=== PATIENT | female | born 1940 | race Caucasian/White ===

== ENCOUNTER → 2018-06-02 14:12 | Outpatient (CLI) | payer MEDICARE, BC, SELFPAY | PROVIDERS: PCP Nurse Practitioner Family; Visit Provider Nurse Practitioner Family | DX: M81.0 Age-related osteoporosis without current pathological fracture (principal); Z78.0 Asymptomatic menopausal state; Z85.3 Personal history of malignant neoplasm of breast; E07.9 Disorder of thyroid, unspecified | CPT/HCPCS: 77080 ==

== ENCOUNTER 2018-10-05 11:45 | Outpatient (RCR) | payer MEDICARE, BC, SELFPAY ==
--- NOTE | 2018-07-08 15:42 | PT.OIE ---
Current Diagnoses Pain in right knee (07/08/18) Pain in left knee (07/08/18) Difficulty in walking, not elsewhere classified (07/08/18) Weakness (07/08/18) Past Medical History (Last Updated 07/08/18 @ 15:42 by Dianelys Walter, PT) Breast cancer (Acute) Hypothyroidism (Acute) Left knee pain (Acute) Osteoarthritis (Acute) Osteopenia (Acute) Right knee pain (Acute) Provider Visit Care Team Role Provider Type DILEEP [place] Attending Provider Non-Staff Primary Care Provider Specialty: Medical Address: [address] [place] [address], [id number] Email: Physical Therapy Initial Evaluation PT-OP-A Visit Information Start: 07/07/18 17:02 Freq: Status: Active Protocol: Document 07/08/18 13:43 [facility] (Rec: 07/08/18 15:37 [facility] [id number]) Out-Patient Physical Therapy Visit Information Visit Information Visit Type Initial Evaluation Visit Start Time 13:50 Visit Stop Time 14:45 Total Visit Minutes 55 Visit Number 1 Number of INSTRUCTION DEAN Visits 0 PT-OP-B Current Condition Start: 07/07/18 17:02 Freq: Status: Active Protocol: Document 07/08/18 13:43 [facility] (Rec: 07/08/18 15:37 [facility] [id number]) Current Condition History of Current Condition Onset Date 09/30/15 Current Complaints B knee pain with R knee buckling d/t sharp pain History of Current Condition Pt started having R knee pain in 09/30/15 with buckling happening about 1-2x/month for the past 2.5 years most months. Pt reports it is a sharp pain causing her LLE to give out. Reports she tried PT 2x with little help. Reports L knee pain started in Nov and she has noticed recently her walking is impaired. Reports she has felt like she is weaker recently & is unable to do as much as she used to. It is the first year I have felt my age. Reports hx of 2 wishlash injuries in 70s nerve pain down RUE that improved with chiro and appy & tonsilectomy. Pt has breast CA that was caught at an early stage and has been cancer free since radiation in 2005. Prior Treatments and Tests 2 bouts of PT with no major change; recent L knee cortizone injection with some help; Xray L: severe OA jake medially; R xray & MRI; Moderate degeneration, mostly medially with bakers cyst & medial meniscus tearing Treatment Goals Patient/Caregiver Goals To know daily exercises to strength knees. PT-OP-C Subjective Start: 07/07/18 17:02 Freq: Status: Active Protocol: Document 07/08/18 13:43 [facility] (Rec: 07/08/18 15:37 [facility] [id number]) Patient Questionnaires Lower Extremity Functional Scale LEFS Score 45 LEFS Impairment 40 to 59% Impaired (Score 32- 47) OP-PT Pain Assessment Location Right Knee Pain Location Details all over & lat for sharp pains Intensity 1 Scale Used Numeric (1 - 10) Description- Other Sharp pains up to 10/10 causing knee to give out occasionally Frequency Intermittent Pain Duration most of the time the shooting pains only last about 30 secs Pain Aggravating Factors Changing Position Walking Stair Climbing Other Pain Aggravating Factors twisting (possibly) Other Pain Alleviating Factors arnica & ibu Left Knee Pain Location Details all over Intensity 3 Scale Used Numeric (1 - 10) Frequency Frequent Pain Aggravating Factors Changing Position Walking Stair Climbing Other Pain Aggravating Factors kneeling Other Pain Alleviating Factors arnica, ibuprofin PT-OP-F Manual Assessment Start: 07/07/18 17:02 Freq: Status: Active Protocol: Document 07/08/18 13:43 [facility] (Rec: 07/08/18 14:59 [facility] [id number]) Manual Assessments Soft Tissue Assessment Soft Tissue Mobility Assessment L:med joint line, tibial tub R: ant tib & inc fascial tension Joint Mobility Assessment Joint Mobility Assessment B ER of tibia & femur PT-OP-G Mobility & Gait Start: 07/07/18 17:02 Freq: Status: Active Protocol: Document 07/08/18 13:43 [facility] (Rec: 07/08/18 14:59 [facility] [id number]) OP Gait Assessment Comments Gait Comments Dec post depression & ant elevation B; L lat lean & dec LLE stance time, PT-OP-J Posture/Palpation/Skin Start: 07/07/18 17:02 Freq: Status: Active Protocol: Document 07/08/18 13:43 [facility] (Rec: 07/08/18 14:59 [facility] [id number]) Posture Evaluation Comments Posture Comments Significant Genu varum: in c wearing of heel on R shoe & forefoot/midfoot L shoe PT-OP-K Range of Motion Start: 07/07/18 17:02 Freq: Status: Active Protocol: Document 07/08/18 13:43 [facility] (Rec: 07/08/18 14:59 [facility] [id number]) Knee Goniometric Range of Motion Knee Measured in Degrees Right Patient Position Supine Flexion Active (degrees) 134 Extension Active (degrees) 8 Left Patient Position Supine Flexion Active (degrees) 112 Extension Active (degrees) 12 PT-OP-L Special Tests Start: 07/07/18 17:02 Freq: Status: Active Protocol: Document 07/08/18 13:43 [facility] (Rec: 07/08/18 14:59 [facility] [id number]) Special Tests Lumbar Spine Special Tests Slump Test Results neg Knee Special Tests Posterior Draw Test Results neg B Varus- 25 Degrees Test Results neg B Valgus- 25 Degrees Test Results neg Thessaly Test 5 Degrees Test Results neg B Norman's Test Results L postive Apley's Compression Test Results neg B Bazan Chondromalacia Test Results neg PT-OP-M Strength Start: 07/07/18 17:02 Freq: Status: Active Protocol: Document 07/08/18 13:43 [facility] (Rec: 07/08/18 14:59 [facility] [id number]) Hip Strength Hip Manual Muscle Testing Right Flexion (L2) 4 Good Extension (S1) 4- Good- Abduction 4 Good External Rotation 4- Good- Internal Rotation 5 Normal Left Flexion (L2) 4 Good Extension (S1) 4- Good- Abduction 4 Good Adduction 4- Good- External Rotation 4- Good- Internal Rotation 3+ Fair+ Comments pain w/rotations Knee Strength Knee Manual Muscle Testing Right Flexion (S2) 4+ Good+ Extension (L3) 4 Good Left Flexion (S2) 4+ Good+ Extension (L3) 4- Good- Ankle/Foot Strength Ankle and Foot Manual Muscle Testing Right Dorsiflexion (L4) 5 Normal Plantarflexion (S1) 5 Normal Left Dorsiflexion (L4) 5 Normal Plantarflexion (S1) 5 Normal Comments seated B PT-OP-Q Treatments Start: 07/07/18 17:02 Freq: Status: Active Protocol: Document 07/08/18 13:43 [facility] (Rec: 07/08/18 14:59 [facility] [id number]) Therapeutic Exercises Supine Exercises 1 Supine Exercise Name bridge with march Side bilateral Reps/Minutes 10 Sidelying Exercises 1 Sidelying Exercise Name abd Side bilateral PT-OP-T Assessment and Plan Start: 07/07/18 17:02 Freq: Status: Active Protocol: Document 07/08/18 13:43 [facility] (Rec: 07/08/18 15:37 [facility] [id number]) Physical Therapy Assessment Rehab Potential Rehabilitation Potential Good Evaluation Complexity Number of Personal Factors/Comorbidities 1-2 Number of Body Systems Impaired 4 or More Clinical Presentation at Evaluation Evolving Impairments Impairments Activity Tolerance Balance Gait Pain Posture ROM Soft Tissue Mobility Strength Goals Three Impairment LEFS Skilled Nursing Goal (LTG) 60/80 to show improvement in functional ability LTG Duration 09/07/18 Two Impairment strength Short Term Goal (STG) Pt will be indep with HEP & gym program. STG Duration 08/07/18 Insole Tape Stitcher Uco Goal (LTG) Pt will have 5/5 LE strength allowing greater ease with daily tasks. LTG Duration 09/07/18 One Impairment pain Skilled Nursing Goal (LTG) Pt will report no giving out of her knee for 6 weeks and report overall no greater than 2/10 pain. LTG Duration 09/07/18 Assessment Summary Assessment Pt presents with B OA, R med meniscus tear per MRI & possible L ACL laxity per examination. Findings are consistent with the medial degneration found in imaging. Physical Therapy Plan Frequency and Duration Frequency of Treatment 2x/Week Duration of Treatment 2 months Plan of Care Start Date 07/08/18 Plan of Care End Date 09/07/18 Therapeutic Interventions Therapeutic Interventions Aquatic Therapy Balance Training Gait Training Home Exercise Program Joint Mobilizations Manual Therapy Neuromuscular Re-education Soft Tissue Mobilization Taping Therapeutic Activities Therapeutic Exercises Modalities Cold Pack/Ice Massage Electric Stimulation Hot Packs Infrared Therapy Iontophoresis Ultrasound Next Visit Focus/Plan Next Note Type Treatment Note Next Visit Plan scissor exercise, Nustep, leg press, hip abd, squats, patellar mobs, taping?
--- NOTE | 2018-07-08 15:42 | PT.OPPOC ---
Current Diagnoses Pain in right knee (07/08/18) Pain in left knee (07/08/18) Difficulty in walking, not elsewhere classified (07/08/18) Weakness (07/08/18) Provider Visit Care Team Role Provider Type DILEEP [place] Attending Provider Non-Staff Primary Care Provider Specialty: Medical Address: [address] [place] [address], [id number] Email: Plan Of Care PT-OP-T Assessment and Plan Start: 07/07/18 17:02 Freq: Status: Active Protocol: Document 07/08/18 13:43 [facility] (Rec: 07/08/18 15:37 [facility] [id number]) Physical Therapy Assessment Rehab Potential Rehabilitation Potential Good Evaluation Complexity Number of Personal Factors/Comorbidities 1-2 Number of Body Systems Impaired 4 or More Clinical Presentation at Evaluation Evolving Impairments Impairments Activity Tolerance Balance Gait Pain Posture ROM Soft Tissue Mobility Strength Goals Three Impairment LEFS Alf Goal (LTG) 60/80 to show improvement in functional ability LTG Duration 09/07/18 Two Impairment strength Short Term Goal (STG) Pt will be indep with HEP & gym program. STG Duration 08/07/18 Alf Goal (LTG) Pt will have 5/5 LE strength allowing greater ease with daily tasks. LTG Duration 09/07/18 One Impairment pain Receivable Manager Goal (LTG) Pt will report no giving out of her knee for 6 weeks and report overall no greater than 2/10 pain. LTG Duration 09/07/18 Assessment Summary Assessment Pt presents with B OA, R med meniscus tear per MRI & possible L ACL laxity per examination. Findings are consistent with the medial degneration found in imaging. Physical Therapy Plan Frequency and Duration Frequency of Treatment 2x/Week Duration of Treatment 2 months Plan of Care Start Date 07/08/18 Plan of Care End Date 09/07/18 Therapeutic Interventions Therapeutic Interventions Aquatic Therapy Balance Training Gait Training Home Exercise Program Joint Mobilizations Manual Therapy Neuromuscular Re-education Soft Tissue Mobilization Taping Therapeutic Activities Therapeutic Exercises Modalities Cold Pack/Ice Massage Electric Stimulation Hot Packs Infrared Therapy Iontophoresis Ultrasound Next Visit Focus/Plan Next Note Type Treatment Note Next Visit Plan scissor exercise, Nustep, leg press, hip abd, squats, patellar mobs, taping? Plan of Care Dates Plan of Care Start Date 07/08/18 Plan of Care End Date 09/07/18 Please Sign and Return: I have reviewed this Plan of Care and certify that the skilled therapy services above are required to meet the patient?s needs. Physician Signature Date Printed Name and Credentials Clinical Instructor Signature Printed Name and Credentials
--- NOTE | 2018-07-11 15:09 | PT.OTN ---
Current Diagnoses Pain in left knee (07/11/18) Physical Therapy Treatment Note PT-OP-A Visit Information Start: 07/07/18 17:02 Freq: Status: Active Protocol: Document 07/11/18 13:46 [facility] (Rec: 07/11/18 15:09 [facility] [id number]) Out-Patient Physical Therapy Visit Information Visit Information Visit Type Treatment Note Visit Note 2 total Visit Start Time 13:45 Visit Stop Time 14:35 Total Visit Minutes 50 Visit Number 2/10 Number of BOARD OF DIRECTORS Visits 0 PT-OP-B Current Condition Start: 07/07/18 17:02 Freq: Status: Active Protocol: Document 07/08/18 13:43 [facility] (Rec: 07/08/18 15:37 [facility] [id number]) Current Condition History of Current Condition Onset Date 09/30/15 Current Complaints B knee pain with R knee buckling d/t sharp pain History of Current Condition Pt started having R knee pain in 09/30/15 with buckling happening about 1-2x/month for the past 2.5 years most months. Pt reports it is a sharp pain causing her LLE to give out. Reports she tried PT 2x with little help. Reports L knee pain started in Nov and she has noticed recently her walking is impaired. Reports she has felt like she is weaker recently & is unable to do as much as she used to. It is the first year I have felt my age. Reports hx of 2 wishlash injuries in 70s nerve pain down RUE that improved with chiro and appy & tonsilectomy. Pt has breast CA that was caught at an early stage and has been cancer free since radiation in 2005. Prior Treatments and Tests 2 bouts of PT with no major change; recent L knee cortizone injection with some help; Xray L: severe OA jake medially; R xray & MRI; Moderate degeneration, mostly medially with bakers cyst & medial meniscus tearing Treatment Goals Patient/Caregiver Goals To know daily exercises to strength knees. PT-OP-C Subjective Start: 07/07/18 17:02 Freq: Status: Active Protocol: Document 07/11/18 13:46 [facility] (Rec: 07/11/18 15:09 [facility] [id number]) OP-PT Subjective Patient Comments Patient Comments Reports she has been very tired for the past couple days . PT-OP-F Manual Assessment Start: 07/07/18 17:02 Freq: Status: Active Protocol: Document 07/08/18 13:43 [facility] (Rec: 07/08/18 14:59 [facility] [id number]) Manual Assessments Soft Tissue Assessment Soft Tissue Mobility Assessment L:med joint line, tibial tub R: ant tib & inc fascial tension Joint Mobility Assessment Joint Mobility Assessment B ER of tibia & femur PT-OP-G Mobility & Gait Start: 07/07/18 17:02 Freq: Status: Active Protocol: Document 07/08/18 13:43 [facility] (Rec: 07/08/18 14:59 [facility] [id number]) OP Gait Assessment Comments Gait Comments Dec post depression & ant elevation B; L lat lean & dec LLE stance time, PT-OP-J Posture/Palpation/Skin Start: 07/07/18 17:02 Freq: Status: Active Protocol: Document 07/08/18 13:43 [facility] (Rec: 07/08/18 14:59 [facility] [id number]) Posture Evaluation Comments Posture Comments Significant Genu varum: in c wearing of heel on R shoe & forefoot/midfoot L shoe PT-OP-K Range of Motion Start: 07/07/18 17:02 Freq: Status: Active Protocol: Document 07/08/18 13:43 [facility] (Rec: 07/08/18 14:59 [facility] [id number]) Knee Goniometric Range of Motion Knee Measured in Degrees Right Patient Position Supine Flexion Active (degrees) 134 Extension Active (degrees) 8 Left Patient Position Supine Flexion Active (degrees) 112 Extension Active (degrees) 12 PT-OP-L Special Tests Start: 07/07/18 17:02 Freq: Status: Active Protocol: Document 07/08/18 13:43 [facility] (Rec: 07/08/18 14:59 [facility] [id number]) Special Tests Lumbar Spine Special Tests Slump Test Results neg Knee Special Tests Posterior Draw Test Results neg B Varus- 25 Degrees Test Results neg B Valgus- 25 Degrees Test Results neg Thessaly Test 5 Degrees Test Results neg B Norman's Test Results L postive Apley's Compression Test Results neg B Bazan Chondromalacia Test Results neg PT-OP-M Strength Start: 07/07/18 17:02 Freq: Status: Active Protocol: Document 07/08/18 13:43 [facility] (Rec: 07/08/18 14:59 [facility] [id number]) Hip Strength Hip Manual Muscle Testing Right Flexion (L2) 4 Good Extension (S1) 4- Good- Abduction 4 Good External Rotation 4- Good- Internal Rotation 5 Normal Left Flexion (L2) 4 Good Extension (S1) 4- Good- Abduction 4 Good Adduction 4- Good- External Rotation 4- Good- Internal Rotation 3+ Fair+ Comments pain w/rotations Knee Strength Knee Manual Muscle Testing Right Flexion (S2) 4+ Good+ Extension (L3) 4 Good Left Flexion (S2) 4+ Good+ Extension (L3) 4- Good- Ankle/Foot Strength Ankle and Foot Manual Muscle Testing Right Dorsiflexion (L4) 5 Normal Plantarflexion (S1) 5 Normal Left Dorsiflexion (L4) 5 Normal Plantarflexion (S1) 5 Normal Comments seated B PT-OP-Q Treatments Start: 07/07/18 17:02 Freq: Status: Active Protocol: Document 07/11/18 13:46 [facility] (Rec: 07/11/18 15:09 [facility] [id number]) Cardio Equipment Recumbent Stepper (Sci-Fit) Duration (Minutes) 6 Resistance 1-3 Seat Position 10 Gym Equipment Cable Column (Body Solid) Hip Adduction Resistance 3 Reps/Time 30 Hip Abduction Resistance 3 Reps/Time 30 Shuttle Recovery Bilateral Squats Resistance 100 Shuttle Recovery Platform Stable Reps/Time 30 Therapeutic Exercises Supine Exercises 1 Supine Exercise Name bridge with march Side bilateral Reps/Minutes 5 Sidelying Exercises 1 Sidelying Exercise Name abd Side bilateral Reps/Minutes 10 Manual Therapy Treatment Soft Tissue Mobilization 1 Body Location HS L Mobilization Type Rolling Intensity/Depth Moderate Joint Mobilizations 1 Joint patellar Direction sup, inf, med Taping 1 Body Location quad Y and Y for med glide Type of Tape KT PT-OP-R Modalities Start: 07/07/18 17:02 Freq: Status: Active Protocol: Document 07/11/18 13:46 [facility] (Rec: 07/11/18 15:09 [facility] [id number]) Hot Pack/Cold Pack Treatment Cold Pack Location B knees Patient Position Hooklying Treatment Duration (minutes) 10 PT-OP-T Assessment and Plan Start: 07/07/18 17:02 Freq: Status: Active Protocol: Document 07/11/18 13:46 [facility] (Rec: 07/11/18 15:09 [facility] [id number]) Physical Therapy Assessment Goals Three Impairment LEFS Senior Care Goal (LTG) 60/80 to show improvement in functional ability LTG Duration 09/07/18 Two Impairment strength Short Term Goal (STG) Pt will be indep with HEP & gym program. STG Duration 08/07/18 Senior Care Goal (LTG) Pt will have 5/5 LE strength allowing greater ease with daily tasks. LTG Duration 09/07/18 One Impairment pain Senior Care Goal (LTG) Pt will report no giving out of her knee for 6 weeks and report overall no greater than 2/10 pain. LTG Duration 09/07/18 Assessment Summary Assessment Pt required cueing for neutral pelvis with exercises. Able to tolerate icing today. Pt able to do all machines without knee pain and given exercise log for gym. Physical Therapy Plan Frequency and Duration Frequency of Treatment 2x/Week Duration of Treatment 2 months Plan of Care Start Date 07/08/18 Plan of Care End Date 09/07/18 Next Visit Focus/Plan Next Note Type Treatment Note Next Visit Plan cont to progress LE & core ( squats, scissors, cont to work on joint mobs).
--- NOTE | 2018-07-14 15:19 | PT.OTN ---
Current Diagnoses Pain in left knee (07/14/18) Physical Therapy Treatment Note PT-OP-A Visit Information Start: 07/07/18 17:02 Freq: Status: Active Protocol: Document 07/14/18 13:49 [facility] (Rec: 07/14/18 15:19 [facility] [id number]) Out-Patient Physical Therapy Visit Information Visit Information Visit Type Treatment Note Visit Note 3 total Visit Start Time 13:45 Visit Stop Time 14:35 Total Visit Minutes 50 Visit Number 3/10 Number of FINANCIAL COUNSELOR Visits 0 PT-OP-B Current Condition Start: 07/07/18 17:02 Freq: Status: Active Protocol: Document 07/08/18 13:43 [facility] (Rec: 07/08/18 15:37 [facility] [id number]) Current Condition History of Current Condition Onset Date 09/30/15 Current Complaints B knee pain with R knee buckling d/t sharp pain History of Current Condition Pt started having R knee pain in 09/30/15 with buckling happening about 1-2x/month for the past 2.5 years most months. Pt reports it is a sharp pain causing her LLE to give out. Reports she tried PT 2x with little help. Reports L knee pain started in Nov and she has noticed recently her walking is impaired. Reports she has felt like she is weaker recently & is unable to do as much as she used to. It is the first year I have felt my age. Reports hx of 2 wishlash injuries in 70s nerve pain down RUE that improved with chiro and appy & tonsilectomy. Pt has breast CA that was caught at an early stage and has been cancer free since radiation in 2005. Prior Treatments and Tests 2 bouts of PT with no major change; recent L knee cortizone injection with some help; Xray L: severe OA jake medially; R xray & MRI; Moderate degeneration, mostly medially with bakers cyst & medial meniscus tearing Treatment Goals Patient/Caregiver Goals To know daily exercises to strength knees. PT-OP-C Subjective Start: 07/07/18 17:02 Freq: Status: Active Protocol: Document 07/14/18 13:49 [facility] (Rec: 07/14/18 15:19 [facility] [id number]) OP-PT Subjective Patient Comments Patient Comments Reports she hiked [place] and has been wiped out since. Reports tape helped a lot. PT-OP-F Manual Assessment Start: 07/07/18 17:02 Freq: Status: Active Protocol: Document 07/08/18 13:43 [facility] (Rec: 07/08/18 14:59 [facility] [id number]) Manual Assessments Soft Tissue Assessment Soft Tissue Mobility Assessment L:med joint line, tibial tub R: ant tib & inc fascial tension Joint Mobility Assessment Joint Mobility Assessment B ER of tibia & femur PT-OP-G Mobility & Gait Start: 07/07/18 17:02 Freq: Status: Active Protocol: Document 07/08/18 13:43 [facility] (Rec: 07/08/18 14:59 [facility] [id number]) OP Gait Assessment Comments Gait Comments Dec post depression & ant elevation B; L lat lean & dec LLE stance time, PT-OP-J Posture/Palpation/Skin Start: 07/07/18 17:02 Freq: Status: Active Protocol: Document 07/08/18 13:43 [facility] (Rec: 07/08/18 14:59 [facility] [id number]) Posture Evaluation Comments Posture Comments Significant Genu varum: in c wearing of heel on R shoe & forefoot/midfoot L shoe PT-OP-K Range of Motion Start: 07/07/18 17:02 Freq: Status: Active Protocol: Document 07/08/18 13:43 [facility] (Rec: 07/08/18 14:59 [facility] [id number]) Knee Goniometric Range of Motion Knee Measured in Degrees Right Patient Position Supine Flexion Active (degrees) 134 Extension Active (degrees) 8 Left Patient Position Supine Flexion Active (degrees) 112 Extension Active (degrees) 12 PT-OP-L Special Tests Start: 07/07/18 17:02 Freq: Status: Active Protocol: Document 07/08/18 13:43 [facility] (Rec: 07/08/18 14:59 [facility] [id number]) Special Tests Lumbar Spine Special Tests Slump Test Results neg Knee Special Tests Posterior Draw Test Results neg B Varus- 25 Degrees Test Results neg B Valgus- 25 Degrees Test Results neg Thessaly Test 5 Degrees Test Results neg B Norman's Test Results L postive Apley's Compression Test Results neg B Bazan Chondromalacia Test Results neg PT-OP-M Strength Start: 07/07/18 17:02 Freq: Status: Active Protocol: Document 07/08/18 13:43 [facility] (Rec: 07/08/18 14:59 [facility] [id number]) Hip Strength Hip Manual Muscle Testing Right Flexion (L2) 4 Good Extension (S1) 4- Good- Abduction 4 Good External Rotation 4- Good- Internal Rotation 5 Normal Left Flexion (L2) 4 Good Extension (S1) 4- Good- Abduction 4 Good Adduction 4- Good- External Rotation 4- Good- Internal Rotation 3+ Fair+ Comments pain w/rotations Knee Strength Knee Manual Muscle Testing Right Flexion (S2) 4+ Good+ Extension (L3) 4 Good Left Flexion (S2) 4+ Good+ Extension (L3) 4- Good- Ankle/Foot Strength Ankle and Foot Manual Muscle Testing Right Dorsiflexion (L4) 5 Normal Plantarflexion (S1) 5 Normal Left Dorsiflexion (L4) 5 Normal Plantarflexion (S1) 5 Normal Comments seated B PT-OP-Q Treatments Start: 07/07/18 17:02 Freq: Status: Active Protocol: Document 07/14/18 13:49 [facility] (Rec: 07/14/18 15:19 [facility] [id number]) Cardio Equipment Bicycle (Upright) Duration (Minutes) 6 Resistance 6 Seat Position 5 Gym Equipment Cable Column (Body Solid) Hip Adduction Resistance 3 Reps/Time 30 Hip Abduction Resistance 3 Reps/Time 30 Shuttle Recovery Bilateral Squats Resistance 100 Shuttle Recovery Platform Stable Reps/Time 30 Therapeutic Exercises Supine Exercises 2 Supine Exercise Name scissors Comments focus on neutral core Manual Therapy Treatment Soft Tissue Mobilization 1 Body Location HS L Mobilization Type Rolling Intensity/Depth Moderate Joint Mobilizations 2 Joint tibfib Direction ap fm 1 Joint patellar Direction sup, inf, med Taping 1 Body Location quad Y and Y for med glide Type of Tape KT PT-OP-R Modalities Start: 07/07/18 17:02 Freq: Status: Active Protocol: Document 07/14/18 13:49 [facility] (Rec: 07/14/18 15:19 [facility] [id number]) Hot Pack/Cold Pack Treatment Cold Pack Location B knees Patient Position Hooklying Treatment Duration (minutes) 10 PT-OP-T Assessment and Plan Start: 07/07/18 17:02 Freq: Status: Active Protocol: Document 07/14/18 13:49 [facility] (Rec: 07/14/18 15:19 [facility] [id number]) Physical Therapy Assessment Goals Three Impairment LEFS [employer] Goal (LTG) 60/80 to show improvement in functional ability LTG Duration 09/07/18 Two Impairment strength Short Term Goal (STG) Pt will be indep with HEP & gym program. STG Duration 08/07/18 [employer] Goal (LTG) Pt will have 5/5 LE strength allowing greater ease with daily tasks. LTG Duration 09/07/18 One Impairment pain [employer] Goal (LTG) Pt will report no giving out of her knee for 6 weeks and report overall no greater than 2/10 pain. LTG Duration 09/07/18 Assessment Summary Assessment Pt required cueing for set up with weight exercises. Able to do bike without pain. Physical Therapy Plan Frequency and Duration Frequency of Treatment 2x/Week Duration of Treatment 2 months Plan of Care Start Date 07/08/18 Plan of Care End Date 09/07/18 Next Visit Focus/Plan Next Note Type Treatment Note Next Visit Plan cont to progress LE & core ( squats, cont to work on joint mobs).
--- NOTE | 2018-07-18 14:35 | PT.OTN ---
Current Diagnoses Pain in left knee (07/18/18) Physical Therapy Treatment Note PT-OP-A Visit Information Start: 07/07/18 17:02 Freq: Status: Active Protocol: Document 07/18/18 13:51 [facility] (Rec: 07/18/18 14:35 [facility] [id number]) Out-Patient Physical Therapy Visit Information Visit Information Visit Type Treatment Note Visit Note 4 total Visit Start Time 13:45 Visit Stop Time 14:35 Total Visit Minutes 50 Visit Number 4/10 Number of SMOCKER Visits 0 PT-OP-B Current Condition Start: 07/07/18 17:02 Freq: Status: Active Protocol: Document 07/08/18 13:43 [facility] (Rec: 07/08/18 15:37 [facility] [id number]) Current Condition History of Current Condition Onset Date 09/30/15 Current Complaints B knee pain with R knee buckling d/t sharp pain History of Current Condition Pt started having R knee pain in 09/30/15 with buckling happening about 1-2x/month for the past 2.5 years most months. Pt reports it is a sharp pain causing her LLE to give out. Reports she tried PT 2x with little help. Reports L knee pain started in Nov and she has noticed recently her walking is impaired. Reports she has felt like she is weaker recently & is unable to do as much as she used to. It is the first year I have felt my age. Reports hx of 2 wishlash injuries in 70s nerve pain down RUE that improved with chiro and appy & tonsilectomy. Pt has breast CA that was caught at an early stage and has been cancer free since radiation in 2005. Prior Treatments and Tests 2 bouts of PT with no major change; recent L knee cortizone injection with some help; Xray L: severe OA jake medially; R xray & MRI; Moderate degeneration, mostly medially with bakers cyst & medial meniscus tearing Treatment Goals Patient/Caregiver Goals To know daily exercises to strength knees. PT-OP-C Subjective Start: 07/07/18 17:02 Freq: Status: Active Protocol: Document 07/18/18 13:51 [facility] (Rec: 07/18/18 14:35 [facility] [id number]) OP-PT Subjective Patient Comments Patient Comments Reports she has recovered from her hike. She has not done exercises. PT-OP-F Manual Assessment Start: 07/07/18 17:02 Freq: Status: Active Protocol: Document 07/08/18 13:43 [facility] (Rec: 07/08/18 14:59 [facility] [id number]) Manual Assessments Soft Tissue Assessment Soft Tissue Mobility Assessment L:med joint line, tibial tub R: ant tib & inc fascial tension Joint Mobility Assessment Joint Mobility Assessment B ER of tibia & femur PT-OP-G Mobility & Gait Start: 07/07/18 17:02 Freq: Status: Active Protocol: Document 07/08/18 13:43 [facility] (Rec: 07/08/18 14:59 [facility] [id number]) OP Gait Assessment Comments Gait Comments Dec post depression & ant elevation B; L lat lean & dec LLE stance time, PT-OP-J Posture/Palpation/Skin Start: 07/07/18 17:02 Freq: Status: Active Protocol: Document 07/08/18 13:43 [facility] (Rec: 07/08/18 14:59 [facility] [id number]) Posture Evaluation Comments Posture Comments Significant Genu varum: in c wearing of heel on R shoe & forefoot/midfoot L shoe PT-OP-K Range of Motion Start: 07/07/18 17:02 Freq: Status: Active Protocol: Document 07/08/18 13:43 [facility] (Rec: 07/08/18 14:59 [facility] [id number]) Knee Goniometric Range of Motion Knee Measured in Degrees Right Patient Position Supine Flexion Active (degrees) 134 Extension Active (degrees) 8 Left Patient Position Supine Flexion Active (degrees) 112 Extension Active (degrees) 12 PT-OP-L Special Tests Start: 07/07/18 17:02 Freq: Status: Active Protocol: Document 07/08/18 13:43 [facility] (Rec: 07/08/18 14:59 [facility] [id number]) Special Tests Lumbar Spine Special Tests Slump Test Results neg Knee Special Tests Posterior Draw Test Results neg B Varus- 25 Degrees Test Results neg B Valgus- 25 Degrees Test Results neg Thessaly Test 5 Degrees Test Results neg B Norman's Test Results L postive Apley's Compression Test Results neg B Bazan Chondromalacia Test Results neg PT-OP-M Strength Start: 09/13/18 17:02 Freq: Status: Active Protocol: Document 07/08/18 13:43 [facility] (Rec: 07/08/18 14:59 [facility] [id number]) Hip Strength Hip Manual Muscle Testing Right Flexion (L2) 4 Good Extension (S1) 4- Good- Abduction 4 Good External Rotation 4- Good- Internal Rotation 5 Normal Left Flexion (L2) 4 Good Extension (S1) 4- Good- Abduction 4 Good Adduction 4- Good- External Rotation 4- Good- Internal Rotation 3+ Fair+ Comments pain w/rotations Knee Strength Knee Manual Muscle Testing Right Flexion (S2) 4+ Good+ Extension (L3) 4 Good Left Flexion (S2) 4+ Good+ Extension (L3) 4- Good- Ankle/Foot Strength Ankle and Foot Manual Muscle Testing Right Dorsiflexion (L4) 5 Normal Plantarflexion (S1) 5 Normal Left Dorsiflexion (L4) 5 Normal Plantarflexion (S1) 5 Normal Comments seated B PT-OP-Q Treatments Start: 07/07/18 17:02 Freq: Status: Active Protocol: Document 07/18/18 13:51 [facility] (Rec: 07/18/18 14:35 [facility] [id number]) Cardio Equipment Recumbent Stepper (Sci-Fit) Duration (Minutes) 6 Resistance 3 Seat Position 10 Gym Equipment Cable Column (Body Solid) Hip Adduction Resistance 3 Reps/Time 30 Hip Abduction Resistance 3 Reps/Time 30 Shuttle Recovery Bilateral Squats Resistance 100 Shuttle Recovery Platform Stable Reps/Time 30 Manual Therapy Treatment Soft Tissue Mobilization 2 Body Location L VMO FM 1 Body Location HS L Mobilization Type Rolling Intensity/Depth Moderate Joint Mobilizations 1 Joint patellar B Direction sup, inf, med Taping 1 Body Location quad Y and Y for med glide Type of Tape KT PT-OP-R Modalities Start: 07/07/18 17:02 Freq: Status: Active Protocol: Document 07/14/18 13:49 [facility] (Rec: 07/14/18 15:19 [facility] [id number]) Hot Pack/Cold Pack Treatment Cold Pack Location B knees Patient Position Hooklying Treatment Duration (minutes) 10 PT-OP-T Assessment and Plan Start: 07/07/18 17:02 Freq: Status: Active Protocol: Document 07/18/18 13:51 [facility] (Rec: 07/18/18 14:35 [facility] [id number]) Physical Therapy Assessment Goals Three Impairment LEFS Long-Term Goal (LTG) 60/80 to show improvement in functional ability LTG Duration 09/07/18 Two Impairment strength Short Term Goal (STG) Pt will be indep with HEP & gym program. STG Duration 08/07/18 Long-Term Goal (LTG) Pt will have 5/5 LE strength allowing greater ease with daily tasks. LTG Duration 09/07/18 One Impairment pain Clinic Physician Goal (LTG) Pt will report no giving out of her knee for 6 weeks and report overall no greater than 2/10 pain. LTG Duration 09/07/18 Assessment Summary Assessment Pt able to do wall squats without inc pain. Pt is gradually progressing to further independence with weight machines. Physical Therapy Plan Frequency and Duration Frequency of Treatment 2x/Week Duration of Treatment 2 months Plan of Care Start Date 07/08/18 Plan of Care End Date 09/07/18 Next Visit Focus/Plan Next Note Type Treatment Note Next Visit Plan Cont to work work on quad and glute strength
--- NOTE | 2018-07-29 15:12 | PT.OTN ---
Current Diagnoses Pain in left knee (07/29/18) Physical Therapy Treatment Note PT-OP-A Visit Information Start: 07/07/18 17:02 Freq: Status: Active Protocol: Document 07/29/18 13:42 [facility] (Rec: 07/29/18 15:12 [facility] [id number]) Out-Patient Physical Therapy Visit Information Visit Information Visit Type Treatment Note Visit Note 5 total Visit Start Time 13:45 Visit Stop Time 14:35 Total Visit Minutes 50 Visit Number 5/10 Number of CRITICAL CARE NURSE SPECIALIST Visits 0 PT-OP-B Current Condition Start: 07/07/18 17:02 Freq: Status: Active Protocol: Document 07/08/18 13:43 [facility] (Rec: 07/08/18 15:37 [facility] [id number]) Current Condition History of Current Condition Onset Date 09/30/15 Current Complaints B knee pain with R knee buckling d/t sharp pain History of Current Condition Pt started having R knee pain in 09/30/15 with buckling happening about 1-2x/month for the past 2.5 years most months. Pt reports it is a sharp pain causing her LLE to give out. Reports she tried PT 2x with little help. Reports L knee pain started in Nov and she has noticed recently her walking is impaired. Reports she has felt like she is weaker recently & is unable to do as much as she used to. It is the first year I have felt my age. Reports hx of 2 wishlash injuries in 70s nerve pain down RUE that improved with chiro and appy & tonsilectomy. Pt has breast CA that was caught at an early stage and has been cancer free since radiation in 2005. Prior Treatments and Tests 2 bouts of PT with no major change; recent L knee cortizone injection with some help; Xray L: severe OA jake medially; R xray & MRI; Moderate degeneration, mostly medially with bakers cyst & medial meniscus tearing Treatment Goals Patient/Caregiver Goals To know daily exercises to strength knees. PT-OP-C Subjective Start: 07/07/18 17:02 Freq: Status: Active Protocol: Document 07/29/18 13:42 [facility] (Rec: 07/29/18 15:12 [facility] [id number]) OP-PT Subjective Patient Comments Patient Comments Pt reports she signed up at the gym and went yesterday. She did the Nustep, leg press, hip abd & hip add. PT-OP-F Manual Assessment Start: 07/07/18 17:02 Freq: Status: Active Protocol: Document 07/08/18 13:43 [facility] (Rec: 07/08/18 14:59 [facility] [id number]) Manual Assessments Soft Tissue Assessment Soft Tissue Mobility Assessment L:med joint line, tibial tub R: ant tib & inc fascial tension Joint Mobility Assessment Joint Mobility Assessment B ER of tibia & femur PT-OP-G Mobility & Gait Start: 07/07/18 17:02 Freq: Status: Active Protocol: Document 07/08/18 13:43 [facility] (Rec: 07/08/18 14:59 [facility] [id number]) OP Gait Assessment Comments Gait Comments Dec post depression & ant elevation B; L lat lean & dec LLE stance time, PT-OP-J Posture/Palpation/Skin Start: 07/07/18 17:02 Freq: Status: Active Protocol: Document 07/08/18 13:43 [facility] (Rec: 07/08/18 14:59 [facility] [id number]) Posture Evaluation Comments Posture Comments Significant Genu varum: in c wearing of heel on R shoe & forefoot/midfoot L shoe PT-OP-K Range of Motion Start: 07/07/18 17:02 Freq: Status: Active Protocol: Document 07/08/18 13:43 [facility] (Rec: 07/08/18 14:59 [facility] [id number]) Knee Goniometric Range of Motion Knee Measured in Degrees Right Patient Position Supine Flexion Active (degrees) 134 Extension Active (degrees) 8 Left Patient Position Supine Flexion Active (degrees) 112 Extension Active (degrees) 12 PT-OP-L Special Tests Start: 07/07/18 17:02 Freq: Status: Active Protocol: Document 07/08/18 13:43 [facility] (Rec: 07/08/18 14:59 [facility] [id number]) Special Tests Lumbar Spine Special Tests Slump Test Results neg Knee Special Tests Posterior Draw Test Results neg B Varus- 25 Degrees Test Results neg B Valgus- 25 Degrees Test Results neg Thessaly Test 5 Degrees Test Results neg B Norman's Test Results L postive Apley's Compression Test Results neg B Bazan Chondromalacia Test Results neg PT-OP-M Strength Start: 07/07/18 17:02 Freq: Status: Active Protocol: Document 07/08/18 13:43 [facility] (Rec: 07/08/18 14:59 [facility] [id number]) Hip Strength Hip Manual Muscle Testing Right Flexion (L2) 4 Good Extension (S1) 4- Good- Abduction 4 Good External Rotation 4- Good- Internal Rotation 5 Normal Left Flexion (L2) 4 Good Extension (S1) 4- Good- Abduction 4 Good Adduction 4- Good- External Rotation 4- Good- Internal Rotation 3+ Fair+ Comments pain w/rotations Knee Strength Knee Manual Muscle Testing Right Flexion (S2) 4+ Good+ Extension (L3) 4 Good Left Flexion (S2) 4+ Good+ Extension (L3) 4- Good- Ankle/Foot Strength Ankle and Foot Manual Muscle Testing Right Dorsiflexion (L4) 5 Normal Plantarflexion (S1) 5 Normal Left Dorsiflexion (L4) 5 Normal Plantarflexion (S1) 5 Normal Comments seated B PT-OP-Q Treatments Start: 07/07/18 17:02 Freq: Status: Active Protocol: Document 07/29/18 13:42 [facility] (Rec: 07/29/18 15:12 [facility] [id number]) Cardio Equipment Recumbent Stepper (Sci-Fit) Duration (Minutes) 6 Resistance 5 Seat Position 10 Therapeutic Exercises Supine Exercises 2 Supine Exercise Name scissors Comments focus on neutral core 1 Supine Exercise Name bridge with march Side bilateral Reps/Minutes 8 Sidelying Exercises 1 Sidelying Exercise Name abd Side bilateral Reps/Minutes 6 Standing Exercises 2 Standing Exercise Name hip ext Resistance L1 Reps/Minutes 15 B 1 Standing Exercise Name sidestep Equipment Used L1 Reps/Minutes 20ft B Manual Therapy Treatment Soft Tissue Mobilization 2 Body Location L VMO FM 1 Body Location HS R Mobilization Type Rolling Intensity/Depth Moderate PT-OP-R Modalities Start: 07/07/18 17:02 Freq: Status: Active Protocol: Document 07/29/18 13:42 [facility] (Rec: 07/29/18 15:12 [facility] [id number]) Hot Pack/Cold Pack Treatment Cold Pack Location B knees Patient Position Hooklying Treatment Duration (minutes) 10 PT-OP-T Assessment and Plan Start: 07/07/18 17:02 Freq: Status: Active Protocol: Document 07/29/18 13:42 [facility] (Rec: 07/29/18 15:12 [facility] [id number]) Physical Therapy Assessment Goals Three Impairment LEFS Nursing Home Goal (LTG) 60/80 to show improvement in functional ability LTG Duration 09/07/18 Two Impairment strength Short Term Goal (STG) Pt will be indep with HEP & gym program. STG Duration 08/07/18 Nursing Home Goal (LTG) Pt will have 5/5 LE strength allowing greater ease with daily tasks. LTG Duration 09/07/18 One Impairment pain Nursing Home Goal (LTG) Pt will report no giving out of her knee for 6 weeks and report overall no greater than 2/10 pain. LTG Duration 09/07/18 Assessment Summary Assessment Pt reports pain after exercises so plan is to hold exercsies to add to HEP until next session. Pt had significant tightness along med knee of LLE that improved slowly with manual. Physical Therapy Plan Frequency and Duration Frequency of Treatment 2x/Week Duration of Treatment 2 months Plan of Care Start Date 07/08/18 Plan of Care End Date 09/07/18 Next Visit Focus/Plan Next Note Type Treatment Note Next Visit Plan Cont to work work on quad and glute strength
--- NOTE | 2018-08-02 15:03 | PT.OTN ---
Current Diagnoses Pain in left knee (08/02/18) Physical Therapy Treatment Note PT-OP-A Visit Information Start: 07/07/18 17:02 Freq: Status: Active Protocol: Document 08/02/18 13:24 [facility] (Rec: 08/02/18 15:03 [facility] [id number]) Out-Patient Physical Therapy Visit Information Visit Information Visit Type Treatment Note Visit Note 6 total Visit Start Time 13:45 Visit Stop Time 14:40 Total Visit Minutes 55 Visit Number 6/10 Number of FABRIC AND ACCESSORIES ESTIMATOR Visits 0 PT-OP-B Current Condition Start: 07/07/18 17:02 Freq: Status: Active Protocol: Document 07/08/18 13:43 [facility] (Rec: 07/08/18 15:37 [facility] [id number]) Current Condition History of Current Condition Onset Date 09/30/15 Current Complaints B knee pain with R knee buckling d/t sharp pain History of Current Condition Pt started having R knee pain in 09/30/15 with buckling happening about 1-2x/month for the past 2.5 years most months. Pt reports it is a sharp pain causing her LLE to give out. Reports she tried PT 2x with little help. Reports L knee pain started in Nov and she has noticed recently her walking is impaired. Reports she has felt like she is weaker recently & is unable to do as much as she used to. It is the first year I have felt my age. Reports hx of 2 wishlash injuries in 70s nerve pain down RUE that improved with chiro and appy & tonsilectomy. Pt has breast CA that was caught at an early stage and has been cancer free since radiation in 2005. Prior Treatments and Tests 2 bouts of PT with no major change; recent L knee cortizone injection with some help; Xray L: severe OA jake medially; R xray & MRI; Moderate degeneration, mostly medially with bakers cyst & medial meniscus tearing Treatment Goals Patient/Caregiver Goals To know daily exercises to strength knees. PT-OP-C Subjective Start: 07/07/18 17:02 Freq: Status: Active Protocol: Document 08/02/18 13:24 [facility] (Rec: 08/02/18 15:03 [facility] [id number]) OP-PT Subjective Patient Comments Patient Comments Reports soreness where manual therapy was done the next day but felt good the day after. She walked here today so is sore there again today. Only L knee was sore. Next 2 days after last session was better than had been in a while. PT-OP-F Manual Assessment Start: 07/07/18 17:02 Freq: Status: Active Protocol: Document 07/08/18 13:43 [facility] (Rec: 07/08/18 14:59 [facility] [id number]) Manual Assessments Soft Tissue Assessment Soft Tissue Mobility Assessment L:med joint line, tibial tub R: ant tib & inc fascial tension Joint Mobility Assessment Joint Mobility Assessment B ER of tibia & femur PT-OP-G Mobility & Gait Start: 07/07/18 17:02 Freq: Status: Active Protocol: Document 07/08/18 13:43 [facility] (Rec: 07/08/18 14:59 [facility] [id number]) OP Gait Assessment Comments Gait Comments Dec post depression & ant elevation B; L lat lean & dec LLE stance time, PT-OP-J Posture/Palpation/Skin Start: 07/07/18 17:02 Freq: Status: Active Protocol: Document 07/08/18 13:43 [facility] (Rec: 07/08/18 14:59 [facility] [id number]) Posture Evaluation Comments Posture Comments Significant Genu varum: in c wearing of heel on R shoe & forefoot/midfoot L shoe PT-OP-K Range of Motion Start: 07/07/18 17:02 Freq: Status: Active Protocol: Document 07/08/18 13:43 [facility] (Rec: 07/08/18 14:59 [facility] [id number]) Knee Goniometric Range of Motion Knee Measured in Degrees Right Patient Position Supine Flexion Active (degrees) 134 Extension Active (degrees) 8 Left Patient Position Supine Flexion Active (degrees) 112 Extension Active (degrees) 12 PT-OP-L Special Tests Start: 07/07/18 17:02 Freq: Status: Active Protocol: Document 07/08/18 13:43 [facility] (Rec: 07/08/18 14:59 [facility] [id number]) Special Tests Lumbar Spine Special Tests Slump Test Results neg Knee Special Tests Posterior Draw Test Results neg B Varus- 25 Degrees Test Results neg B Valgus- 25 Degrees Test Results neg Thessaly Test 5 Degrees Test Results neg B Norman's Test Results L postive Apley's Compression Test Results neg B Bazan Chondromalacia Test Results neg PT-OP-M Strength Start: 07/07/18 17:02 Freq: Status: Active Protocol: Document 07/08/18 13:43 [facility] (Rec: 07/08/18 14:59 [facility] [id number]) Hip Strength Hip Manual Muscle Testing Right Flexion (L2) 4 Good Extension (S1) 4- Good- Abduction 4 Good External Rotation 4- Good- Internal Rotation 5 Normal Left Flexion (L2) 4 Good Extension (S1) 4- Good- Abduction 4 Good Adduction 4- Good- External Rotation 4- Good- Internal Rotation 3+ Fair+ Comments pain w/rotations Knee Strength Knee Manual Muscle Testing Right Flexion (S2) 4+ Good+ Extension (L3) 4 Good Left Flexion (S2) 4+ Good+ Extension (L3) 4- Good- Ankle/Foot Strength Ankle and Foot Manual Muscle Testing Right Dorsiflexion (L4) 5 Normal Plantarflexion (S1) 5 Normal Left Dorsiflexion (L4) 5 Normal Plantarflexion (S1) 5 Normal Comments seated B PT-OP-Q Treatments Start: 07/07/18 17:02 Freq: Status: Active Protocol: Document 08/02/18 13:24 [facility] (Rec: 08/02/18 15:03 [facility] [id number]) Therapeutic Exercises Supine Exercises 3 Supine Exercise Name quad set Reps/Minutes 5 sec hold Standing Exercises 3 Standing Exercise Name wall squat Equipment Used tball Reps/Minutes 20 2 Standing Exercise Name hip ext Resistance L1 Reps/Minutes 30 B 1 Standing Exercise Name sidestep Equipment Used L1 Reps/Minutes 20ft B x2 Manual Therapy Treatment Soft Tissue Mobilization 3 Body Location ITB R Mobilization Type Rolling 2 Body Location L VMO FM 1 Body Location HS B Mobilization Type Rolling Intensity/Depth Moderate Joint Mobilizations 1 Joint patellar B Direction sup, inf, med PT-OP-R Modalities Start: 07/07/18 17:02 Freq: Status: Active Protocol: Document 08/02/18 13:24 [facility] (Rec: 08/02/18 15:03 [facility] [id number]) Hot Pack/Cold Pack Treatment Cold Pack Location B knees Patient Position Hooklying Treatment Duration (minutes) 10 PT-OP-T Assessment and Plan Start: 07/07/18 17:02 Freq: Status: Active Protocol: Document 08/02/18 13:24 [facility] (Rec: 08/02/18 15:03 [facility] [id number]) Physical Therapy Assessment Goals Three Impairment LEFS Customer Service Supervisor Goal (LTG) 60/80 to show improvement in functional ability LTG Duration 09/07/18 Two Impairment strength Short Term Goal (STG) Pt will be indep with HEP & gym program. STG Duration 08/07/18 Customer Service Supervisor Goal (LTG) Pt will have 5/5 LE strength allowing greater ease with daily tasks. LTG Duration 09/07/18 One Impairment pain Customer Service Supervisor Goal (LTG) Pt will report no giving out of her knee for 6 weeks and report overall no greater than 2/10 pain. LTG Duration 09/07/18 Assessment Summary Assessment Pt was able to do exercises today without pain and was able to progress to addition of WB exercises to HEP. Cont to be tight in B HS and may require stretching Physical Therapy Plan Next Visit Focus/Plan Next Note Type Treatment Note Next Visit Plan Cont to work work on quad and glute strength;
--- NOTE | 2018-08-05 17:08 | PT.OTN ---
Current Diagnoses Pain in left knee (08/02/18) Physical Therapy Treatment Note PT-OP-A Visit Information Start: 07/07/18 17:02 Freq: Status: Active Protocol: Document 08/05/18 11:45 [facility] (Rec: 08/05/18 17:08 [facility] [id number]) Out-Patient Physical Therapy Visit Information Visit Information Visit Type Treatment Note Visit Note 7 total Visit Start Time 11:45 Visit Stop Time 12:15 Total Visit Minutes 45 Visit Number 7/10 Number of CLINICAL IMPLEMENTATION SPECIALIST Visits 0 PT-OP-B Current Condition Start: 07/07/18 17:02 Freq: Status: Active Protocol: Document 07/08/18 13:43 [facility] (Rec: 07/08/18 15:37 [facility] [id number]) Current Condition History of Current Condition Onset Date 09/30/15 Current Complaints B knee pain with R knee buckling d/t sharp pain History of Current Condition Pt started having R knee pain in 09/30/15 with buckling happening about 1-2x/month for the past 2.5 years most months. Pt reports it is a sharp pain causing her LLE to give out. Reports she tried PT 2x with little help. Reports L knee pain started in Nov and she has noticed recently her walking is impaired. Reports she has felt like she is weaker recently & is unable to do as much as she used to. It is the first year I have felt my age. Reports hx of 2 wishlash injuries in 70s nerve pain down RUE that improved with chiro and appy & tonsilectomy. Pt has breast CA that was caught at an early stage and has been cancer free since radiation in 2005. Prior Treatments and Tests 2 bouts of PT with no major change; recent L knee cortizone injection with some help; Xray L: severe OA jake medially; R xray & MRI; Moderate degeneration, mostly medially with bakers cyst & medial meniscus tearing Treatment Goals Patient/Caregiver Goals To know daily exercises to strength knees. PT-OP-C Subjective Start: 07/07/18 17:02 Freq: Status: Active Protocol: Document 08/05/18 11:45 [facility] (Rec: 08/05/18 17:08 [facility] [id number]) OP-PT Subjective Patient Comments Patient Comments Sore today, reports she has been sitting at her computer for quite awhile this am, feels stiff. Went to gym yesterday. PT-OP-F Manual Assessment Start: 07/07/18 17:02 Freq: Status: Active Protocol: Document 07/08/18 13:43 [facility] (Rec: 07/08/18 14:59 [facility] [id number]) Manual Assessments Soft Tissue Assessment Soft Tissue Mobility Assessment L:med joint line, tibial tub R: ant tib & inc fascial tension Joint Mobility Assessment Joint Mobility Assessment B ER of tibia & femur PT-OP-G Mobility & Gait Start: 07/07/18 17:02 Freq: Status: Active Protocol: Document 07/08/18 13:43 [facility] (Rec: 07/08/18 14:59 [facility] [id number]) OP Gait Assessment Comments Gait Comments Dec post depression & ant elevation B; L lat lean & dec LLE stance time, PT-OP-J Posture/Palpation/Skin Start: 07/07/18 17:02 Freq: Status: Active Protocol: Document 07/08/18 13:43 [facility] (Rec: 07/08/18 14:59 [facility] [id number]) Posture Evaluation Comments Posture Comments Significant Genu varum: in c wearing of heel on R shoe & forefoot/midfoot L shoe PT-OP-K Range of Motion Start: 07/07/18 17:02 Freq: Status: Active Protocol: Document 07/08/18 13:43 [facility] (Rec: 07/08/18 14:59 [facility] [id number]) Knee Goniometric Range of Motion Knee Measured in Degrees Right Patient Position Supine Flexion Active (degrees) 134 Extension Active (degrees) 8 Left Patient Position Supine Flexion Active (degrees) 112 Extension Active (degrees) 12 PT-OP-L Special Tests Start: 07/07/18 17:02 Freq: Status: Active Protocol: Document 07/08/18 13:43 [facility] (Rec: 07/08/18 14:59 [facility] [id number]) Special Tests Lumbar Spine Special Tests Slump Test Results neg Knee Special Tests Posterior Draw Test Results neg B Varus- 25 Degrees Test Results neg B Valgus- 25 Degrees Test Results neg Thessaly Test 5 Degrees Test Results neg B Norman's Test Results L postive Apley's Compression Test Results neg B Bazan Chondromalacia Test Results neg PT-OP-M Strength Start: 07/07/18 17:02 Freq: Status: Active Protocol: Document 07/08/18 13:43 [facility] (Rec: 07/08/18 14:59 [facility] [id number]) Hip Strength Hip Manual Muscle Testing Right Flexion (L2) 4 Good Extension (S1) 4- Good- Abduction 4 Good External Rotation 4- Good- Internal Rotation 5 Normal Left Flexion (L2) 4 Good Extension (S1) 4- Good- Abduction 4 Good Adduction 4- Good- External Rotation 4- Good- Internal Rotation 3+ Fair+ Comments pain w/rotations Knee Strength Knee Manual Muscle Testing Right Flexion (S2) 4+ Good+ Extension (L3) 4 Good Left Flexion (S2) 4+ Good+ Extension (L3) 4- Good- Ankle/Foot Strength Ankle and Foot Manual Muscle Testing Right Dorsiflexion (L4) 5 Normal Plantarflexion (S1) 5 Normal Left Dorsiflexion (L4) 5 Normal Plantarflexion (S1) 5 Normal Comments seated B PT-OP-Q Treatments Start: 07/07/18 17:02 Freq: Status: Active Protocol: Document 08/02/18 13:24 [facility] (Rec: 08/02/18 15:03 [facility] [id number]) Therapeutic Exercises Supine Exercises 3 Supine Exercise Name quad set Reps/Minutes 5 sec hold Standing Exercises 3 Standing Exercise Name wall squat Equipment Used tball Reps/Minutes 20 2 Standing Exercise Name hip ext Resistance L1 Reps/Minutes 30 B 1 Standing Exercise Name sidestep Equipment Used L1 Reps/Minutes 20ft B x2 Manual Therapy Treatment Soft Tissue Mobilization 3 Body Location ITB R Mobilization Type Rolling 2 Body Location L VMO FM 1 Body Location HS B Mobilization Type Rolling Intensity/Depth Moderate Joint Mobilizations 1 Joint patellar B Direction sup, inf, med PT-OP-R Modalities Start: 07/07/18 17:02 Freq: Status: Active Protocol: Document 08/02/18 13:24 [facility] (Rec: 08/02/18 15:03 [facility] [id number]) Hot Pack/Cold Pack Treatment Cold Pack Location B knees Patient Position Hooklying Treatment Duration (minutes) 10 PT-OP-S Aquatic Treatment Start: 08/05/18 16:57 Freq: Status: Active Protocol: Document 08/05/18 11:45 [facility] (Rec: 08/05/18 17:08 [facility] [id number]) Aquatics Treatment Pool Entry/Exit Pool Entry/Exit Method Stairs Assistance Independent Water Walking fwd, bck, december, kick Water Level Chest Level Level of Assistance Standby Assistance Verbal Cues Comments mode verbal and manual cues Lower Extremity Exercises step-ups Water Level Chest Level Reps/Duration 10x Comments UE support hip flex/ext Water Level Chest Level Reps/Duration 10x Comments UE support hip ab/ad Water Level Chest Level Reps/Duration 10x Comments UE support heel raises Water Level Chest Level Reps/Duration 10x Comments UE support Lower Extremity Stretches hamstring, quad, ITB, hip add Equipment small ankle floats Reps/Duration 2x ea [place] [employer] [place] [employer] Bicycle [place] Running Equipment large noodle Duration 15 min PT-OP-T Assessment and Plan Start: 07/07/18 17:02 Freq: Status: Active Protocol: Document 08/05/18 11:45 [facility] (Rec: 08/05/18 17:08 [facility] [id number]) Physical Therapy Assessment Goals Three Impairment LEFS Painter And Grader Cork Goal (LTG) 60/80 to show improvement in functional ability LTG Duration 09/07/18 Two Impairment strength Short Term Goal (STG) Pt will be indep with HEP & gym program. STG Duration 08/07/18 Painter And Grader Cork Goal (LTG) Pt will have 5/5 LE strength allowing greater ease with daily tasks. LTG Duration 09/07/18 One Impairment pain Painter And Grader Cork Goal (LTG) Pt will report no giving out of her knee for 6 weeks and report overall no greater than 2/10 pain. LTG Duration 09/07/18 Assessment Summary Assessment Patient demonstrated good tolerance for aquatic exercise , able to do step-ups in chest level water without pain. Required frequent cues for postural alignment with all activities, and for gluteal activation especially with step-ups. Kinesiotape still in place so not redone. Physical Therapy Plan Frequency and Duration Frequency of Treatment 2x/Week Duration of Treatment 2 months Plan of Care Start Date 07/08/18 Plan of Care End Date 09/07/18 Next Visit Focus/Plan Next Note Type Treatment Note Next Visit Plan Continue PT to address glut and quad weakness, pain, gait dysfunction.
--- NOTE | 2018-08-11 11:36 | PT.OTN ---
Current Diagnoses Pain in left knee (08/11/18) Physical Therapy Treatment Note PT-OP-A Visit Information Start: 07/07/18 17:02 Freq: Status: Active Protocol: Document 08/11/18 10:35 [facility] (Rec: 08/11/18 11:36 [facility] [id number]) Out-Patient Physical Therapy Visit Information Visit Information Visit Type Treatment Note Visit Note 8 total Visit Start Time 10:30 Visit Stop Time 11:15 Total Visit Minutes 45 Visit Number 8/10 Number of UMBRELLA REPAIRER Visits 0 PT-OP-B Current Condition Start: 07/07/18 17:02 Freq: Status: Active Protocol: Document 07/08/18 13:43 [facility] (Rec: 07/08/18 15:37 [facility] [id number]) Current Condition History of Current Condition Onset Date 09/30/15 Current Complaints B knee pain with R knee buckling d/t sharp pain History of Current Condition Pt started having R knee pain in 09/30/15 with buckling happening about 1-2x/month for the past 2.5 years most months. Pt reports it is a sharp pain causing her LLE to give out. Reports she tried PT 2x with little help. Reports L knee pain started in Nov and she has noticed recently her walking is impaired. Reports she has felt like she is weaker recently & is unable to do as much as she used to. It is the first year I have felt my age. Reports hx of 2 wishlash injuries in 70s nerve pain down RUE that improved with chiro and appy & tonsilectomy. Pt has breast CA that was caught at an early stage and has been cancer free since radiation in 2005. Prior Treatments and Tests 2 bouts of PT with no major change; recent L knee cortizone injection with some help; Xray L: severe OA jake medially; R xray & MRI; Moderate degeneration, mostly medially with bakers cyst & medial meniscus tearing Treatment Goals Patient/Caregiver Goals To know daily exercises to strength knees. PT-OP-C Subjective Start: 07/07/18 17:02 Freq: Status: Active Protocol: Document 08/11/18 10:35 [facility] (Rec: 08/11/18 11:36 [facility] [id number]) OP-PT Subjective Patient Comments Patient Comments Pt reports wednesday she was sore after having to carry a lot of brush when cleaning up the yard. Reports the past 2 days have been good and pain has been going away. PT-OP-F Manual Assessment Start: 07/07/18 17:02 Freq: Status: Active Protocol: Document 07/08/18 13:43 [facility] (Rec: 07/08/18 14:59 [facility] [id number]) Manual Assessments Soft Tissue Assessment Soft Tissue Mobility Assessment L:med joint line, tibial tub R: ant tib & inc fascial tension Joint Mobility Assessment Joint Mobility Assessment B ER of tibia & femur PT-OP-G Mobility & Gait Start: 07/07/18 17:02 Freq: Status: Active Protocol: Document 07/08/18 13:43 [facility] (Rec: 07/08/18 14:59 [facility] [id number]) OP Gait Assessment Comments Gait Comments Dec post depression & ant elevation B; L lat lean & dec LLE stance time, PT-OP-J Posture/Palpation/Skin Start: 07/07/18 17:02 Freq: Status: Active Protocol: Document 07/08/18 13:43 [facility] (Rec: 07/08/18 14:59 [facility] [id number]) Posture Evaluation Comments Posture Comments Significant Genu varum: in c wearing of heel on R shoe & forefoot/midfoot L shoe PT-OP-K Range of Motion Start: 07/07/18 17:02 Freq: Status: Active Protocol: Document 07/08/18 13:43 [facility] (Rec: 07/08/18 14:59 [facility] [id number]) Knee Goniometric Range of Motion Knee Measured in Degrees Right Patient Position Supine Flexion Active (degrees) 134 Extension Active (degrees) 8 Left Patient Position Supine Flexion Active (degrees) 112 Extension Active (degrees) 12 PT-OP-L Special Tests Start: 07/07/18 17:02 Freq: Status: Active Protocol: Document 07/08/18 13:43 [facility] (Rec: 07/08/18 14:59 [facility] [id number]) Special Tests Lumbar Spine Special Tests Slump Test Results neg Knee Special Tests Posterior Draw Test Results neg B Varus- 25 Degrees Test Results neg B Valgus- 25 Degrees Test Results neg Thessaly Test 5 Degrees Test Results neg B Norman's Test Results L postive Apley's Compression Test Results neg B Bazan Chondromalacia Test Results neg PT-OP-M Strength Start: 07/07/18 17:02 Freq: Status: Active Protocol: Document 07/08/18 13:43 [facility] (Rec: 07/08/18 14:59 [facility] [id number]) Hip Strength Hip Manual Muscle Testing Right Flexion (L2) 4 Good Extension (S1) 4- Good- Abduction 4 Good External Rotation 4- Good- Internal Rotation 5 Normal Left Flexion (L2) 4 Good Extension (S1) 4- Good- Abduction 4 Good Adduction 4- Good- External Rotation 4- Good- Internal Rotation 3+ Fair+ Comments pain w/rotations Knee Strength Knee Manual Muscle Testing Right Flexion (S2) 4+ Good+ Extension (L3) 4 Good Left Flexion (S2) 4+ Good+ Extension (L3) 4- Good- Ankle/Foot Strength Ankle and Foot Manual Muscle Testing Right Dorsiflexion (L4) 5 Normal Plantarflexion (S1) 5 Normal Left Dorsiflexion (L4) 5 Normal Plantarflexion (S1) 5 Normal Comments seated B PT-OP-Q Treatments Start: 07/07/18 17:02 Freq: Status: Active Protocol: Document 08/11/18 10:35 [facility] (Rec: 08/11/18 11:36 [facility] [id number]) Cardio Equipment Recumbent Stepper (Sci-Fit) Duration (Minutes) 5 Resistance 5 Seat Position 10 Gym Equipment Cable Column (Body Solid) Hip Adduction Details edu on set up on machine Resistance 4 Reps/Time 30 Hip Abduction Details edu on set up on machine Resistance 4 Reps/Time 30 Therapeutic Exercises Standing Exercises gait press Standing Exercise Name gait press at wall for L post dep Comments stopped focusing on knee ext d /t crepitus and stopped PF d/t discomfort Neuro Re-Education Treatment Other Activities neutral Details reset of posture in mirror to avoid L SB ant elevation/post dep Details Rhythmic initiation progressed to COI both directions Comments post depression progressed through LLE PT-OP-R Modalities Start: 07/07/18 17:02 Freq: Status: Active Protocol: Document 08/02/18 13:24 [facility] (Rec: 08/02/18 15:03 [facility] [id number]) Hot Pack/Cold Pack Treatment Cold Pack Location B knees Patient Position Hooklying Treatment Duration (minutes) 10 PT-OP-S Aquatic Treatment Start: 08/05/18 16:57 Freq: Status: Active Protocol: Document 08/05/18 11:45 [facility] (Rec: 08/05/18 17:08 [facility] [id number]) Aquatics Treatment Pool Entry/Exit Pool Entry/Exit Method Stairs Assistance Independent Water Walking fwd, bck, side, december, kick Water Level Chest Level Level of Assistance Standby Assistance Verbal Cues Comments mode verbal and manual cues Lower Extremity Exercises step-ups Water Level Chest Level Reps/Duration 10x Comments UE support hip flex/ext Water Level Chest Level Reps/Duration 10x Comments UE support hip ab/ad Water Level Chest Level Reps/Duration 10x Comments UE support heel raises Water Level Chest Level Reps/Duration 10x Comments UE support Lower Extremity Stretches hamstring, quad, ITB, hip add Equipment small ankle floats Reps/Duration 2x ea [facility] Bicycle Cross [place] Running Equipment large noodle Duration 15 min PT-OP-T Assessment and Plan Start: 07/07/18 17:02 Freq: Status: Active Protocol: Document 08/11/18 10:35 [facility] (Rec: 08/11/18 11:36 [facility] [id number]) Physical Therapy Assessment Goals Three Impairment LEFS Fish Roe Processor Goal (LTG) 60/80 to show improvement in functional ability LTG Duration 09/07/18 Two Impairment strength Short Term Goal (STG) Pt will be indep with HEP & gym program. STG Duration 08/07/18 [facility] Goal (LTG) Pt will have 5/5 LE strength allowing greater ease with daily tasks. LTG Duration 09/07/18 One Impairment pain [facility] Goal (LTG) Pt will report no giving out of her knee for 6 weeks and report overall no greater than 2/10 pain. LTG Duration 09/07/18 Assessment Summary Assessment Pt has inc SB to L in standing which may have been to dec weight to RLE when it was giving out on her. Pt encouraged to work on posture. Improved ability to set up hip abd/add machine after edu and review of use of machines. dec overall post depression for pt Physical Therapy Plan Frequency and Duration Frequency of Treatment 2x/Week Duration of Treatment 2 months Plan of Care Start Date 07/08/18 Plan of Care End Date 09/07/18 Next Visit Focus/Plan Next Note Type Treatment Note Next Visit Plan Cont to work on glute control & strength
--- NOTE | 2018-08-12 15:18 | PT.OTN ---
Current Diagnoses Pain in left knee (08/12/18) Physical Therapy Treatment Note PT-OP-A Visit Information Start: 07/07/18 17:02 Freq: Status: Active Protocol: Document 08/12/18 15:12 [facility] (Rec: 08/12/18 15:18 [facility] [id number]) Out-Patient Physical Therapy Visit Information Visit Information Visit Type Treatment Note Visit Note 8 total Visit Start Time 11:00 Visit Stop Time 11:50 Total Visit Minutes 45 Visit Number 9/10 Number of RETINA SUBSPECIALIST Visits 0 PT-OP-B Current Condition Start: 07/07/18 17:02 Freq: Status: Active Protocol: Document 07/08/18 13:43 [facility] (Rec: 07/08/18 15:37 [facility] [id number]) Current Condition History of Current Condition Onset Date 09/30/15 Current Complaints B knee pain with R knee buckling d/t sharp pain History of Current Condition Pt started having R knee pain in 09/30/15 with buckling happening about 1-2x/month for the past 2.5 years most months. Pt reports it is a sharp pain causing her LLE to give out. Reports she tried PT 2x with little help. Reports L knee pain started in Nov and she has noticed recently her walking is impaired. Reports she has felt like she is weaker recently & is unable to do as much as she used to. It is the first year I have felt my age. Reports hx of 2 wishlash injuries in 70s nerve pain down RUE that improved with chiro and appy & tonsilectomy. Pt has breast CA that was caught at an early stage and has been cancer free since radiation in 2005. Prior Treatments and Tests 2 bouts of PT with no major change; recent L knee cortizone injection with some help; Xray L: severe OA jake medially; R xray & MRI; Moderate degeneration, mostly medially with bakers cyst & medial meniscus tearing Treatment Goals Patient/Caregiver Goals To know daily exercises to strength knees. PT-OP-C Subjective Start: 07/07/18 17:02 Freq: Status: Active Protocol: Document 08/12/18 15:12 [facility] (Rec: 08/12/18 15:18 [facility] [id number]) OP-PT Subjective Patient Comments Patient Comments Having a good day, minimal pain. Feels therapy helping. [place] good after first aquatic therapy session; agrees she was previously doing exercises in pool that were probably too agressive for her at this time. PT-OP-F Manual Assessment Start: 07/07/18 17:02 Freq: Status: Active Protocol: Document 07/08/18 13:43 [facility] (Rec: 07/08/18 14:59 [facility] [id number]) Manual Assessments Soft Tissue Assessment Soft Tissue Mobility Assessment L:med joint line, tibial tub R: ant tib & inc fascial tension Joint Mobility Assessment Joint Mobility Assessment B ER of tibia & femur PT-OP-G Mobility & Gait Start: 07/07/18 17:02 Freq: Status: Active Protocol: Document 07/08/18 13:43 [facility] (Rec: 07/08/18 14:59 [facility] [id number]) OP Gait Assessment Comments Gait Comments Dec post depression & ant elevation B; L lat lean & dec LLE stance time, PT-OP-J Posture/Palpation/Skin Start: 07/07/18 17:02 Freq: Status: Active Protocol: Document 07/08/18 13:43 [facility] (Rec: 07/08/18 14:59 [facility] [id number]) Posture Evaluation Comments Posture Comments Significant Genu varum: in c wearing of heel on R shoe & forefoot/midfoot L shoe PT-OP-K Range of Motion Start: 07/07/18 17:02 Freq: Status: Active Protocol: Document 07/08/18 13:43 [facility] (Rec: 07/08/18 14:59 [facility] [id number]) Knee Goniometric Range of Motion Knee Measured in Degrees Right Patient Position Supine Flexion Active (degrees) 134 Extension Active (degrees) 8 Left Patient Position Supine Flexion Active (degrees) 112 Extension Active (degrees) 12 PT-OP-L Special Tests Start: 07/07/18 17:02 Freq: Status: Active Protocol: Document 07/08/18 13:43 [facility] (Rec: 07/08/18 14:59 [facility] [id number]) Special Tests Lumbar Spine Special Tests Slump Test Results neg Knee Special Tests Posterior Draw Test Results neg B Varus- 25 Degrees Test Results neg B Valgus- 25 Degrees Test Results neg Thessaly Test 5 Degrees Test Results neg B Norman's Test Results L postive Apley's Compression Test Results neg B Bazan Chondromalacia Test Results neg PT-OP-M Strength Start: 07/07/18 17:02 Freq: Status: Active Protocol: Document 07/08/18 13:43 [facility] (Rec: 07/08/18 14:59 [facility] [id number]) Hip Strength Hip Manual Muscle Testing Right Flexion (L2) 4 Good Extension (S1) 4- Good- Abduction 4 Good External Rotation 4- Good- Internal Rotation 5 Normal Left Flexion (L2) 4 Good Extension (S1) 4- Good- Abduction 4 Good Adduction 4- Good- External Rotation 4- Good- Internal Rotation 3+ Fair+ Comments pain w/rotations Knee Strength Knee Manual Muscle Testing Right Flexion (S2) 4+ Good+ Extension (L3) 4 Good Left Flexion (S2) 4+ Good+ Extension (L3) 4- Good- Ankle/Foot Strength Ankle and Foot Manual Muscle Testing Right Dorsiflexion (L4) 5 Normal Plantarflexion (S1) 5 Normal Left Dorsiflexion (L4) 5 Normal Plantarflexion (S1) 5 Normal Comments seated B PT-OP-Q Treatments Start: 07/07/18 17:02 Freq: Status: Active Protocol: Document 08/11/18 10:35 [facility] (Rec: 08/11/18 11:36 [facility] [id number]) Cardio Equipment Recumbent Stepper (Sci-Fit) Duration (Minutes) 5 Resistance 5 Seat Position 10 Gym Equipment Cable Column (Body Solid) Hip Adduction Details edu on set up on machine Resistance 4 Reps/Time 30 Hip Abduction Details edu on set up on machine Resistance 4 Reps/Time 30 Therapeutic Exercises Standing Exercises gait press Standing Exercise Name gait press at wall for L post dep Comments stopped focusing on knee ext d /t crepitus and stopped PF d/t discomfort Neuro Re-Education Treatment Other Activities neutral Details reset of posture in mirror to avoid L SB ant elevation/post dep Details Rhythmic initiation progressed to COI both directions Comments post depression progressed through LLE PT-OP-R Modalities Start: 07/07/18 17:02 Freq: Status: Active Protocol: Document 08/02/18 13:24 [facility] (Rec: 08/02/18 15:03 [facility] [id number]) Hot Pack/Cold Pack Treatment Cold Pack Location B knees Patient Position Hooklying Treatment Duration (minutes) 10 PT-OP-S Aquatic Treatment Start: 08/05/18 16:57 Freq: Status: Active Protocol: Document 08/12/18 15:12 [facility] (Rec: 08/12/18 15:18 [facility] [id number]) Aquatics Treatment Pool Entry/Exit Pool Entry/Exit Method Stairs Assistance Independent Water Walking Lunge Walk Water Level Chest Level Level of Assistance Contact Guard Assistance Verbal Cues fwd, bck, side, december, december kick Water Level Chest Level Level of Assistance Standby Assistance Verbal Cues Comments mode verbal and manual cues Lower Extremity Exercises step-ups Water Level Chest Level Reps/Duration 10x Comments no UE support hip flex/ext Water Level Chest Level Reps/Duration 10x Comments UE support hip ab/ad Water Level Chest Level Reps/Duration 10x Comments UE support heel raises Details double and single Water Level Chest Level Reps/Duration 10x Comments UE support Lower Extremity Stretches hamstring, quad, ITB, hip add Equipment small ankle floats Reps/Duration 2x ea [place] Activities [place] Activities Bicycle Bicycle Backwards [place] Running Hip Abduction/Adduction Equipment large noodle Duration 15 min Comments also bicycle with no UE's Other kinesiotape left knee Comments for patellar tracking; 3 Y strips PT-OP-T Assessment and Plan Start: 07/07/18 17:02 Freq: Status: Active Protocol: Document 08/12/18 15:12 [facility] (Rec: 08/12/18 15:18 [facility] [id number]) Physical Therapy Assessment Goals Three Impairment LEFS Sas Clinical Programmer Goal (LTG) 60/80 to show improvement in functional ability LTG Duration 09/07/18 Two Impairment strength Short Term Goal (STG) Pt will be indep with HEP & gym program. STG Duration 08/07/18 Fdc Goal (LTG) Pt will have 5/5 LE strength allowing greater ease with daily tasks. LTG Duration 09/07/18 One Impairment pain Fdc Goal (LTG) Pt will report no giving out of her knee for 6 weeks and report overall no greater than 2/10 pain. LTG Duration 09/07/18 Assessment Summary Assessment Improved exercise tolerance for aquatic ex today; frequent cues for technique and core stabilization with all. Pain less today. Physical Therapy Plan Frequency and Duration Frequency of Treatment 2x/Week Duration of Treatment 2 months Plan of Care Start Date 07/08/18 Plan of Care End Date 09/07/18 Therapeutic Interventions Therapeutic Interventions Aquatic Therapy Balance Training Gait Training Home Exercise Program Joint Mobilizations Manual Therapy Neuromuscular Re-education Soft Tissue Mobilization Taping Therapeutic Activities Therapeutic Exercises Modalities Cold Pack/Ice Massage Electric Stimulation Hot Packs Infrared Therapy Iontophoresis Ultrasound Next Visit Focus/Plan Next Note Type Treatment Note Next Visit Plan Continue progression of therapeutic exercises, manual therapy as indicated.
--- NOTE | 2018-08-17 14:06 | PT.OPPN ---
Current Diagnoses Pain in left knee (08/19/18) Physical Therapy Progress Note PT-OP-A Visit Information Start: 07/07/18 17:02 Freq: Status: Active Protocol: Document 08/19/18 13:07 [facility] (Rec: 08/19/18 14:05 [facility] [id number]) Out-Patient Physical Therapy Visit Information Visit Information Visit Type Treatment Note Visit Note 11 total Visit Start Time 13:00 Visit Stop Time 13:55 Total Visit Minutes 55 Visit Number 2/10 Number of SOLO MUSICIAN Visits 0 PT-OP-B Current Condition Start: 07/07/18 17:02 Freq: Status: Active Protocol: Document 07/08/18 13:43 [facility] (Rec: 07/08/18 15:37 [facility] [id number]) Current Condition History of Current Condition Onset Date 09/30/15 Current Complaints B knee pain with R knee buckling d/t sharp pain History of Current Condition Pt started having R knee pain in 09/30/15 with buckling happening about 1-2x/month for the past 2.5 years most months. Pt reports it is a sharp pain causing her LLE to give out. Reports she tried PT 2x with little help. Reports L knee pain started in Nov and she has noticed recently her walking is impaired. Reports she has felt like she is weaker recently & is unable to do as much as she used to. It is the first year I have felt my age. Reports hx of 2 wishlash injuries in 70s nerve pain down RUE that improved with chiro and appy & tonsilectomy. Pt has breast CA that was caught at an early stage and has been cancer free since radiation in 2005. Prior Treatments and Tests 2 bouts of PT with no major change; recent L knee cortizone injection with some help; Xray L: severe OA jake medially; R xray & MRI; Moderate degeneration, mostly medially with bakers cyst & medial meniscus tearing Treatment Goals Patient/Caregiver Goals To know daily exercises to strength knees. PT-OP-C Subjective Start: 07/07/18 17:02 Freq: Status: Active Protocol: Document 08/19/18 13:07 [facility] (Rec: 08/19/18 14:05 [facility] [id number]) OP-PT Subjective Patient Comments Patient Comments Reports neither knee is bothering her but her shoulder is bothering her. She has a TENs unit a friend gave her she would like to know how to use. PT-OP-F Manual Assessment Start: 07/07/18 17:02 Freq: Status: Active Protocol: Document 07/08/18 13:43 [facility] (Rec: 07/08/18 14:59 [facility] [id number]) Manual Assessments Soft Tissue Assessment Soft Tissue Mobility Assessment L:med joint line, tibial tub R: ant tib & inc fascial tension Joint Mobility Assessment Joint Mobility Assessment B ER of tibia & femur PT-OP-G Mobility & Gait Start: 07/07/18 17:02 Freq: Status: Active Protocol: Document 07/08/18 13:43 [facility] (Rec: 07/08/18 14:59 [facility] [id number]) OP Gait Assessment Comments Gait Comments Dec post depression & ant elevation B; L lat lean & dec LLE stance time, PT-OP-J Posture/Palpation/Skin Start: 07/07/18 17:02 Freq: Status: Active Protocol: Document 07/08/18 13:43 [facility] (Rec: 07/08/18 14:59 [facility] [id number]) Posture Evaluation Comments Posture Comments Significant Genu varum: in c wearing of heel on R shoe & forefoot/midfoot L shoe PT-OP-K Range of Motion Start: 07/07/18 17:02 Freq: Status: Active Protocol: Document 07/08/18 13:43 [facility] (Rec: 07/08/18 14:59 [facility] [id number]) Knee Goniometric Range of Motion Knee Measured in Degrees Right Patient Position Supine Flexion Active (degrees) 134 Extension Active (degrees) 8 Left Patient Position Supine Flexion Active (degrees) 112 Extension Active (degrees) 12 PT-OP-L Special Tests Start: 07/07/18 17:02 Freq: Status: Active Protocol: Document 07/08/18 13:43 [facility] (Rec: 07/08/18 14:59 [facility] [id number]) Special Tests Lumbar Spine Special Tests Slump Test Results neg Knee Special Tests Posterior Draw Test Results neg B Varus- 25 Degrees Test Results neg B Valgus- 25 Degrees Test Results neg Thessaly Test 5 Degrees Test Results neg B Norman's Test Results L postive Apley's Compression Test Results neg B Bazan Chondromalacia Test Results neg PT-OP-M Strength Start: 07/07/18 17:02 Freq: Status: Active Protocol: Document 08/19/18 13:07 [facility] (Rec: 08/19/18 14:05 [facility] [id number]) Hip Strength Hip Manual Muscle Testing Right Flexion (L2) 5 Normal Extension (S1) 4 Good Abduction 4+ Good+ External Rotation 4 Good Internal Rotation 4 Good Left Flexion (L2) 5 Normal Extension (S1) 4- Good- Abduction 4 Good External Rotation 4 Good Internal Rotation 5 Normal Knee Strength Knee Manual Muscle Testing Right Flexion (S2) 5 Normal Extension (L3) 4 Good Left Flexion (S2) 5 Normal Extension (L3) 4+ Good+ Ankle/Foot Strength Ankle and Foot Manual Muscle Testing Right Dorsiflexion (L4) 5 Normal Plantarflexion (S1) 5 Normal Left Dorsiflexion (L4) 5 Normal Plantarflexion (S1) 5 Normal Comments pain in knee at about 15 heel raises PT-OP-T Assessment and Plan Start: 07/07/18 17:02 Freq: Status: Active Protocol: Document 08/19/18 13:07 [facility] (Rec: 08/19/18 14:05 [facility] [id number]) Physical Therapy Assessment Impairments Impairments Activity Tolerance Balance Gait Pain Posture ROM Soft Tissue Mobility Strength Goals Three Impairment LEFS Lockstitch Coat Joiner Goal (LTG) 60/80 to show improvement in functional ability LTG Duration 09/07/18 Two Impairment strength Short Term Goal (STG) Pt will be indep with HEP & gym program. STG Duration 08/07/18-achieved progressing Mcfp Goal (LTG) Pt will have 5/5 LE strength allowing greater ease with daily tasks. LTG Duration 09/07/18-improving One Impairment pain Lockstitch Coat Joiner Goal (LTG) Pt will report no giving out of her knee for 6 weeks and report overall no greater than 2/10 pain. LTG Duration 09/07/18-achieved Assessment Summary Assessment Pt required cueing and significant direction w/hip abd/add machine and was able to do it at the end after all teaching. Pt cont to improve with strength and is progressing with exercises. Mod cueing required for gait at wall exercise. Physical Therapy Plan Frequency and Duration Frequency of Treatment 2x/Week Duration of Treatment 2 months Plan of Care Start Date 07/08/18 Plan of Care End Date 09/07/18 Therapeutic Interventions Therapeutic Interventions Aquatic Therapy Balance Training Gait Training Home Exercise Program Joint Mobilizations Manual Therapy Neuromuscular Re-education Soft Tissue Mobilization Taping Therapeutic Activities Therapeutic Exercises Modalities Cold Pack/Ice Massage Electric Stimulation Hot Packs Infrared Therapy Iontophoresis Ultrasound Next Visit Focus/Plan Next Note Type Treatment Note Next Visit Plan Progress hip ext & hip ER strength
--- NOTE | 2018-08-17 15:00 | PT.OTN ---
Current Diagnoses Pain in left knee (08/17/18) Physical Therapy Treatment Note PT-OP-A Visit Information Start: 07/07/18 17:02 Freq: Status: Active Protocol: Document 08/17/18 11:45 LJ (Rec: 08/17/18 15:00 LJ [email or web address]) Out-Patient Physical Therapy Visit Information Visit Information Visit Start Time 11:45 Visit Stop Time 12:30 Total Visit Minutes 45 Visit Number 10/10 Number of NREMT Visits 1 PT-OP-B Current Condition Start: 07/07/18 17:02 Freq: Status: Active Protocol: Document 07/08/18 13:43 LR (Rec: 07/08/18 15:37 [facility] [id number]) Current Condition History of Current Condition Onset Date 09/30/15 Current Complaints B knee pain with R knee buckling d/t sharp pain History of Current Condition Pt started having R knee pain in 09/30/15 with buckling happening about 1-2x/month for the past 2.5 years most months. Pt reports it is a sharp pain causing her LLE to give out. Reports she tried PT 2x with little help. Reports L knee pain started in Nov and she has noticed recently her walking is impaired. Reports she has felt like she is weaker recently & is unable to do as much as she used to. It is the first year I have felt my age. Reports hx of 2 wishlash injuries in 70s nerve pain down RUE that improved with chiro and appy & tonsilectomy. Pt has breast CA that was caught at an early stage and has been cancer free since radiation in 2005. Prior Treatments and Tests 2 bouts of PT with no major change; recent L knee cortizone injection with some help; Xray L: severe OA jake medially; R xray & MRI; Moderate degeneration, mostly medially with bakers cyst & medial meniscus tearing Treatment Goals Patient/Caregiver Goals To know daily exercises to strength knees. PT-OP-C Subjective Start: 07/07/18 17:02 Freq: Status: Active Protocol: Document 08/17/18 11:45 LENY (Rec: 08/17/18 15:00 LJ [email or web address]) OP-PT Subjective Patient Comments Patient Comments Went rowing with her club earlier today. Reports feeling nearly pain free after aquatic therapy. PT-OP-F Manual Assessment Start: 07/07/18 17:02 Freq: Status: Active Protocol: Document 07/08/18 13:43 [facility] (Rec: 07/08/18 14:59 [facility] [id number]) Manual Assessments Soft Tissue Assessment Soft Tissue Mobility Assessment L:med joint line, tibial tub R: ant tib & inc fascial tension Joint Mobility Assessment Joint Mobility Assessment B ER of tibia & femur PT-OP-G Mobility & Gait Start: 07/07/18 17:02 Freq: Status: Active Protocol: Document 07/08/18 13:43 [facility] (Rec: 07/08/18 14:59 [facility] [id number]) OP Gait Assessment Comments Gait Comments Dec post depression & ant elevation B; L lat lean & dec LLE stance time, PT-OP-J Posture/Palpation/Skin Start: 07/07/18 17:02 Freq: Status: Active Protocol: Document 07/08/18 13:43 [facility] (Rec: 07/08/18 14:59 [facility] [id number]) Posture Evaluation Comments Posture Comments Significant Genu varum: in c wearing of heel on R shoe & forefoot/midfoot L shoe PT-OP-K Range of Motion Start: 07/07/18 17:02 Freq: Status: Active Protocol: Document 07/08/18 13:43 [facility] (Rec: 07/08/18 14:59 [facility] [id number]) Knee Goniometric Range of Motion Knee Measured in Degrees Right Patient Position Supine Flexion Active (degrees) 134 Extension Active (degrees) 8 Left Patient Position Supine Flexion Active (degrees) 112 Extension Active (degrees) 12 PT-OP-L Special Tests Start: 07/07/18 17:02 Freq: Status: Active Protocol: Document 07/08/18 13:43 [facility] (Rec: 07/08/18 14:59 [facility] [id number]) Special Tests Lumbar Spine Special Tests Slump Test Results neg Knee Special Tests Posterior Draw Test Results neg B Varus- 25 Degrees Test Results neg B Valgus- 25 Degrees Test Results neg Thessaly Test 5 Degrees Test Results neg B Norman's Test Results L postive Apley's Compression Test Results neg B Bazan Chondromalacia Test Results neg PT-OP-M Strength Start: 07/07/18 17:02 Freq: Status: Active Protocol: Document 07/08/18 13:43 [facility] (Rec: 07/08/18 14:59 [facility] [id number]) Hip Strength Hip Manual Muscle Testing Right Flexion (L2) 4 Good Extension (S1) 4- Good- Abduction 4 Good External Rotation 4- Good- Internal Rotation 5 Normal Left Flexion (L2) 4 Good Extension (S1) 4- Good- Abduction 4 Good Adduction 4- Good- External Rotation 4- Good- Internal Rotation 3+ Fair+ Comments pain w/rotations Knee Strength Knee Manual Muscle Testing Right Flexion (S2) 4+ Good+ Extension (L3) 4 Good Left Flexion (S2) 4+ Good+ Extension (L3) 4- Good- Ankle/Foot Strength Ankle and Foot Manual Muscle Testing Right Dorsiflexion (L4) 5 Normal Plantarflexion (S1) 5 Normal Left Dorsiflexion (L4) 5 Normal Plantarflexion (S1) 5 Normal Comments seated B PT-OP-Q Treatments Start: 07/07/18 17:02 Freq: Status: Active Protocol: Document 08/11/18 10:35 [facility] (Rec: 08/11/18 11:36 [facility] [id number]) Cardio Equipment Recumbent Stepper (Sci-Fit) Duration (Minutes) 5 Resistance 5 Seat Position 10 Gym Equipment Cable Column (Body Solid) Hip Adduction Details edu on set up on machine Resistance 4 Reps/Time 30 Hip Abduction Details edu on set up on machine Resistance 4 Reps/Time 30 Therapeutic Exercises Standing Exercises gait press Standing Exercise Name gait press at wall for L post dep Comments stopped focusing on knee ext d /t crepitus and stopped PF d/t discomfort Neuro Re-Education Treatment Other Activities neutral Details reset of posture in mirror to avoid L SB ant elevation/post dep Details Rhythmic initiation progressed to COI both directions Comments post depression progressed through LLE PT-OP-R Modalities Start: 07/07/18 17:02 Freq: Status: Active Protocol: Document 08/02/18 13:24 [facility] (Rec: 08/02/18 15:03 [facility] [id number]) Hot Pack/Cold Pack Treatment Cold Pack Location B knees Patient Position Hooklying Treatment Duration (minutes) 10 PT-OP-S Aquatic Treatment Start: 08/05/18 16:57 Freq: Status: Active Protocol: Document 08/17/18 11:45 LJ (Rec: 08/17/18 15:00 LJ [id number]) Aquatics Treatment Pool Entry/Exit Pool Entry/Exit Method Stairs Assistance Independent Water Walking Lunge Walk Water Level Chest Level Level of Assistance Contact Guard Assistance Verbal Cues fwd, bck, , december, kick Water Level Chest Level Level of Assistance Standby Assistance Verbal Cues Comments mode verbal and manual cues Lower Extremity Exercises 1 Details squats Body Position Sitting Water Level Chest Level Reps/Duration 15 Comments seated on table; cues for core stabilization and sequencing step-ups Water Level Chest Level Reps/Duration 10x Comments no UE support; cueing for core activation hip flex/ext Water Level Chest Level Reps/Duration 10x Comments UE support hip ab/ad Water Level Chest Level Reps/Duration 10x Comments UE support Upper Extremity Stretches 1 Details pectoralis stretch Body Position Standing Water Level Chest Level Equipment UE paddles Reps/Duration 4 min Comments walking forward holding smiley faces; arms trailing Spinal Exercises 2 Details posture Body Position Standing Water Level Chest Level Reps/Duration 5 min Comments slow forward walking w/tactile cues for improved posture. 1 Details purterbations Body Position Standing Water Level Chest Level Reps/Duration 10 min Comments static and dymanic PT-OP-T Assessment and Plan Start: 07/07/18 17:02 Freq: Status: Active Protocol: Document 08/17/18 11:45 (Rec: 08/17/18 15:00 [id number]) Physical Therapy Assessment Goals Three Impairment LEFS Work Force Advisor Goal (LTG) 60/80 to show improvement in functional ability LTG Duration 09/07/18 Two Impairment strength Short Term Goal (STG) Pt will be indep with HEP & gym program. STG Duration 08/07/18 Jail Goal (LTG) Pt will have 5/5 LE strength allowing greater ease with daily tasks. LTG Duration 09/07/18 One Impairment pain Jail Goal (LTG) Pt will report no giving out of her knee for 6 weeks and report overall no greater than 2/10 pain. LTG Duration 09/07/18 Assessment Summary Assessment Pt req'd mod cues for core activation in static and dynamic exercises. Demonstrated improved control with SLS and step up/down Physical Therapy Plan Frequency and Duration Frequency of Treatment 2x/Week Duration of Treatment 2 months Plan of Care Start Date 07/08/18 Plan of Care End Date 09/07/18 Therapeutic Interventions Therapeutic Interventions Aquatic Therapy Balance Training Gait Training Home Exercise Program Joint Mobilizations Manual Therapy Neuromuscular Re-education Soft Tissue Mobilization Taping Therapeutic Activities Therapeutic Exercises Modalities Cold Pack/Ice Massage Electric Stimulation Hot Packs Infrared Therapy Iontophoresis Ultrasound Next Visit Focus/Plan Next Note Type Treatment Note Next Visit Plan Continue to work on core activation exercises for stability and strength
--- NOTE | 2018-08-19 14:05 | PT.OTN ---
Current Diagnoses Pain in left knee (08/19/18) Physical Therapy Treatment Note PT-OP-A Visit Information Start: 07/07/18 17:02 Freq: Status: Active Protocol: Document 08/19/18 13:07 [facility] (Rec: 08/19/18 14:05 [facility] [id number]) Out-Patient Physical Therapy Visit Information Visit Information Visit Type Treatment Note Visit Note 11 total Visit Start Time 13:00 Visit Stop Time 13:55 Total Visit Minutes 55 Visit Number 2/10 Number of DRUG ABUSE TECHNICIAN Visits 0 PT-OP-B Current Condition Start: 07/07/18 17:02 Freq: Status: Active Protocol: Document 07/08/18 13:43 [facility] (Rec: 07/08/18 15:37 [facility] [id number]) Current Condition History of Current Condition Onset Date 09/30/15 Current Complaints B knee pain with R knee buckling d/t sharp pain History of Current Condition Pt started having R knee pain in 09/30/15 with buckling happening about 1-2x/month for the past 2.5 years most months. Pt reports it is a sharp pain causing her LLE to give out. Reports she tried PT 2x with little help. Reports L knee pain started in Nov and she has noticed recently her walking is impaired. Reports she has felt like she is weaker recently & is unable to do as much as she used to. It is the first year I have felt my age. Reports hx of 2 wishlash injuries in 70s nerve pain down RUE that improved with chiro and appy & tonsilectomy. Pt has breast CA that was caught at an early stage and has been cancer free since radiation in 2005. Prior Treatments and Tests 2 bouts of PT with no major change; recent L knee cortizone injection with some help; Xray L: severe OA jake medially; R xray & MRI; Moderate degeneration, mostly medially with bakers cyst & medial meniscus tearing Treatment Goals Patient/Caregiver Goals To know daily exercises to strength knees. PT-OP-C Subjective Start: 07/07/18 17:02 Freq: Status: Active Protocol: Document 08/19/18 13:07 [facility] (Rec: 08/19/18 14:05 [facility] [id number]) OP-PT Subjective Patient Comments Patient Comments Reports neither knee is bothering her but her shoulder is bothering her. She has a TENs unit a friend gave her she would like to know how to use. PT-OP-F Manual Assessment Start: 07/07/18 17:02 Freq: Status: Active Protocol: Document 07/08/18 13:43 [facility] (Rec: 07/08/18 14:59 [facility] [id number]) Manual Assessments Soft Tissue Assessment Soft Tissue Mobility Assessment L:med joint line, tibial tub R: ant tib & inc fascial tension Joint Mobility Assessment Joint Mobility Assessment B ER of tibia & femur PT-OP-G Mobility & Gait Start: 07/07/18 17:02 Freq: Status: Active Protocol: Document 07/08/18 13:43 [facility] (Rec: 07/08/18 14:59 [facility] [id number]) OP Gait Assessment Comments Gait Comments Dec post depression & ant elevation B; L lat lean & dec LLE stance time, PT-OP-J Posture/Palpation/Skin Start: 07/07/18 17:02 Freq: Status: Active Protocol: Document 07/08/18 13:43 [facility] (Rec: 07/08/18 14:59 [facility] [id number]) Posture Evaluation Comments Posture Comments Significant Genu varum: in c wearing of heel on R shoe & forefoot/midfoot L shoe PT-OP-K Range of Motion Start: 07/07/18 17:02 Freq: Status: Active Protocol: Document 07/08/18 13:43 [facility] (Rec: 07/08/18 14:59 [facility] [id number]) Knee Goniometric Range of Motion Knee Measured in Degrees Right Patient Position Supine Flexion Active (degrees) 134 Extension Active (degrees) 8 Left Patient Position Supine Flexion Active (degrees) 112 Extension Active (degrees) 12 PT-OP-L Special Tests Start: 07/07/18 17:02 Freq: Status: Active Protocol: Document 07/08/18 13:43 [facility] (Rec: 07/08/18 14:59 [facility] [id number]) Special Tests Lumbar Spine Special Tests Slump Test Results neg Knee Special Tests Posterior Draw Test Results neg B Varus- 25 Degrees Test Results neg B Valgus- 25 Degrees Test Results neg Thessaly Test 5 Degrees Test Results neg B Norman's Test Results L postive Apley's Compression Test Results neg B Bazan Chondromalacia Test Results neg PT-OP-M Strength Start: 07/07/18 17:02 Freq: Status: Active Protocol: Document 08/19/18 13:07 [facility] (Rec: 08/19/18 14:05 [facility] [id number]) Hip Strength Hip Manual Muscle Testing Right Flexion (L2) 5 Normal Extension (S1) 4 Good Abduction 4+ Good+ External Rotation 4 Good Internal Rotation 4 Good Left Flexion (L2) 5 Normal Extension (S1) 4- Good- Abduction 4 Good External Rotation 4 Good Internal Rotation 5 Normal Knee Strength Knee Manual Muscle Testing Right Flexion (S2) 5 Normal Extension (L3) 4 Good Left Flexion (S2) 5 Normal Extension (L3) 4+ Good+ Ankle/Foot Strength Ankle and Foot Manual Muscle Testing Right Dorsiflexion (L4) 5 Normal Plantarflexion (S1) 5 Normal Left Dorsiflexion (L4) 5 Normal Plantarflexion (S1) 5 Normal Comments pain in knee at about 15 heel raises PT-OP-Q Treatments Start: 07/07/18 17:02 Freq: Status: Active Protocol: Document 08/19/18 13:07 [facility] (Rec: 08/19/18 14:05 [facility] [id number]) Cardio Equipment Recumbent Stepper (Sci-Fit) Duration (Minutes) 6 Resistance 5 Seat Position 10 Gym Equipment Cable Column (Body Solid) Hip Adduction Details edu on set up on machine Resistance 4 Reps/Time 30 Hip Abduction Details edu on set up on machine Resistance 4 Reps/Time 30 Therapeutic Exercises Standing Exercises gait press Standing Exercise Name gait press at wall for L post dep Comments stopped focusing on knee ext d /t crepitus and stopped PF d/t discomfort 3 Standing Exercise Name sidestepping Resistance L3 Reps/Minutes 2x20ft PT-OP-R Modalities Start: 07/07/18 17:02 Freq: Status: Active Protocol: Document 08/02/18 13:24 [facility] (Rec: 08/02/18 15:03 [facility] [id number]) Hot Pack/Cold Pack Treatment Cold Pack Location B knees Patient Position Hooklying Treatment Duration (minutes) 10 PT-OP-S Aquatic Treatment Start: 08/05/18 16:57 Freq: Status: Active Protocol: Document 08/17/18 11:45 LJ (Rec: 08/17/18 15:00 LJ [email or web address]) Aquatics Treatment Pool Entry/Exit Pool Entry/Exit Method Stairs Assistance Independent Water Walking Lunge Walk Water Level Chest Level Level of Assistance Contact Guard Assistance Verbal Cues fwd, bck, , december, kick Water Level Chest Level Level of Assistance Standby Assistance Verbal Cues Comments mode verbal and manual cues Lower Extremity Exercises 1 Details squats Body Position Sitting Water Level Chest Level Reps/Duration 15 Comments seated on table; cues for core stabilization and sequencing step-ups Water Level Chest Level Reps/Duration 10x Comments no UE support; cueing for core activation hip flex/ext Water Level Chest Level Reps/Duration 10x Comments UE support hip ab/ad Water Level Chest Level Reps/Duration 10x Comments UE support Upper Extremity Stretches 1 Details pectoralis stretch Body Position Standing Water Level Chest Level Equipment UE paddles Reps/Duration 4 min Comments walking forward holding smiley faces; arms trailing Spinal Exercises 2 Details posture Body Position Standing Water Level Chest Level Reps/Duration 5 min Comments slow forward walking w/tactile cues for improved posture. 1 Details purterbations Body Position Standing Water Level Chest Level Reps/Duration 10 min Comments static and dymanic PT-OP-T Assessment and Plan Start: 07/07/18 17:02 Freq: Status: Active Protocol: Document 08/19/18 13:07 [facility] (Rec: 08/19/18 14:05 [facility] [id number]) Physical Therapy Assessment Impairments Impairments Activity Tolerance Balance Gait Pain Posture ROM Soft Tissue Mobility Strength Goals Three Impairment LEFS Long-Term Goal (LTG) 60/80 to show improvement in functional ability LTG Duration 09/07/18 Two Impairment strength Short Term Goal (STG) Pt will be indep with HEP & gym program. STG Duration 08/07/18-achieved progressing Packaging Specialist Goal (LTG) Pt will have 5/5 LE strength allowing greater ease with daily tasks. LTG Duration 09/07/18-improving One Impairment pain Packaging Specialist Goal (LTG) Pt will report no giving out of her knee for 6 weeks and report overall no greater than 2/10 pain. LTG Duration 09/07/18-achieved Assessment Summary Assessment Pt required cueing and significant direction w/hip abd/add machine and was able to do it at the end after all teaching. Pt cont to improve with strength and is progressing with exercises. Mod cueing required for gait at wall exercise. Physical Therapy Plan Frequency and Duration Frequency of Treatment 2x/Week Duration of Treatment 2 months Plan of Care Start Date 07/08/18 Plan of Care End Date 09/07/18 Therapeutic Interventions Therapeutic Interventions Aquatic Therapy Balance Training Gait Training Home Exercise Program Joint Mobilizations Manual Therapy Neuromuscular Re-education Soft Tissue Mobilization Taping Therapeutic Activities Therapeutic Exercises Modalities Cold Pack/Ice Massage Electric Stimulation Hot Packs Infrared Therapy Iontophoresis Ultrasound Next Visit Focus/Plan Next Note Type Treatment Note Next Visit Plan Progress hip ext & hip ER strength
--- NOTE | 2018-08-24 13:50 | PT.OTN ---
Current Diagnoses Pain in left knee (08/24/18) Physical Therapy Treatment Note PT-OP-A Visit Information Start: 07/07/18 17:02 Freq: Status: Active Protocol: Document 08/24/18 13:06 [facility] (Rec: 08/24/18 13:50 [facility] [id number]) Out-Patient Physical Therapy Visit Information Visit Information Visit Type Treatment Note Visit Note 12 total Visit Start Time 13:00 Visit Stop Time 13:55 Total Visit Minutes 55 Visit Number 3/10 Number of PHARMACY LABORATORY TECHNICIAN Visits 0 PT-OP-B Current Condition Start: 07/07/18 17:02 Freq: Status: Active Protocol: Document 07/08/18 13:43 [facility] (Rec: 07/08/18 15:37 [facility] [id number]) Current Condition History of Current Condition Onset Date 09/30/15 Current Complaints B knee pain with R knee buckling d/t sharp pain History of Current Condition Pt started having R knee pain in 09/30/15 with buckling happening about 1-2x/month for the past 2.5 years most months. Pt reports it is a sharp pain causing her LLE to give out. Reports she tried PT 2x with little help. Reports L knee pain started in Nov and she has noticed recently her walking is impaired. Reports she has felt like she is weaker recently & is unable to do as much as she used to. It is the first year I have felt my age. Reports hx of 2 wishlash injuries in 70s nerve pain down RUE that improved with chiro and appy & tonsilectomy. Pt has breast CA that was caught at an early stage and has been cancer free since radiation in 2005. Prior Treatments and Tests 2 bouts of PT with no major change; recent L knee cortizone injection with some help; Xray L: severe OA jake medially; R xray & MRI; Moderate degeneration, mostly medially with bakers cyst & medial meniscus tearing Treatment Goals Patient/Caregiver Goals To know daily exercises to strength knees. PT-OP-C Subjective Start: 07/07/18 17:02 Freq: Status: Active Protocol: Document 08/24/18 13:06 [facility] (Rec: 08/24/18 13:50 [facility] [id number]) OP-PT Subjective Patient Comments Patient Comments Reports she has noticed her walking being better and didn' t have trouble kneeling when getting up from the ground PT-OP-F Manual Assessment Start: 07/07/18 17:02 Freq: Status: Active Protocol: Document 07/08/18 13:43 [facility] (Rec: 07/08/18 14:59 [facility] [id number]) Manual Assessments Soft Tissue Assessment Soft Tissue Mobility Assessment L:med joint line, tibial tub R: ant tib & inc fascial tension Joint Mobility Assessment Joint Mobility Assessment B ER of tibia & femur PT-OP-G Mobility & Gait Start: 07/07/18 17:02 Freq: Status: Active Protocol: Document 07/08/18 13:43 [facility] (Rec: 07/08/18 14:59 [facility] [id number]) OP Gait Assessment Comments Gait Comments Dec post depression & ant elevation B; L lat lean & dec LLE stance time, PT-OP-J Posture/Palpation/Skin Start: 07/07/18 17:02 Freq: Status: Active Protocol: Document 07/08/18 13:43 [facility] (Rec: 07/08/18 14:59 [facility] [id number]) Posture Evaluation Comments Posture Comments Significant Genu varum: in c wearing of heel on R shoe & forefoot/midfoot L shoe PT-OP-K Range of Motion Start: 07/07/18 17:02 Freq: Status: Active Protocol: Document 07/08/18 13:43 [facility] (Rec: 07/08/18 14:59 [facility] [id number]) Knee Goniometric Range of Motion Knee Measured in Degrees Right Patient Position Supine Flexion Active (degrees) 134 Extension Active (degrees) 8 Left Patient Position Supine Flexion Active (degrees) 112 Extension Active (degrees) 12 PT-OP-L Special Tests Start: 07/07/18 17:02 Freq: Status: Active Protocol: Document 07/08/18 13:43 [facility] (Rec: 07/08/18 14:59 [facility] [id number]) Special Tests Lumbar Spine Special Tests Slump Test Results neg Knee Special Tests Posterior Draw Test Results neg B Varus- 25 Degrees Test Results neg B Valgus- 25 Degrees Test Results neg Thessaly Test 5 Degrees Test Results neg B Norman's Test Results L postive Apley's Compression Test Results neg B Bazan Chondromalacia Test Results neg PT-OP-M Strength Start: 07/07/18 17:02 Freq: Status: Active Protocol: Document 08/19/18 13:07 [facility] (Rec: 08/19/18 14:05 [facility] [id number]) Hip Strength Hip Manual Muscle Testing Right Flexion (L2) 5 Normal Extension (S1) 4 Good Abduction 4+ Good+ External Rotation 4 Good Internal Rotation 4 Good Left Flexion (L2) 5 Normal Extension (S1) 4- Good- Abduction 4 Good External Rotation 4 Good Internal Rotation 5 Normal Knee Strength Knee Manual Muscle Testing Right Flexion (S2) 5 Normal Extension (L3) 4 Good Left Flexion (S2) 5 Normal Extension (L3) 4+ Good+ Ankle/Foot Strength Ankle and Foot Manual Muscle Testing Right Dorsiflexion (L4) 5 Normal Plantarflexion (S1) 5 Normal Left Dorsiflexion (L4) 5 Normal Plantarflexion (S1) 5 Normal Comments pain in knee at about 15 heel raises PT-OP-Q Treatments Start: 07/07/18 17:02 Freq: Status: Active Protocol: Document 08/24/18 13:06 [facility] (Rec: 08/24/18 13:50 [facility] [id number]) Cardio Equipment Recumbent Stepper (Sci-Fit) Duration (Minutes) 6 Resistance 5 Seat Position 9 Therapeutic Exercises Sidelying Exercises clamshell Resistance just below knees Equipment Used L3 Reps/Minutes 2x10 Standing Exercises gait press Standing Exercise Name gait press at wall for L post dep Comments stopped focusing on knee ext d /t crepitus and stopped PF d/t discomfort 2 Standing Exercise Name hip ext Resistance around thight & Lower leg attempted Equipment Used L1 Reps/Minutes stopped d/t pain when standing on LLE Comments 10 Manual Therapy Treatment Soft Tissue Mobilization 3 Body Location Distal VMO Mobilization Type Sustained Pressure Joint Mobilizations 2 Joint tibfib Direction AP Comments FM w/ APs Taping 1 Body Location 3 Y at knee for med patellar glide PT-OP-R Modalities Start: 07/07/18 17:02 Freq: Status: Active Protocol: Document 08/24/18 13:06 [facility] (Rec: 08/24/18 13:50 [facility] [id number]) Hot Pack/Cold Pack Treatment Cold Pack Location B knees Patient Position Hooklying Treatment Duration (minutes) 10 PT-OP-S Aquatic Treatment Start: 08/05/18 16:57 Freq: Status: Active Protocol: Document 08/17/18 11:45 [facility] (Rec: 08/17/18 15:00 [facility] [id number]) Aquatics Treatment Pool Entry/Exit Pool Entry/Exit Method Stairs Assistance Independent Water Walking Lunge Walk Water Level Chest Level Level of Assistance Contact Guard Assistance Verbal Cues fwd, bck, , december, kick Water Level Chest Level Level of Assistance Standby Assistance Verbal Cues Comments mode verbal and manual cues Lower Extremity Exercises 1 Details squats Body Position Sitting Water Level Chest Level Reps/Duration 15 Comments seated on table; cues for core stabilization and sequencing step-ups Water Level Chest Level Reps/Duration 10x Comments no UE support; cueing for core activation hip flex/ext Water Level Chest Level Reps/Duration 10x Comments UE support hip ab/ad Water Level Chest Level Reps/Duration 10x Comments UE support Upper Extremity Stretches 1 Details pectoralis stretch Body Position Standing Water Level Chest Level Equipment UE paddles Reps/Duration 4 min Comments walking forward holding smiley faces; arms trailing Spinal Exercises 2 Details posture Body Position Standing Water Level Chest Level Reps/Duration 5 min Comments slow forward walking w/tactile cues for improved posture. 1 Details purterbations Body Position Standing Water Level Chest Level Reps/Duration 10 min Comments static and dymanic PT-OP-T Assessment and Plan Start: 07/07/18 17:02 Freq: Status: Active Protocol: Document 08/24/18 13:06 [facility] (Rec: 08/24/18 13:50 [facility] [id number]) Physical Therapy Assessment Goals Three Impairment LEFS Chair Inspector Goal (LTG) 60/80 to show improvement in functional ability LTG Duration 09/07/18 Two Impairment strength Short Term Goal (STG) Pt will be indep with HEP & gym program. STG Duration 08/07/18-achieved progressing Chair Inspector Goal (LTG) Pt will have 5/5 LE strength allowing greater ease with daily tasks. LTG Duration 09/07/18-improving One Impairment pain Fci Goal (LTG) Pt will report no giving out of her knee for 6 weeks and report overall no greater than 2/10 pain. LTG Duration 09/07/18-achieved Assessment Summary Assessment Pt required cueing for gait at wall exercise and was able to do clamshell without pain. She did have difficulty with R hip ext d/t pain in LLE with R hip ext. She had poor quad activation on LLE. 122/90 BP after pt c/o lightheadedness Physical Therapy Plan Frequency and Duration Frequency of Treatment 2x/Week Duration of Treatment 2 months Plan of Care Start Date 07/08/18 Plan of Care End Date 09/07/18 Next Visit Focus/Plan Next Note Type Treatment Note Next Visit Plan Cont to work glute strength & terminal knee ext strength & standing stability on LLE; review hip abd & find hip ext exercise for pt to be able to do at home.
--- NOTE | 2018-09-02 16:01 | PT.OTN ---
Current Diagnoses Pain in left knee (09/02/18) Physical Therapy Treatment Note PT-OP-A Visit Information Start: 07/07/18 17:02 Freq: Status: Active Protocol: Document 09/02/18 13:50 [facility] (Rec: 09/02/18 14:32 ML [id number]) Out-Patient Physical Therapy Visit Information Visit Information Visit Type Treatment Note Visit Note 12 total Visit Start Time 13:47 Visit Stop Time 14:40 Total Visit Minutes 53 Visit Number 4/10 Number of BUILDING CARPENTER Visits 0 PT-OP-B Current Condition Start: 07/07/18 17:02 Freq: Status: Active Protocol: Document 07/08/18 13:43 [facility] (Rec: 07/08/18 15:37 [facility] [id number]) Current Condition History of Current Condition Onset Date 09/30/15 Current Complaints B knee pain with R knee buckling d/t sharp pain History of Current Condition Pt started having R knee pain in 09/30/15 with buckling happening about 1-2x/month for the past 2.5 years most months. Pt reports it is a sharp pain causing her LLE to give out. Reports she tried PT 2x with little help. Reports L knee pain started in Nov and she has noticed recently her walking is impaired. Reports she has felt like she is weaker recently & is unable to do as much as she used to. It is the first year I have felt my age. Reports hx of 2 wishlash injuries in 70s nerve pain down RUE that improved with chiro and appy & tonsilectomy. Pt has breast CA that was caught at an early stage and has been cancer free since radiation in 2005. Prior Treatments and Tests 2 bouts of PT with no major change; recent L knee cortizone injection with some help; Xray L: severe OA jake medially; R xray & MRI; Moderate degeneration, mostly medially with bakers cyst & medial meniscus tearing Treatment Goals Patient/Caregiver Goals To know daily exercises to strength knees. PT-OP-C Subjective Start: 07/07/18 17:02 Freq: Status: Active Protocol: Document 09/02/18 13:50 ML (Rec: 09/02/18 14:32 ML [id number]) OP-PT Subjective Patient Comments Patient Comments Pt notes that she feels like she is doing better, getting stronger all the time. She mentions that she doesn't get to the gym as often as she'd like, and would like to do some of those exercises here. PT-OP-F Manual Assessment Start: 07/07/18 17:02 Freq: Status: Active Protocol: Document 07/08/18 13:43 [facility] (Rec: 07/08/18 14:59 [facility] [id number]) Manual Assessments Soft Tissue Assessment Soft Tissue Mobility Assessment L:med joint line, tibial tub R: ant tib & inc fascial tension Joint Mobility Assessment Joint Mobility Assessment B ER of tibia & femur PT-OP-G Mobility & Gait Start: 07/07/18 17:02 Freq: Status: Active Protocol: Document 07/08/18 13:43 [facility] (Rec: 07/08/18 14:59 [facility] [id number]) OP Gait Assessment Comments Gait Comments Dec post depression & ant elevation B; L lat lean & dec LLE stance time, PT-OP-J Posture/Palpation/Skin Start: 07/07/18 17:02 Freq: Status: Active Protocol: Document 07/08/18 13:43 [facility] (Rec: 07/08/18 14:59 [facility] [id number]) Posture Evaluation Comments Posture Comments Significant Genu varum: in c wearing of heel on R shoe & forefoot/midfoot L shoe PT-OP-K Range of Motion Start: 07/07/18 17:02 Freq: Status: Active Protocol: Document 07/08/18 13:43 [facility] (Rec: 07/08/18 14:59 [facility] [id number]) Knee Goniometric Range of Motion Knee Measured in Degrees Right Patient Position Supine Flexion Active (degrees) 134 Extension Active (degrees) 8 Left Patient Position Supine Flexion Active (degrees) 112 Extension Active (degrees) 12 PT-OP-L Special Tests Start: 07/07/18 17:02 Freq: Status: Active Protocol: Document 07/08/18 13:43 [facility] (Rec: 07/08/18 14:59 [facility] [id number]) Special Tests Lumbar Spine Special Tests Slump Test Results neg Knee Special Tests Posterior Draw Test Results neg B Varus- 25 Degrees Test Results neg B Valgus- 25 Degrees Test Results neg Thessaly Test 5 Degrees Test Results neg B Norman's Test Results L postive Apley's Compression Test Results neg B Bazan Chondromalacia Test Results neg PT-OP-M Strength Start: 07/07/18 17:02 Freq: Status: Active Protocol: Document 08/19/18 13:07 [facility] (Rec: 08/19/18 14:05 [facility] [id number]) Hip Strength Hip Manual Muscle Testing Right Flexion (L2) 5 Normal Extension (S1) 4 Good Abduction 4+ Good+ External Rotation 4 Good Internal Rotation 4 Good Left Flexion (L2) 5 Normal Extension (S1) 4- Good- Abduction 4 Good External Rotation 4 Good Internal Rotation 5 Normal Knee Strength Knee Manual Muscle Testing Right Flexion (S2) 5 Normal Extension (L3) 4 Good Left Flexion (S2) 5 Normal Extension (L3) 4+ Good+ Ankle/Foot Strength Ankle and Foot Manual Muscle Testing Right Dorsiflexion (L4) 5 Normal Plantarflexion (S1) 5 Normal Left Dorsiflexion (L4) 5 Normal Plantarflexion (S1) 5 Normal Comments pain in knee at about 15 heel raises PT-OP-Q Treatments Start: 07/07/18 17:02 Freq: Status: Active Protocol: Document 09/02/18 13:50 ML (Rec: 09/02/18 14:32 ML [id number]) Cardio Equipment Recumbent Stepper (Sci-Fit) Duration (Minutes) 7 Resistance 5 Seat Position 10 Gym Equipment Shuttle Recovery Unilateral Squats Details cues for full knee ext and glute squeeze at top Resistance 50 Bilateral Squats Details cues for squeeze of glutes and extending knee fully with a couple sec hold Resistance 100 Therapeutic Ball marching Exercise Details w/ and w/o knee ext with march Ball Size/Color green 65cm Body Position Sitting Comments HEP hamstring curls Exercise Details w/bridge at knee ext Ball Size/Color green 65cm Body Position Hooklying Comments HEP bridge Exercise Details w/march Ball Size/Color green 65cm Body Position Hooklying Comments HEP Manual Therapy Treatment Soft Tissue Mobilization 1 Body Location L hamstring Mobilization Type Myofascial Release Rolling Sustained Pressure Comments active DF/PF PT-OP-R Modalities Start: 07/07/18 17:02 Freq: Status: Active Protocol: Document 09/02/18 13:50 ML (Rec: 09/02/18 15:55 ML [id number]) Hot Pack/Cold Pack Treatment Cold Pack Location B knees Patient Position Hooklying Treatment Duration (minutes) 10 PT-OP-S Aquatic Treatment Start: 08/05/18 16:57 Freq: Status: Active Protocol: Document 08/17/18 11:45 [facility] (Rec: 08/17/18 15:00 [facility] [id number]) Aquatics Treatment Pool Entry/Exit Pool Entry/Exit Method Stairs Assistance Independent Water Walking Lunge Walk Water Level Chest Level Level of Assistance Contact Guard Assistance Verbal Cues fwd, bck, , december, kick Water Level Chest Level Level of Assistance Standby Assistance Verbal Cues Comments mode verbal and manual cues Lower Extremity Exercises 1 Details squats Body Position Sitting Water Level Chest Level Reps/Duration 15 Comments seated on table; cues for core stabilization and sequencing step-ups Water Level Chest Level Reps/Duration 10x Comments no UE support; cueing for core activation hip flex/ext Water Level Chest Level Reps/Duration 10x Comments UE support hip ab/ad Water Level Chest Level Reps/Duration 10x Comments UE support Upper Extremity Stretches 1 Details pectoralis stretch Body Position Standing Water Level Chest Level Equipment UE paddles Reps/Duration 4 min Comments walking forward holding smiley faces; arms trailing Spinal Exercises 2 Details posture Body Position Standing Water Level Chest Level Reps/Duration 5 min Comments slow forward walking w/tactile cues for improved posture. 1 Details purterbations Body Position Standing Water Level Chest Level Reps/Duration 10 min Comments static and dymanic PT-OP-T Assessment and Plan Start: 07/07/18 17:02 Freq: Status: Active Protocol: Document 09/02/18 13:50 ML (Rec: 09/02/18 14:32 ML [id number]) Physical Therapy Assessment Goals Three Impairment LEFS Stereoplotter Operator Goal (LTG) 60/80 to show improvement in functional ability LTG Duration 09/07/18 Two Impairment strength Short Term Goal (STG) Pt will be indep with HEP & gym program. STG Duration 08/07/18-achieved progressing Stereoplotter Operator Goal (LTG) Pt will have 5/5 LE strength allowing greater ease with daily tasks. LTG Duration 09/07/18-improving One Impairment pain Care Home Goal (LTG) Pt will report no giving out of her knee for 6 weeks and report overall no greater than 2/10 pain. LTG Duration 09/07/18-achieved Assessment Summary Assessment Pt continues to have knee pain in certain activities and decreased strength which were both addressed with exercises and manual treatment. The pt remembered to bring in her tball today and exercises were able to be given to pt to do at home on her ball. The exercises specifically addressed strength deficits and her knee pain. Physical Therapy Plan Frequency and Duration Frequency of Treatment 2x/Week Duration of Treatment 2 months Plan of Care Start Date 07/08/18 Plan of Care End Date 09/07/18 Next Visit Focus/Plan Next Note Type Progress Note Next Visit Plan Cont to work glute strength & terminal knee ext strength & standing stability on LLE; review hip abd & ball HEP
--- NOTE | 2018-09-05 16:31 | PT.OTN ---
Current Diagnoses Pain in left knee (09/05/18) Physical Therapy Treatment Note PT-OP-A Visit Information Start: 07/07/18 17:02 Freq: Status: Active Protocol: Document 09/05/18 11:45 SAK (Rec: 09/05/18 16:27 SAK [id number]) Out-Patient Physical Therapy Visit Information Visit Information Visit Type Aquatic Treatment Note Visit Note 14 total Visit Start Time 11:45 Visit Stop Time 12:30 Total Visit Minutes 45 Visit Number 5/10 Number of RN CARDIOVASCULAR Visits 0 PT-OP-B Current Condition Start: 07/07/18 17:02 Freq: Status: Active Protocol: Document 07/08/18 13:43 LR (Rec: 07/08/18 15:37 [facility] [id number]) Current Condition History of Current Condition Onset Date 09/30/15 Current Complaints B knee pain with R knee buckling d/t sharp pain History of Current Condition Pt started having R knee pain in 09/30/15 with buckling happening about 1-2x/month for the past 2.5 years most months. Pt reports it is a sharp pain causing her LLE to give out. Reports she tried PT 2x with little help. Reports L knee pain started in Nov and she has noticed recently her walking is impaired. Reports she has felt like she is weaker recently & is unable to do as much as she used to. It is the first year I have felt my age. Reports hx of 2 wishlash injuries in 70s nerve pain down RUE that improved with chiro and appy & tonsilectomy. Pt has breast CA that was caught at an early stage and has been cancer free since radiation in 2005. Prior Treatments and Tests 2 bouts of PT with no major change; recent L knee cortizone injection with some help; Xray L: severe OA jake medially; R xray & MRI; Moderate degeneration, mostly medially with bakers cyst & medial meniscus tearing Treatment Goals Patient/Caregiver Goals To know daily exercises to strength knees. PT-OP-C Subjective Start: 07/07/18 17:02 Freq: Status: Active Protocol: Document 09/05/18 11:45 SAK (Rec: 09/05/18 16:27 SAK [id number]) OP-PT Subjective Patient Comments Patient Comments Denies pain today, pleased with progress. Apologizes for missing last aquatic PT appointment; got time confused . PT-OP-F Manual Assessment Start: 07/07/18 17:02 Freq: Status: Active Protocol: Document 07/08/18 13:43 [facility] (Rec: 07/08/18 14:59 [facility] [id number]) Manual Assessments Soft Tissue Assessment Soft Tissue Mobility Assessment L:med joint line, tibial tub R: ant tib & inc fascial tension Joint Mobility Assessment Joint Mobility Assessment B ER of tibia & femur PT-OP-G Mobility & Gait Start: 07/07/18 17:02 Freq: Status: Active Protocol: Document 07/08/18 13:43 [facility] (Rec: 07/08/18 14:59 [facility] [id number]) OP Gait Assessment Comments Gait Comments Dec post depression & ant elevation B; L lat lean & dec LLE stance time, PT-OP-J Posture/Palpation/Skin Start: 07/07/18 17:02 Freq: Status: Active Protocol: Document 07/08/18 13:43 [facility] (Rec: 07/08/18 14:59 [facility] [id number]) Posture Evaluation Comments Posture Comments Significant Genu varum: in c wearing of heel on R shoe & forefoot/midfoot L shoe PT-OP-K Range of Motion Start: 07/07/18 17:02 Freq: Status: Active Protocol: Document 07/08/18 13:43 [facility] (Rec: 07/08/18 14:59 [facility] [id number]) Knee Goniometric Range of Motion Knee Measured in Degrees Right Patient Position Supine Flexion Active (degrees) 134 Extension Active (degrees) 8 Left Patient Position Supine Flexion Active (degrees) 112 Extension Active (degrees) 12 PT-OP-L Special Tests Start: 07/07/18 17:02 Freq: Status: Active Protocol: Document 07/08/18 13:43 [facility] (Rec: 07/08/18 14:59 [facility] [id number]) Special Tests Lumbar Spine Special Tests Slump Test Results neg Knee Special Tests Posterior Draw Test Results neg B Varus- 25 Degrees Test Results neg B Valgus- 25 Degrees Test Results neg Thessaly Test 5 Degrees Test Results neg B Norman's Test Results L postive Apley's Compression Test Results neg B Bazan Chondromalacia Test Results neg PT-OP-M Strength Start: 07/07/18 17:02 Freq: Status: Active Protocol: Document 08/19/18 13:07 [facility] (Rec: 08/19/18 14:05 [facility] [id number]) Hip Strength Hip Manual Muscle Testing Right Flexion (L2) 5 Normal Extension (S1) 4 Good Abduction 4+ Good+ External Rotation 4 Good Internal Rotation 4 Good Left Flexion (L2) 5 Normal Extension (S1) 4- Good- Abduction 4 Good External Rotation 4 Good Internal Rotation 5 Normal Knee Strength Knee Manual Muscle Testing Right Flexion (S2) 5 Normal Extension (L3) 4 Good Left Flexion (S2) 5 Normal Extension (L3) 4+ Good+ Ankle/Foot Strength Ankle and Foot Manual Muscle Testing Right Dorsiflexion (L4) 5 Normal Plantarflexion (S1) 5 Normal Left Dorsiflexion (L4) 5 Normal Plantarflexion (S1) 5 Normal Comments pain in knee at about 15 heel raises PT-OP-Q Treatments Start: 07/07/18 17:02 Freq: Status: Active Protocol: Document 09/02/18 13:50 ML (Rec: 09/02/18 14:32 ML [id number]) Cardio Equipment Recumbent Stepper (Sci-Fit) Duration (Minutes) 7 Resistance 5 Seat Position 10 Gym Equipment Shuttle Recovery Unilateral Squats Details cues for full knee ext and glute squeeze at top Resistance 50 Bilateral Squats Details cues for squeeze of glutes and extending knee fully with a couple sec hold Resistance 100 Therapeutic Ball marching Exercise Details w/ and w/o knee ext with march Ball Size/Color green 65cm Body Position Sitting Comments HEP hamstring curls Exercise Details w/bridge at knee ext Ball Size/Color green 65cm Body Position Hooklying Comments HEP bridge Exercise Details w/march Ball Size/Color green 65cm Body Position Hooklying Comments HEP Manual Therapy Treatment Soft Tissue Mobilization 1 Body Location L hamstring Mobilization Type Myofascial Release Rolling Sustained Pressure Comments active DF/PF PT-OP-R Modalities Start: 07/07/18 17:02 Freq: Status: Active Protocol: Document 09/02/18 13:50 ML (Rec: 09/02/18 15:55 ML [id number]) Hot Pack/Cold Pack Treatment Cold Pack Location B knees Patient Position Hooklying Treatment Duration (minutes) 10 PT-OP-S Aquatic Treatment Start: 08/05/18 16:57 Freq: Status: Active Protocol: Document 09/05/18 11:45 [facility] (Rec: 09/05/18 16:31 [facility] [id number]) Aquatics Treatment Pool Entry/Exit Pool Entry/Exit Method Stairs Assistance Independent Water Walking Lunge Walk Water Level Chest Level Level of Assistance Contact Guard Assistance Verbal Cues fwd, bck, side, december, december kick Water Level Chest Level Walking Equipment resistance fins; large Level of Assistance Standby Assistance Verbal Cues Comments mod verbal and manual cues Lower Extremity Exercises 1 Details squats Body Position Sitting Water Level Chest Level Reps/Duration 15 Comments seated on table; cues for core stabilization and sequencing step-ups Details forward, lateral, eccentric lowering Water Level Chest Level Reps/Duration 10x ea Comments no UE support; cueing for muscle sequencing hip flex/ext Water Level Chest Level Reps/Duration 10x Comments UE support hip ab/ad Water Level Chest Level Reps/Duration 10x Comments UE support heel raises Details double and single Water Level Chest Level Reps/Duration 10x Comments UE support Lower Extremity Stretches hamstring, quad, ITB, hip add Equipment med ankle floats Reps/Duration 2x ea [place] Activities [place] Activities Bicycle Bicycle Backwards [place] Running Hip Abduction/Adduction Equipment flotation belt, large resistance fins Duration 15 min Comments also bicycle with no UE's small barbells PT-OP-T Assessment and Plan Start: 07/07/18 17:02 Freq: Status: Active Protocol: Document 09/05/18 11:45 [facility] (Rec: 09/05/18 16:27 [facility] [id number]) Physical Therapy Assessment Goals Three Impairment LEFS Director Communications Goal (LTG) 60/80 to show improvement in functional ability LTG Duration 09/07/18 Two Impairment strength Short Term Goal (STG) Pt will be indep with HEP & gym program. STG Duration 08/07/18-achieved progressing Director Communications Goal (LTG) Pt will have 5/5 LE strength allowing greater ease with daily tasks. LTG Duration 09/07/18-improving One Impairment pain Director Communications Goal (LTG) Pt will report no giving out of her knee for 6 weeks and report overall no greater than 2/10 pain. LTG Duration 09/07/18-achieved Progress Towards Goals Progress Towards Goals Progressing Toward Goals Assessment Summary Assessment Denied pain with aquatic exercises today. Cues for correct muscle activation during session today but good tolerance. Physical Therapy Plan Frequency and Duration Frequency of Treatment 2x/Week Duration of Treatment 2 months Plan of Care Start Date 07/08/18 Plan of Care End Date 09/07/18 Therapeutic Interventions Therapeutic Interventions Aquatic Therapy Balance Training Gait Training Home Exercise Program Joint Mobilizations Manual Therapy Neuromuscular Re-education Soft Tissue Mobilization Taping Therapeutic Activities Therapeutic Exercises Modalities Cold Pack/Ice Massage Electric Stimulation Hot Packs Infrared Therapy Iontophoresis Ultrasound Next Visit Focus/Plan Next Note Type Treatment Note Next Visit Plan Cont to work glute strength & terminal knee ext strength & standing stability on LLE; review hip abd & ball HEP
--- NOTE | 2018-09-09 15:46 | PT.OTN ---
Current Diagnoses Pain in left knee (09/09/18) Physical Therapy Treatment Note PT-OP-A Visit Information Start: 07/07/18 17:02 Freq: Status: Active Protocol: Document 09/09/18 14:38 ML (Rec: 09/09/18 15:22 ML [id number]) Out-Patient Physical Therapy Visit Information Visit Information Visit Type Progress Note Visit Note 15 total Visit Start Time 14:32 Visit Stop Time 15:23 Total Visit Minutes 51 Visit Number 6/10 Number of PRODUCTION CONTROL SUPERVISOR Visits 0 PT-OP-B Current Condition Start: 07/07/18 17:02 Freq: Status: Active Protocol: Document 07/08/18 13:43 [facility] (Rec: 07/08/18 15:37 [facility] [id number]) Current Condition History of Current Condition Onset Date 09/30/15 Current Complaints B knee pain with R knee buckling d/t sharp pain History of Current Condition Pt started having R knee pain in 09/30/15 with buckling happening about 1-2x/month for the past 2.5 years most months. Pt reports it is a sharp pain causing her LLE to give out. Reports she tried PT 2x with little help. Reports L knee pain started in Nov and she has noticed recently her walking is impaired. Reports she has felt like she is weaker recently & is unable to do as much as she used to. It is the first year I have felt my age. Reports hx of 2 wishlash injuries in 70s nerve pain down RUE that improved with chiro and appy & tonsilectomy. Pt has breast CA that was caught at an early stage and has been cancer free since radiation in 2005. Prior Treatments and Tests 2 bouts of PT with no major change; recent L knee cortizone injection with some help; Xray L: severe OA jake medially; R xray & MRI; Moderate degeneration, mostly medially with bakers cyst & medial meniscus tearing Treatment Goals Patient/Caregiver Goals To know daily exercises to strength knees. PT-OP-C Subjective Start: 07/07/18 17:02 Freq: Status: Active Protocol: Document 09/09/18 14:38 ML (Rec: 09/09/18 15:22 ML [id number]) OP-PT Subjective Patient Comments Patient Comments Pt mentioned that she overdid it on Wednesday at the gym, but went to bed early and feels a bit better today. PT-OP-F Manual Assessment Start: 07/07/18 17:02 Freq: Status: Active Protocol: Document 07/08/18 13:43 [facility] (Rec: 07/08/18 14:59 [facility] [id number]) Manual Assessments Soft Tissue Assessment Soft Tissue Mobility Assessment L:med joint line, tibial tub R: ant tib & inc fascial tension Joint Mobility Assessment Joint Mobility Assessment B ER of tibia & femur PT-OP-G Mobility & Gait Start: 07/07/18 17:02 Freq: Status: Active Protocol: Document 07/08/18 13:43 [facility] (Rec: 07/08/18 14:59 [facility] [id number]) OP Gait Assessment Comments Gait Comments Dec post depression & ant elevation B; L lat lean & dec LLE stance time, PT-OP-J Posture/Palpation/Skin Start: 07/07/18 17:02 Freq: Status: Active Protocol: Document 07/08/18 13:43 [facility] (Rec: 07/08/18 14:59 [facility] [id number]) Posture Evaluation Comments Posture Comments Significant Genu varum: in c wearing of heel on R shoe & forefoot/midfoot L shoe PT-OP-K Range of Motion Start: 07/07/18 17:02 Freq: Status: Active Protocol: Document 07/08/18 13:43 [facility] (Rec: 07/08/18 14:59 [facility] [id number]) Knee Goniometric Range of Motion Knee Measured in Degrees Right Patient Position Supine Flexion Active (degrees) 134 Extension Active (degrees) 8 Left Patient Position Supine Flexion Active (degrees) 112 Extension Active (degrees) 12 PT-OP-L Special Tests Start: 07/07/18 17:02 Freq: Status: Active Protocol: Document 07/08/18 13:43 [facility] (Rec: 07/08/18 14:59 [facility] [id number]) Special Tests Lumbar Spine Special Tests Slump Test Results neg Knee Special Tests Posterior Draw Test Results neg B Varus- 25 Degrees Test Results neg B Valgus- 25 Degrees Test Results neg Thessaly Test 5 Degrees Test Results neg B Norman's Test Results L postive Apley's Compression Test Results neg B Bazan Chondromalacia Test Results neg PT-OP-M Strength Start: 07/07/18 17:02 Freq: Status: Active Protocol: Document 09/09/18 14:38 ML (Rec: 09/09/18 15:22 ML [id number]) Hip Strength Hip Manual Muscle Testing Right Flexion (L2) 4+ Good+ Extension (S1) 4+ Good+ Abduction 5 Normal External Rotation 4+ Good+ Internal Rotation 5 Normal Left Flexion (L2) 4 Good Extension (S1) 4 Good Abduction 5 Normal External Rotation 4- Good- Internal Rotation 4 Good Comments small pain with IR Knee Strength Knee Manual Muscle Testing Right Flexion (S2) 5 Normal Extension (L3) 5 Normal Left Flexion (S2) 4+ Good+ Extension (L3) 4+ Good+ Ankle/Foot Strength Ankle and Foot Manual Muscle Testing Right Dorsiflexion (L4) 5 Normal Plantarflexion (S1) 5 Normal Left Dorsiflexion (L4) 5 Normal Plantarflexion (S1) 5 Normal Comments pain in knee at about 15 heel raises PT-OP-Q Treatments Start: 07/07/18 17:02 Freq: Status: Active Protocol: Document 09/09/18 14:38 ML (Rec: 09/09/18 15:22 ML [id number]) Cardio Equipment Recumbent Stepper (Sci-Fit) Duration (Minutes) 8 Resistance 6 Seat Position 10 Gym Equipment Therapeutic Ball marching Exercise Details w/ and w/o knee ext with march Ball Size/Color green 65cm Body Position Sitting Comments HEP; cues for posture, posture retraining with camera to visualize hamstring curls Exercise Details w/bridge at knee ext Ball Size/Color green 65cm Body Position Hooklying Comments HEP; added bridge while curling PT-OP-R Modalities Start: 07/07/18 17:02 Freq: Status: Active Protocol: Document 09/09/18 14:38 ML (Rec: 09/09/18 15:22 ML [id number]) Hot Pack/Cold Pack Treatment Cold Pack Location B knees Patient Position Hooklying Treatment Duration (minutes) 10 PT-OP-S Aquatic Treatment Start: 08/05/18 16:57 Freq: Status: Active Protocol: Document 09/05/18 11:45 [facility] (Rec: 09/05/18 16:31 [facility] [id number]) Aquatics Treatment Pool Entry/Exit Pool Entry/Exit Method Stairs Assistance Independent Water Walking Lunge Walk Water Level Chest Level Level of Assistance Contact Guard Assistance Verbal Cues fwd, bck, side, december, december kick Water Level Chest Level Walking Equipment resistance fins; large Level of Assistance Standby Assistance Verbal Cues Comments mod verbal and manual cues Lower Extremity Exercises 1 Details squats Body Position Sitting Water Level Chest Level Reps/Duration 15 Comments seated on table; cues for core stabilization and sequencing step-ups Details forward, lateral, eccentric lowering Water Level Chest Level Reps/Duration 10x ea Comments no UE support; cueing for muscle sequencing hip flex/ext Water Level Chest Level Reps/Duration 10x Comments UE support hip ab/ad Water Level Chest Level Reps/Duration 10x Comments UE support heel raises Details double and single Water Level Chest Level Reps/Duration 10x Comments UE support Lower Extremity Stretches hamstring, quad, ITB, hip add Equipment med ankle floats Reps/Duration 2x ea [place] Activities [place] Activities Bicycle Bicycle Backwards [place] Running Hip Abduction/Adduction Equipment flotation belt, large resistance fins Duration 15 min Comments also bicycle with no UE's small barbells PT-OP-T Assessment and Plan Start: 07/07/18 17:02 Freq: Status: Active Protocol: Document 09/09/18 14:38 ML (Rec: 09/09/18 15:22 ML [id number]) Physical Therapy Assessment Impairments Impairments Activity Tolerance Balance Gait Pain Posture ROM Soft Tissue Mobility Strength Goals Four Impairment dec activity Short Term Goal (STG) Pt will be able to walk a 1/2 mile. STG Duration 10/09/18 Flower Maker Goal (LTG) Pt will be able to walk 1 mile . LTG Duration 11/09/18 Three Impairment LEFS Flower Maker Goal (LTG) 60/80 to show improvement in functional ability LTG Duration 11/09/18 - improving (now 51/80 , earlier 45/80) Two Impairment strength Short Term Goal (STG) Pt will be indep with HEP & gym program. STG Duration 08/07/18-achieved progressing Mcfp Goal (LTG) Pt will have 5/5 LE strength allowing greater ease with daily tasks. LTG Duration 11/09/18-improving One Impairment pain Flower Maker Goal (LTG) Pt will report no giving out of her knee for 6 weeks and report overall no greater than 2/10 pain. LTG Duration 09/07/18-achieved Progress Towards Goals Progress Towards Goals Progressing Toward Goals Assessment Summary Assessment Overall, pt has improved in her strength but still has some deficits. Pt has some pain that is believed to limit her strength. Pt had difficulty achieving appropriate posture on the ball through exercises, but HEP exercises were reviewed since the pt indicated she didn't really work on them. Pt expresses that she would like to be able to walk one mile again and would like to work toward that goal. Physical Therapy Plan Frequency and Duration Frequency of Treatment 2x/Week Duration of Treatment 2 months Plan of Care Start Date 09/09/18 Plan of Care End Date 11/09/18 Therapeutic Interventions Therapeutic Interventions Aquatic Therapy Balance Training Gait Training Home Exercise Program Joint Mobilizations Manual Therapy Neuromuscular Re-education Soft Tissue Mobilization Taping Therapeutic Activities Therapeutic Exercises Modalities Cold Pack/Ice Massage Electric Stimulation Hot Packs Infrared Therapy Iontophoresis Ultrasound Next Visit Focus/Plan Next Note Type Treatment Note Next Visit Plan Cont to work glute ER/IR, ext, and hip flexion strength & terminal knee ext strength & standing stability on LLE; review ball HEP (march and bridge hamstring curl)
--- NOTE | 2018-09-09 15:46 | PT.OPPOC ---
Current Diagnoses Pain in left knee (09/09/18) Provider Visit Care Team Role Provider Type DILEEP [place] Attending Provider Non-Staff Primary Care Provider Specialty: Medical Address: [address] [place] [address], [id number] Email: Plan Of Care PT-OP-T Assessment and Plan Start: 07/07/18 17:02 Freq: Status: Active Protocol: Document 09/09/18 14:38 ML (Rec: 09/09/18 15:22 ML [id number]) Physical Therapy Assessment Impairments Impairments Activity Tolerance Balance Gait Pain Posture ROM Soft Tissue Mobility Strength Goals Four Impairment dec activity Short Term Goal (STG) Pt will be able to walk a 1/2 mile. STG Duration 10/09/18 Pulp Mill Supervisor Goal (LTG) Pt will be able to walk 1 mile . LTG Duration 11/09/18 Three Impairment LEFS Senior Care Goal (LTG) 60/80 to show improvement in functional ability LTG Duration 11/09/18 - improving (now 51/80 , earlier 45/80) Two Impairment strength Short Term Goal (STG) Pt will be indep with HEP & gym program. STG Duration 08/07/18-achieved progressing Pulp Mill Supervisor Goal (LTG) Pt will have 5/5 LE strength allowing greater ease with daily tasks. LTG Duration 11/09/18-improving One Impairment pain Senior Care Goal (LTG) Pt will report no giving out of her knee for 6 weeks and report overall no greater than 2/10 pain. LTG Duration 09/07/18-achieved Progress Towards Goals Progress Towards Goals Progressing Toward Goals Assessment Summary Assessment Overall, pt has improved in her strength but still has some deficits. Pt has some pain that is believed to limit her strength. Pt had difficulty achieving appropriate posture on the ball through exercises, but HEP exercises were reviewed since the pt indicated she didn't really work on them. Pt expresses that she would like to be able to walk one mile again and would like to work toward that goal. Physical Therapy Plan Frequency and Duration Frequency of Treatment 2x/Week Duration of Treatment 2 months Plan of Care Start Date 09/09/18 Plan of Care End Date 11/09/18 Therapeutic Interventions Therapeutic Interventions Aquatic Therapy Balance Training Gait Training Home Exercise Program Joint Mobilizations Manual Therapy Neuromuscular Re-education Soft Tissue Mobilization Taping Therapeutic Activities Therapeutic Exercises Modalities Cold Pack/Ice Massage Electric Stimulation Hot Packs Infrared Therapy Iontophoresis Ultrasound Next Visit Focus/Plan Next Note Type Treatment Note Next Visit Plan Cont to work glute ER/IR, ext, and hip flexion strength & terminal knee ext strength & standing stability on LLE; review ball HEP (march and bridge hamstring curl) Plan of Care Dates Plan of Care Start Date 09/09/18 Plan of Care End Date 11/09/18 Please Sign and Return: I have reviewed this Plan of Care and certify that the skilled therapy services above are required to meet the patient?s needs. Physician Signature Date Printed Name and Credentials Clinical Instructor Signature Printed Name and Credentials
--- NOTE | 2018-09-12 14:57 | PT.OTN ---
Current Diagnoses Pain in left knee (09/09/18) Physical Therapy Treatment Note PT-OP-A Visit Information Start: 07/07/18 17:02 Freq: Status: Active Protocol: Document 09/12/18 11:45 [facility]B (Rec: 09/12/18 14:57 CLB [id number]) Out-Patient Physical Therapy Visit Information Visit Information Visit Type Aquatic Treatment Note Visit Note 16 total Visit Start Time 11:45 Visit Stop Time 12:30 Total Visit Minutes 45 Visit Number 7 Number of NIGHT NURSE Visits 1 PT-OP-B Current Condition Start: 07/07/18 17:02 Freq: Status: Active Protocol: Document 07/08/18 13:43 [facility] (Rec: 07/08/18 15:37 [facility] [id number]) Current Condition History of Current Condition Onset Date 09/30/15 Current Complaints B knee pain with R knee buckling d/t sharp pain History of Current Condition Pt started having R knee pain in 09/30/15 with buckling happening about 1-2x/month for the past 2.5 years most months. Pt reports it is a sharp pain causing her LLE to give out. Reports she tried PT 2x with little help. Reports L knee pain started in Nov and she has noticed recently her walking is impaired. Reports she has felt like she is weaker recently & is unable to do as much as she used to. It is the first year I have felt my age. Reports hx of 2 wishlash injuries in 70s nerve pain down RUE that improved with chiro and appy & tonsilectomy. Pt has breast CA that was caught at an early stage and has been cancer free since radiation in 2005. Prior Treatments and Tests 2 bouts of PT with no major change; recent L knee cortizone injection with some help; Xray L: severe OA jake medially; R xray & MRI; Moderate degeneration, mostly medially with bakers cyst & medial meniscus tearing Treatment Goals Patient/Caregiver Goals To know daily exercises to strength knees. PT-OP-C Subjective Start: 07/07/18 17:02 Freq: Status: Active Protocol: Document 09/12/18 11:45 CLB (Rec: 09/12/18 14:57 CLB [id number]) OP-PT Subjective Patient Comments Patient Comments Pt stated she feels good after an aquatic tx. Pt stated she has silver sneakers and may attend pool exercise classes in free time. PT-OP-F Manual Assessment Start: 07/07/18 17:02 Freq: Status: Active Protocol: Document 07/08/18 13:43 [facility] (Rec: 07/08/18 14:59 [facility] [id number]) Manual Assessments Soft Tissue Assessment Soft Tissue Mobility Assessment L:med joint line, tibial tub R: ant tib & inc fascial tension Joint Mobility Assessment Joint Mobility Assessment B ER of tibia & femur PT-OP-G Mobility & Gait Start: 07/07/18 17:02 Freq: Status: Active Protocol: Document 07/08/18 13:43 [facility] (Rec: 07/08/18 14:59 [facility] [id number]) OP Gait Assessment Comments Gait Comments Dec post depression & ant elevation B; L lat lean & dec LLE stance time, PT-OP-J Posture/Palpation/Skin Start: 07/07/18 17:02 Freq: Status: Active Protocol: Document 07/08/18 13:43 [facility] (Rec: 07/08/18 14:59 [facility] [id number]) Posture Evaluation Comments Posture Comments Significant Genu varum: in c wearing of heel on R shoe & forefoot/midfoot L shoe PT-OP-K Range of Motion Start: 07/07/18 17:02 Freq: Status: Active Protocol: Document 07/08/18 13:43 [facility] (Rec: 07/08/18 14:59 [facility] [id number]) Knee Goniometric Range of Motion Knee Measured in Degrees Right Patient Position Supine Flexion Active (degrees) 134 Extension Active (degrees) 8 Left Patient Position Supine Flexion Active (degrees) 112 Extension Active (degrees) 12 PT-OP-L Special Tests Start: 07/07/18 17:02 Freq: Status: Active Protocol: Document 07/08/18 13:43 [facility] (Rec: 07/08/18 14:59 [facility] [id number]) Special Tests Lumbar Spine Special Tests Slump Test Results neg Knee Special Tests Posterior Draw Test Results neg B Varus- 25 Degrees Test Results neg B Valgus- 25 Degrees Test Results neg Thessaly Test 5 Degrees Test Results neg B Norman's Test Results L postive Apley's Compression Test Results neg B Bazan Chondromalacia Test Results neg PT-OP-M Strength Start: 07/07/18 17:02 Freq: Status: Active Protocol: Document 09/09/18 14:38 ML (Rec: 09/09/18 15:22 ML [id number]) Hip Strength Hip Manual Muscle Testing Right Flexion (L2) 4+ Good+ Extension (S1) 4+ Good+ Abduction 5 Normal External Rotation 4+ Good+ Internal Rotation 5 Normal Left Flexion (L2) 4 Good Extension (S1) 4 Good Abduction 5 Normal External Rotation 4- Good- Internal Rotation 4 Good Comments small pain with IR Knee Strength Knee Manual Muscle Testing Right Flexion (S2) 5 Normal Extension (L3) 5 Normal Left Flexion (S2) 4+ Good+ Extension (L3) 4+ Good+ Ankle/Foot Strength Ankle and Foot Manual Muscle Testing Right Dorsiflexion (L4) 5 Normal Plantarflexion (S1) 5 Normal Left Dorsiflexion (L4) 5 Normal Plantarflexion (S1) 5 Normal Comments pain in knee at about 15 heel raises PT-OP-Q Treatments Start: 07/07/18 17:02 Freq: Status: Active Protocol: Document 09/09/18 14:38 ML (Rec: 09/09/18 15:22 ML [id number]) Cardio Equipment Recumbent Stepper (Sci-Fit) Duration (Minutes) 8 Resistance 6 Seat Position 10 Gym Equipment Therapeutic Ball marching Exercise Details w/ and w/o knee ext with march Ball Size/Color green 65cm Body Position Sitting Comments HEP; cues for posture, posture retraining with camera to visualize hamstring curls Exercise Details w/bridge at knee ext Ball Size/Color green 65cm Body Position Hooklying Comments HEP; added bridge while curling PT-OP-R Modalities Start: 07/07/18 17:02 Freq: Status: Active Protocol: Document 09/09/18 14:38 ML (Rec: 09/09/18 15:22 ML [id number]) Hot Pack/Cold Pack Treatment Cold Pack Location B knees Patient Position Hooklying Treatment Duration (minutes) 10 PT-OP-S Aquatic Treatment Start: 08/05/18 16:57 Freq: Status: Active Protocol: Document 09/12/18 11:45 [facility]B (Rec: 09/12/18 14:57 CLB [id number]) Aquatics Treatment Pool Entry/Exit Pool Entry/Exit Method Stairs Assistance Independent Water Walking Lunge Walk Water Level Chest Level Level of Assistance Contact Guard Assistance Verbal Cues fwd, bck, side, december, december kick Water Level Chest Level Walking Equipment resistance fins; large Level of Assistance Standby Assistance Verbal Cues Comments mod verbal and manual cues Lower Extremity Exercises 1 Details squats Body Position Sitting Water Level Chest Level Reps/Duration 15 Comments seated on table; cues for core stabilization and sequencing step-ups Details forward, lateral, eccentric lowering Water Level Chest Level Reps/Duration 10x ea Comments no UE support; cueing for muscle sequencing hip flex/ext Water Level Chest Level Reps/Duration 10x Comments UE support hip ab/ad Water Level Chest Level Reps/Duration 10x Comments UE support heel raises Details double and single Water Level Chest Level Reps/Duration 10x Comments UE support Lower Extremity Stretches hamstring, quad, ITB, hip add Equipment med ankle floats Reps/Duration 2x ea [place] Activities [place] Activities Bicycle Bicycle Backwards [place] Running Hip Abduction/Adduction Equipment flotation belt, large resistance fins Duration 15 min Comments also bicycle with no UE's small barbells PT-OP-T Assessment and Plan Start: 07/07/18 17:02 Freq: Status: Active Protocol: Document 09/12/18 11:45 CLB (Rec: 09/12/18 14:57 CLB [id number]) Physical Therapy Assessment Goals Three Impairment LEFS Half-Way Goal (LTG) 60/80 to show improvement in functional ability LTG Duration 11/09/18 - improving (now 51/80 , earlier 45/80) Two Impairment strength Short Term Goal (STG) Pt will be indep with HEP & gym program. STG Duration 08/07/18-achieved progressing Cargo Operations Agent Goal (LTG) Pt will have 5/5 LE strength allowing greater ease with daily tasks. LTG Duration 11/09/18-improving One Impairment pain Half-Way Goal (LTG) Pt will report no giving out of her knee for 6 weeks and report overall no greater than 2/10 pain. LTG Duration 09/07/18-achieved Assessment Summary Assessment Pt tolerates aquatic exercises w/o increase in pain. Pt had difficulty with step ups due to balance. Physical Therapy Plan Frequency and Duration Frequency of Treatment 2x/Week Duration of Treatment 2 months Plan of Care Start Date 09/09/18 Plan of Care End Date 11/09/18 Next Visit Focus/Plan Next Note Type Treatment Note Next Visit Plan Cont to work glute ER/IR, ext, and hip flexion strength & terminal knee ext strength & standing stability on LLE; review ball HEP (march and bridge hamstring curl)
--- NOTE | 2018-09-19 15:18 | PT.OTN ---
Current Diagnoses Pain in left knee (09/19/18) Physical Therapy Treatment Note PT-OP-A Visit Information Start: 07/07/18 17:02 Freq: Status: Active Protocol: Document 09/19/18 11:45 CLB (Rec: 09/19/18 15:18 CLB [id number]) Out-Patient Physical Therapy Visit Information Visit Information Visit Type Aquatic Treatment Note Visit Note 17 total Visit Start Time 11:45 Visit Stop Time 12:30 Total Visit Minutes 45 Visit Number 8/10 Number of MATERIAL CARRIER Visits 2 PT-OP-B Current Condition Start: 07/07/18 17:02 Freq: Status: Active Protocol: Document 07/08/18 13:43 [facility] (Rec: 07/08/18 15:37 [facility] [id number]) Current Condition History of Current Condition Onset Date 09/30/15 Current Complaints B knee pain with R knee buckling d/t sharp pain History of Current Condition Pt started having R knee pain in 09/30/15 with buckling happening about 1-2x/month for the past 2.5 years most months. Pt reports it is a sharp pain causing her LLE to give out. Reports she tried PT 2x with little help. Reports L knee pain started in Nov and she has noticed recently her walking is impaired. Reports she has felt like she is weaker recently & is unable to do as much as she used to. It is the first year I have felt my age. Reports hx of 2 wishlash injuries in 70s nerve pain down RUE that improved with chiro and appy & tonsilectomy. Pt has breast CA that was caught at an early stage and has been cancer free since radiation in 2005. Prior Treatments and Tests 2 bouts of PT with no major change; recent L knee cortizone injection with some help; Xray L: severe OA jake medially; R xray & MRI; Moderate degeneration, mostly medially with bakers cyst & medial meniscus tearing Treatment Goals Patient/Caregiver Goals To know daily exercises to strength knees. PT-OP-C Subjective Start: 07/07/18 17:02 Freq: Status: Active Protocol: Document 09/19/18 11:45 CLB (Rec: 09/19/18 15:18 CLB [id number]) OP-PT Subjective Patient Comments Patient Comments Pt stated she can get OOB and walk first thing in the morning without pain or stiffness. PT-OP-F Manual Assessment Start: 07/07/18 17:02 Freq: Status: Active Protocol: Document 07/08/18 13:43 [facility] (Rec: 07/08/18 14:59 [facility] [id number]) Manual Assessments Soft Tissue Assessment Soft Tissue Mobility Assessment L:med joint line, tibial tub R: ant tib & inc fascial tension Joint Mobility Assessment Joint Mobility Assessment B ER of tibia & femur PT-OP-G Mobility & Gait Start: 07/07/18 17:02 Freq: Status: Active Protocol: Document 07/08/18 13:43 [facility] (Rec: 07/08/18 14:59 [facility] [id number]) OP Gait Assessment Comments Gait Comments Dec post depression & ant elevation B; L lat lean & dec LLE stance time, PT-OP-J Posture/Palpation/Skin Start: 07/07/18 17:02 Freq: Status: Active Protocol: Document 07/08/18 13:43 [facility] (Rec: 07/08/18 14:59 [facility] [id number]) Posture Evaluation Comments Posture Comments Significant Genu varum: in c wearing of heel on R shoe & forefoot/midfoot L shoe PT-OP-K Range of Motion Start: 07/07/18 17:02 Freq: Status: Active Protocol: Document 07/08/18 13:43 [facility] (Rec: 07/08/18 14:59 [facility] [id number]) Knee Goniometric Range of Motion Knee Measured in Degrees Right Patient Position Supine Flexion Active (degrees) 134 Extension Active (degrees) 8 Left Patient Position Supine Flexion Active (degrees) 112 Extension Active (degrees) 12 PT-OP-L Special Tests Start: 07/07/18 17:02 Freq: Status: Active Protocol: Document 07/08/18 13:43 [facility] (Rec: 07/08/18 14:59 [facility] [id number]) Special Tests Lumbar Spine Special Tests Slump Test Results neg Knee Special Tests Posterior Draw Test Results neg B Varus- 25 Degrees Test Results neg B Valgus- 25 Degrees Test Results neg Thessaly Test 5 Degrees Test Results neg B Norman's Test Results L postive Apley's Compression Test Results neg B Bazan Chondromalacia Test Results neg PT-OP-M Strength Start: 07/07/18 17:02 Freq: Status: Active Protocol: Document 09/09/18 14:38 ML (Rec: 09/09/18 15:22 ML [id number]) Hip Strength Hip Manual Muscle Testing Right Flexion (L2) 4+ Good+ Extension (S1) 4+ Good+ Abduction 5 Normal External Rotation 4+ Good+ Internal Rotation 5 Normal Left Flexion (L2) 4 Good Extension (S1) 4 Good Abduction 5 Normal External Rotation 4- Good- Internal Rotation 4 Good Comments small pain with IR Knee Strength Knee Manual Muscle Testing Right Flexion (S2) 5 Normal Extension (L3) 5 Normal Left Flexion (S2) 4+ Good+ Extension (L3) 4+ Good+ Ankle/Foot Strength Ankle and Foot Manual Muscle Testing Right Dorsiflexion (L4) 5 Normal Plantarflexion (S1) 5 Normal Left Dorsiflexion (L4) 5 Normal Plantarflexion (S1) 5 Normal Comments pain in knee at about 15 heel raises PT-OP-Q Treatments Start: 07/07/18 17:02 Freq: Status: Active Protocol: Document 09/09/18 14:38 ML (Rec: 09/09/18 15:22 ML [id number]) Cardio Equipment Recumbent Stepper (Sci-Fit) Duration (Minutes) 8 Resistance 6 Seat Position 10 Gym Equipment Therapeutic Ball marching Exercise Details w/ and w/o knee ext with march Ball Size/Color green 65cm Body Position Sitting Comments HEP; cues for posture, posture retraining with camera to visualize hamstring curls Exercise Details w/bridge at knee ext Ball Size/Color green 65cm Body Position Hooklying Comments HEP; added bridge while curling PT-OP-R Modalities Start: 07/07/18 17:02 Freq: Status: Active Protocol: Document 09/09/18 14:38 ML (Rec: 09/09/18 15:22 ML [id number]) Hot Pack/Cold Pack Treatment Cold Pack Location B knees Patient Position Hooklying Treatment Duration (minutes) 10 PT-OP-S Aquatic Treatment Start: 08/05/18 16:57 Freq: Status: Active Protocol: Document 09/19/18 11:45 [facility] (Rec: 09/19/18 15:18 CLB [id number]) Aquatics Treatment Pool Entry/Exit Pool Entry/Exit Method Stairs Assistance Independent Water Walking Lunge Walk Water Level Chest Level Level of Assistance Contact Guard Assistance Verbal Cues fwd, bck, side, december, december kick Water Level Chest Level Walking Equipment resistance fins; large Level of Assistance Standby Assistance Verbal Cues Comments mod verbal and manual cues Lower Extremity Exercises 1 Details squats Body Position Sitting Water Level Chest Level Reps/Duration 15 Comments seated on table; cues for core stabilization and sequencing hip flex/ext Water Level Chest Level Reps/Duration 10x Comments UE support hip ab/ad Water Level Chest Level Reps/Duration 10x Comments UE support heel raises Details double and single Water Level Chest Level Reps/Duration 10x Lower Extremity Stretches hamstring, quad, ITB, hip add Equipment Small Noodle Reps/Duration 2x ea [place] Activities [place] Activities Bicycle Bicycle Backwards Cross [place] Running Hip Abduction/Adduction Equipment flotation belt, large resistance fins Duration 15 min Comments also bicycle with no UE's small barbells Other kinesiotape left knee Comments for patellar tracking; 3 Y strips PT-OP-T Assessment and Plan Start: 07/07/18 17:02 Freq: Status: Active Protocol: Document 09/19/18 11:45 [facility] (Rec: 09/19/18 15:18 CLB [id number]) Physical Therapy Assessment Goals Four Impairment dec activity Short Term Goal (STG) Pt will be able to walk a 1/2 mile. STG Duration 10/09/18 Prison Goal (LTG) Pt will be able to walk 1 mile . LTG Duration 11/09/18 Three Impairment LEFS Audit Tech Goal (LTG) 60/80 to show improvement in functional ability LTG Duration 11/09/18 - improving (now 51/80 , earlier 45/80) Two Impairment strength Short Term Goal (STG) Pt will be indep with HEP & gym program. STG Duration 08/07/18-achieved progressing Prison Goal (LTG) Pt will have 5/5 LE strength allowing greater ease with daily tasks. LTG Duration 11/09/18-improving One Impairment pain Audit Tech Goal (LTG) Pt will report no giving out of her knee for 6 weeks and report overall no greater than 2/10 pain. LTG Duration 09/07/18-achieved Assessment Summary Assessment Pt performed aquatic exercises w/o complaint of increased pain. Pt continues to need cues for core activation with all activities. Physical Therapy Plan Frequency and Duration Frequency of Treatment 2x/Week Duration of Treatment 2 months Plan of Care Start Date 09/09/18 Plan of Care End Date 11/09/18 Next Visit Focus/Plan Next Note Type Treatment Note Next Visit Plan Cont to work glute ER/IR, ext, and hip flexion strength & terminal knee ext strength & standing stability on LLE; review ball HEP (march and bridge hamstring curl)
--- NOTE | 2018-09-21 16:15 | PT.OTN ---
Current Diagnoses Pain in left knee (09/21/18) Physical Therapy Treatment Note PT-OP-A Visit Information Start: 07/07/18 17:02 Freq: Status: Active Protocol: Document 09/21/18 16:11 [facility] (Rec: 09/21/18 16:15 [facility] [id number]) Out-Patient Physical Therapy Visit Information Visit Information Visit Type Aquatic Treatment Note Visit Note 17 total Visit Start Time 11:45 Visit Stop Time 12:30 Total Visit Minutes 45 Visit Number 9/10 Number of FORENSIC STRUCTURAL ENGINEER Visits 2 PT-OP-B Current Condition Start: 07/07/18 17:02 Freq: Status: Active Protocol: Document 07/08/18 13:43 [facility] (Rec: 07/08/18 15:37 [facility] [id number]) Current Condition History of Current Condition Onset Date 09/30/15 Current Complaints B knee pain with R knee buckling d/t sharp pain History of Current Condition Pt started having R knee pain in 09/30/15 with buckling happening about 1-2x/month for the past 2.5 years most months. Pt reports it is a sharp pain causing her LLE to give out. Reports she tried PT 2x with little help. Reports L knee pain started in Nov and she has noticed recently her walking is impaired. Reports she has felt like she is weaker recently & is unable to do as much as she used to. It is the first year I have felt my age. Reports hx of 2 wishlash injuries in 70s nerve pain down RUE that improved with chiro and appy & tonsilectomy. Pt has breast CA that was caught at an early stage and has been cancer free since radiation in 2005. Prior Treatments and Tests 2 bouts of PT with no major change; recent L knee cortizone injection with some help; Xray L: severe OA jake medially; R xray & MRI; Moderate degeneration, mostly medially with bakers cyst & medial meniscus tearing Treatment Goals Patient/Caregiver Goals To know daily exercises to strength knees. PT-OP-C Subjective Start: 07/07/18 17:02 Freq: Status: Active Protocol: Document 09/21/18 16:11 [facility] (Rec: 09/21/18 16:15 [facility] [id number]) OP-PT Subjective Patient Comments Patient Comments No new c/o, reports very pleased with PT. Today is her last scheduled aquatic PT appointment. PT-OP-F Manual Assessment Start: 07/07/18 17:02 Freq: Status: Active Protocol: Document 07/08/18 13:43 [facility] (Rec: 07/08/18 14:59 [facility] [id number]) Manual Assessments Soft Tissue Assessment Soft Tissue Mobility Assessment L:med joint line, tibial tub R: ant tib & inc fascial tension Joint Mobility Assessment Joint Mobility Assessment B ER of tibia & femur PT-OP-G Mobility & Gait Start: 07/07/18 17:02 Freq: Status: Active Protocol: Document 07/08/18 13:43 [facility] (Rec: 07/08/18 14:59 [facility] [id number]) OP Gait Assessment Comments Gait Comments Dec post depression & ant elevation B; L lat lean & dec LLE stance time, PT-OP-J Posture/Palpation/Skin Start: 07/07/18 17:02 Freq: Status: Active Protocol: Document 07/08/18 13:43 [facility] (Rec: 07/08/18 14:59 [facility] [id number]) Posture Evaluation Comments Posture Comments Significant Genu varum: in c wearing of heel on R shoe & forefoot/midfoot L shoe PT-OP-K Range of Motion Start: 07/07/18 17:02 Freq: Status: Active Protocol: Document 07/08/18 13:43 [facility] (Rec: 07/08/18 14:59 [facility] [id number]) Knee Goniometric Range of Motion Knee Measured in Degrees Right Patient Position Supine Flexion Active (degrees) 134 Extension Active (degrees) 8 Left Patient Position Supine Flexion Active (degrees) 112 Extension Active (degrees) 12 PT-OP-L Special Tests Start: 07/07/18 17:02 Freq: Status: Active Protocol: Document 07/08/18 13:43 [facility] (Rec: 07/08/18 14:59 [facility] [id number]) Special Tests Lumbar Spine Special Tests Slump Test Results neg Knee Special Tests Posterior Draw Test Results neg B Varus- 25 Degrees Test Results neg B Valgus- 25 Degrees Test Results neg Thessaly Test 5 Degrees Test Results neg B Norman's Test Results L postive Apley's Compression Test Results neg B Bazan Chondromalacia Test Results neg PT-OP-M Strength Start: 07/07/18 17:02 Freq: Status: Active Protocol: Document 09/09/18 14:38 ML (Rec: 09/09/18 15:22 ML [id number]) Hip Strength Hip Manual Muscle Testing Right Flexion (L2) 4+ Good+ Extension (S1) 4+ Good+ Abduction 5 Normal External Rotation 4+ Good+ Internal Rotation 5 Normal Left Flexion (L2) 4 Good Extension (S1) 4 Good Abduction 5 Normal External Rotation 4- Good- Internal Rotation 4 Good Comments small pain with IR Knee Strength Knee Manual Muscle Testing Right Flexion (S2) 5 Normal Extension (L3) 5 Normal Left Flexion (S2) 4+ Good+ Extension (L3) 4+ Good+ Ankle/Foot Strength Ankle and Foot Manual Muscle Testing Right Dorsiflexion (L4) 5 Normal Plantarflexion (S1) 5 Normal Left Dorsiflexion (L4) 5 Normal Plantarflexion (S1) 5 Normal Comments pain in knee at about 15 heel raises PT-OP-Q Treatments Start: 07/07/18 17:02 Freq: Status: Active Protocol: Document 09/09/18 14:38 ML (Rec: 09/09/18 15:22 ML [id number]) Cardio Equipment Recumbent Stepper (Sci-Fit) Duration (Minutes) 8 Resistance 6 Seat Position 10 Gym Equipment Therapeutic Ball marching Exercise Details w/ and w/o knee ext with march Ball Size/Color green 65cm Body Position Sitting Comments HEP; cues for posture, posture retraining with camera to visualize hamstring curls Exercise Details w/bridge at knee ext Ball Size/Color green 65cm Body Position Hooklying Comments HEP; added bridge while curling PT-OP-R Modalities Start: 07/07/18 17:02 Freq: Status: Active Protocol: Document 09/09/18 14:38 ML (Rec: 09/09/18 15:22 ML [id number]) Hot Pack/Cold Pack Treatment Cold Pack Location B knees Patient Position Hooklying Treatment Duration (minutes) 10 PT-OP-S Aquatic Treatment Start: 08/05/18 16:57 Freq: Status: Active Protocol: Document 09/21/18 16:11 [facility] (Rec: 09/21/18 16:15 [facility] [id number]) Aquatics Treatment Pool Entry/Exit Pool Entry/Exit Method Stairs Assistance Independent Water Walking Lunge Walk Water Level Chest Level Level of Assistance Contact Guard Assistance Verbal Cues fwd, bck, side, december, december kick Water Level Chest Level Walking Equipment resistance fins; large Level of Assistance Standby Assistance Verbal Cues Comments mod verbal and manual cues Lower Extremity Exercises 1 Details squats Body Position Sitting Water Level Chest Level Reps/Duration 15 Comments seated on table; cues for core stabilization and sequencing step-ups Details forward, lateral, eccentric lowering Water Level Chest Level Reps/Duration 10x ea Comments no UE support; cueing for muscle sequencing hip flex/ext Water Level Chest Level Reps/Duration 10x Comments UE support hip ab/ad Water Level Chest Level Reps/Duration 10x Comments UE support heel raises Details double and single Water Level Chest Level Reps/Duration 10x Lower Extremity Stretches hamstring, quad, ITB, hip add Equipment Small Noodle Reps/Duration 2x ea [place] Activities [place] Activities Bicycle Bicycle Backwards [place] Running Hip Abduction/Adduction Equipment flotation belt, large resistance fins Duration 15 min Comments also bicycle with no UE's small barbells held at sides PT-OP-T Assessment and Plan Start: 07/07/18 17:02 Freq: Status: Active Protocol: Document 09/21/18 16:11 [facility] (Rec: 09/21/18 16:15 [facility] [id number]) Physical Therapy Assessment Impairments Impairments Activity Tolerance Balance Gait Pain Posture ROM Soft Tissue Mobility Strength Goals Four Impairment dec activity Short Term Goal (STG) Pt will be able to walk a 1/2 mile. STG Duration 10/09/18 Automotive Airconditioning Mechanic Goal (LTG) Pt will be able to walk 1 mile . LTG Duration 11/09/18 Three Impairment LEFS Long-Term Goal (LTG) 60/80 to show improvement in functional ability LTG Duration 11/09/18 - improving (now 51/80 , earlier 45/80) Two Impairment strength Short Term Goal (STG) Pt will be indep with HEP & gym program. STG Duration 08/07/18-achieved progressing Long-Term Goal (LTG) Pt will have 5/5 LE strength allowing greater ease with daily tasks. LTG Duration 11/09/18-improving One Impairment pain Long-Term Goal (LTG) Pt will report no giving out of her knee for 6 weeks and report overall no greater than 2/10 pain. LTG Duration 09/07/18-achieved Progress Towards Goals Progress Towards Goals Progressing Toward Goals Assessment Summary Assessment Patient demonstrates good understanding of aquatic exercise program. Has one remaining PT session scheduled in the clinic. Physical Therapy Plan Frequency and Duration Frequency of Treatment 2x/Week Duration of Treatment 2 months Plan of Care Start Date 09/09/18 Plan of Care End Date 11/09/18 Therapeutic Interventions Therapeutic Interventions Aquatic Therapy Balance Training Gait Training Home Exercise Program Joint Mobilizations Manual Therapy Neuromuscular Re-education Soft Tissue Mobilization Taping Therapeutic Activities Therapeutic Exercises Modalities Cold Pack/Ice Massage Electric Stimulation Hot Packs Infrared Therapy Iontophoresis Ultrasound Next Visit Focus/Plan Next Note Type Re-Evaluation Next Visit Plan determine need for further PT. Issue written aquatic exercise program.
--- NOTE | 2018-09-23 15:46 | PT.OTN ---
Current Diagnoses Pain in left knee (09/23/18) Physical Therapy Treatment Note PT-OP-A Visit Information Start: 07/07/18 17:02 Freq: Status: Active Protocol: Document 09/23/18 14:34 [facility] (Rec: 09/23/18 14:40 ML [id number]) Out-Patient Physical Therapy Visit Information Visit Information Visit Type Treatment Note Visit Note 19 total Visit Start Time 14:30 Visit Stop Time 13:30 Total Visit Minutes 60 Visit Number 5/10 Number of ONION FARMER Visits 0 PT-OP-B Current Condition Start: 07/07/18 17:02 Freq: Status: Active Protocol: Document 07/08/18 13:43 [facility] (Rec: 07/08/18 15:37 [facility] [id number]) Current Condition History of Current Condition Onset Date 09/30/15 Current Complaints B knee pain with R knee buckling d/t sharp pain History of Current Condition Pt started having R knee pain in 09/30/15 with buckling happening about 1-2x/month for the past 2.5 years most months. Pt reports it is a sharp pain causing her LLE to give out. Reports she tried PT 2x with little help. Reports L knee pain started in Nov and she has noticed recently her walking is impaired. Reports she has felt like she is weaker recently & is unable to do as much as she used to. It is the first year I have felt my age. Reports hx of 2 wishlash injuries in 70s nerve pain down RUE that improved with chiro and appy & tonsilectomy. Pt has breast CA that was caught at an early stage and has been cancer free since radiation in 2005. Prior Treatments and Tests 2 bouts of PT with no major change; recent L knee cortizone injection with some help; Xray L: severe OA jake medially; R xray & MRI; Moderate degeneration, mostly medially with bakers cyst & medial meniscus tearing Treatment Goals Patient/Caregiver Goals To know daily exercises to strength knees. PT-OP-C Subjective Start: 07/07/18 17:02 Freq: Status: Active Protocol: Document 09/23/18 14:34 [facility] (Rec: 09/23/18 14:40 ML [id number]) OP-PT Subjective Patient Comments Patient Comments Pt notes that she feels 2x in the pool was too much and she was feeling sore yesterday . Pt also notes that her knee buckled today and she was able to catch herself with stretching her hand out in front of herself. PT-OP-F Manual Assessment Start: 07/07/18 17:02 Freq: Status: Active Protocol: Document 07/08/18 13:43 [facility] (Rec: 07/08/18 14:59 [facility] [id number]) Manual Assessments Soft Tissue Assessment Soft Tissue Mobility Assessment L:med joint line, tibial tub R: ant tib & inc fascial tension Joint Mobility Assessment Joint Mobility Assessment B ER of tibia & femur PT-OP-G Mobility & Gait Start: 07/07/18 17:02 Freq: Status: Active Protocol: Document 07/08/18 13:43 [facility] (Rec: 07/08/18 14:59 [facility] [id number]) OP Gait Assessment Comments Gait Comments Dec post depression & ant elevation B; L lat lean & dec LLE stance time, PT-OP-J Posture/Palpation/Skin Start: 07/07/18 17:02 Freq: Status: Active Protocol: Document 07/08/18 13:43 [facility] (Rec: 07/08/18 14:59 [facility] [id number]) Posture Evaluation Comments Posture Comments Significant Genu varum: in c wearing of heel on R shoe & forefoot/midfoot L shoe PT-OP-K Range of Motion Start: 07/07/18 17:02 Freq: Status: Active Protocol: Document 07/08/18 13:43 [facility] (Rec: 07/08/18 14:59 [facility] [id number]) Knee Goniometric Range of Motion Knee Measured in Degrees Right Patient Position Supine Flexion Active (degrees) 134 Extension Active (degrees) 8 Left Patient Position Supine Flexion Active (degrees) 112 Extension Active (degrees) 12 PT-OP-L Special Tests Start: 07/07/18 17:02 Freq: Status: Active Protocol: Document 07/08/18 13:43 [facility] (Rec: 07/08/18 14:59 [facility] [id number]) Special Tests Lumbar Spine Special Tests Slump Test Results neg Knee Special Tests Posterior Draw Test Results neg B Varus- 25 Degrees Test Results neg B Valgus- 25 Degrees Test Results neg Thessaly Test 5 Degrees Test Results neg B Norman's Test Results L postive Apley's Compression Test Results neg B Bazan Chondromalacia Test Results neg PT-OP-M Strength Start: 07/07/18 17:02 Freq: Status: Active Protocol: Document 09/09/18 14:38 ML (Rec: 09/09/18 15:22 ML [id number]) Hip Strength Hip Manual Muscle Testing Right Flexion (L2) 4+ Good+ Extension (S1) 4+ Good+ Abduction 5 Normal External Rotation 4+ Good+ Internal Rotation 5 Normal Left Flexion (L2) 4 Good Extension (S1) 4 Good Abduction 5 Normal External Rotation 4- Good- Internal Rotation 4 Good Comments small pain with IR Knee Strength Knee Manual Muscle Testing Right Flexion (S2) 5 Normal Extension (L3) 5 Normal Left Flexion (S2) 4+ Good+ Extension (L3) 4+ Good+ Ankle/Foot Strength Ankle and Foot Manual Muscle Testing Right Dorsiflexion (L4) 5 Normal Plantarflexion (S1) 5 Normal Left Dorsiflexion (L4) 5 Normal Plantarflexion (S1) 5 Normal Comments pain in knee at about 15 heel raises PT-OP-Q Treatments Start: 07/07/18 17:02 Freq: Status: Active Protocol: Document 09/23/18 14:34 ML (Rec: 09/23/18 15:25 ML [id number]) Cardio Equipment Recumbent Elliptical (Biodex) Duration (Minutes) 9 Resistance 6 Seat Position 9 Gym Equipment Therapeutic Ball marching Exercise Details w/march Ball Size/Color green 65cm Body Position Sitting Comments HEP; raise knees in neutral position hamstring curls Exercise Details w/bridge at knee ext Ball Size/Color green 65cm Body Position Hooklying Comments HEP; added bridge while curling Gait Training Gait Activity walking Comments cues for relaxed gait and arm swing; before and after pelvis re-ed Neuro Re-Education Treatment Other Activities ant elevation/post dep Details R Comments with reciprocal contraction to improve pelvis mobility in gait Self-Care/Home Management Treatment Education Patient Education Safety Other Education educated pt about stopping activity or pausing after position change if light headed; drinking water and getting enough food ( especially after exercise or the pool) PT-OP-R Modalities Start: 07/07/18 17:02 Freq: Status: Active Protocol: Document 09/23/18 14:34 ML (Rec: 09/23/18 15:25 ML [id number]) Hot Pack/Cold Pack Treatment Cold Pack Location B knees Patient Position Hooklying Treatment Duration (minutes) 10 PT-OP-S Aquatic Treatment Start: 08/05/18 16:57 Freq: Status: Active Protocol: Document 09/21/18 16:11 [facility] (Rec: 09/21/18 16:15 [facility] [id number]) Aquatics Treatment Pool Entry/Exit Pool Entry/Exit Method Stairs Assistance Independent Water Walking Lunge Walk Water Level Chest Level Level of Assistance Contact Guard Assistance Verbal Cues fwd, bck, , december, kick Water Level Chest Level Walking Equipment resistance fins; large Level of Assistance Standby Assistance Verbal Cues Comments mod verbal and manual cues Lower Extremity Exercises 1 Details squats Body Position Sitting Water Level Chest Level Reps/Duration 15 Comments seated on table; cues for core stabilization and sequencing step-ups Details forward, lateral, eccentric lowering Water Level Chest Level Reps/Duration 10x ea Comments no UE support; cueing for muscle sequencing hip flex/ext Water Level Chest Level Reps/Duration 10x Comments UE support hip ab/ad Water Level Chest Level Reps/Duration 10x Comments UE support heel raises Details double and single Water Level Chest Level Reps/Duration 10x Lower Extremity Stretches hamstring, quad, ITB, hip add Equipment Small Noodle Reps/Duration 2x ea [place] Activities [place] Activities Bicycle Bicycle Backwards [place] Running Hip Abduction/Adduction Equipment flotation belt, large resistance fins Duration 15 min Comments also bicycle with no UE's small barbells held at sides PT-OP-T Assessment and Plan Start: 07/07/18 17:02 Freq: Status: Active Protocol: Document 09/23/18 14:34 ML (Rec: 09/23/18 14:40 ML [id number]) Physical Therapy Assessment Goals Four Impairment dec activity Short Term Goal (STG) Pt will be able to walk a 1/2 mile. STG Duration 10/09/18 Piano Case Maker Goal (LTG) Pt will be able to walk 1 mile . LTG Duration 11/09/18 Three Impairment LEFS Piano Case Maker Goal (LTG) 60/80 to show improvement in functional ability LTG Duration 11/09/18 - improving (now 51/80 , earlier 45/80) Two Impairment strength Short Term Goal (STG) Pt will be indep with HEP & gym program. STG Duration 08/07/18-achieved progressing Piano Case Maker Goal (LTG) Pt will have 5/5 LE strength allowing greater ease with daily tasks. LTG Duration 11/09/18-improving One Impairment pain Fdc Goal (LTG) Pt will report no giving out of her knee for 6 weeks and report overall no greater than 2/10 pain. LTG Duration 09/07/18-achieved Assessment Summary Assessment Despite the pt's knee buckling again today, there was only pain momentarily, rather than lasting pain like it usually does. Pt still show dec pelvis mobility in gait and does not evenly distribute her wt. Wt distribution in gait improved after re-ed of her pelvis for gait. Pt has not been doing certain exercises of her HEP, and other exercises have been reported as too easy, so those exercises were reviewed and progressed. Pt notes feeling light headed through position changes today, so time was taken to address pt's symptoms and educate pt about importance to monitor that and steps she could take to prevent/address these symptoms . Pt was also encouraged to mention it to her doctor. Physical Therapy Plan Frequency and Duration Frequency of Treatment 2x/Week Duration of Treatment 2 months Plan of Care Start Date 09/09/18 Plan of Care End Date 11/09/18 Next Visit Focus/Plan Next Note Type Treatment Note Next Visit Plan determine plan for being gone until the new year
--- NOTE | 2018-09-28 14:51 | PT.OTN ---
Current Diagnoses Pain in left knee (09/28/18) Physical Therapy Treatment Note PT-OP-A Visit Information Start: 07/07/18 17:02 Freq: Status: Active Protocol: Document 09/28/18 14:37 SAK (Rec: 09/28/18 14:51 [facility] [id number]) Out-Patient Physical Therapy Visit Information Visit Information Visit Type Aquatic Treatment Note Visit Note 20 Visit Start Time 11:50 Visit Stop Time 12:31 Total Visit Minutes 41 Visit Number 21 Number of MOTOR MAN Visits 0 PT-OP-B Current Condition Start: 07/07/18 17:02 Freq: Status: Active Protocol: Document 07/08/18 13:43 LR (Rec: 07/08/18 15:37 [facility] [id number]) Current Condition History of Current Condition Onset Date 09/30/15 Current Complaints B knee pain with R knee buckling d/t sharp pain History of Current Condition Pt started having R knee pain in 09/30/15 with buckling happening about 1-2x/month for the past 2.5 years most months. Pt reports it is a sharp pain causing her LLE to give out. Reports she tried PT 2x with little help. Reports L knee pain started in Nov and she has noticed recently her walking is impaired. Reports she has felt like she is weaker recently & is unable to do as much as she used to. It is the first year I have felt my age. Reports hx of 2 wishlash injuries in 70s nerve pain down RUE that improved with chiro and appy & tonsilectomy. Pt has breast CA that was caught at an early stage and has been cancer free since radiation in 2005. Prior Treatments and Tests 2 bouts of PT with no major change; recent L knee cortizone injection with some help; Xray L: severe OA jake medially; R xray & MRI; Moderate degeneration, mostly medially with bakers cyst & medial meniscus tearing Treatment Goals Patient/Caregiver Goals To know daily exercises to strength knees. PT-OP-C Subjective Start: 07/07/18 17:02 Freq: Status: Active Protocol: Document 09/28/18 14:37 SAK (Rec: 09/28/18 14:51 [facility] [id number]) OP-PT Subjective Patient Comments Patient Comments Reports too fatigued after last aquatic PT session and needs further help on aquatic exercise program she can do on her own without over fatiguing. No further buckling of knee and minimal to no pain. Pleased with progress. PT-OP-F Manual Assessment Start: 07/07/18 17:02 Freq: Status: Active Protocol: Document 07/08/18 13:43 [facility] (Rec: 07/08/18 14:59 [facility] [id number]) Manual Assessments Soft Tissue Assessment Soft Tissue Mobility Assessment L:med joint line, tibial tub R: ant tib & inc fascial tension Joint Mobility Assessment Joint Mobility Assessment B ER of tibia & femur PT-OP-G Mobility & Gait Start: 07/07/18 17:02 Freq: Status: Active Protocol: Document 07/08/18 13:43 [facility] (Rec: 07/08/18 14:59 [facility] [id number]) OP Gait Assessment Comments Gait Comments Dec post depression & ant elevation B; L lat lean & dec LLE stance time, PT-OP-J Posture/Palpation/Skin Start: 07/07/18 17:02 Freq: Status: Active Protocol: Document 07/08/18 13:43 [facility] (Rec: 07/08/18 14:59 [facility] [id number]) Posture Evaluation Comments Posture Comments Significant Genu varum: in c wearing of heel on R shoe & forefoot/midfoot L shoe PT-OP-K Range of Motion Start: 07/07/18 17:02 Freq: Status: Active Protocol: Document 07/08/18 13:43 [facility] (Rec: 07/08/18 14:59 [facility] [id number]) Knee Goniometric Range of Motion Knee Measured in Degrees Right Patient Position Supine Flexion Active (degrees) 134 Extension Active (degrees) 8 Left Patient Position Supine Flexion Active (degrees) 112 Extension Active (degrees) 12 PT-OP-L Special Tests Start: 07/07/18 17:02 Freq: Status: Active Protocol: Document 07/08/18 13:43 [facility] (Rec: 07/08/18 14:59 [facility] [id number]) Special Tests Lumbar Spine Special Tests Slump Test Results neg Knee Special Tests Posterior Draw Test Results neg B Varus- 25 Degrees Test Results neg B Valgus- 25 Degrees Test Results neg Thessaly Test 5 Degrees Test Results neg B Norman's Test Results L postive Apley's Compression Test Results neg B Bazan Chondromalacia Test Results neg PT-OP-M Strength Start: 07/07/18 17:02 Freq: Status: Active Protocol: Document 09/09/18 14:38 ML (Rec: 09/09/18 15:22 ML [id number]) Hip Strength Hip Manual Muscle Testing Right Flexion (L2) 4+ Good+ Extension (S1) 4+ Good+ Abduction 5 Normal External Rotation 4+ Good+ Internal Rotation 5 Normal Left Flexion (L2) 4 Good Extension (S1) 4 Good Abduction 5 Normal External Rotation 4- Good- Internal Rotation 4 Good Comments small pain with IR Knee Strength Knee Manual Muscle Testing Right Flexion (S2) 5 Normal Extension (L3) 5 Normal Left Flexion (S2) 4+ Good+ Extension (L3) 4+ Good+ Ankle/Foot Strength Ankle and Foot Manual Muscle Testing Right Dorsiflexion (L4) 5 Normal Plantarflexion (S1) 5 Normal Left Dorsiflexion (L4) 5 Normal Plantarflexion (S1) 5 Normal Comments pain in knee at about 15 heel raises PT-OP-Q Treatments Start: 07/07/18 17:02 Freq: Status: Active Protocol: Document 09/23/18 14:34 ML (Rec: 09/23/18 15:25 ML [id number]) Cardio Equipment Recumbent Elliptical (Biodex) Duration (Minutes) 9 Resistance 6 Seat Position 9 Gym Equipment Therapeutic Ball marching Exercise Details w/march Ball Size/Color green 65cm Body Position Sitting Comments HEP; raise knees in neutral position hamstring curls Exercise Details w/bridge at knee ext Ball Size/Color green 65cm Body Position Hooklying Comments HEP; added bridge while curling Gait Training Gait Activity walking Comments cues for relaxed gait and arm swing; before and after pelvis re-ed Neuro Re-Education Treatment Other Activities ant elevation/post dep Details R Comments with reciprocal contraction to improve pelvis mobility in gait Self-Care/Home Management Treatment Education Patient Education Safety Other Education educated pt about stopping activity or pausing after position change if light headed; drinking water and getting enough food ( especially after exercise or the pool) PT-OP-R Modalities Start: 07/07/18 17:02 Freq: Status: Active Protocol: Document 09/23/18 14:34 ML (Rec: 09/23/18 15:25 ML [id number]) Hot Pack/Cold Pack Treatment Cold Pack Location B knees Patient Position Hooklying Treatment Duration (minutes) 10 PT-OP-S Aquatic Treatment Start: 08/05/18 16:57 Freq: Status: Active Protocol: Document 09/28/18 14:37 [facility] (Rec: 09/28/18 14:51 [facility] [id number]) Aquatics Treatment Pool Entry/Exit Pool Entry/Exit Method Stairs Assistance Independent Water Walking Lunge Walk Water Level Chest Level Level of Assistance Contact Guard Assistance Verbal Cues fwd, bck, , december, december kick Water Level Chest Level Walking Equipment resistance fins; small Level of Assistance Standby Assistance Verbal Cues Comments mod verbal and manual cues Lower Extremity Exercises 1 Details squats Body Position Standing Water Level Chest Level Reps/Duration 15 step-ups Details forward, lateral, eccentric lowering Water Level Chest Level Reps/Duration 10x ea Comments no UE support; cueing for muscle sequencing hip flex/ext Water Level Chest Level Reps/Duration 10x Comments UE support hip ab/ad Water Level Chest Level Reps/Duration 10x Comments UE support Lower Extremity Stretches hamstring, quad, ITB, hip add Equipment Small Noodle Reps/Duration 2x ea Spinal Exercises 2 Details postural alignment and core stab with water walk Body Position Standing Water Level Chest Level Reps/Duration 5 min Comments slow forward walking w/tactile cues for improved posture. [place] Activities [place] Activities Bicycle Bicycle Backwards Cross Country Running Hip Abduction/Adduction Equipment flotation belt, small resistance fins Duration 15 min Comments also bicycle with no UE's small barbells held at sides Other kinesiotape left knee Comments for patellar tracking; 3 Y strips PT-OP-T Assessment and Plan Start: 07/07/18 17:02 Freq: Status: Active Protocol: Document 09/28/18 14:37 [facility] (Rec: 09/28/18 14:51 [facility] [id number]) Physical Therapy Assessment Goals Four Impairment dec activity Short Term Goal (STG) Pt will be able to walk a 1/2 mile. (goal met) STG Duration 10/09/18 Fig Bar Machine Operator Goal (LTG) Pt will be able to walk 1 mile . (goal progress) LTG Duration 11/09/18 Three Impairment LEFS Jail Goal (LTG) 60/80 to show improvement in functional ability (goal progress) LTG Duration 11/09/18 - improving (now 51/80 , earlier 45/80) Two Impairment strength Short Term Goal (STG) Pt will be indep with HEP & gym program. (goal progress; continued advancement) STG Duration 08/07/18-achieved progressing Fig Bar Machine Operator Goal (LTG) Pt will have 5/5 LE strength allowing greater ease with daily tasks. (goal progress) LTG Duration 11/09/18-improving One Impairment pain Jail Goal (LTG) Pt will report no giving out of her knee for 6 weeks and report overall no greater than 2/10 pain. (good goal progress; gave way 1x last week) LTG Duration 11/09/18 Progress Towards Goals Progress Towards Goals Progressing Toward Goals Assessment Summary Assessment Modification of aquatic exercises today with good tolerance. Due to prior adverse reaction has scheduled 2 further PT sessions; 1 in clinic and 1 in pool for final aquatic therapy session. She reports being very pleased with her progress. Physical Therapy Plan Frequency and Duration Frequency of Treatment 2x/Week Duration of Treatment 2 months Plan of Care Start Date 09/09/18 Plan of Care End Date 11/09/18 Therapeutic Interventions Therapeutic Interventions Aquatic Therapy Balance Training Gait Training Home Exercise Program Joint Mobilizations Manual Therapy Neuromuscular Re-education Soft Tissue Mobilization Taping Therapeutic Activities Therapeutic Exercises Modalities Cold Pack/Ice Massage Electric Stimulation Hot Packs Infrared Therapy Iontophoresis Ultrasound Next Visit Focus/Plan Next Note Type Treatment Note Next Visit Plan Assure safety and independence with HEP and aquatic exercise programs for pain management and long-term fitness.
--- NOTE | 2018-09-30 16:01 | PT.OTN ---
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 Pt reports it is a sharp pain causing her LLE to give out. Reports she tried PT 2x with little help. Reports L knee pain started in Nov and she has noticed recently her walking is impaired. Reports she has felt like she is weaker recently & is unable to do as much as she used to. It is the first year I have felt my age. Reports hx of 2 wishlash injuries in 70s nerve pain down RUE that improved with chiro and appy & tonsilectomy. Pt has breast CA that was caught at an early stage and has been cancer free since radiation in 2005. Prior Treatments and Tests 2 bouts of PT with no major change; recent L knee cortizone injection with some help; Xray L: severe OA jake medially; R xray & MRI; Moderate degeneration, mostly medially with bakers cyst & medial meniscus tearing Treatment Goals Patient/Caregiver Goals To know daily exercises to strength knees. PT-OP-C Subjective Start: 07/07/18 17:02 Freq: Status: Active Protocol: Document 09/30/18 15:43 [facility] (Rec: 09/30/18 16:00 [facility] [id number]) OP-PT Subjective Patient Comments Patient Comments Reports she is feeling good about the progress she is making. PT-OP-F Manual Assessment Start: 07/07/18 17:02 Freq: Status: Active Protocol: Document 07/08/18 13:43 [facility] (Rec: 07/08/18 14:59 [facility] [id number]) Manual Assessments Soft Tissue Assessment Soft Tissue Mobility Assessment L:med joint line, tibial tub R: ant tib & inc fascial tension Joint Mobility Assessment Joint Mobility Assessment B ER of tibia & femur PT-OP-G Mobility & Gait Start: 07/07/18 17:02 Freq: Status: Active Protocol: Document 07/08/18 13:43 [facility] (Rec: 07/08/18 14:59 [facility] [id number]) OP Gait Assessment Comments Gait Comments Dec post depression & ant elevation B; L lat lean & dec LLE stance time, PT-OP-J Posture/Palpation/Skin Start: 07/07/18 17:02 Freq: Status: Active Protocol: Document 07/08/18 13:43 [facility] (Rec: 07/08/18 14:59 [facility] [id number]) Posture Evaluation Comments Posture Comments Significant Genu varum: in c wearing of heel on R shoe & forefoot/midfoot L shoe PT-OP-K Range of Motion Start: 07/07/18 17:02 Freq: Status: Active Protocol: Document 07/08/18 13:43 [facility] (Rec: 07/08/18 14:59 [facility] [id number]) Knee Goniometric Range of Motion Knee Measured in Degrees Right Patient Position Supine Flexion Active (degrees) 134 Extension Active (degrees) 8 Left Patient Position Supine Flexion Active (degrees) 112 Extension Active (degrees) 12 PT-OP-L Special Tests Start: 07/07/18 17:02 Freq: Status: Active Protocol: Document 07/08/18 13:43 [facility] (Rec: 07/08/18 14:59 [facility] [id number]) Special Tests Lumbar Spine Special Tests Slump Test Results neg Knee Special Tests Posterior Draw Test Results neg B Varus- 25 Degrees Test Results neg B Valgus- 25 Degrees Test Results neg Thessaly Test 5 Degrees Test Results neg B Norman's Test Results L postive Apley's Compression Test Results neg B Bazan Chondromalacia Test Results neg PT-OP-M Strength Start: 07/07/18 17:02 Freq: Status: Active Protocol: Document 09/09/18 14:38 ML (Rec: 09/09/18 15:22 ML [id number]) Hip Strength Hip Manual Muscle Testing Right Flexion (L2) 4+ Good+ Extension (S1) 4+ Good+ Abduction 5 Normal External Rotation 4+ Good+ Internal Rotation 5 Normal Left Flexion (L2) 4 Good Extension (S1) 4 Good Abduction 5 Normal External Rotation 4- Good- Internal Rotation 4 Good Comments small pain with IR Knee Strength Knee Manual Muscle Testing Right Flexion (S2) 5 Normal Extension (L3) 5 Normal Left Flexion (S2) 4+ Good+ Extension (L3) 4+ Good+ Ankle/Foot Strength Ankle and Foot Manual Muscle Testing Right Dorsiflexion (L4) 5 Normal Plantarflexion (S1) 5 Normal Left Dorsiflexion (L4) 5 Normal Plantarflexion (S1) 5 Normal Comments pain in knee at about 15 heel raises PT-OP-Q Treatments Start: 07/07/18 17:02 Freq: Status: Active Protocol: Document 09/30/18 15:43 [facility] (Rec: 09/30/18 16:00 [facility] [id number]) Cardio Equipment Recumbent Stepper (Sci-Fit) Duration (Minutes) 6 Resistance 6 Seat Position 9 Therapeutic Exercises Supine Exercises 3 Supine Exercise Name abdominal series flex & diagonal Reps/Minutes 20 sec holds Sidelying Exercises clamshell Sidelying Exercise Name clamshell Reps/Minutes 10 Standing Exercises gait press Standing Exercise Name gait at wall Reps/Minutes 10 sec holds Comments focus on no lat lean 3 Standing Exercise Name SLS in mirror Comments focus on no lat lean with RLE stance Gait Training Gait Activity faciliated gait Description facilitating ant elevation & post depression walking Description cueing for no lat trunk lean Neuro Re-Education Treatment Other Activities ant elevation/post dep Details R Comments post depression rhythmic initiation, COI with progression to post depression through RLE Self-Care/Home Management Treatment Activities Self-Care/Home Management Activities Edu on gradually progressing walking with small bouts at a time. Edu on cont exercises and doing a mix of walking, aquatic, and gym exercises. PT-OP-R Modalities Start: 07/07/18 17:02 Freq: Status: Active Protocol: Document 09/30/18 15:43 [facility] (Rec: 09/30/18 16:00 [facility] [id number]) Hot Pack/Cold Pack Treatment Hot Pack Location B knees Patient Position Hooklying Treatment Duration (minutes) 15 Comments during Self care discussion PT-OP-S Aquatic Treatment Start: 08/05/18 16:57 Freq: Status: Active Protocol: Document 09/28/18 14:37 [facility] (Rec: 09/28/18 14:51 [facility] [id number]) Aquatics Treatment Pool Entry/Exit Pool Entry/Exit Method Stairs Assistance Independent Water Walking Lunge Walk Water Level Chest Level Level of Assistance Contact Guard Assistance Verbal Cues fwd, bck, , december, december kick Water Level Chest Level Walking Equipment resistance fins; small Level of Assistance Standby Assistance Verbal Cues Comments mod verbal and manual cues Lower Extremity Exercises 1 Details squats Body Position Standing Water Level Chest Level Reps/Duration 15 step-ups Details forward, lateral, eccentric lowering Water Level Chest Level Reps/Duration 10x ea Comments no UE support; cueing for muscle sequencing hip flex/ext Water Level Chest Level Reps/Duration 10x Comments UE support hip ab/ad Water Level Chest Level Reps/Duration 10x Comments UE support Lower Extremity Stretches hamstring, quad, ITB, hip add Equipment Small Noodle Reps/Duration 2x ea Spinal Exercises 2 Details postural alignment and core stab with water walk Body Position Standing Water Level Chest Level Reps/Duration 5 min Comments slow forward walking w/tactile cues for improved posture. [place] Activities [place] Activities Bicycle Bicycle Backwards Cross [place] Running Hip Abduction/Adduction Equipment flotation belt, small resistance fins Duration 15 min Comments also bicycle with no UE's small barbells held at sides Other kinesiotape left knee Comments for patellar tracking; 3 Y strips PT-OP-T Assessment and Plan Start: 07/07/18 17:02 Freq: Status: Active Protocol: Document 09/30/18 15:43 [facility] (Rec: 09/30/18 16:00 [facility] [id number]) Physical Therapy Assessment Goals Four Impairment dec activity Short Term Goal (STG) Pt will be able to walk a 1/2 mile. (goal met) STG Duration 10/09/18 Group Home Goal (LTG) Pt will be able to walk 1 mile . (goal progress) LTG Duration 11/09/18 Three Impairment LEFS Expressive Art Therapist Goal (LTG) 60/80 to show improvement in functional ability (goal progress) LTG Duration 11/09/18 - improving (now 51/80 , earlier 45/80) Two Impairment strength Short Term Goal (STG) Pt will be indep with HEP & gym program. (goal progress; continued advancement) STG Duration 08/07/18-achieved progressing Group Home Goal (LTG) Pt will have 5/5 LE strength allowing greater ease with daily tasks. (goal progress) LTG Duration 11/09/18-improving One Impairment pain Expressive Art Therapist Goal (LTG) Pt will report no giving out of her knee for 6 weeks and report overall no greater than 2/10 pain. (good goal progress; gave way 1x last week) LTG Duration 11/09/18 Assessment Summary Assessment Pt is in agreeance with discussion on cont to self progress with her home programs. She was able to improve gait with improving lat trunk lean. Physical Therapy Plan Frequency and Duration Frequency of Treatment 2x/Week Duration of Treatment 2 months Plan of Care Start Date 09/09/18 Plan of Care End Date 11/09/18 Next Visit Focus/Plan Next Note Type Discharge Summary Next Visit Plan Assure safety and independence with HEP and aquatic exercise programs for pain management and long-term fitness.
--- NOTE | 2018-10-05 16:45 | PT.OTN ---
Current Diagnoses Pain in left knee (10/05/18) Physical Therapy Treatment Note PT-OP-A Visit Information Start: 07/07/18 17:02 Freq: Status: Active Protocol: Document 10/05/18 16:40 SAK (Rec: 10/05/18 16:44 SAK [id number]) Out-Patient Physical Therapy Visit Information Visit Information Visit Type Treatment Note Visit Note 22 total Visit Start Time 11:45 Visit Stop Time 12:30 Total Visit Minutes 45 Visit Number 22 PT-OP-B Current Condition Start: 07/07/18 17:02 Freq: Status: Active Protocol: Document 07/08/18 13:43 LR (Rec: 07/08/18 15:37 [facility] [id number]) Current Condition History of Current Condition Onset Date 09/30/15 Current Complaints B knee pain with R knee buckling d/t sharp pain History of Current Condition Pt started having R knee pain in 09/30/15 with buckling happening about 1-2x/month for the past 2.5 years most months. Pt reports it is a sharp pain causing her LLE to give out. Reports she tried PT 2x with little help. Reports L knee pain started in Nov and she has noticed recently her walking is impaired. Reports she has felt like she is weaker recently & is unable to do as much as she used to. It is the first year I have felt my age. Reports hx of 2 wishlash injuries in 70s nerve pain down RUE that improved with chiro and appy & tonsilectomy. Pt has breast CA that was caught at an early stage and has been cancer free since radiation in 2005. Prior Treatments and Tests 2 bouts of PT with no major change; recent L knee cortizone injection with some help; Xray L: severe OA jake medially; R xray & MRI; Moderate degeneration, mostly medially with bakers cyst & medial meniscus tearing Treatment Goals Patient/Caregiver Goals To know daily exercises to strength knees. PT-OP-C Subjective Start: 07/07/18 17:02 Freq: Status: Active Protocol: Document 10/05/18 16:40 SAK (Rec: 10/05/18 16:44 SAK [id number]) OP-PT Subjective Patient Comments Patient Comments Patient reports she is very pleased with her progress. REady to do aquatic exercise and HEP independently. PT-OP-F Manual Assessment Start: 07/07/18 17:02 Freq: Status: Active Protocol: Document 07/08/18 13:43 [facility] (Rec: 07/08/18 14:59 [facility] [id number]) Manual Assessments Soft Tissue Assessment Soft Tissue Mobility Assessment L:med joint line, tibial tub R: ant tib & inc fascial tension Joint Mobility Assessment Joint Mobility Assessment B ER of tibia & femur PT-OP-G Mobility & Gait Start: 07/07/18 17:02 Freq: Status: Active Protocol: Document 07/08/18 13:43 [facility] (Rec: 07/08/18 14:59 [facility] [id number]) OP Gait Assessment Comments Gait Comments Dec post depression & ant elevation B; L lat lean & dec LLE stance time, PT-OP-J Posture/Palpation/Skin Start: 07/07/18 17:02 Freq: Status: Active Protocol: Document 07/08/18 13:43 [facility] (Rec: 07/08/18 14:59 [facility] [id number]) Posture Evaluation Comments Posture Comments Significant Genu varum: in c wearing of heel on R shoe & forefoot/midfoot L shoe PT-OP-K Range of Motion Start: 07/07/18 17:02 Freq: Status: Active Protocol: Document 07/08/18 13:43 [facility] (Rec: 07/08/18 14:59 [facility] [id number]) Knee Goniometric Range of Motion Knee Measured in Degrees Right Patient Position Supine Flexion Active (degrees) 134 Extension Active (degrees) 8 Left Patient Position Supine Flexion Active (degrees) 112 Extension Active (degrees) 12 PT-OP-L Special Tests Start: 07/07/18 17:02 Freq: Status: Active Protocol: Document 07/08/18 13:43 [facility] (Rec: 07/08/18 14:59 [facility] [id number]) Special Tests Lumbar Spine Special Tests Slump Test Results neg Knee Special Tests Posterior Draw Test Results neg B Varus- 25 Degrees Test Results neg B Valgus- 25 Degrees Test Results neg Thessaly Test 5 Degrees Test Results neg B Norman's Test Results L postive Apley's Compression Test Results neg B Bazan Chondromalacia Test Results neg PT-OP-M Strength Start: 07/07/18 17:02 Freq: Status: Active Protocol: Document 09/09/18 14:38 ML (Rec: 09/09/18 15:22 ML [id number]) Hip Strength Hip Manual Muscle Testing Right Flexion (L2) 4+ Good+ Extension (S1) 4+ Good+ Abduction 5 Normal External Rotation 4+ Good+ Internal Rotation 5 Normal Left Flexion (L2) 4 Good Extension (S1) 4 Good Abduction 5 Normal External Rotation 4- Good- Internal Rotation 4 Good Comments small pain with IR Knee Strength Knee Manual Muscle Testing Right Flexion (S2) 5 Normal Extension (L3) 5 Normal Left Flexion (S2) 4+ Good+ Extension (L3) 4+ Good+ Ankle/Foot Strength Ankle and Foot Manual Muscle Testing Right Dorsiflexion (L4) 5 Normal Plantarflexion (S1) 5 Normal Left Dorsiflexion (L4) 5 Normal Plantarflexion (S1) 5 Normal Comments pain in knee at about 15 heel raises PT-OP-Q Treatments Start: 07/07/18 17:02 Freq: Status: Active Protocol: Document 09/30/18 15:43 [facility] (Rec: 09/30/18 16:00 [facility] [id number]) Cardio Equipment Recumbent Stepper (Sci-Fit) Duration (Minutes) 6 Resistance 6 Seat Position 9 Therapeutic Exercises Supine Exercises 3 Supine Exercise Name abdominal series flex & diagonal Reps/Minutes 20 sec holds Sidelying Exercises clamshell Sidelying Exercise Name clamshell Reps/Minutes 10 Standing Exercises gait press Standing Exercise Name gait at wall Reps/Minutes 10 sec holds Comments focus on no lat lean 3 Standing Exercise Name SLS in mirror Comments focus on no lat lean with RLE stance Gait Training Gait Activity faciliated gait Description facilitating ant elevation & post depression walking Description cueing for no lat trunk lean Neuro Re-Education Treatment Other Activities ant elevation/post dep Details R Comments post depression rhythmic initiation, COI with progression to post depression through RLE Self-Care/Home Management Treatment Activities Self-Care/Home Management Activities Edu on gradually progressing walking with small bouts at a time. Edu on cont exercises and doing a mix of walking, aquatic, and gym exercises. PT-OP-R Modalities Start: 07/07/18 17:02 Freq: Status: Active Protocol: Document 09/30/18 15:43 [facility] (Rec: 09/30/18 16:00 [facility] [id number]) Hot Pack/Cold Pack Treatment Hot Pack Location B knees Patient Position Hooklying Treatment Duration (minutes) 15 Comments during Self care discussion PT-OP-S Aquatic Treatment Start: 08/05/18 16:57 Freq: Status: Active Protocol: Document 10/05/18 16:40 [facility] (Rec: 10/05/18 16:44 [facility] [id number]) Aquatics Treatment Pool Entry/Exit Pool Entry/Exit Method Stairs Assistance Independent Water Walking Lunge Walk Water Level Chest Level Level of Assistance Contact Guard Assistance Verbal Cues fwd, bck, , december, december kick Water Level Chest Level Walking Equipment resistance fins; small Level of Assistance Standby Assistance Verbal Cues Comments mod verbal and manual cues Lower Extremity Exercises 1 Details squats Body Position Standing Water Level Chest Level Reps/Duration 15 step-ups Details forward, lateral, eccentric lowering Water Level Chest Level Reps/Duration 10x ea Comments no UE support; cueing for muscle sequencing hip flex/ext Water Level Chest Level Reps/Duration 10x Comments UE support hip ab/ad Water Level Chest Level Reps/Duration 10x Comments UE support heel raises Details double and single Water Level Chest Level Reps/Duration 10x Lower Extremity Stretches hamstring, quad, ITB, hip add Equipment Small Noodle Reps/Duration 2x ea [place] Activities [place] Activities Bicycle Bicycle Backwards [place] Running Hip Abduction/Adduction Equipment flotation belt, small resistance fins Duration 15 min Comments also bicycle with no UE's small barbells held at sides PT-OP-T Assessment and Plan Start: 07/07/18 17:02 Freq: Status: Active Protocol: Document 10/05/18 16:40 [facility] (Rec: 10/05/18 16:44 [facility] [id number]) Physical Therapy Plan Discharge Physical Therapy Discharge Reasons Goals Met Discharge Comments Patient highly motivated 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
--- NOTE | 2018-10-05 16:45 | PT.OPDS ---
Current Diagnoses Pain in left knee (10/05/18) Provider Visit Care Team Role Provider Type DILEEP [place] Attending Provider Non-Staff Primary Care Provider Specialty: Medical Address: [address] [place] [address], [facility] Email: Visit Number Visit Number 22 Discharge Summary PT-OP-B Current Condition Start: 07/07/18 17:02 Freq: Status: Active Protocol: Document 07/08/18 13:43 [facility] (Rec: 07/08/18 15:37 [facility] [id number]) Current Condition History of Current Condition Onset Date 09/30/15 Current Complaints B knee pain with R knee buckling d/t sharp pain History of Current Condition Pt started having R knee pain in 09/30/15 with buckling happening about 1-2x/month for the past 2.5 years most months. Pt reports it is a sharp pain causing her LLE to give out. Reports she tried PT 2x with little help. Reports L knee pain started in Nov and she has noticed recently her walking is impaired. Reports she has felt like she is weaker recently & is unable to do as much as she used to. It is the first year I have felt my age. Reports hx of 2 wishlash injuries in 70s nerve pain down RUE that improved with chiro and appy & tonsilectomy. Pt has breast CA that was caught at an early stage and has been cancer free since radiation in 2005. Prior Treatments and Tests 2 bouts of PT with no major change; recent L knee cortizone injection with some help; Xray L: severe OA jake medially; R xray & MRI; Moderate degeneration, mostly medially with bakers cyst & medial meniscus tearing Treatment Goals Patient/Caregiver Goals To know daily exercises to strength knees. PT-OP-C Subjective Start: 07/07/18 17:02 Freq: Status: Active Protocol: Document 10/05/18 16:40 SAK (Rec: 10/05/18 16:44 SAK [id number]) OP-PT Subjective Patient Comments Patient Comments Patient reports she is very pleased with her progress. REady to do aquatic exercise and HEP independently. PT-OP-F Manual Assessment Start: 07/07/18 17:02 Freq: Status: Active Protocol: Document 07/08/18 13:43 [facility] (Rec: 07/08/18 14:59 [facility] [id number]) Manual Assessments Soft Tissue Assessment Soft Tissue Mobility Assessment L:med joint line, tibial tub R: ant tib & inc fascial tension Joint Mobility Assessment Joint Mobility Assessment B ER of tibia & femur PT-OP-G Mobility & Gait Start: 07/07/18 17:02 Freq: Status: Active Protocol: Document 07/08/18 13:43 [facility] (Rec: 07/08/18 14:59 [facility] [id number]) OP Gait Assessment Comments Gait Comments Dec post depression & ant elevation B; L lat lean & dec LLE stance time, PT-OP-J Posture/Palpation/Skin Start: 07/07/18 17:02 Freq: Status: Active Protocol: Document 07/08/18 13:43 [facility] (Rec: 07/08/18 14:59 [facility] [id number]) Posture Evaluation Comments Posture Comments Significant Genu varum: in c wearing of heel on R shoe & forefoot/midfoot L shoe PT-OP-K Range of Motion Start: 07/07/18 17:02 Freq: Status: Active Protocol: Document 07/08/18 13:43 [facility] (Rec: 07/08/18 14:59 [facility] [id number]) Knee Goniometric Range of Motion Knee Measured in Degrees Right Patient Position Supine Flexion Active (degrees) 134 Extension Active (degrees) 8 Left Patient Position Supine Flexion Active (degrees) 112 Extension Active (degrees) 12 PT-OP-L Special Tests Start: 07/07/18 17:02 Freq: Status: Active Protocol: Document 07/08/18 13:43 [facility] (Rec: 07/08/18 14:59 [facility] [id number]) Special Tests Lumbar Spine Special Tests Slump Test Results neg Knee Special Tests Posterior Draw Test Results neg B Varus- 25 Degrees Test Results neg B Valgus- 25 Degrees Test Results neg Thessaly Test 5 Degrees Test Results neg B Norman's Test Results L postive Apley's Compression Test Results neg B Bazan Chondromalacia Test Results neg PT-OP-M Strength Start: 07/07/18 17:02 Freq: Status: Active Protocol: Document 09/09/18 14:38 ML (Rec: 09/09/18 15:22 ML [id number]) Hip Strength Hip Manual Muscle Testing Right Flexion (L2) 4+ Good+ Extension (S1) 4+ Good+ Abduction 5 Normal External Rotation 4+ Good+ Internal Rotation 5 Normal Left Flexion (L2) 4 Good Extension (S1) 4 Good Abduction 5 Normal External Rotation 4- Good- Internal Rotation 4 Good Comments small pain with IR Knee Strength Knee Manual Muscle Testing Right Flexion (S2) 5 Normal Extension (L3) 5 Normal Left Flexion (S2) 4+ Good+ Extension (L3) 4+ Good+ Ankle/Foot Strength Ankle and Foot Manual Muscle Testing Right Dorsiflexion (L4) 5 Normal Plantarflexion (S1) 5 Normal Left Dorsiflexion (L4) 5 Normal Plantarflexion (S1) 5 Normal Comments pain in knee at about 15 heel raises PT-OP-T Assessment and Plan Start: 07/07/18 17:02 Freq: Status: Active Protocol: Document 10/05/18 16:40 [facility] (Rec: 10/05/18 16:44 [facility] [id number]) Physical Therapy Plan Discharge Physical Therapy Discharge Reasons Goals Met Discharge Comments Patient highly motivated to 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
== END 2018-12-14 08:46 ==
LOC: PHYS 11:45
PROVIDERS: PCP Nurse Practitioner Family; Visit Provider Nurse Practitioner Family
DX: M25.562 Pain in left knee (principal)
CPT/HCPCS: 97010; 97110; 97112; 97113; 97116; 97140; 97162; 97535

== ENCOUNTER 2019-05-23 16:45 | Outpatient (RCR) | payer OTHER, SELFPAY ==
--- NOTE | 2019-02-13 17:54 | PT.OIE ---
Current Diagnoses Unilateral primary osteoarthritis, left knee (02/13/19) Difficulty in walking, not elsewhere classified (02/13/19) Weakness (02/13/19) Past Medical History (Last Updated 07/08/18 @ 15:42 by Dianelys Walter PT) Breast cancer (Acute) Hypothyroidism (Acute) Left knee pain (Acute) Osteoarthritis (Acute) Osteopenia (Acute) Right knee pain (Acute) Provider Visit Care Team Role Provider Type DILEEP [place] Primary Care Provider Non-Staff Specialty: Medical Address: [address] [place] [address], [id number] Email: Asia Barrientos PA-C Attending Provider Non-Staff Specialty: Medical Address: [address] [place] [address], [id number] Email: Physical Therapy Initial Evaluation PT-OP-A Visit Information Start: 02/13/19 07:29 Freq: Status: Active Protocol: Document 02/13/19 09:48 [facility] (Rec: 02/13/19 10:34 [facility] [id number]) Out-Patient Physical Therapy Visit Information Visit Information Visit Type Initial Evaluation Visit Start Time 09:50 Visit Stop Time 10:30 Total Visit Minutes 40 Visit Number 1/ Number of RN PHYSICIAN OFFICE Visits 0 PT-OP-B Current Condition Start: 02/13/19 07:29 Freq: Status: Active Protocol: Document 02/13/19 09:48 [facility] (Rec: 02/13/19 10:34 [facility] [id number]) Current Condition History of Current Condition Current Complaints L >R knee pain History of Current Condition Pt reports she is going to get L TKA on 02/20/19. Pt reports she was geting exhausted from surgery. Pt has history of buckling of R knee and it is not happening much and not lasting long. Pt reports she is still limited in distance for L knee and standing in 1 position for about an 1 hour gives her knees a problem. Today is pre-op appt. Pt has shower chair and walk in and grab bars in shower and by toilet. She has a subassemblies wirer and sock aide. Pt has 1 step to enter house and [facility] Prior Treatments and Tests PT late 2018-early 2018- aquatic & land based Future Testing and Treatments Planned TKA L PT-OP-C Subjective Start: 02/13/19 07:29 Freq: Status: Active Protocol: Document 02/13/19 09:48 [facility] (Rec: 02/13/19 10:34 [facility] [id number]) OP-PT Pain Assessment Location Left Knee Scale Used Numeric (1 - 10) Frequency Intermittent Pain Aggravating Factors Standing Walking Stair Climbing PT-OP-G Mobility & Gait Start: 02/13/19 07:29 Freq: Status: Active Protocol: Document 02/13/19 09:48 [facility] (Rec: 02/13/19 10:34 [facility] [id number]) OP Gait Assessment Comments Gait Comments lat leaning for push off PT-OP-M Strength Start: 02/13/19 07:29 Freq: Status: Active Protocol: Document 02/13/19 09:48 [facility] (Rec: 02/13/19 10:34 [facility] [id number]) Hip Strength Hip Manual Muscle Testing Right Flexion (L2) 5 Normal Extension (S1) 3+ Fair+ Abduction 4+ Good+ External Rotation 5 Normal Internal Rotation 5 Normal Left Flexion (L2) 4+ Good+ Extension (S1) 3+ Fair+ Abduction 4 Good External Rotation 4 Good Internal Rotation 4 Good Knee Strength Knee Manual Muscle Testing Right Flexion (S2) 4+ Good+ Extension (L3) 4+ Good+ Left Flexion (S2) 4 Good Extension (L3) 4+ Good+ Ankle/Foot Strength Ankle and Foot Manual Muscle Testing Right Dorsiflexion (L4) 5 Normal Plantarflexion (S1) 5 Normal Left Dorsiflexion (L4) 5 Normal Plantarflexion (S1) 5 Normal Comments seated testing PT-OP-Q Treatments Start: 02/13/19 07:29 Freq: Status: Active Protocol: Document 02/13/19 09:48 [facility] (Rec: 02/13/19 10:34 [facility] [id number]) Therapeutic Exercises Supine Exercises heel slides Supine Exercise Name heel slides Side left Reps/Minutes 2x5sec hold SAQ Supine Exercise Name SAQ Side left Reps/Minutes 8 SLR Supine Exercise Name SLR Side left Reps/Minutes 5 3 Supine Exercise Name quad set Side left Reps/Minutes 3 2 Supine Exercise Name APs Side bilateral Reps/Minutes 10 1 Supine Exercise Name passive ext Side left Reps/Minutes 30 sec & edu to gradually build up Sitting Exercises knee flex Sitting Exercise Name w/scoot Side left Reps/Minutes 2 Therapeutic Activity Therapeutic Activity pre op edu Name walker edu, need for cane, edu for up/down single step Comments edu on sock aide & subassemblies wirer use , safety at home. PT-OP-T Assessment and Plan Start: 02/13/19 07:29 Freq: Status: Active Protocol: Document 02/13/19 09:48 [facility] (Rec: 02/13/19 10:34 [facility] [id number]) Physical Therapy Assessment Rehab Potential Rehabilitation Potential Good Evaluation Complexity Number of Personal Factors/Comorbidities 3 or More Number of Body Systems Impaired 4 or More Clinical Presentation at Evaluation Evolving Impairments Impairments Activity Tolerance Balance Functional Activities Functional Mobility Gait Pain Posture ROM Soft Tissue Mobility Strength Goals One Impairment edu Short Term Goal (STG) Pt will be educated on appropriate use of FWW, stairs and home safety and HEP for after surgery and verbalize understanding STG Duration 2 weeks-pt participated in training Assessment Summary Assessment Pt presents to PT 1 week before L TKA for education and preparation for surgery. She was educated on home safety, how to use home equipment, and HEP for after surgery. Pt is motivated to progress and would benefit for PT after L TKA in order to inc her strength, balance, gait and ROM of LLE. Physical Therapy Plan Frequency and Duration Frequency of Treatment 1x/Week Duration of Treatment 2 weeks Plan of Care Start Date 02/13/19 Plan of Care End Date 03/01/19 Therapeutic Interventions Therapeutic Interventions Aquatic Therapy Balance Training Gait Training Home Exercise Program Joint Mobilizations Manual Therapy Neuromuscular Re-education Patient/Caregiver Education Self-Care/Home Management Soft Tissue Mobilization Taping Therapeutic Activities Therapeutic Exercises Modalities Cold Pack/Ice Massage Electric Stimulation Hot Packs Infrared Therapy Iontophoresis Ultrasound Next Visit Focus/Plan Next Note Type Re-Evaluation Next Visit Plan re-assessment after TKA
--- NOTE | 2019-02-13 17:54 | PT.OPPOC ---
Current Diagnoses Unilateral primary osteoarthritis, left knee (02/13/19) Difficulty in walking, not elsewhere classified (02/13/19) Weakness (02/13/19) Provider Visit Care Team Role Provider Type DILEEP [place] Primary Care Provider Non-Staff Specialty: Medical Address: [address] [place] [address], [id number] Email: Asia Barrientos PA-C Attending Provider Non-Staff Specialty: Medical Address: [address] [place] [address], [id number] Email: Plan Of Care PT-OP-T Assessment and Plan Start: 02/13/19 07:29 Freq: Status: Active Protocol: Document 02/13/19 09:48 [facility] (Rec: 02/13/19 10:34 [facility] [id number]) Physical Therapy Assessment Rehab Potential Rehabilitation Potential Good Evaluation Complexity Number of Personal Factors/Comorbidities 3 or More Number of Body Systems Impaired 4 or More Clinical Presentation at Evaluation Evolving Impairments Impairments Activity Tolerance Balance Functional Activities Functional Mobility Gait Pain Posture ROM Soft Tissue Mobility Strength Goals One Impairment edu Short Term Goal (STG) Pt will be educated on appropriate use of FWW, stairs and home safety and HEP for after surgery and verbalize understanding STG Duration 2 weeks-pt participated in training Assessment Summary Assessment Pt presents to PT 1 week before L TKA for education and preparation for surgery. She was educated on home safety, how to use home equipment, and HEP for after surgery. Pt is motivated to progress and would benefit for PT after L TKA in order to inc her strength, balance, gait and ROM of LLE. Physical Therapy Plan Frequency and Duration Frequency of Treatment 1x/Week Duration of Treatment 2 weeks Plan of Care Start Date 02/13/19 Plan of Care End Date 03/01/19 Therapeutic Interventions Therapeutic Interventions Aquatic Therapy Balance Training Gait Training Home Exercise Program Joint Mobilizations Manual Therapy Neuromuscular Re-education Patient/Caregiver Education Self-Care/Home Management Soft Tissue Mobilization Taping Therapeutic Activities Therapeutic Exercises Modalities Cold Pack/Ice Massage Electric Stimulation Hot Packs Infrared Therapy Iontophoresis Ultrasound Next Visit Focus/Plan Next Note Type Re-Evaluation Next Visit Plan re-assessment after TKA Plan of Care Dates Plan of Care Start Date 02/13/19 Plan of Care End Date 03/01/19 Please Sign and Return: I have reviewed this Plan of Care and certify that the skilled therapy services above are required to meet the patient?s needs. Physician Signature Date Printed Name and Credentials Clinical Instructor Signature Printed Name and Credentials
--- NOTE | 2019-02-24 12:54 | PT.OTRE ---
Current Diagnoses Unilateral primary osteoarthritis, left knee (02/24/19) Past Medical History (Last Updated 07/08/18 @ 15:42 by Dianelys Walter, PT) Breast cancer (Acute) Hypothyroidism (Acute) Left knee pain (Acute) Osteoarthritis (Acute) Osteopenia (Acute) Right knee pain (Acute) Provider Visit Care Team Role Provider Type DILEEP [place] Primary Care Provider Non-Staff Specialty: Medical Address: [address] [place] [address], [id number] Email: Asia Barrientos PA-C Attending Provider Non-Staff Specialty: Medical Address: [address] [place] [address], [id number] Email: Physical Therapy Re-Evaluation PT-OP-A Visit Information Start: 02/13/19 07:29 Freq: Status: Active Protocol: Document 02/24/19 09:00 (Rec: 02/24/19 12:54 [email or web address]) Out-Patient Physical Therapy Visit Information Visit Information Visit Type Treatment Note Visit Note presents to clinic with her walker without wheels. Visit Start Time 09:00 Visit Stop Time 09:45 Total Visit Minutes 45 Visit Number 2/10 Number of WIRE TAPER Visits 0 PT-OP-B Current Condition Start: 02/13/19 07:29 Freq: Status: Active Protocol: Document 02/13/19 09:48 [facility] (Rec: 02/13/19 10:34 [facility] [id number]) Current Condition History of Current Condition Current Complaints L >R knee pain History of Current Condition Pt reports she is going to get L TKA on 02/20/19. Pt reports she was geting exhausted from surgery. Pt has history of buckling of R knee and it is not happening much and not lasting long. Pt reports she is still limited in distance for L knee and standing in 1 position for about an 1 hour gives her knees a problem. Today is pre-op appt. Pt has shower chair and walk in and grab bars in shower and by toilet. She has a department store general manager and sock aide. Pt has 1 step to enter house and [facility] Prior Treatments and Tests PT late 2018-early 2019- aquatic & land based Future Testing and Treatments Planned TKA L PT-OP-C Subjective Start: 02/13/19 07:29 Freq: Status: Active Protocol: Document 02/24/19 09:00 (Rec: 02/24/19 12:54 [email or web address]) OP-PT Subjective Patient Comments Patient Comments Pt just had L TKA on 02/20/19. this is the first PT appt after sx. She has questions about her HEP OP-PT Pain Assessment Location Left Knee Intensity 4 Scale Used Numeric (1 - 10) Frequency Intermittent Pain Aggravating Factors Standing Walking Stair Climbing PT-OP-G Mobility & Gait Start: 02/13/19 07:29 Freq: Status: Active Protocol: Document 02/13/19 09:48 [facility] (Rec: 02/13/19 10:34 [facility] [id number]) OP Gait Assessment Comments Gait Comments lat leaning for push off PT-OP-J Posture/Palpation/Skin Start: 02/13/19 07:29 Freq: Status: Active Protocol: Document 02/24/19 09:00 (Rec: 02/24/19 12:54 [email or web address]) Skin Assessment Circumference Measurement R tibial tuberosity Measurement (Centimeters) 13 Comments inch R knee Location superior knee joint (top of patellar pole) Measurement (Centimeters) 13.5 Comments inch L tibial tuberosity Measurement (Centimeters) 14 Comments inch L knee Location superior knee joint (top of patellar pole) Measurement (Centimeters) 15 Comments inch PT-OP-K Range of Motion Start: 02/13/19 07:29 Freq: Status: Active Protocol: Document 02/24/19 09:00 (Rec: 02/24/19 12:54 [email or web address]) Knee Goniometric Range of Motion Knee Measured in Degrees Right Knee ROM WFL Yes Flexion Active (degrees) 135 Extension Active (degrees) 4 Left Knee ROM WFL No Flexion Active (degrees) 85 Extension Active (degrees) 10 PT-OP-M Strength Start: 02/13/19 07:29 Freq: Status: Active Protocol: Document 02/13/19 09:48 [facility] (Rec: 02/13/19 10:34 [facility] [id number]) Hip Strength Hip Manual Muscle Testing Right Flexion (L2) 5 Normal Extension (S1) 3+ Fair+ Abduction 4+ Good+ External Rotation 5 Normal Internal Rotation 5 Normal Left Flexion (L2) 4+ Good+ Extension (S1) 3+ Fair+ Abduction 4 Good External Rotation 4 Good Internal Rotation 4 Good Knee Strength Knee Manual Muscle Testing Right Flexion (S2) 4+ Good+ Extension (L3) 4+ Good+ Left Flexion (S2) 4 Good Extension (L3) 4+ Good+ Ankle/Foot Strength Ankle and Foot Manual Muscle Testing Right Dorsiflexion (L4) 5 Normal Plantarflexion (S1) 5 Normal Left Dorsiflexion (L4) 5 Normal Plantarflexion (S1) 5 Normal Comments seated testing PT-OP-Q Treatments Start: 02/13/19 07:29 Freq: Status: Active Protocol: Document 02/24/19 09:00 (Rec: 02/24/19 12:54 [email or web address]) Therapeutic Exercises Supine Exercises leg press Supine Exercise Name single leg press Side left Equipment Used manual assistance Reps/Minutes 10 x2 Comments full range of flexion and extension TKE Supine Exercise Name L TKE Side left Equipment Used towel at ankle Reps/Minutes 5 secs hold x 10 x2 Comments with manual assistance on endrange SAQ Supine Exercise Name SAQ Side left Equipment Used bolster Reps/Minutes 10 x 3 Sitting Exercises knee flex Sitting Exercise Name heel sldie Side left Equipment Used slider Reps/Minutes 10 x3 PT-OP-T Assessment and Plan Start: 02/13/19 07:29 Freq: Status: Active Protocol: Document 02/24/19 09:00 (Rec: 02/24/19 12:54 [email or web address]) Physical Therapy Assessment Rehab Potential Rehabilitation Potential Good Evaluation Complexity Number of Personal Factors/Comorbidities 3 or More Number of Body Systems Impaired 4 or More Clinical Presentation at Evaluation Evolving Impairments Impairments Activity Tolerance Balance Functional Activities Functional Mobility Gait Pain Posture ROM Soft Tissue Mobility Strength Goals stair climbing Impairment step to pattern currently Rubber Printing Machine Operator Goal (LTG) Pt will be able to negotiate stairs with step over and B support on railings LTG Duration 8 weeks ROM Impairment impaired ROM Longterm Goal (LTG) pt will be able to reach full knee extension and flexion compared to R knee. (5-135 degrees) for STS and gait activities. LTG Duration 8 weeks gait Impairment pt currently uses walker to amb Rubber Printing Machine Operator Goal (LTG) Pt will be able to amb independently and safely without AD to improve overall mobility and quality of life LTG Duration 8 weeks One Impairment edu Short Term Goal (STG) Pt will be educated on appropriate use of FWW, stairs and home safety and HEP for after surgery and verbalize understanding STG Duration 2 weeks-pt participated in training Assessment Summary Assessment pt is s/p L TKA POD #5. Pt presents to clinic with a walker without wheels. Adjusted walker to appropriate height and tilted slightly posterior due to her weighted basket at front. Recommended pt to use her other FWW to improve stability and safety. pt currently have lack of end range of knee extension and flexion (10 -85 AROM). Focused on AROM, ARROM and PROM today who was able to reach 7-105 degrees after session. Educated pt on her current HEP handout. Pt overall tammie tx very well Physical Therapy Plan Frequency and Duration Frequency of Treatment 2x/Week Duration of Treatment 8 weeks Plan of Care Start Date 02/24/19 Plan of Care End Date 04/26/19 Therapeutic Interventions Therapeutic Interventions Aquatic Therapy Balance Training Gait Training Home Exercise Program Joint Mobilizations Manual Therapy Neuromuscular Re-education Patient/Caregiver Education Self-Care/Home Management Soft Tissue Mobilization Taping Therapeutic Activities Therapeutic Exercises Modalities Cold Pack/Ice Massage Electric Stimulation Hot Packs Infrared Therapy Iontophoresis Ultrasound Next Visit Focus/Plan Next Note Type Treatment Note Next Visit Plan Reassess HEP ROM ex as tammie R TKE, SAQ, LAQ, heel slides gait training as tammie
--- NOTE | 2019-02-24 12:55 | PT.OPPOC ---
Current Diagnoses Unilateral primary osteoarthritis, left knee (02/24/19) Provider Visit Care Team Role Provider Type DILEEP [place] Primary Care Provider Non-Staff Specialty: Medical Address: [facility] [place], [address] Email: Asia Barrientos PA-C Attending Provider Non-Staff Specialty: Medical Address: [address] [place] [address], [id number] Email: Plan Of Care PT-OP-T Assessment and Plan Start: 02/13/19 07:29 Freq: Status: Active Protocol: Document 02/24/19 09:00 (Rec: 02/24/19 12:54 [email or web address]) Physical Therapy Assessment Rehab Potential Rehabilitation Potential Good Evaluation Complexity Number of Personal Factors/Comorbidities 3 or More Number of Body Systems Impaired 4 or More Clinical Presentation at Evaluation Evolving Impairments Impairments Activity Tolerance Balance Functional Activities Functional Mobility Gait Pain Posture ROM Soft Tissue Mobility Strength Goals stair climbing Impairment step to pattern currently Halfway Goal (LTG) Pt will be able to negotiate stairs with step over and B support on railings LTG Duration 8 weeks ROM Impairment impaired ROM Halfway Goal (LTG) pt will be able to reach full knee extension and flexion compared to R knee. (5-135 degrees) for STS and gait activities. LTG Duration 8 weeks gait Impairment pt currently uses walker to amb Pacs Administrator Goal (LTG) Pt will be able to amb independently and safely without AD to improve overall mobility and quality of life LTG Duration 8 weeks One Impairment edu Short Term Goal (STG) Pt will be educated on appropriate use of FWW, stairs and home safety and HEP for after surgery and verbalize understanding STG Duration 2 weeks-pt participated in training Assessment Summary Assessment pt is s/p L TKA POD #5. Pt presents to clinic with a walker without wheels. Adjusted walker to appropriate height and tilted slightly posterior due to her weighted basket at front. Recommended pt to use her other FWW to improve stability and safety. pt currently have lack of end range of knee extension and flexion (10 -85 AROM). Focused on AROM, ARROM and PROM today who was able to reach 7-105 degrees after session. Educated pt on her current HEP handout. Pt overall tammie tx very well Physical Therapy Plan Frequency and Duration Frequency of Treatment 2x/Week Duration of Treatment 8 weeks Plan of Care Start Date 02/24/19 Plan of Care End Date 04/26/19 Therapeutic Interventions Therapeutic Interventions Aquatic Therapy Balance Training Gait Training Home Exercise Program Joint Mobilizations Manual Therapy Neuromuscular Re-education Patient/Caregiver Education Self-Care/Home Management Soft Tissue Mobilization Taping Therapeutic Activities Therapeutic Exercises Modalities Cold Pack/Ice Massage Electric Stimulation Hot Packs Infrared Therapy Iontophoresis Ultrasound Next Visit Focus/Plan Next Note Type Treatment Note Next Visit Plan Reassess HEP ROM ex as tammie R TKE, SAQ, LAQ, heel slides gait training as tammie Plan of Care Dates Plan of Care Start Date 02/24/19 Plan of Care End Date 04/26/19 Please Sign and Return: I have reviewed this Plan of Care and certify that the skilled therapy services above are required to meet the patient?s needs. Physician Signature Date Printed Name and Credentials Clinical Instructor Signature Printed Name and Credentials
--- NOTE | 2019-02-28 12:08 | PT.OTN ---
Current Diagnoses Unilateral primary osteoarthritis, left knee (02/28/19) Physical Therapy Treatment Note PT-OP-A Visit Information Start: 02/13/19 07:29 Freq: Status: Active Protocol: Document 02/28/19 11:26 [facility] (Rec: 02/28/19 12:08 [facility] [id number]) Out-Patient Physical Therapy Visit Information Visit Information Visit Type Treatment Note Visit Start Time 11:20 Visit Stop Time 12:10 Total Visit Minutes 50 Visit Number 3/10 Number of GEOPHYSICS PROFESSOR Visits 0 PT-OP-B Current Condition Start: 02/13/19 07:29 Freq: Status: Active Protocol: Document 02/13/19 09:48 [facility] (Rec: 02/13/19 10:34 [facility] [id number]) Current Condition History of Current Condition Current Complaints L >R knee pain History of Current Condition Pt reports she is going to get L TKA on 02/20/19. Pt reports she was geting exhausted from surgery. Pt has history of buckling of R knee and it is not happening much and not lasting long. Pt reports she is still limited in distance for L knee and standing in 1 position for about an 1 hour gives her knees a problem. Today is pre-op appt. Pt has shower chair and walk in and grab bars in shower and by toilet. 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 Pt has 1 step to enter house and [facility] Prior Treatments and Tests PT late 2018-early 2018- aquatic & land based Future Testing and Treatments Planned TKA L PT-OP-C Subjective Start: 02/13/19 07:29 Freq: Status: Active Protocol: Document 02/28/19 11:26 [facility] (Rec: 02/28/19 12:08 [facility] [id number]) OP-PT Subjective Patient Comments Patient Comments Pt reports she has gotten exercises n about 2x/day PT-OP-G Mobility & Gait Start: 02/13/19 07:29 Freq: Status: Active Protocol: Document 02/13/19 09:48 [facility] (Rec: 02/13/19 10:34 [facility] [id number]) OP Gait Assessment Comments Gait Comments lat leaning for push off PT-OP-J Posture/Palpation/Skin Start: 02/13/19 07:29 Freq: Status: Active Protocol: Document 02/24/19 09:00 [facility] (Rec: 02/24/19 12:54 [email or web address]) Skin Assessment Circumference Measurement R tibial tuberosity Measurement (Centimeters) 13 Comments inch R knee Location superior knee joint (top of patellar pole) Measurement (Centimeters) 13.5 Comments inch L tibial tuberosity Measurement (Centimeters) 14 Comments inch L knee Location superior knee joint (top of patellar pole) Measurement (Centimeters) 15 Comments inch PT-OP-K Range of Motion Start: 02/13/19 07:29 Freq: Status: Active Protocol: Document 02/24/19 09:00 (Rec: 02/24/19 12:54 [email or web address]) Knee Goniometric Range of Motion Knee Measured in Degrees Right Knee ROM WFL Yes Flexion Active (degrees) 135 Extension Active (degrees) 4 Left Knee ROM WFL No Flexion Active (degrees) 85 Extension Active (degrees) 10 PT-OP-M Strength Start: 02/13/19 07:29 Freq: Status: Active Protocol: Document 02/13/19 09:48 [facility] (Rec: 02/13/19 10:34 [facility] [id number]) Hip Strength Hip Manual Muscle Testing Right Flexion (L2) 5 Normal Extension (S1) 3+ Fair+ Abduction 4+ Good+ External Rotation 5 Normal Internal Rotation 5 Normal Left Flexion (L2) 4+ Good+ Extension (S1) 3+ Fair+ Abduction 4 Good External Rotation 4 Good Internal Rotation 4 Good Knee Strength Knee Manual Muscle Testing Right Flexion (S2) 4+ Good+ Extension (L3) 4+ Good+ Left Flexion (S2) 4 Good Extension (L3) 4+ Good+ Ankle/Foot Strength Ankle and Foot Manual Muscle Testing Right Dorsiflexion (L4) 5 Normal Plantarflexion (S1) 5 Normal Left Dorsiflexion (L4) 5 Normal Plantarflexion (S1) 5 Normal Comments seated testing PT-OP-Q Treatments Start: 02/13/19 07:29 Freq: Status: Active Protocol: Document 02/28/19 11:26 [facility] (Rec: 02/28/19 12:08 [facility] [id number]) Cardio Equipment Recumbent Elliptical (Biodex) Duration (Minutes) 6 Resistance 1 Seat Position 8 Gym Equipment Shuttle Recovery Bilateral Squats Resistance 75 Shuttle Recovery Platform Stable Reps/Time 2x10 Therapeutic Exercises Supine Exercises heel slides Supine Exercise Name heel slides Side left Reps/Minutes 2x5sec hold Comments w/gait belt for extra pull SAQ Supine Exercise Name SAQ Side left Equipment Used bolster Reps/Minutes 12 SLR Supine Exercise Name SLR Side left Reps/Minutes 12 3 Supine Exercise Name quad set Side left Reps/Minutes 10 x5 sec hold 2 Supine Exercise Name HS then calf stretch w/belt Side left Reps/Minutes 30sec ea 1 Supine Exercise Name passive ext Side left Reps/Minutes 2 min Sitting Exercises knee flex Sitting Exercise Name heel sldie Side left Reps/Minutes 10 sec x2 Manual Therapy Treatment Soft Tissue Mobilization 3 Body Location HS & calf Mobilization Type Rolling Intensity/Depth Superficial Manual Techniques PROM Type stretching into ext & flex PT-OP-T Assessment and Plan Start: 02/13/19 07:29 Freq: Status: Active Protocol: Document 02/28/19 11:26 [facility] (Rec: 02/28/19 12:08 [facility] [id number]) Physical Therapy Assessment Goals stair climbing Impairment step to pattern currently Mosaic Technician Goal (LTG) Pt will be able to negotiate stairs with step over and B support on railings LTG Duration 8 weeks ROM Impairment impaired ROM Mosaic Technician Goal (LTG) pt will be able to reach full knee extension and flexion compared to R knee. (5-135 degrees) for STS and gait activities. LTG Duration 8 weeks gait Impairment pt currently uses walker to amb Mosaic Technician Goal (LTG) Pt will be able to amb independently and safely without AD to improve overall mobility and quality of life LTG Duration 8 weeks One Impairment edu Short Term Goal (STG) Pt will be educated on appropriate use of FWW, stairs and home safety and HEP for after surgery and verbalize understanding STG Duration 2 weeks-pt participated in training Assessment Summary Assessment Pt was able to tolerate all exercises, but did require cueing for all exercises for good form and importance of cont exercises. At start of session pt had 14-91 for L knee ROM Physical Therapy Plan Frequency and Duration Frequency of Treatment 2x/Week Duration of Treatment 8 weeks Plan of Care Start Date 02/24/19 Plan of Care End Date 04/26/19 Next Visit Focus/Plan Next Note Type Treatment Note Next Visit Plan gait training with cane as needed, cont to work on ROM
--- NOTE | 2019-03-02 13:45 | PT.OTN ---
Current Diagnoses Unilateral primary osteoarthritis, left knee (03/02/19) Physical Therapy Treatment Note PT-OP-A Visit Information Start: 02/13/19 07:29 Freq: Status: Active Protocol: Document 03/02/19 13:45 [facility] (Rec: 03/02/19 17:53 [facility] [email or web address]) Out-Patient Physical Therapy Visit Information Visit Information Visit Type Treatment Note Visit Start Time 13:45 Visit Stop Time 14:36 Total Visit Minutes 51 Visit Number 02/01 Number of PUMPER GAUGER APPRENTICE Visits 0 Evaluation Information Evaluation Date 02/13/19 PT-OP-B Current Condition Start: 02/13/19 07:29 Freq: Status: Active Protocol: Document 02/13/19 09:48 [facility] (Rec: 02/13/19 10:34 [facility] [id number]) Current Condition History of Current Condition Current Complaints L >R knee pain History of Current Condition Pt reports she is going to get L TKA on 02/20/19. Pt reports she was geting exhausted from surgery. Pt has history of buckling of R knee and it is not happening much and not lasting long. Pt reports she is still limited in distance for L knee and standing in 1 position for about an 1 hour gives her knees a problem. Today is pre-op appt. Pt has shower chair and walk in and grab bars in shower and by toilet. She has a deck lid fitter and sock aide. Pt has 1 step to enter house and [facility] Prior Treatments and Tests PT late 2018-early 2019- aquatic & land based Future Testing and Treatments Planned TKA L PT-OP-C Subjective Start: 02/13/19 07:29 Freq: Status: Active Protocol: Document 03/02/19 13:45 [facility] (Rec: 03/02/19 17:53 [facility] [email or web address]) OP-PT Subjective Patient Comments Patient Comments Pt states her knee felt good 1 -2 hrs ago while doing heels slides at home, but now is very stiff. She brought in her personal TENS unit today to see if it is something she can use. PT-OP-G Mobility & Gait Start: 02/13/19 07:29 Freq: Status: Active Protocol: Document 02/13/19 09:48 [facility] (Rec: 02/13/19 10:34 [facility] [id number]) OP Gait Assessment Comments Gait Comments lat leaning for push off PT-OP-J Posture/Palpation/Skin Start: 02/13/19 07:29 Freq: Status: Active Protocol: Document 02/24/19 09:00 [facility] (Rec: 02/24/19 12:54 [facility] [email or web address]) Skin Assessment Circumference Measurement R tibial tuberosity Measurement (Centimeters) 13 Comments inch R knee Location superior knee joint (top of patellar pole) Measurement (Centimeters) 13.5 Comments inch L tibial tuberosity Measurement (Centimeters) 14 Comments inch L knee Location superior knee joint (top of patellar pole) Measurement (Centimeters) 15 Comments inch PT-OP-K Range of Motion Start: 02/13/19 07:29 Freq: Status: Active Protocol: Document 03/02/19 13:45 [facility] (Rec: 03/02/19 17:53 [facility] [email or web address]) Knee Goniometric Range of Motion Knee Measured in Degrees Left Knee ROM WFL No Flexion Active (degrees) 90 Extension Active (degrees) 8 Knee ROM Limitations Comments 6-100 after manual therapy, PROM knee flexion to 107 L knee PT-OP-M Strength Start: 02/13/19 07:29 Freq: Status: Active Protocol: Document 02/13/19 09:48 [facility] (Rec: 02/13/19 10:34 [facility] [id number]) Hip Strength Hip Manual Muscle Testing Right Flexion (L2) 5 Normal Extension (S1) 3+ Fair+ Abduction 4+ Good+ External Rotation 5 Normal Internal Rotation 5 Normal Left Flexion (L2) 4+ Good+ Extension (S1) 3+ Fair+ Abduction 4 Good External Rotation 4 Good Internal Rotation 4 Good Knee Strength Knee Manual Muscle Testing Right Flexion (S2) 4+ Good+ Extension (L3) 4+ Good+ Left Flexion (S2) 4 Good Extension (L3) 4+ Good+ Ankle/Foot Strength Ankle and Foot Manual Muscle Testing Right Dorsiflexion (L4) 5 Normal Plantarflexion (S1) 5 Normal Left Dorsiflexion (L4) 5 Normal Plantarflexion (S1) 5 Normal Comments seated testing PT-OP-Q Treatments Start: 02/13/19 07:29 Freq: Status: Active Protocol: Document 03/02/19 13:45 [facility] (Rec: 03/02/19 17:53 [facility] [email or web address]) Cardio Equipment Recumbent Elliptical (Advisity) Duration (Minutes) 6 Resistance 1 Seat Position 8 Therapeutic Exercises Supine Exercises TKE Supine Exercise Name L TKE Side left Equipment Used towel at ankle Reps/Minutes 5 secs hold x 10 x2 Comments with manual assistance on endrange heel slides Supine Exercise Name heel slides Side left Reps/Minutes 8x5sec hold SAQ Supine Exercise Name SAQ Side left Equipment Used bolster Reps/Minutes 10 Manual Therapy Treatment Soft Tissue Mobilization 3 Body Location HS & calf Mobilization Type Rolling Intensity/Depth Superficial Comments left Joint Mobilizations Tibiofemoral Joint AP femur on tibia L Grade III Body Position Supine Reps/Duration 5 min Manual Techniques PROM Type stretching into ext & flex Reps/Duration 10 min total PT-OP-R Modalities Start: 02/13/19 07:29 Freq: Status: Active Protocol: Document 03/02/19 13:45 [facility] (Rec: 03/02/19 17:53 [facility] [email or web address]) Hot Pack/Cold Pack Treatment Cold Pack Location L knee ant and post Patient Position Hooklying Treatment Duration (minutes) 10 Patient Tolerance Good PT-OP-T Assessment and Plan Start: 02/13/19 07:29 Freq: Status: Active Protocol: Document 03/02/19 13:45 [facility] (Rec: 03/02/19 17:53 [facility] [email or web address]) Physical Therapy Assessment Assessment Summary Assessment L knee AROM 8-90 prior to treatment, then 6-100 AROM and 107 deg PROM. Pt with tension in lateral quadriceps, decreased with manual therapy. Discussed with pt to contact surgeon about use of TENS unit prior to performing at home. Inconsistent quadriceps activation with supine QS/TKE, requires tactile cuing. Physical Therapy Plan Frequency and Duration Frequency of Treatment 2x/Week Duration of Treatment 8 weeks Plan of Care Start Date 02/24/19 Plan of Care End Date 04/26/19 Next Visit Focus/Plan Next Note Type Treatment Note Next Visit Plan advance L knee ROM s/p unilateral knee replacement
--- NOTE | 2019-03-07 12:29 | PT.OTN ---
Current Diagnoses Unilateral primary osteoarthritis, left knee (03/07/19) Physical Therapy Treatment Note PT-OP-A Visit Information Start: 02/13/19 07:29 Freq: Status: Active Protocol: Document 03/07/19 09:00 GGD (Rec: 03/07/19 12:29 GGD [email or web address]) Out-Patient Physical Therapy Visit Information Visit Information Visit Type Treatment Note Visit Start Time 09:00 Visit Stop Time 09:50 Total Visit Minutes 50 Visit Number 5/10 Number of CRYSTAL SLICER Visits 1 PT-OP-B Current Condition Start: 02/13/19 07:29 Freq: Status: Active Protocol: Document 02/13/19 09:48 LR (Rec: 02/13/19 10:34 [facility] [id number]) Current Condition History of Current Condition Current Complaints L >R knee pain History of Current Condition Pt reports she is going to get L TKA on 02/20/19. Pt reports she was geting exhausted from surgery. Pt has history of buckling of R knee and it is not happening much and not lasting long. Pt reports she is still limited in distance for L knee and standing in 1 position for about an 1 hour gives her knees a problem. Today is pre-op appt. Pt has shower chair and walk in and grab bars in shower and by toilet. She has a building serviceman and sock aide. Pt has 1 step to enter house and [facility] Prior Treatments and Tests PT late 2018-early 2018- aquatic & land based Future Testing and Treatments Planned TKA L PT-OP-C Subjective Start: 02/13/19 07:29 Freq: Status: Active Protocol: Document 03/07/19 09:00 GGD (Rec: 03/07/19 12:29 GGD [email or web address]) OP-PT Subjective Patient Comments Patient Comments Pt states she been a little more stiff. PT-OP-G Mobility & Gait Start: 02/13/19 07:29 Freq: Status: Active Protocol: Document 02/13/19 09:48 LR (Rec: 02/13/19 10:34 [facility] [id number]) OP Gait Assessment Comments Gait Comments lat leaning for push off PT-OP-J Posture/Palpation/Skin Start: 02/13/19 07:29 Freq: Status: Active Protocol: Document 02/24/19 09:00 [facility] (Rec: 02/24/19 12:54 [email or web address]) Skin Assessment Circumference Measurement R tibial tuberosity Measurement (Centimeters) 13 Comments inch R knee Location superior knee joint (top of patellar pole) Measurement (Centimeters) 13.5 Comments inch L tibial tuberosity Measurement (Centimeters) 14 Comments inch L knee Location superior knee joint (top of patellar pole) Measurement (Centimeters) 15 Comments inch PT-OP-K Range of Motion Start: 02/13/19 07:29 Freq: Status: Active Protocol: Document 03/07/19 09:00 GGD (Rec: 03/07/19 12:29 GGD [email or web address]) Knee Goniometric Range of Motion Knee Measured in Degrees Left Knee ROM WFL No Flexion Active (degrees) 107 Extension Active (degrees) 6 PT-OP-M Strength Start: 02/13/19 07:29 Freq: Status: Active Protocol: Document 02/13/19 09:48 LR (Rec: 02/13/19 10:34 LR [id number]) Hip Strength Hip Manual Muscle Testing Right Flexion (L2) 5 Normal Extension (S1) 3+ Fair+ Abduction 4+ Good+ External Rotation 5 Normal Internal Rotation 5 Normal Left Flexion (L2) 4+ Good+ Extension (S1) 3+ Fair+ Abduction 4 Good External Rotation 4 Good Internal Rotation 4 Good Knee Strength Knee Manual Muscle Testing Right Flexion (S2) 4+ Good+ Extension (L3) 4+ Good+ Left Flexion (S2) 4 Good Extension (L3) 4+ Good+ Ankle/Foot Strength Ankle and Foot Manual Muscle Testing Right Dorsiflexion (L4) 5 Normal Plantarflexion (S1) 5 Normal Left Dorsiflexion (L4) 5 Normal Plantarflexion (S1) 5 Normal Comments seated testing PT-OP-Q Treatments Start: 02/13/19 07:29 Freq: Status: Active Protocol: Document 03/07/19 09:00 GGD (Rec: 03/07/19 12:29 GGD [email or web address]) Cardio Equipment Recumbent Elliptical (Biodex) Duration (Minutes) 6 Resistance 1 Seat Position 8 Gym Equipment Shuttle Recovery Bilateral Squats Resistance 75 Shuttle Recovery Platform Stable Reps/Time 2x10 Therapeutic Exercises Supine Exercises TKE Supine Exercise Name L TKE Side left Equipment Used towel at ankle Reps/Minutes 5 secs hold x 10 x2 Comments with manual assistance on endrange heel slides Supine Exercise Name heel slides Side left Reps/Minutes 8x5sec hold SAQ Supine Exercise Name SAQ Side left Equipment Used bolster Reps/Minutes 10 Manual Therapy Treatment Soft Tissue Mobilization 3 Body Location HS & calf Mobilization Type Rolling Intensity/Depth Superficial Comments left Joint Mobilizations Tibiofemoral Joint AP femur on tibia L Grade III Body Position Supine Reps/Duration 5 min Manual Techniques PROM Type stretching into ext & flex Reps/Duration 10 min total PT-OP-R Modalities Start: 02/13/19 07:29 Freq: Status: Active Protocol: Document 03/07/19 09:00 GGD (Rec: 03/07/19 12:29 GGD [email or web address]) Hot Pack/Cold Pack Treatment Cold Pack Location L knee ant and post Patient Position Hooklying Treatment Duration (minutes) 10 Patient Tolerance Good PT-OP-T Assessment and Plan Start: 02/13/19 07:29 Freq: Status: Active Protocol: Document 03/07/19 09:00 GGD (Rec: 03/07/19 12:29 GGD [email or web address]) Physical Therapy Assessment Assessment Summary Assessment Pt improving with ROM flexion greater than extension. She was educated on sleep position to limit knee flexion. Physical Therapy Plan Frequency and Duration Frequency of Treatment 2x/Week Duration of Treatment 8 weeks Plan of Care Start Date 02/24/19 Plan of Care End Date 04/26/19 Next Visit Focus/Plan Next Note Type Treatment Note Next Visit Plan advance L knee ROM s/p unilateral knee replacement
--- NOTE | 2019-03-10 13:40 | PT.OTN ---
Current Diagnoses Unilateral primary osteoarthritis, left knee (03/10/19) Physical Therapy Treatment Note PT-OP-A Visit Information Start: 02/13/19 07:29 Freq: Status: Active Protocol: Document 03/10/19 13:40 [facility] (Rec: 03/10/19 14:56 [facility] [email or web address]) Out-Patient Physical Therapy Visit Information Visit Information Visit Type Treatment Note Visit Start Time 13:40 Visit Stop Time 14:35 Total Visit Minutes 55 Visit Number 6/10 Number of SECRETARIAL TEACHER Visits 0 Evaluation Information Evaluation Date 02/13/19 PT-OP-B Current Condition Start: 02/13/19 07:29 Freq: Status: Active Protocol: Document 02/13/19 09:48 [facility] (Rec: 02/13/19 10:34 [facility] [id number]) Current Condition History of Current Condition Current Complaints L >R knee pain History of Current Condition Pt reports she is going to get L TKA on 02/20/19. Pt reports she was geting exhausted from surgery. Pt has history of buckling of R knee and it is not happening much and not lasting long. Pt reports she is still limited in distance for L knee and standing in 1 position for about an 1 hour gives her knees a problem. Today is pre-op appt. Pt has shower chair and walk in and grab bars in shower and by toilet. She has a display fabricator and sock aide. Pt has 1 step to enter house and H Prior Treatments and Tests PT late 2018-early 2019- aquatic & land based Future Testing and Treatments Planned TKA L PT-OP-C Subjective Start: 02/13/19 07:29 Freq: Status: Active Protocol: Document 03/10/19 13:40 [facility] (Rec: 03/10/19 14:56 [facility] [email or web address]) OP-PT Subjective Patient Comments Patient Comments Pt reports she is doing her HEP, she was stiff this morning after doing a lot of exercise yesterday. PT-OP-G Mobility & Gait Start: 02/13/19 07:29 Freq: Status: Active Protocol: Document 02/13/19 09:48 [facility] (Rec: 02/13/19 10:34 [facility] [id number]) OP Gait Assessment Comments Gait Comments lat leaning for push off PT-OP-J Posture/Palpation/Skin Start: 02/13/19 07:29 Freq: Status: Active Protocol: Document 02/24/19 09:00 [facility] (Rec: 02/24/19 12:54 [facility] [email or web address]) Skin Assessment Circumference Measurement R tibial tuberosity Measurement (Centimeters) 13 Comments inch R knee Location superior knee joint (top of patellar pole) Measurement (Centimeters) 13.5 Comments inch L tibial tuberosity Measurement (Centimeters) 14 Comments inch L knee Location superior knee joint (top of patellar pole) Measurement (Centimeters) 15 Comments inch PT-OP-K Range of Motion Start: 02/13/19 07:29 Freq: Status: Active Protocol: Document 03/10/19 13:40 [facility] (Rec: 03/10/19 14:56 [facility] [email or web address]) Knee Goniometric Range of Motion Knee Measured in Degrees Left Knee ROM WFL No Flexion Active (degrees) 106 Extension Active (degrees) 4 Knee ROM Limitations Comments 2-115 deg AROM after manual therapy, PROM 1-118 PROM L knee PT-OP-M Strength Start: 02/13/19 07:29 Freq: Status: Active Protocol: Document 02/13/19 09:48 [facility] (Rec: 02/13/19 10:34 [facility] [id number]) Hip Strength Hip Manual Muscle Testing Right Flexion (L2) 5 Normal Extension (S1) 3+ Fair+ Abduction 4+ Good+ External Rotation 5 Normal Internal Rotation 5 Normal Left Flexion (L2) 4+ Good+ Extension (S1) 3+ Fair+ Abduction 4 Good External Rotation 4 Good Internal Rotation 4 Good Knee Strength Knee Manual Muscle Testing Right Flexion (S2) 4+ Good+ Extension (L3) 4+ Good+ Left Flexion (S2) 4 Good Extension (L3) 4+ Good+ Ankle/Foot Strength Ankle and Foot Manual Muscle Testing Right Dorsiflexion (L4) 5 Normal Plantarflexion (S1) 5 Normal Left Dorsiflexion (L4) 5 Normal Plantarflexion (S1) 5 Normal Comments seated testing PT-OP-Q Treatments Start: 02/13/19 07:29 Freq: Status: Active Protocol: Document 03/10/19 13:40 [facility] (Rec: 03/10/19 14:56 [facility] [email or web address]) Cardio Equipment Recumbent Elliptical (Biodex) Duration (Minutes) 6 Resistance 1 Seat Position 8 Gym Equipment Shuttle Recovery Bilateral Squats Resistance 75 Shuttle Recovery Platform Stable Reps/Time x8 Therapeutic Exercises Supine Exercises heel slides Supine Exercise Name heel slides Side left Reps/Minutes [id number] hold 3 Supine Exercise Name quad set Side left Reps/Minutes 10 x5 sec hold Standing Exercises TKE Side left Resistance L3 Reps/Minutes x15 Comments tactile cuing for quad activation Manual Therapy Treatment Soft Tissue Mobilization L knee scar tissue Mobilization Type Other Intensity/Depth Moderate Body Position Supine Comments scar tissue mobilization Joint Mobilizations Tibiofemoral Joint AP femur on tibia L Grade III Body Position Supine Reps/Duration 6 min Manual Techniques PROM Type stretching into ext & flex Reps/Duration 10 min total PT-OP-R Modalities Start: 02/13/19 07:29 Freq: Status: Active Protocol: Document 03/10/19 13:40 [facility] (Rec: 03/10/19 14:56 [facility] [email or web address]) Hot Pack/Cold Pack Treatment Cold Pack Location L knee ant and post Patient Position Supine Treatment Duration (minutes) 10 Patient Tolerance Good Comments L knee in extension PT-OP-T Assessment and Plan Start: 02/13/19 07:29 Freq: Status: Active Protocol: Document 03/10/19 13:40 [facility] (Rec: 03/10/19 14:56 [facility] [email or web address]) Physical Therapy Assessment Assessment Summary Assessment Pt progressing well with ROM, 2-115 degrees L knee AROM at end of session today. Her incision is closed, no longer covered and healing as expected. Physical Therapy Plan Frequency and Duration Frequency of Treatment 2x/Week Duration of Treatment 8 weeks Plan of Care Start Date 02/24/19 Plan of Care End Date 04/26/19 Next Visit Focus/Plan Next Note Type Treatment Note Next Visit Plan heel raises, cont quad activation, SLS for balance LLE
--- NOTE | 2019-03-14 10:59 | PT.OTN ---
Current Diagnoses Unilateral primary osteoarthritis, left knee (03/14/19) Physical Therapy Treatment Note PT-OP-A Visit Information Start: 02/13/19 07:29 Freq: Status: Active Protocol: Document 03/14/19 09:53 [facility] (Rec: 03/14/19 10:58 [facility] [id number]) Out-Patient Physical Therapy Visit Information Visit Information Visit Type Treatment Note Visit Start Time 09:47 Visit Stop Time 10:37 Total Visit Minutes 50 Visit Number 05/03 Number of NICKER Visits 0 PT-OP-B Current Condition Start: 02/13/19 07:29 Freq: Status: Active Protocol: Document 02/13/19 09:48 [facility] (Rec: 02/13/19 10:34 [facility] [id number]) Current Condition History of Current Condition Current Complaints L >R knee pain History of Current Condition Pt reports she is going to get L TKA on 02/20/19. Pt reports she was geting exhausted from surgery. Pt has history of buckling of R knee and it is not happening much and not lasting long. Pt reports she is still limited in distance for L knee and standing in 1 position for about an 1 hour gives her knees a problem. Today is pre-op appt. Pt has shower chair and walk in and grab bars in shower and by toilet. She has a tenoner operator and sock aide. Pt has 1 step to enter house and [facility] Prior Treatments and Tests PT late 2018-early 2018- aquatic & land based Future Testing and Treatments Planned TKA L PT-OP-C Subjective Start: 02/13/19 07:29 Freq: Status: Active Protocol: Document 03/14/19 09:53 [facility] (Rec: 03/14/19 10:58 [facility] [id number]) OP-PT Subjective Patient Comments Patient Comments Pt reports compliance with 3x/ day HEP. Reports she feels like the bending needs improvement PT-OP-G Mobility & Gait Start: 02/13/19 07:29 Freq: Status: Active Protocol: Document 02/13/19 09:48 [facility] (Rec: 02/13/19 10:34 [facility] [id number]) OP Gait Assessment Comments Gait Comments lat leaning for push off PT-OP-J Posture/Palpation/Skin Start: 02/13/19 07:29 Freq: Status: Active Protocol: Document 02/24/19 09:00 (Rec: 02/24/19 12:54 [email or web address]) Skin Assessment Circumference Measurement R tibial tuberosity Measurement (Centimeters) 13 Comments inch R knee Location superior knee joint (top of patellar pole) Measurement (Centimeters) 13.5 Comments inch L tibial tuberosity Measurement (Centimeters) 14 Comments inch L knee Location superior knee joint (top of patellar pole) Measurement (Centimeters) 15 Comments inch PT-OP-K Range of Motion Start: 02/13/19 07:29 Freq: Status: Active Protocol: Document 03/10/19 13:40 [facility] (Rec: 03/10/19 14:56 [facility] [email or web address]) Knee Goniometric Range of Motion Knee Measured in Degrees Left Knee ROM WFL No Flexion Active (degrees) 106 Extension Active (degrees) 4 Knee ROM Limitations Comments 2-115 deg AROM after manual therapy, PROM 1-118 PROM L knee PT-OP-M Strength Start: 02/13/19 07:29 Freq: Status: Active Protocol: Document 02/13/19 09:48 [facility] (Rec: 02/13/19 10:34 [facility] [id number]) Hip Strength Hip Manual Muscle Testing Right Flexion (L2) 5 Normal Extension (S1) 3+ Fair+ Abduction 4+ Good+ External Rotation 5 Normal Internal Rotation 5 Normal Left Flexion (L2) 4+ Good+ Extension (S1) 3+ Fair+ Abduction 4 Good External Rotation 4 Good Internal Rotation 4 Good Knee Strength Knee Manual Muscle Testing Right Flexion (S2) 4+ Good+ Extension (L3) 4+ Good+ Left Flexion (S2) 4 Good Extension (L3) 4+ Good+ Ankle/Foot Strength Ankle and Foot Manual Muscle Testing Right Dorsiflexion (L4) 5 Normal Plantarflexion (S1) 5 Normal Left Dorsiflexion (L4) 5 Normal Plantarflexion (S1) 5 Normal Comments seated testing PT-OP-Q Treatments Start: 02/13/19 07:29 Freq: Status: Active Protocol: Document 03/14/19 09:53 [facility] (Rec: 03/14/19 10:58 [facility] [id number]) Cardio Equipment Recumbent Elliptical (Biodex) Duration (Minutes) 6 Resistance 2 Seat Position 9-7 Recumbent Bicycle Duration (Minutes) 1 Other rocking; stopped d/t knee pain Gym Equipment Shuttle Recovery Bilateral Squats Resistance 100 Shuttle Recovery Platform Stable Reps/Time 2x10 Therapeutic Exercises Standing Exercises TKE Side left Resistance L3 Reps/Minutes 2x15 Comments tactile cuing for quad activation 3 Standing Exercise Name knee flex Side left Reps/Minutes 15 2 Standing Exercise Name heel raises Side bilateral Reps/Minutes 20 1 Standing Exercise Name SLS Side bilateral Manual Therapy Treatment Manual Techniques PROM Type stretching into ext & flex Reps/Duration 7 min total Self-Care/Home Management Treatment Education Other Education edu to not walk around when lightheaded. 1st BP 98/73; 2nd check 102/72 with improved symptoms. Edu to call MD if symptoms cont PT-OP-R Modalities Start: 02/13/19 07:29 Freq: Status: Active Protocol: Document 03/14/19 09:53 [facility] (Rec: 03/14/19 10:58 [facility] [id number]) Hot Pack/Cold Pack Treatment Cold Pack Location L knee ant and post Patient Position Supine Treatment Duration (minutes) 10 Patient Tolerance Good Comments L knee in extension PT-OP-T Assessment and Plan Start: 02/13/19 07:29 Freq: Status: Active Protocol: Document 03/14/19 09:53 [facility] (Rec: 03/14/19 10:58 [facility] [id number]) Physical Therapy Assessment Assessment Summary Assessment Pt had 8-100 deg ROM at start and improved to 4 deg ext AROM and 2 PROM. She is improving with strength tolerance but is still limited with quad strength Physical Therapy Plan Frequency and Duration Frequency of Treatment 2x/Week Duration of Treatment 8 weeks Plan of Care Start Date 02/24/19 Plan of Care End Date 04/26/19 Next Visit Focus/Plan Next Note Type Treatment Note Next Visit Plan cont to advance WB exercises & strength; Adjust home program
--- NOTE | 2019-03-16 09:00 | PT.OTN ---
Current Diagnoses Unilateral primary osteoarthritis, left knee (03/16/19) Physical Therapy Treatment Note PT-OP-A Visit Information Start: 02/13/19 07:29 Freq: Status: Active Protocol: Document 03/16/19 08:23 [facility] (Rec: 03/16/19 09:00 [facility] [id number]) Out-Patient Physical Therapy Visit Information Visit Information Visit Type Treatment Note Visit Start Time 08:15 Visit Stop Time 09:05 Total Visit Minutes 50 Visit Number 8/10 Number of CAPITAL CAMPAIGN FUNDRAISER Visits 0 PT-OP-B Current Condition Start: 02/13/19 07:29 Freq: Status: Active Protocol: Document 02/13/19 09:48 [facility] (Rec: 02/13/19 10:34 [facility] [id number]) Current Condition History of Current Condition Current Complaints L >R knee pain History of Current Condition Pt reports she is going to get L TKA on 02/20/19. Pt reports she was geting exhausted from surgery. Pt has history of buckling of R knee and it is not happening much and not lasting long. Pt reports she is still limited in distance for L knee and standing in 1 position for about an 1 hour gives her knees a problem. Today is pre-op appt. Pt has shower chair and walk in and grab bars in shower and by toilet. She has a postbed stitcher and sock aide. Pt has 1 step to enter house and H Prior Treatments and Tests PT late 2018-early 2018- aquatic & land based Future Testing and Treatments Planned TKA L PT-OP-C Subjective Start: 02/13/19 07:29 Freq: Status: Active Protocol: Document 03/16/19 08:23 [facility] (Rec: 03/16/19 09:00 [facility] [id number]) OP-PT Subjective Patient Comments Patient Comments Reports yesterday was a good day. She is a little groggy today PT-OP-G Mobility & Gait Start: 02/13/19 07:29 Freq: Status: Active Protocol: Document 02/13/19 09:48 [facility] (Rec: 02/13/19 10:34 [facility] [id number]) OP Gait Assessment Comments Gait Comments lat leaning for push off PT-OP-J Posture/Palpation/Skin Start: 02/13/19 07:29 Freq: Status: Active Protocol: Document 02/24/19 09:00 (Rec: 02/24/19 12:54 [email or web address]) Skin Assessment Circumference Measurement R tibial tuberosity Measurement (Centimeters) 13 Comments inch R knee Location superior knee joint (top of patellar pole) Measurement (Centimeters) 13.5 Comments inch L tibial tuberosity Measurement (Centimeters) 14 Comments inch L knee Location superior knee joint (top of patellar pole) Measurement (Centimeters) 15 Comments inch PT-OP-K Range of Motion Start: 02/13/19 07:29 Freq: Status: Active Protocol: Document 03/10/19 13:40 [facility] (Rec: 03/10/19 14:56 [facility] [email or web address]) Knee Goniometric Range of Motion Knee Measured in Degrees Left Knee ROM WFL No Flexion Active (degrees) 106 Extension Active (degrees) 4 Knee ROM Limitations Comments 2-115 deg AROM after manual therapy, PROM 1-118 PROM L knee PT-OP-M Strength Start: 02/13/19 07:29 Freq: Status: Active Protocol: Document 02/13/19 09:48 [facility] (Rec: 02/13/19 10:34 [facility] [id number]) Hip Strength Hip Manual Muscle Testing Right Flexion (L2) 5 Normal Extension (S1) 3+ Fair+ Abduction 4+ Good+ External Rotation 5 Normal Internal Rotation 5 Normal Left Flexion (L2) 4+ Good+ Extension (S1) 3+ Fair+ Abduction 4 Good External Rotation 4 Good Internal Rotation 4 Good Knee Strength Knee Manual Muscle Testing Right Flexion (S2) 4+ Good+ Extension (L3) 4+ Good+ Left Flexion (S2) 4 Good Extension (L3) 4+ Good+ Ankle/Foot Strength Ankle and Foot Manual Muscle Testing Right Dorsiflexion (L4) 5 Normal Plantarflexion (S1) 5 Normal Left Dorsiflexion (L4) 5 Normal Plantarflexion (S1) 5 Normal Comments seated testing PT-OP-Q Treatments Start: 02/13/19 07:29 Freq: Status: Active Protocol: Document 03/16/19 08:23 [facility] (Rec: 03/16/19 09:00 [facility] [id number]) Cardio Equipment Recumbent Elliptical (Biodex) Duration (Minutes) 6 Resistance 2 Seat Position 8-7 Gym Equipment Shuttle Recovery Unilateral Squats Resistance 50# L Shuttle Recovery Platform Stable Reps/Time 2x10 Bilateral Squats Resistance 112 Shuttle Recovery Platform Stable Reps/Time 2x15 Therapeutic Exercises Supine Exercises heel slides Supine Exercise Name heel slides Side left Equipment Used w/extra pull of strap Reps/Minutes 3x5sec hold SAQ Supine Exercise Name SAQ Side left Resistance 2# Equipment Used bolster Reps/Minutes 10x2 SLR Supine Exercise Name SLR Side right Equipment Used 2# Reps/Minutes 15 Standing Exercises TKE Side left Resistance L3 Reps/Minutes 2x15 Comments tactile cuing for quad activation 3 Standing Exercise Name sit<>stand Reps/Minutes 10 2 Standing Exercise Name heel raises Side bilateral Reps/Minutes 20 Manual Therapy Treatment Joint Mobilizations 1 Joint patellar Direction sup, med, inf Manual Techniques PROM Type stretching into ext & flex PT-OP-R Modalities Start: 02/13/19 07:29 Freq: Status: Active Protocol: Document 03/16/19 08:23 [facility] (Rec: 03/16/19 09:00 [facility] [id number]) Hot Pack/Cold Pack Treatment Cold Pack Location L knee ant and post Patient Position Supine Treatment Duration (minutes) 10 Patient Tolerance Good Comments L knee in extension PT-OP-T Assessment and Plan Start: 02/13/19 07:29 Freq: Status: Active Protocol: Document 03/16/19 08:23 [facility] (Rec: 03/16/19 09:00 [facility] [id number]) Physical Therapy Assessment Assessment Summary Assessment After exercises pt had 8-108 ROM. She is improving to tolerance with exercises and is progressing with WB exercise ability. She is able to do sit to stand without UE with significant fwd lean. Physical Therapy Plan Frequency and Duration Frequency of Treatment 2x/Week Duration of Treatment 8 weeks Plan of Care Start Date 02/24/19 Plan of Care End Date 04/26/19 Next Visit Focus/Plan Next Note Type Treatment Note Next Visit Plan cont work into progression of HEP for strength & ROM
--- NOTE | 2019-03-21 10:31 | PT.OTN ---
Current Diagnoses Unilateral primary osteoarthritis, left knee (03/21/19) Physical Therapy Treatment Note PT-OP-A Visit Information Start: 02/13/19 07:29 Freq: Status: Active Protocol: Document 03/21/19 09:48 [facility] (Rec: 03/21/19 10:31 [facility] [id number]) Out-Patient Physical Therapy Visit Information Visit Information Visit Type Treatment Note Visit Start Time 09:45 Visit Stop Time 10:35 Total Visit Minutes 50 Visit Number 9/ Number of TANK SETTER Visits 0 PT-OP-B Current Condition Start: 02/13/19 07:29 Freq: Status: Active Protocol: Document 02/13/19 09:48 [facility] (Rec: 02/13/19 10:34 [facility] [id number]) Current Condition History of Current Condition Current Complaints L >R knee pain History of Current Condition Pt reports she is going to get L TKA on 02/20/19. Pt reports she was geting exhausted from surgery. Pt has history of buckling of R knee and it is not happening much and not lasting long. Pt reports she is still limited in distance for L knee and standing in 1 position for about an 1 hour gives her knees a problem. Today is pre-op appt. Pt has shower chair and walk in and grab bars in shower and by toilet. She has a safety inspector and sock aide. Pt has 1 step to enter house and H Prior Treatments and Tests PT late 2018-early 2018- aquatic & land based Future Testing and Treatments Planned TKA L PT-OP-C Subjective Start: 02/13/19 07:29 Freq: Status: Active Protocol: Document 03/21/19 09:48 [facility] (Rec: 03/21/19 10:31 [facility] [id number]) OP-PT Subjective Patient Comments Patient Comments Pt reports she forgot the compression sock one day and was more stiff. PT-OP-G Mobility & Gait Start: 02/13/19 07:29 Freq: Status: Active Protocol: Document 02/13/19 09:48 [facility] (Rec: 02/13/19 10:34 [facility] [id number]) OP Gait Assessment Comments Gait Comments lat leaning for push off PT-OP-J Posture/Palpation/Skin Start: 02/13/19 07:29 Freq: Status: Active Protocol: Document 02/24/19 09:00 (Rec: 02/24/19 12:54 [id number]) Skin Assessment Circumference Measurement R tibial tuberosity Measurement (Centimeters) 13 Comments inch R knee Location superior knee joint (top of patellar pole) Measurement (Centimeters) 13.5 Comments inch L tibial tuberosity Measurement (Centimeters) 14 Comments inch L knee Location superior knee joint (top of patellar pole) Measurement (Centimeters) 15 Comments inch PT-OP-K Range of Motion Start: 02/13/19 07:29 Freq: Status: Active Protocol: Document 03/10/19 13:40 [facility] (Rec: 03/10/19 14:56 [facility] [id number]) Knee Goniometric Range of Motion Knee Measured in Degrees Left Knee ROM WFL No Flexion Active (degrees) 106 Extension Active (degrees) 4 Knee ROM Limitations Comments 2-115 deg AROM after manual therapy, PROM 1-118 PROM L knee PT-OP-M Strength Start: 02/13/19 07:29 Freq: Status: Active Protocol: Document 02/13/19 09:48 [facility] (Rec: 02/13/19 10:34 [facility] [id number]) Hip Strength Hip Manual Muscle Testing Right Flexion (L2) 5 Normal Extension (S1) 3+ Fair+ Abduction 4+ Good+ External Rotation 5 Normal Internal Rotation 5 Normal Left Flexion (L2) 4+ Good+ Extension (S1) 3+ Fair+ Abduction 4 Good External Rotation 4 Good Internal Rotation 4 Good Knee Strength Knee Manual Muscle Testing Right Flexion (S2) 4+ Good+ Extension (L3) 4+ Good+ Left Flexion (S2) 4 Good Extension (L3) 4+ Good+ Ankle/Foot Strength Ankle and Foot Manual Muscle Testing Right Dorsiflexion (L4) 5 Normal Plantarflexion (S1) 5 Normal Left Dorsiflexion (L4) 5 Normal Plantarflexion (S1) 5 Normal Comments seated testing PT-OP-Q Treatments Start: 02/13/19 07:29 Freq: Status: Active Protocol: Document 03/21/19 09:48 [facility] (Rec: 03/21/19 10:31 [facility] [id number]) Cardio Equipment Recumbent Elliptical (Biodex) Duration (Minutes) 6 Resistance 1 Seat Position 7-6 Gym Equipment Shuttle Recovery Unilateral Squats Resistance 62# L Shuttle Recovery Platform Stable Reps/Time 2x10 Bilateral Squats Resistance 125 Shuttle Recovery Platform Stable Reps/Time 2x15 Shuttle Balance red clips Details fwd: WBOS, NBOS & wt shift; side WBOS Manual Therapy Treatment Soft Tissue Mobilization 3 Body Location HS Mobilization Type Rolling Intensity/Depth Moderate Comments left Manual Techniques PROM Type stretching into ext &HS stretch PT-OP-R Modalities Start: 02/13/19 07:29 Freq: Status: Active Protocol: Document 03/21/19 09:48 [facility] (Rec: 03/21/19 10:31 [facility] [id number]) Hot Pack/Cold Pack Treatment Cold Pack Location L knee ant and post Patient Position Supine Treatment Duration (minutes) 10 Patient Tolerance Good Comments L knee in extension PT-OP-T Assessment and Plan Start: 02/13/19 07:29 Freq: Status: Active Protocol: Document 03/21/19 09:48 [facility] (Rec: 03/21/19 10:31 [facility] [id number]) Physical Therapy Assessment Goals stair climbing Impairment step to pattern currently Supervisor Carbon Electrodes Goal (LTG) Pt will be able to negotiate stairs with step over and B support on railings LTG Duration 8 weeks ROM Impairment impaired ROM Nursing Home Goal (LTG) pt will be able to reach full knee extension and flexion compared to R knee. (5-135 degrees) for STS and gait activities. LTG Duration 8 weeks gait Impairment pt currently uses walker to amb Supervisor Carbon Electrodes Goal (LTG) Pt will be able to amb independently and safely without AD to improve overall mobility and quality of life LTG Duration 8 weeks One Impairment edu Short Term Goal (STG) Pt will be educated on appropriate use of FWW, stairs and home safety and HEP for after surgery and verbalize understanding STG Duration 2 weeks-pt participated in training Assessment Summary Assessment Pt started with 11-110 ROM and improved ext to lacking only 3 deg of ext AROM. She is improving tolerance to stretching exercises & resistance without c/o pain. reports tightness with stretching. Physical Therapy Plan Frequency and Duration Frequency of Treatment 2x/Week Duration of Treatment 8 weeks Plan of Care Start Date 02/24/19 Plan of Care End Date 04/26/19 Next Visit Focus/Plan Next Note Type Progress Note Next Visit Plan cont work into progression of HEP for strength & ROM
--- NOTE | 2019-03-23 10:32 | PT.OTN ---
Current Diagnoses Unilateral primary osteoarthritis, left knee (03/23/19) Physical Therapy Treatment Note PT-OP-A Visit Information Start: 02/13/19 07:29 Freq: Status: Active Protocol: Document 03/23/19 09:50 [facility] (Rec: 03/23/19 10:05 [facility] [id number]) Out-Patient Physical Therapy Visit Information Visit Information Visit Type Treatment Note Visit Note 10 total visits Visit Start Time 09:45 Visit Stop Time 10:35 Total Visit Minutes 50 Visit Number 11/03 Number of TRAFFIC LAW ATTORNEY Visits 0 PT-OP-B Current Condition Start: 02/13/19 07:29 Freq: Status: Active Protocol: Document 02/13/19 09:48 [facility] (Rec: 02/13/19 10:34 [facility] [id number]) Current Condition History of Current Condition Current Complaints L >R knee pain History of Current Condition Pt reports she is going to get L TKA on 02/20/19. Pt reports she was geting exhausted from surgery. Pt has history of buckling of R knee and it is not happening much and not lasting long. Pt reports she is still limited in distance for L knee and standing in 1 position for about an 1 hour gives her knees a problem. Today is pre-op appt. Pt has shower chair and walk in and grab bars in shower and by toilet. She has a resin remover and sock aide. Pt has 1 step to enter house and H Prior Treatments and Tests PT late 2018-early 2018- aquatic & land based Future Testing and Treatments Planned TKA L PT-OP-C Subjective Start: 02/13/19 07:29 Freq: Status: Active Protocol: Document 03/23/19 09:50 [facility] (Rec: 03/23/19 10:05 [facility] [id number]) OP-PT Subjective Patient Comments Patient Comments Pt reports she has been doing her exercises. PT-OP-G Mobility & Gait Start: 02/13/19 07:29 Freq: Status: Active Protocol: Document 02/13/19 09:48 [facility] (Rec: 02/13/19 10:34 [facility] [id number]) OP Gait Assessment Comments Gait Comments lat leaning for push off PT-OP-J Posture/Palpation/Skin Start: 02/13/19 07:29 Freq: Status: Active Protocol: Document 02/24/19 09:00 [facility] (Rec: 02/24/19 12:54 [id number]) Skin Assessment Circumference Measurement R tibial tuberosity Measurement (Centimeters) 13 Comments inch R knee Location superior knee joint (top of patellar pole) Measurement (Centimeters) 13.5 Comments inch L tibial tuberosity Measurement (Centimeters) 14 Comments inch L knee Location superior knee joint (top of patellar pole) Measurement (Centimeters) 15 Comments inch PT-OP-K Range of Motion Start: 02/13/19 07:29 Freq: Status: Active Protocol: Document 03/23/19 09:50 [facility] (Rec: 03/23/19 10:13 [facility] [id number]) Knee Goniometric Range of Motion Knee Measured in Degrees Left Flexion Active (degrees) 111 Extension Active (degrees) 7 Extension Passive (degrees) 5 Knee ROM Limitations Comments tested before manual PT-OP-M Strength Start: 02/13/19 07:29 Freq: Status: Active Protocol: Document 03/23/19 09:50 [facility] (Rec: 03/23/19 10:13 [facility] [id number]) Hip Strength Hip Manual Muscle Testing Right Flexion (L2) 4+ Good+ Extension (S1) 5 Normal Abduction 5 Normal Adduction 4+ Good+ External Rotation 4+ Good+ Internal Rotation 4+ Good+ Left Flexion (L2) 4 Good Extension (S1) 4 Good Abduction 4+ Good+ Adduction 4 Good External Rotation 4 Good Internal Rotation 4+ Good+ Knee Strength Knee Manual Muscle Testing Left Flexion (S2) 4+ Good+ Extension (L3) 4+ Good+ Ankle/Foot Strength Ankle and Foot Manual Muscle Testing Left Dorsiflexion (L4) 5 Normal Plantarflexion (S1) 4+ Good+ PT-OP-Q Treatments Start: 02/13/19 07:29 Freq: Status: Active Protocol: Document 03/23/19 09:50 [facility] (Rec: 03/23/19 10:05 [facility] [id number]) Cardio Equipment Recumbent Elliptical (Biodex) Duration (Minutes) 3 Resistance 3 Seat Position 5 Recumbent Bicycle Duration (Minutes) 5 Resistance 2 Gym Equipment Shuttle Balance red clips Details fwd: WBOS, NBOS & staggered stance; side WBOS & NBOS Therapeutic Exercises Standing Exercises 3 Standing Exercise Name cresencio stretch Side bilateral Reps/Minutes 30sec Manual Therapy Treatment Soft Tissue Mobilization 3 Body Location HS Mobilization Type Rolling Intensity/Depth Moderate Comments left Joint Mobilizations 1 Joint patellar Direction sup, med, inf Manual Techniques PROM Type stretching into ext &HS stretch PT-OP-R Modalities Start: 02/13/19 07:29 Freq: Status: Active Protocol: Document 03/23/19 09:50 [facility] (Rec: 03/23/19 10:13 [facility] [id number]) Hot Pack/Cold Pack Treatment Cold Pack Location L knee ant and post Patient Position Supine Treatment Duration (minutes) 10 Patient Tolerance Good Comments L knee in extension PT-OP-T Assessment and Plan Start: 02/13/19 07:29 Freq: Status: Active Protocol: Document 03/23/19 09:50 [facility] (Rec: 03/23/19 10:05 [facility] [id number]) Physical Therapy Assessment Goals stair climbing Impairment step to pattern currently Disaster Recovery Analyst Goal (LTG) Pt will be able to negotiate stairs with step over and B support on railings LTG Duration 8 weeks ROM Impairment impaired ROM Disaster Recovery Analyst Goal (LTG) pt will be able to reach full knee extension and flexion compared to R knee. (5-135 degrees) for STS and gait activities. Improved ROM /30 LTG Duration 8 weeks gait Impairment pt currently uses walker to amb Disaster Recovery Analyst Goal (LTG) Pt will be able to amb independently and safely without AD to improve overall mobility and quality of life LTG Duration achieved One Impairment edu Short Term Goal (STG) Pt will be educated on appropriate use of FWW, stairs and home safety and HEP for after surgery and verbalize understanding STG Duration achieved Assessment Summary Assessment Pt has improved ROM with improved strength and gait. She cont to lack end range ext and full flex but is progressing. She still has weakness in LE preventing her ability to do stairs and other higher level exercises. Physical Therapy Plan Frequency and Duration Frequency of Treatment 2x/Week Duration of Treatment 8 weeks Plan of Care Start Date 02/24/19 Plan of Care End Date 04/26/19 Next Visit Focus/Plan Next Note Type Treatment Note Next Visit Plan cont to advance WB exercises & strength
--- NOTE | 2019-03-28 09:46 | PT.OTN ---
Current Diagnoses Unilateral primary osteoarthritis, left knee (03/28/19) Physical Therapy Treatment Note PT-OP-A Visit Information Start: 02/13/19 07:29 Freq: Status: Active Protocol: Document 03/28/19 09:05 [facility] (Rec: 03/28/19 09:46 [facility] [id number]) Out-Patient Physical Therapy Visit Information Visit Information Visit Type Treatment Note Visit Note 10 total visits Visit Start Time 09:02 Visit Stop Time 09:52 Total Visit Minutes 50 Visit Number 11/03 Number of CARDIOLOGY ASSOCIATE Visits 0 PT-OP-B Current Condition Start: 02/13/19 07:29 Freq: Status: Active Protocol: Document 02/13/19 09:48 [facility] (Rec: 02/13/19 10:34 [facility] [id number]) Current Condition History of Current Condition Current Complaints L >R knee pain History of Current Condition Pt reports she is going to get L TKA on 02/20/19. Pt reports she was geting exhausted from surgery. Pt has history of buckling of R knee and it is not happening much and not lasting long. Pt reports she is still limited in distance for L knee and standing in 1 position for about an 1 hour gives her knees a problem. Today is pre-op appt. Pt has shower chair and walk in and grab bars in shower and by toilet. She has a sap technical architect and sock aide. Pt has 1 step to enter house and [facility] Prior Treatments and Tests PT late 2018-early 2019- aquatic & land based Future Testing and Treatments Planned TKA L PT-OP-C Subjective Start: 02/13/19 07:29 Freq: Status: Active Protocol: Document 03/28/19 09:05 [facility] (Rec: 03/28/19 09:46 [facility] [id number]) OP-PT Subjective Patient Comments Patient Comments Reports friends have told her she is walking better than she did before the surgery. Patient Reported Progress Improving PT-OP-G Mobility & Gait Start: 02/13/19 07:29 Freq: Status: Active Protocol: Document 02/13/19 09:48 [facility] (Rec: 02/13/19 10:34 [facility] [id number]) OP Gait Assessment Comments Gait Comments lat leaning for push off PT-OP-J Posture/Palpation/Skin Start: 02/13/19 07:29 Freq: Status: Active Protocol: Document 02/24/19 09:00 (Rec: 02/24/19 12:54 [id number]) Skin Assessment Circumference Measurement R tibial tuberosity Measurement (Centimeters) 13 Comments inch R knee Location superior knee joint (top of patellar pole) Measurement (Centimeters) 13.5 Comments inch L tibial tuberosity Measurement (Centimeters) 14 Comments inch L knee Location superior knee joint (top of patellar pole) Measurement (Centimeters) 15 Comments inch PT-OP-K Range of Motion Start: 02/13/19 07:29 Freq: Status: Active Protocol: Document 03/23/19 09:50 [facility] (Rec: 03/23/19 10:13 [facility] [id number]) Knee Goniometric Range of Motion Knee Measured in Degrees Left Flexion Active (degrees) 111 Extension Active (degrees) 7 Extension Passive (degrees) 5 Knee ROM Limitations Comments tested before manual PT-OP-M Strength Start: 02/13/19 07:29 Freq: Status: Active Protocol: Document 03/23/19 09:50 [facility] (Rec: 03/23/19 10:13 [facility] [id number]) Hip Strength Hip Manual Muscle Testing Right Flexion (L2) 4+ Good+ Extension (S1) 5 Normal Abduction 5 Normal Adduction 4+ Good+ External Rotation 4+ Good+ Internal Rotation 4+ Good+ Left Flexion (L2) 4 Good Extension (S1) 4 Good Abduction 4+ Good+ Adduction 4 Good External Rotation 4 Good Internal Rotation 4+ Good+ Knee Strength Knee Manual Muscle Testing Left Flexion (S2) 4+ Good+ Extension (L3) 4+ Good+ Ankle/Foot Strength Ankle and Foot Manual Muscle Testing Left Dorsiflexion (L4) 5 Normal Plantarflexion (S1) 4+ Good+ PT-OP-Q Treatments Start: 02/13/19 07:29 Freq: Status: Active Protocol: Document 03/28/19 09:05 [facility] (Rec: 03/28/19 09:46 [facility] [id number]) Cardio Equipment Recumbent Bicycle Duration (Minutes) 7 Resistance 2 Seat Position 8-7 Gym Equipment Shuttle Balance red clips Details fwd: WBOS, NBOS & staggered stance; side WBOS & NBOS Therapeutic Exercises Standing Exercises TKE Side left Resistance L3 Reps/Minutes 2x15 Comments tactile cuing for quad activation 3 Standing Exercise Name side step Side bilateral Reps/Minutes 20ft 2 Standing Exercise Name fwd/back walk Side bilateral Reps/Minutes 2x20ft 1 Standing Exercise Name cresencio stretch PT-OP-R Modalities Start: 02/13/19 07:29 Freq: Status: Active Protocol: Document 03/28/19 09:05 [facility] (Rec: 03/28/19 09:46 [facility] [id number]) Hot Pack/Cold Pack Treatment Cold Pack Location L knee ant and post Patient Position Supine Treatment Duration (minutes) 10 Patient Tolerance Good Comments L knee in extension PT-OP-T Assessment and Plan Start: 02/13/19 07:29 Freq: Status: Active Protocol: Document 03/28/19 09:05 [facility] (Rec: 03/28/19 09:46 [facility] [id number]) Physical Therapy Assessment Goals stair climbing Impairment step to pattern currently Fpc Goal (LTG) Pt will be able to negotiate stairs with step over and B support on railings LTG Duration 8 weeks ROM Impairment impaired ROM Strawhat Sizer Goal (LTG) pt will be able to reach full knee extension and flexion compared to R knee. (5-135 degrees) for STS and gait activities. Improved ROM 5/30 LTG Duration 8 weeks gait Impairment pt currently uses walker to amb Strawhat Sizer Goal (LTG) Pt will be able to amb independently and safely without AD to improve overall mobility and quality of life LTG Duration achieved One Impairment edu Short Term Goal (STG) Pt will be educated on appropriate use of FWW, stairs and home safety and HEP for after surgery and verbalize understanding STG Duration achieved Assessment Summary Assessment ROM after exercise 8-115 on L knee. She is improving esepecially with flex and is tolerating more advanced exercise with min c/o pain but reporting faitigue after. Physical Therapy Plan Frequency and Duration Frequency of Treatment 2x/Week Duration of Treatment 8 weeks Plan of Care Start Date 02/24/19 Plan of Care End Date 04/26/19 Next Visit Focus/Plan Next Note Type Treatment Note Next Visit Plan [employer] push off and quad strength
--- NOTE | 2019-03-30 09:47 | PT.OTN ---
Current Diagnoses Unilateral primary osteoarthritis, left knee (03/30/19) Physical Therapy Treatment Note PT-OP-A Visit Information Start: 02/13/19 07:29 Freq: Status: Active Protocol: Document 03/30/19 09:04 [facility] (Rec: 03/30/19 09:47 [facility] [id number]) Out-Patient Physical Therapy Visit Information Visit Information Visit Type Treatment Note Visit Note 10 total visits Visit Start Time 09:00 Visit Stop Time 09:50 Total Visit Minutes 50 Visit Number 3/10 Number of END TOUCHING MACHINE OPERATOR Visits 0 PT-OP-B Current Condition Start: 02/13/19 07:29 Freq: Status: Active Protocol: Document 02/13/19 09:48 [facility] (Rec: 02/13/19 10:34 [facility] [id number]) Current Condition History of Current Condition Current Complaints L >R knee pain History of Current Condition Pt reports she is going to get L TKA on 02/20/19. Pt reports she was geting exhausted from surgery. Pt has history of buckling of R knee and it is not happening much and not lasting long. Pt reports she is still limited in distance for L knee and standing in 1 position for about an 1 hour gives her knees a problem. Today is pre-op appt. Pt has shower chair and walk in and grab bars in shower and by toilet. She has a sharepoint specialist and sock aide. Pt has 1 step to enter house and H Prior Treatments and Tests PT late 2018-early 2019- aquatic & land based Future Testing and Treatments Planned TKA L PT-OP-C Subjective Start: 02/13/19 07:29 Freq: Status: Active Protocol: Document 03/30/19 09:04 [facility] (Rec: 03/30/19 09:47 [facility] [id number]) OP-PT Subjective Patient Comments Patient Comments Pt reports she noticed today when getting in the car she could bend her knee without pain. Patient Reported Progress Improving PT-OP-G Mobility & Gait Start: 02/13/19 07:29 Freq: Status: Active Protocol: Document 02/13/19 09:48 [facility] (Rec: 02/13/19 10:34 [facility] [id number]) OP Gait Assessment Comments Gait Comments lat leaning for push off PT-OP-J Posture/Palpation/Skin Start: 04/22/19 07:29 Freq: Status: Active Protocol: Document 02/24/19 09:00 (Rec: 02/24/19 12:54 [id number]) Skin Assessment Circumference Measurement R tibial tuberosity Measurement (Centimeters) 13 Comments inch R knee Location superior knee joint (top of patellar pole) Measurement (Centimeters) 13.5 Comments inch L tibial tuberosity Measurement (Centimeters) 14 Comments inch L knee Location superior knee joint (top of patellar pole) Measurement (Centimeters) 15 Comments inch PT-OP-K Range of Motion Start: 02/13/19 07:29 Freq: Status: Active Protocol: Document 03/23/19 09:50 [facility] (Rec: 03/23/19 10:13 [facility] [id number]) Knee Goniometric Range of Motion Knee Measured in Degrees Left Flexion Active (degrees) 111 Extension Active (degrees) 7 Extension Passive (degrees) 5 Knee ROM Limitations Comments tested before manual PT-OP-M Strength Start: 02/13/19 07:29 Freq: Status: Active Protocol: Document 03/23/19 09:50 [facility] (Rec: 03/23/19 10:13 [facility] [id number]) Hip Strength Hip Manual Muscle Testing Right Flexion (L2) 4+ Good+ Extension (S1) 5 Normal Abduction 5 Normal Adduction 4+ Good+ External Rotation 4+ Good+ Internal Rotation 4+ Good+ Left Flexion (L2) 4 Good Extension (S1) 4 Good Abduction 4+ Good+ Adduction 4 Good External Rotation 4 Good Internal Rotation 4+ Good+ Knee Strength Knee Manual Muscle Testing Left Flexion (S2) 4+ Good+ Extension (L3) 4+ Good+ Ankle/Foot Strength Ankle and Foot Manual Muscle Testing Left Dorsiflexion (L4) 5 Normal Plantarflexion (S1) 4+ Good+ PT-OP-Q Treatments Start: 02/13/19 07:29 Freq: Status: Active Protocol: Document 03/30/19 09:04 [facility] (Rec: 03/30/19 09:47 [facility] [id number]) Cardio Equipment Recumbent Bicycle Duration (Minutes) 7 Resistance 2 Seat Position 7-6 Gym Equipment Shuttle Balance red clips Details fwd: WBOS, NBOS & staggered stance; side WBOS & NBOS Therapeutic Exercises Standing Exercises 3 Standing Exercise Name side step squat Side bilateral Equipment Used yellow tband Reps/Minutes 20ft 2 Standing Exercise Name fwd/back walk Side bilateral Reps/Minutes 2x20ft 1 Standing Exercise Name cresencio stretch Gait Training Gait Activity stairs Description reciprocal Comments up/down 4 in steps with limited rail use x2 and up/ down 6 in steps (up with limited rail use and down with definate rail use walking Description in mirror w/focus on push off PT-OP-R Modalities Start: 02/13/19 07:29 Freq: Status: Active Protocol: Document 03/30/19 09:04 [facility] (Rec: 03/30/19 09:47 [facility] [id number]) Hot Pack/Cold Pack Treatment Cold Pack Location L knee ant and post Patient Position Supine Treatment Duration (minutes) 10 Patient Tolerance Good Comments L knee in extension PT-OP-T Assessment and Plan Start: 02/13/19 07:29 Freq: Status: Active Protocol: Document 03/30/19 09:04 [facility] (Rec: 03/30/19 09:47 [facility] [id number]) Physical Therapy Assessment Goals stair climbing Impairment step to pattern currently Fpc Goal (LTG) Pt will be able to negotiate stairs with step over and B support on railings LTG Duration 8 weeks ROM Impairment impaired ROM Fpc Goal (LTG) pt will be able to reach full knee extension and flexion compared to R knee. (5-135 degrees) for STS and gait activities. Improved ROM 5/30 LTG Duration 8 weeks gait Impairment pt currently uses walker to amb Fpc Goal (LTG) Pt will be able to amb independently and safely without AD to improve overall mobility and quality of life LTG Duration achieved One Impairment edu Short Term Goal (STG) Pt will be educated on appropriate use of FWW, stairs and home safety and HEP for after surgery and verbalize understanding STG Duration achieved Assessment Summary Assessment Pt started with 7-114 deg today and finished with lackin g only 2 deg of ext. She is improving with ROM & improving with ability to do balance & LE strengthening. Physical Therapy Plan Frequency and Duration Frequency of Treatment 2x/Week Duration of Treatment 8 weeks Plan of Care Start Date 02/24/19 Plan of Care End Date 04/26/19 Next Visit Focus/Plan Next Note Type Treatment Note Next Visit Plan Advance push off and quad strength
--- NOTE | 2019-04-04 09:55 | PT.OTN ---
Current Diagnoses Unilateral primary osteoarthritis, left knee (04/04/19) Physical Therapy Treatment Note PT-OP-A Visit Information Start: 02/13/19 07:29 Freq: Status: Active Protocol: Document 04/04/19 09:04 [facility] (Rec: 04/04/19 09:54 [facility] [id number]) Out-Patient Physical Therapy Visit Information Visit Information Visit Type Treatment Note Visit Note 13 total visits Visit Start Time 09:00 Visit Stop Time 09:50 Total Visit Minutes 50 Visit Number 02/01 Number of JEWEL HOLE ROUGH OPENER Visits 0 PT-OP-B Current Condition Start: 02/13/19 07:29 Freq: Status: Active Protocol: Document 02/13/19 09:48 [facility] (Rec: 02/13/19 10:34 [facility] [id number]) Current Condition History of Current Condition Current Complaints L >R knee pain History of Current Condition Pt reports she is going to get L TKA on 02/20/19. Pt reports she was geting exhausted from surgery. Pt has history of buckling of R knee and it is not happening much and not lasting long. Pt reports she is still limited in distance for L knee and standing in 1 position for about an 1 hour gives her knees a problem. Today is pre-op appt. Pt has shower chair and walk in and grab bars in shower and by toilet. She has a buffing machine operator semiautomatic and sock aide. Pt has 1 step to enter house and H Prior Treatments and Tests PT late 2018-early 2019- aquatic & land based Future Testing and Treatments Planned TKA L PT-OP-C Subjective Start: 02/13/19 07:29 Freq: Status: Active Protocol: Document 04/04/19 09:04 [facility] (Rec: 04/04/19 09:54 [facility] [id number]) OP-PT Subjective Patient Comments Patient Comments Reports she feels like her knee is improving well. Reports she is just frustrated with feeling fatigued. Patient Reported Progress Improving PT-OP-G Mobility & Gait Start: 02/13/19 07:29 Freq: Status: Active Protocol: Document 02/13/19 09:48 [facility] (Rec: 02/13/19 10:34 [facility] [id number]) OP Gait Assessment Comments Gait Comments lat leaning for push off PT-OP-J Posture/Palpation/Skin Start: 02/13/19 07:29 Freq: Status: Active Protocol: Document 02/24/19 09:00 (Rec: 02/24/19 12:54 [id number]) Skin Assessment Circumference Measurement R tibial tuberosity Measurement (Centimeters) 13 Comments inch R knee Location superior knee joint (top of patellar pole) Measurement (Centimeters) 13.5 Comments inch L tibial tuberosity Measurement (Centimeters) 14 Comments inch L knee Location superior knee joint (top of patellar pole) Measurement (Centimeters) 15 Comments inch PT-OP-K Range of Motion Start: 02/13/19 07:29 Freq: Status: Active Protocol: Document 03/23/19 09:50 [facility] (Rec: 03/23/19 10:13 [facility] [id number]) Knee Goniometric Range of Motion Knee Measured in Degrees Left Flexion Active (degrees) 111 Extension Active (degrees) 7 Extension Passive (degrees) 5 Knee ROM Limitations Comments tested before manual PT-OP-M Strength Start: 02/13/19 07:29 Freq: Status: Active Protocol: Document 03/23/19 09:50 [facility] (Rec: 03/23/19 10:13 [facility] [id number]) Hip Strength Hip Manual Muscle Testing Right Flexion (L2) 4+ Good+ Extension (S1) 5 Normal Abduction 5 Normal Adduction 4+ Good+ External Rotation 4+ Good+ Internal Rotation 4+ Good+ Left Flexion (L2) 4 Good Extension (S1) 4 Good Abduction 4+ Good+ Adduction 4 Good External Rotation 4 Good Internal Rotation 4+ Good+ Knee Strength Knee Manual Muscle Testing Left Flexion (S2) 4+ Good+ Extension (L3) 4+ Good+ Ankle/Foot Strength Ankle and Foot Manual Muscle Testing Left Dorsiflexion (L4) 5 Normal Plantarflexion (S1) 4+ Good+ PT-OP-Q Treatments Start: 02/13/19 07:29 Freq: Status: Active Protocol: Document 04/04/19 09:04 [facility] (Rec: 04/04/19 09:54 [facility] [id number]) Cardio Equipment Recumbent Bicycle Duration (Minutes) 7 Resistance 4 Seat Position 6-5 Gym Equipment Shuttle Recovery Unilateral Squats Resistance 75# B Shuttle Recovery Platform Stable Reps/Time 2x10 Bilateral Squats Resistance 125 Shuttle Recovery Platform Stable Reps/Time 20 Shuttle Balance red clips Details fwd &side: WBOS, NBOS & staggered stance Therapeutic Exercises Standing Exercises 1 Standing Exercise Name cresencio stretch Side bilateral Reps/Minutes 1 min Gait Training Gait Activity stairs Description reciprocal Comments up 6 in steps without rail & down 4in steps without rail w/ focus on wt shift & control x3 reps on stairs walking Description in mirror w/focus on push off Manual Therapy Treatment Joint Mobilizations Tibiofemoral Joint TF Direction AP on femur & tibia 1 Joint patellar Direction sup, med, inf PT-OP-R Modalities Start: 02/13/19 07:29 Freq: Status: Active Protocol: Document 04/04/19 09:04 [facility] (Rec: 04/04/19 09:54 [facility] [id number]) Hot Pack/Cold Pack Treatment Cold Pack Location L knee ant and post Patient Position Supine Treatment Duration (minutes) 10 Patient Tolerance Good Comments L knee in extension PT-OP-T Assessment and Plan Start: 02/13/19 07:29 Freq: Status: Active Protocol: Document 04/04/19 09:04 [facility] (Rec: 04/04/19 09:54 [facility] [id number]) Physical Therapy Assessment Goals stair climbing Impairment step to pattern currently Halfway Goal (LTG) Pt will be able to negotiate stairs with step over and B support on railings LTG Duration 8 weeks ROM Impairment impaired ROM Halfway Goal (LTG) pt will be able to reach full knee extension and flexion compared to R knee. (5-135 degrees) for STS and gait activities. Improved ROM 5/30 LTG Duration 8 weeks gait Impairment pt currently uses walker to amb Academic Records Specialist Goal (LTG) Pt will be able to amb independently and safely without AD to improve overall mobility and quality of life LTG Duration achieved One Impairment edu Short Term Goal (STG) Pt will be educated on appropriate use of FWW, stairs and home safety and HEP for after surgery and verbalize understanding STG Duration achieved Assessment Summary Assessment Pt started with 10-120 deg ROM and improved to 5 deg ext after. Pt is improving from session to session with flex and gait but is requiring more joitn mobility & having difficulty maintaining btwn sessions Physical Therapy Plan Frequency and Duration Frequency of Treatment 2x/Week Duration of Treatment 8 weeks Plan of Care Start Date 02/24/19 Plan of Care End Date 04/26/19 Next Visit Focus/Plan Next Note Type Treatment Note Next Visit Plan cont to work on quad and glute strength
--- NOTE | 2019-04-06 10:31 | PT.OTN ---
Current Diagnoses Unilateral primary osteoarthritis, left knee (04/06/19) Physical Therapy Treatment Note PT-OP-A Visit Information Start: 02/13/19 07:29 Freq: Status: Active Protocol: Document 04/06/19 09:50 [facility] (Rec: 04/06/19 10:30 [facility] [id number]) Out-Patient Physical Therapy Visit Information Visit Information Visit Type Treatment Note Visit Start Time 09:47 Visit Stop Time 10:27 Total Visit Minutes 50 Visit Number 03/03 PT-OP-B Current Condition Start: 02/13/19 07:29 Freq: Status: Active Protocol: Document 02/13/19 09:48 [facility] (Rec: 02/13/19 10:34 [facility] [id number]) Current Condition History of Current Condition Current Complaints L >R knee pain History of Current Condition Pt reports she is going to get L TKA on 02/20/19. Pt reports she was geting exhausted from surgery. Pt has history of buckling of R knee and it is not happening much and not lasting long. Pt reports she is still limited in distance for L knee and standing in 1 position for about an 1 hour gives her knees a problem. Today is pre-op appt. Pt has shower chair and walk in and grab bars in shower and by toilet. She has a transfer worker and sock aide. Pt has 1 step to enter house and H Prior Treatments and Tests PT late 2018-early 2019- aquatic & land based Future Testing and Treatments Planned TKA L PT-OP-C Subjective Start: 02/13/19 07:29 Freq: Status: Active Protocol: Document 04/06/19 09:50 [facility] (Rec: 04/06/19 10:30 [facility] [id number]) OP-PT Subjective Patient Comments Patient Comments Pt reports she did a lot after PT and her body was fatigued. She reports she saw yesterdaay who told her she needs to work on her bending and get at least 10 more degrees. Patient Reported Progress Improving PT-OP-G Mobility & Gait Start: 02/13/19 07:29 Freq: Status: Active Protocol: Document 02/13/19 09:48 [facility] (Rec: 02/13/19 10:34 [facility] [id number]) OP Gait Assessment Comments Gait Comments lat leaning for push off PT-OP-J Posture/Palpation/Skin Start: 02/13/19 07:29 Freq: Status: Active Protocol: Document 02/24/19 09:00 [facility] (Rec: 02/24/19 12:54 [id number]) Skin Assessment Circumference Measurement R tibial tuberosity Measurement (Centimeters) 13 Comments inch R knee Location superior knee joint (top of patellar pole) Measurement (Centimeters) 13.5 Comments inch L tibial tuberosity Measurement (Centimeters) 14 Comments inch L knee Location superior knee joint (top of patellar pole) Measurement (Centimeters) 15 Comments inch PT-OP-K Range of Motion Start: 02/13/19 07:29 Freq: Status: Active Protocol: Document 03/23/19 09:50 [facility] (Rec: 03/23/19 10:13 [facility] [id number]) Knee Goniometric Range of Motion Knee Measured in Degrees Left Flexion Active (degrees) 111 Extension Active (degrees) 7 Extension Passive (degrees) 5 Knee ROM Limitations Comments tested before manual PT-OP-M Strength Start: 02/13/19 07:29 Freq: Status: Active Protocol: Document 03/23/19 09:50 [facility] (Rec: 03/23/19 10:13 [facility] [id number]) Hip Strength Hip Manual Muscle Testing Right Flexion (L2) 4+ Good+ Extension (S1) 5 Normal Abduction 5 Normal Adduction 4+ Good+ External Rotation 4+ Good+ Internal Rotation 4+ Good+ Left Flexion (L2) 4 Good Extension (S1) 4 Good Abduction 4+ Good+ Adduction 4 Good External Rotation 4 Good Internal Rotation 4+ Good+ Knee Strength Knee Manual Muscle Testing Left Flexion (S2) 4+ Good+ Extension (L3) 4+ Good+ Ankle/Foot Strength Ankle and Foot Manual Muscle Testing Left Dorsiflexion (L4) 5 Normal Plantarflexion (S1) 4+ Good+ PT-OP-Q Treatments Start: 02/13/19 07:29 Freq: Status: Active Protocol: Document 04/06/19 09:50 [facility] (Rec: 04/06/19 10:30 [facility] [id number]) Cardio Equipment Recumbent Bicycle Duration (Minutes) 7 Resistance 4 Seat Position 6-4 Therapeutic Exercises Supine Exercises 1 Supine Exercise Name quad set Reps/Minutes 10 Comments w/manual faciliation behind femur Gait Training Gait Activity stairs Description reciprocal Comments up 6 in steps without rail & down 6in steps without rail w/ focus on wt shift & control x3 reps on stairs walking Description in mirror w/focus on push off Manual Therapy Treatment Soft Tissue Mobilization L knee scar tissue Body Location ant knee Comments Plunger & MFR 3 Body Location HS Mobilization Type Rolling Intensity/Depth Moderate Comments left Joint Mobilizations Tibiofemoral Joint TF Direction PA FM Manual Techniques PROM Type stretching into ext &HS stretch PT-OP-R Modalities Start: 02/13/19 07:29 Freq: Status: Active Protocol: Document 04/06/19 09:50 [facility] (Rec: 04/06/19 10:30 [facility] [id number]) Hot Pack/Cold Pack Treatment Cold Pack Location L knee ant and post Patient Position Supine Treatment Duration (minutes) 10 Patient Tolerance Good Comments L knee in extension PT-OP-T Assessment and Plan Start: 02/13/19 07:29 Freq: Status: Active Protocol: Document 04/06/19 09:50 [facility] (Rec: 04/06/19 10:30 [facility] [id number]) Physical Therapy Assessment Goals stair climbing Impairment step to pattern currently Storage Administrator Goal (LTG) Pt will be able to negotiate stairs with step over and B support on railings LTG Duration 8 weeks ROM Impairment impaired ROM Storage Administrator Goal (LTG) pt will be able to reach full knee extension and flexion compared to R knee. (5-135 degrees) for STS and gait activities. Improved ROM 5/30 LTG Duration 8 weeks Assessment Summary Assessment Pt started with 7-121 deg today and improved to 4-124 after mobilizations. She is improving in ability to do functional activities like stairs with improved stability and strength Physical Therapy Plan Frequency and Duration Frequency of Treatment 2x/Week Duration of Treatment 8 weeks Plan of Care Start Date 02/24/19 Plan of Care End Date 04/26/19 Next Visit Focus/Plan Next Note Type Treatment Note Next Visit Plan work on quad strength & faciliation into end range ext
--- NOTE | 2019-04-11 10:01 | PT.OTN ---
Current Diagnoses Unilateral primary osteoarthritis, left knee (04/11/19) Physical Therapy Treatment Note PT-OP-A Visit Information Start: 02/13/19 07:29 Freq: Status: Active Protocol: Document 04/11/19 09:15 [facility] (Rec: 04/11/19 10:00 [facility] [id number]) Out-Patient Physical Therapy Visit Information Visit Information Visit Type Treatment Note Visit Start Time 09:00 Visit Stop Time 09:50 Total Visit Minutes 50 Visit Number 04/03 PT-OP-B Current Condition Start: 02/13/19 07:29 Freq: Status: Active Protocol: Document 02/13/19 09:48 [facility] (Rec: 02/13/19 10:34 [facility] [id number]) Current Condition History of Current Condition Current Complaints L >R knee pain History of Current Condition Pt reports she is going to get L TKA on 02/20/19. Pt reports she was geting exhausted from surgery. Pt has history of buckling of R knee and it is not happening much and not lasting long. Pt reports she is still limited in distance for L knee and standing in 1 position for about an 1 hour gives her knees a problem. Today is pre-op appt. Pt has shower chair and walk in and grab bars in shower and by toilet. 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 Pt has 1 step to enter house and H Prior Treatments and Tests PT late 2018-early 2018- aquatic & land based Future Testing and Treatments Planned TKA L PT-OP-C Subjective Start: 02/13/19 07:29 Freq: Status: Active Protocol: Document 04/11/19 09:15 [facility] (Rec: 04/11/19 10:00 [facility] [id number]) OP-PT Subjective Patient Comments Patient Comments Pt reports she is still fatigued with exercises Patient Reported Progress Improving PT-OP-G Mobility & Gait Start: 02/13/19 07:29 Freq: Status: Active Protocol: Document 02/13/19 09:48 [facility] (Rec: 02/13/19 10:34 [facility] [id number]) OP Gait Assessment Comments Gait Comments lat leaning for push off PT-OP-J Posture/Palpation/Skin Start: 02/13/19 07:29 Freq: Status: Active Protocol: Document 02/24/19 09:00 (Rec: 02/24/19 12:54 [id number]) Skin Assessment Circumference Measurement R tibial tuberosity Measurement (Centimeters) 13 Comments inch R knee Location superior knee joint (top of patellar pole) Measurement (Centimeters) 13.5 Comments inch L tibial tuberosity Measurement (Centimeters) 14 Comments inch L knee Location superior knee joint (top of patellar pole) Measurement (Centimeters) 15 Comments inch PT-OP-K Range of Motion Start: 02/13/19 07:29 Freq: Status: Active Protocol: Document 03/23/19 09:50 [facility] (Rec: 03/23/19 10:13 [facility] [id number]) Knee Goniometric Range of Motion Knee Left Flexion Active (degrees) 111 Extension Active (degrees) 7 Extension Passive (degrees) 5 Knee ROM Limitations Comments tested before manual PT-OP-M Strength Start: 02/13/19 07:29 Freq: Status: Active Protocol: Document 03/23/19 09:50 [facility] (Rec: 03/23/19 10:13 [facility] [id number]) Hip Strength Hip Manual Muscle Testing Right Flexion (L2) 4+ Good+ Extension (S1) 5 Normal Abduction 5 Normal Adduction 4+ Good+ External Rotation 4+ Good+ Internal Rotation 4+ Good+ Left Flexion (L2) 4 Good Extension (S1) 4 Good Abduction 4+ Good+ Adduction 4 Good External Rotation 4 Good Internal Rotation 4+ Good+ Knee Strength Knee Manual Muscle Testing Left Flexion (S2) 4+ Good+ Extension (L3) 4+ Good+ Ankle/Foot Strength Ankle and Foot Manual Muscle Testing Left Dorsiflexion (L4) 5 Normal Plantarflexion (S1) 4+ Good+ PT-OP-Q Treatments Start: 02/13/19 07:29 Freq: Status: Active Protocol: Document 04/11/19 09:15 [facility] (Rec: 04/11/19 10:00 [facility] [id number]) Cardio Equipment Recumbent Bicycle Duration (Minutes) 7 Resistance 6 Seat Position 6-4 Gym Equipment Shuttle Recovery Unilateral Squats Resistance 75# B Shuttle Recovery Platform Stable Reps/Time 2x10 Therapeutic Exercises Standing Exercises 2 Standing Exercise Name lunges Side bilateral Reps/Minutes 15 Comments in mirror comfortable range Manual Therapy Treatment Soft Tissue Mobilization L knee scar tissue Body Location ant knee Comments Plunger & MFR Joint Mobilizations Tibiofemoral Joint TF Direction PA FM 1 Joint patellar Direction sup, med, inf PT-OP-R Modalities Start: 02/13/19 07:29 Freq: Status: Active Protocol: Document 04/11/19 09:15 [facility] (Rec: 04/11/19 10:00 [facility] [id number]) Hot Pack/Cold Pack Treatment Cold Pack Location L knee ant and post Patient Position Supine Treatment Duration (minutes) 10 Patient Tolerance Good Comments L knee in extension PT-OP-T Assessment and Plan Start: 02/13/19 07:29 Freq: Status: Active Protocol: Document 04/11/19 09:15 [facility] (Rec: 04/11/19 10:00 [facility] [id number]) Physical Therapy Assessment Goals stair climbing Impairment step to pattern currently Senior Living Goal (LTG) Pt will be able to negotiate stairs with step over and B support on railings LTG Duration 8 weeks ROM Impairment impaired ROM Tool Shaper Setup Operator Goal (LTG) pt will be able to reach full knee extension and flexion compared to R knee. (5-135 degrees) for STS and gait activities. Improved ROM 5/30 LTG Duration 8 weeks Assessment Summary Assessment Pt is improving with tolerance to exercise but cont to require encouragement for pushing ROM. She is still weaker on L side > R and does notice difficulty with strengthening exercises on that side more. Physical Therapy Plan Frequency and Duration Frequency of Treatment 2x/Week Duration of Treatment 8 weeks Plan of Care Start Date 02/24/19 Plan of Care End Date 04/26/19 Next Visit Focus/Plan Next Note Type Treatment Note Next Visit Plan cont to work on end range motion
--- NOTE | 2019-04-13 09:44 | PT.OTN ---
Current Diagnoses Unilateral primary osteoarthritis, left knee (04/13/19) Physical Therapy Treatment Note PT-OP-A Visit Information Start: 02/13/19 07:29 Freq: Status: Active Protocol: Document 04/13/19 08:54 [facility] (Rec: 04/13/19 09:44 [facility] [id number]) Out-Patient Physical Therapy Visit Information Visit Information Visit Type Treatment Note Visit Start Time 09:00 Visit Stop Time 09:50 Total Visit Minutes 50 Visit Number 05/03 PT-OP-B Current Condition Start: 02/13/19 07:29 Freq: Status: Active Protocol: Document 02/13/19 09:48 [facility] (Rec: 02/13/19 10:34 [facility] [id number]) Current Condition History of Current Condition Current Complaints L >R knee pain History of Current Condition Pt reports she is going to get L TKA on 02/20/19. Pt reports she was geting exhausted from surgery. Pt has history of buckling of R knee and it is not happening much and not lasting long. Pt reports she is still limited in distance for L knee and standing in 1 position for about an 1 hour gives her knees a problem. Today is pre-op appt. Pt has shower chair and walk in and grab bars in shower and by toilet. She has a baker test and sock aide. Pt has 1 step to enter house and H Prior Treatments and Tests PT late 2018-early 2019- aquatic & land based Future Testing and Treatments Planned TKA L PT-OP-C Subjective Start: 02/13/19 07:29 Freq: Status: Active Protocol: Document 04/13/19 08:54 [facility] (Rec: 04/13/19 09:44 [facility] [id number]) OP-PT Subjective Patient Comments Patient Comments pt reports she did her exercises this AM and reports it keeps feeling better each day PT-OP-G Mobility & Gait Start: 02/13/19 07:29 Freq: Status: Active Protocol: Document 02/13/19 09:48 [facility] (Rec: 02/13/19 10:34 [facility] [id number]) OP Gait Assessment Comments Gait Comments lat leaning for push off PT-OP-J Posture/Palpation/Skin Start: 02/13/19 07:29 Freq: Status: Active Protocol: Document 02/24/19 09:00 [facility] (Rec: 02/24/19 12:54 [id number]) Skin Assessment Circumference Measurement R tibial tuberosity Measurement (Centimeters) 13 Comments inch R knee Location superior knee joint (top of patellar pole) Measurement (Centimeters) 13.5 Comments inch L tibial tuberosity Measurement (Centimeters) 14 Comments inch L knee Location superior knee joint (top of patellar pole) Measurement (Centimeters) 15 Comments inch PT-OP-K Range of Motion Start: 02/13/19 07:29 Freq: Status: Active Protocol: Document 03/23/19 09:50 [facility] (Rec: 03/23/19 10:13 [facility] [id number]) Knee Goniometric Range of Motion Knee Left Flexion Active (degrees) 111 Extension Active (degrees) 7 Extension Passive (degrees) 5 Knee ROM Limitations Comments tested before manual PT-OP-M Strength Start: 02/13/19 07:29 Freq: Status: Active Protocol: Document 03/23/19 09:50 [facility] (Rec: 03/23/19 10:13 [facility] [id number]) Hip Strength Hip Manual Muscle Testing Right Flexion (L2) 4+ Good+ Extension (S1) 5 Normal Abduction 5 Normal Adduction 4+ Good+ External Rotation 4+ Good+ Internal Rotation 4+ Good+ Left Flexion (L2) 4 Good Extension (S1) 4 Good Abduction 4+ Good+ Adduction 4 Good External Rotation 4 Good Internal Rotation 4+ Good+ Knee Strength Knee Manual Muscle Testing Left Flexion (S2) 4+ Good+ Extension (L3) 4+ Good+ Ankle/Foot Strength Ankle and Foot Manual Muscle Testing Left Dorsiflexion (L4) 5 Normal Plantarflexion (S1) 4+ Good+ PT-OP-Q Treatments Start: 02/13/19 07:29 Freq: Status: Active Protocol: Document 04/13/19 08:54 [facility] (Rec: 04/13/19 09:44 [facility] [id number]) Cardio Equipment Recumbent Bicycle Duration (Minutes) 6 Resistance 6 Seat Position 5-4 Gym Equipment Shuttle Recovery Unilateral Squats Resistance 75# B Shuttle Recovery Platform Stable Reps/Time 2x15 Therapeutic Exercises Standing Exercises 2 Standing Exercise Name lunges Side bilateral Reps/Minutes 15 Comments in mirror comfortable range 1 Standing Exercise Name step ups backwards & fwd slow step down Side left Reps/Minutes 15 on 4 in and 15x on 6 in step Manual Therapy Treatment Soft Tissue Mobilization L knee scar tissue Body Location ant knee Comments Plunger & MFR Joint Mobilizations Tibiofemoral Joint TF Direction PA FM 1 Joint patellar Direction sup, med, inf PT-OP-R Modalities Start: 02/13/19 07:29 Freq: Status: Active Protocol: Document 04/13/19 08:54 [facility] (Rec: 04/13/19 09:44 [facility] [id number]) Hot Pack/Cold Pack Treatment Cold Pack Location L knee ant and post Patient Position Supine Treatment Duration (minutes) 10 Patient Tolerance Good Comments L knee in extension PT-OP-T Assessment and Plan Start: 02/13/19 07:29 Freq: Status: Active Protocol: Document 04/13/19 08:54 [facility] (Rec: 04/13/19 09:44 [facility] [id number]) Physical Therapy Assessment Goals stair climbing Impairment step to pattern currently Machine Shop Helper Goal (LTG) Pt will be able to negotiate stairs with step over and B support on railings LTG Duration 8 weeks ROM Impairment impaired ROM Machine Shop Helper Goal (LTG) pt will be able to reach full knee extension and flexion compared to R knee. (5-135 degrees) for STS and gait activities. Improved ROM 5/30 LTG Duration 8 weeks Assessment Summary Assessment Pt started with 8-121 and imrpoved to 7-124 after manual . She cont to have scar tissue restriction & joint mobility restriciton but is improving in ability to tolerate patellar mobs. Physical Therapy Plan Frequency and Duration Frequency of Treatment 2x/Week Duration of Treatment 8 weeks Plan of Care Start Date 02/24/19 Plan of Care End Date 04/26/19 Next Visit Focus/Plan Next Note Type Treatment Note Next Visit Plan cont to work on end range flex & ext
--- NOTE | 2019-04-18 17:03 | PT.OTN ---
Current Diagnoses Unilateral primary osteoarthritis, left knee (04/18/19) Physical Therapy Treatment Note PT-OP-A Visit Information Start: 02/13/19 07:29 Freq: Status: Active Protocol: Document 04/18/19 15:56 [facility] (Rec: 04/18/19 17:03 [facility] [id number]) Out-Patient Physical Therapy Visit Information Visit Information Visit Type Treatment Note Visit Start Time 16:00 Visit Stop Time 16:50 Total Visit Minutes 50 Visit Number 8 PT-OP-B Current Condition Start: 02/13/19 07:29 Freq: Status: Active Protocol: Document 02/13/19 09:48 [facility] (Rec: 02/13/19 10:34 [facility] [id number]) Current Condition History of Current Condition Current Complaints L >R knee pain History of Current Condition Pt reports she is going to get L TKA on 02/20/19. Pt reports she was geting exhausted from surgery. Pt has history of buckling of R knee and it is not happening much and not lasting long. Pt reports she is still limited in distance for L knee and standing in 1 position for about an 1 hour gives her knees a problem. Today is pre-op appt. Pt has shower chair and walk in and grab bars in shower and by toilet. 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 Pt has 1 step to enter house and H Prior Treatments and Tests PT late 2018-early 2019- aquatic & land based Future Testing and Treatments Planned TKA L PT-OP-C Subjective Start: 02/13/19 07:29 Freq: Status: Active Protocol: Document 04/18/19 15:56 [facility] (Rec: 04/18/19 17:03 [facility] [id number]) OP-PT Subjective Patient Comments Patient Comments Pt reports she has been working hard. Patient Reported Progress Improving PT-OP-G Mobility & Gait Start: 02/13/19 07:29 Freq: Status: Active Protocol: Document 02/13/19 09:48 [facility] (Rec: 02/13/19 10:34 [facility] [id number]) OP Gait Assessment Comments Gait Comments lat leaning for push off PT-OP-J Posture/Palpation/Skin Start: 02/13/19 07:29 Freq: Status: Active Protocol: Document 02/24/19 09:00 [facility] (Rec: 02/24/19 12:54 [email or web address]) Skin Assessment Circumference Measurement R tibial tuberosity Measurement (Centimeters) 13 Comments inch R knee Location superior knee joint (top of patellar pole) Measurement (Centimeters) 13.5 Comments inch L tibial tuberosity Measurement (Centimeters) 14 Comments inch L knee Location superior knee joint (top of patellar pole) Measurement (Centimeters) 15 Comments inch PT-OP-K Range of Motion Start: 02/13/19 07:29 Freq: Status: Active Protocol: Document 03/23/19 09:50 [facility] (Rec: 03/23/19 10:13 [facility] [id number]) Knee Goniometric Range of Motion Knee Left Flexion Active (degrees) 111 Extension Active (degrees) 7 Extension Passive (degrees) 5 Knee ROM Limitations Comments tested before manual PT-OP-M Strength Start: 02/13/19 07:29 Freq: Status: Active Protocol: Document 03/23/19 09:50 [facility] (Rec: 03/23/19 10:13 [facility] [id number]) Hip Strength Hip Manual Muscle Testing Right Flexion (L2) 4+ Good+ Extension (S1) 5 Normal Abduction 5 Normal Adduction 4+ Good+ External Rotation 4+ Good+ Internal Rotation 4+ Good+ Left Flexion (L2) 4 Good Extension (S1) 4 Good Abduction 4+ Good+ Adduction 4 Good External Rotation 4 Good Internal Rotation 4+ Good+ Knee Strength Knee Manual Muscle Testing Left Flexion (S2) 4+ Good+ Extension (L3) 4+ Good+ Ankle/Foot Strength Ankle and Foot Manual Muscle Testing Left Dorsiflexion (L4) 5 Normal Plantarflexion (S1) 4+ Good+ PT-OP-Q Treatments Start: 02/13/19 07:29 Freq: Status: Active Protocol: Document 04/18/19 15:56 [facility] (Rec: 04/18/19 17:03 [facility] [id number]) Cardio Equipment Recumbent Bicycle Duration (Minutes) 7 Resistance 7 Seat Position 5-3 Therapeutic Exercises Supine Exercises heel slides Supine Exercise Name w/butt scoot forward 1 Supine Exercise Name quad set w/overpressure Reps/Minutes 10 Comments w/manual faciliation behind femur Prone Exercises hang Prone Exercise Name for ext ROM Manual Therapy Treatment Soft Tissue Mobilization L knee scar tissue Body Location ant knee Comments Plunger & MFR 3 Body Location HS Mobilization Type Rolling Intensity/Depth Moderate Comments left Joint Mobilizations Tibiofemoral Joint TF Direction AP on femur & tibia 1 Joint patellar Direction sup, med, inf Manual Techniques PROM Type stretching into ext &HS stretch PT-OP-R Modalities Start: 02/13/19 07:29 Freq: Status: Active Protocol: Document 04/18/19 15:56 [facility] (Rec: 04/18/19 17:03 [facility] [id number]) Hot Pack/Cold Pack Treatment Cold Pack Location L knee ant and post Patient Position Supine Treatment Duration (minutes) 10 Patient Tolerance Good Comments L knee in extension PT-OP-T Assessment and Plan Start: 02/13/19 07:29 Freq: Status: Active Protocol: Document 04/18/19 15:56 [facility] (Rec: 04/18/19 17:03 [facility] [id number]) Physical Therapy Assessment Goals stair climbing Impairment step to pattern currently Statement Clerks Supervisor Goal (LTG) Pt will be able to negotiate stairs with step over and B support on railings LTG Duration 8 weeks ROM Impairment impaired ROM Assisted Goal (LTG) pt will be able to reach full knee extension and flexion compared to R knee. (5-135 degrees) for STS and gait activities. Improved ROM 5/30 LTG Duration 8 weeks Assessment Summary Assessment Pt started with 8 to 123 and improved to 3 to 126. She was able to tolerate prone hang. Physical Therapy Plan Frequency and Duration Frequency of Treatment 2x/Week Duration of Treatment 8 weeks Plan of Care Start Date 02/24/19 Plan of Care End Date 04/26/19 Next Visit Focus/Plan Next Note Type Treatment Note Next Visit Plan Cont to work on end range.
--- NOTE | 2019-04-25 15:11 | PT.OTN ---
Current Diagnoses Unilateral primary osteoarthritis, left knee (04/25/19) Physical Therapy Treatment Note PT-OP-A Visit Information Start: 02/13/19 07:29 Freq: Status: Active Protocol: Document 04/25/19 16:00 [facility] (Rec: 04/27/19 15:11 [facility] [email or web address]) Out-Patient Physical Therapy Visit Information Visit Information Visit Type Treatment Note Visit Start Time 16:00 Visit Stop Time 16:50 Total Visit Minutes 50 Visit Number 07/04 PT-OP-B Current Condition Start: 02/13/19 07:29 Freq: Status: Active Protocol: Document 02/13/19 09:48 [facility] (Rec: 02/13/19 10:34 [facility] [id number]) Current Condition History of Current Condition Current Complaints L >R knee pain History of Current Condition Pt reports she is going to get L TKA on 02/20/19. Pt reports she was geting exhausted from surgery. Pt has history of buckling of R knee and it is not happening much and not lasting long. Pt reports she is still limited in distance for L knee and standing in 1 position for about an 1 hour gives her knees a problem. Today is pre-op appt. Pt has shower chair and walk in and grab bars in shower and by toilet. She has a buggy loader and sock aide. Pt has 1 step to enter house and [facility] Prior Treatments and Tests PT late 2018-early 2019- aquatic & land based Future Testing and Treatments Planned TKA L PT-OP-C Subjective Start: 02/13/19 07:29 Freq: Status: Active Protocol: Document 04/25/19 16:00 [facility] (Rec: 04/27/19 15:11 [facility] [id number]) OP-PT Subjective Patient Comments Patient Comments PT state she had increase in knee stiffness after [employer] day activities. PT-OP-G Mobility & Gait Start: 02/13/19 07:29 Freq: Status: Active Protocol: Document 02/13/19 09:48 [facility] (Rec: 02/13/19 10:34 [facility] [id number]) OP Gait Assessment Comments Gait Comments lat leaning for push off PT-OP-J Posture/Palpation/Skin Start: 02/13/19 07:29 Freq: Status: Active Protocol: Document 02/24/19 09:00 [facility] (Rec: 02/24/19 12:54 [facility] [email or web address]) Skin Assessment Circumference Measurement R tibial tuberosity Measurement (Centimeters) 13 Comments inch R knee Location superior knee joint (top of patellar pole) Measurement (Centimeters) 13.5 Comments inch L tibial tuberosity Measurement (Centimeters) 14 Comments inch L knee Location superior knee joint (top of patellar pole) Measurement (Centimeters) 15 Comments inch PT-OP-K Range of Motion Start: 02/13/19 07:29 Freq: Status: Active Protocol: Document 03/23/19 09:50 [facility] (Rec: 03/23/19 10:13 [facility] [id number]) Knee Goniometric Range of Motion Knee Left Flexion Active (degrees) 111 Extension Active (degrees) 7 Extension Passive (degrees) 5 Knee ROM Limitations Comments tested before manual PT-OP-M Strength Start: 02/13/19 07:29 Freq: Status: Active Protocol: Document 03/23/19 09:50 [facility] (Rec: 03/23/19 10:13 [facility] [id number]) Hip Strength Hip Manual Muscle Testing Right Flexion (L2) 4+ Good+ Extension (S1) 5 Normal Abduction 5 Normal Adduction 4+ Good+ External Rotation 4+ Good+ Internal Rotation 4+ Good+ Left Flexion (L2) 4 Good Extension (S1) 4 Good Abduction 4+ Good+ Adduction 4 Good External Rotation 4 Good Internal Rotation 4+ Good+ Knee Strength Knee Manual Muscle Testing Left Flexion (S2) 4+ Good+ Extension (L3) 4+ Good+ Ankle/Foot Strength Ankle and Foot Manual Muscle Testing Left Dorsiflexion (L4) 5 Normal Plantarflexion (S1) 4+ Good+ PT-OP-Q Treatments Start: 02/13/19 07:29 Freq: Status: Active Protocol: Document 04/25/19 16:00 [facility] (Rec: 04/27/19 15:11 [facility] [email or web address]) Cardio Equipment Recumbent Bicycle Duration (Minutes) 7 Resistance 7 Seat Position 5-3 Gym Equipment Shuttle Recovery Unilateral Squats Resistance 75# B Shuttle Recovery Platform Stable Reps/Time 2x15 Therapeutic Exercises Supine Exercises 1 Supine Exercise Name quad set w/overpressure Reps/Minutes 10 Comments w/manual faciliation behind femur Prone Exercises hang Prone Exercise Name for ext ROM Manual Therapy Treatment Soft Tissue Mobilization L knee scar tissue Body Location ant knee Comments Plunger & MFR 3 Body Location HS Mobilization Type Rolling Intensity/Depth Moderate Comments left Joint Mobilizations Tibiofemoral Joint TF Direction AP on femur & tibia 1 Joint patellar Direction sup, med, inf Manual Techniques PROM Type stretching into ext &HS stretch PT-OP-R Modalities Start: 02/13/19 07:29 Freq: Status: Active Protocol: Document 04/25/19 16:00 [facility] (Rec: 04/27/19 15:11 [facility] [email or web address]) Hot Pack/Cold Pack Treatment Cold Pack Location L knee ant and post Patient Position Supine Treatment Duration (minutes) 10 Patient Tolerance Good Comments L knee in extension PT-OP-T Assessment and Plan Start: 02/13/19 07:29 Freq: Status: Active Protocol: Document 04/25/19 16:00 [facility] (Rec: 04/27/19 15:11 [facility] [email or web address]) Physical Therapy Assessment Assessment Summary Assessment Pt had decrease knee extension , but improved with marti therapy. Pt tolerated light ROM activites. Physical Therapy Plan Frequency and Duration Frequency of Treatment 2x/Week Duration of Treatment 8 weeks Plan of Care Start Date 02/24/19 Plan of Care End Date 04/26/19 Next Visit Focus/Plan Next Note Type Re-Evaluation Next Visit Plan Cont to work on end range.
--- NOTE | 2019-05-04 10:04 | PT.OTN ---
Current Diagnoses Unilateral primary osteoarthritis, left knee (05/04/19) Physical Therapy Treatment Note PT-OP-A Visit Information Start: 02/13/19 07:29 Freq: Status: Active Protocol: Document 05/04/19 09:04 [facility] (Rec: 05/04/19 10:04 [facility] [id number]) Out-Patient Physical Therapy Visit Information Visit Information Visit Type Progress Note Visit Start Time 09:00 Visit Stop Time 09:50 Total Visit Minutes 50 Visit Number 11/03 PT-OP-B Current Condition Start: 02/13/19 07:29 Freq: Status: Active Protocol: Document 02/13/19 09:48 [facility] (Rec: 02/13/19 10:34 [facility] [id number]) Current Condition History of Current Condition Current Complaints L >R knee pain History of Current Condition Pt reports she is going to get L TKA on 02/20/19. Pt reports she was geting exhausted from surgery. Pt has history of buckling of R knee and it is not happening much and not lasting long. Pt reports she is still limited in distance for L knee and standing in 1 position for about an 1 hour gives her knees a problem. Today is pre-op appt. Pt has shower chair and walk in and grab bars in shower and by toilet. She has a foot roentgenologist and sock aide. Pt has 1 step to enter house and H Prior Treatments and Tests PT late 2018-early 2019- aquatic & land based Future Testing and Treatments Planned TKA L PT-OP-C Subjective Start: 02/13/19 07:29 Freq: Status: Active Protocol: Document 05/04/19 09:04 [facility] (Rec: 05/04/19 10:04 [facility] [id number]) OP-PT Subjective Patient Comments Patient Comments Pt reports she is having up and down with stiffness. PT-OP-G Mobility & Gait Start: 02/13/19 07:29 Freq: Status: Active Protocol: Document 02/13/19 09:48 [facility] (Rec: 02/13/19 10:34 [facility] [id number]) OP Gait Assessment Comments Gait Comments lat leaning for push off PT-OP-J Posture/Palpation/Skin Start: 02/13/19 07:29 Freq: Status: Active Protocol: Document 02/24/19 09:00 [facility] (Rec: 02/24/19 12:54 [email or web address]) Skin Assessment Circumference Measurement R tibial tuberosity Measurement (Centimeters) 13 Comments inch R knee Location superior knee joint (top of patellar pole) Measurement (Centimeters) 13.5 Comments inch L tibial tuberosity Measurement (Centimeters) 14 Comments inch L knee Location superior knee joint (top of patellar pole) Measurement (Centimeters) 15 Comments inch PT-OP-K Range of Motion Start: 02/13/19 07:29 Freq: Status: Active Protocol: Document 05/04/19 09:04 [facility] (Rec: 05/04/19 10:04 [facility] [id number]) Knee Goniometric Range of Motion Knee Left Flexion Active (degrees) 125 Extension Active (degrees) 8 PT-OP-M Strength Start: 02/13/19 07:29 Freq: Status: Active Protocol: Document 05/04/19 09:04 [facility] (Rec: 05/04/19 10:04 [facility] [id number]) Hip Strength Hip Manual Muscle Testing Right Flexion (L2) 4+ Good+ Extension (S1) 5 Normal Abduction 5 Normal Adduction 5 Normal External Rotation 5 Normal Internal Rotation 5 Normal Left Flexion (L2) 5 Normal Extension (S1) 4+ Good+ Abduction 5 Normal Adduction 5 Normal Internal Rotation 5 Normal Knee Strength Knee Manual Muscle Testing Right Flexion (S2) 5 Normal Extension (L3) 5 Normal Left Flexion (S2) 5 Normal Extension (L3) 5 Normal Ankle/Foot Strength Ankle and Foot Manual Muscle Testing Right Dorsiflexion (L4) 5 Normal Plantarflexion (S1) 5 Normal Left Dorsiflexion (L4) 5 Normal Plantarflexion (S1) 5 Normal PT-OP-Q Treatments Start: 02/13/19 07:29 Freq: Status: Active Protocol: Document 05/04/19 09:04 [facility] (Rec: 05/04/19 10:04 [facility] [id number]) Cardio Equipment Recumbent Bicycle Duration (Minutes) 7 Resistance 7 Seat Position 5-2 Therapeutic Exercises Prone Exercises knee ext Prone Exercise Name TKE Side left Reps/Minutes 10 ext Prone Exercise Name alt hip Side bilateral Reps/Minutes 10 Manual Therapy Treatment Soft Tissue Mobilization 3 Body Location HS Mobilization Type Rolling Intensity/Depth Moderate Body Position Prone Comments left 2 Body Location calf Mobilization Type Rolling Intensity/Depth Moderate Body Position Prone Comments proximal PT-OP-R Modalities Start: 02/13/19 07:29 Freq: Status: Active Protocol: Document 05/04/19 09:04 [facility] (Rec: 05/04/19 10:04 [facility] [id number]) Hot Pack/Cold Pack Treatment Cold Pack Location L knee ant and post Patient Position Supine Treatment Duration (minutes) 10 Patient Tolerance Good Comments L knee in extension PT-OP-T Assessment and Plan Start: 02/13/19 07:29 Freq: Status: Active Protocol: Document 05/04/19 09:04 [facility] (Rec: 05/04/19 10:04 [facility] [id number]) Physical Therapy Assessment Goals walking Short Term Goal (STG) Pt will be able to stand protesting without inc pain. STG Duration 06/04/19 Marketing Development Representative Goal (LTG) Pt will be able to go for walks without inc pain LTG Duration 07/05/19 stair climbing Impairment step to pattern currently Senior Living Goal (LTG) Pt will be able to negotiate stairs with step over and B support on railings LTG Duration achieved ROM Impairment impaired ROM Senior Living Goal (LTG) pt will be able to reach full knee extension and flexion compared to R knee. (5-135 degrees) for STS and gait activities. Improved ROM 05/04 LTG Duration 8 weeks Assessment Summary Assessment Pt cont to have dec ROM but does improve with manual treatment. Imprvoed to about 5 -127 after manual treatmet. She is improving functionally but has not returned to walks yet. Physical Therapy Plan Frequency and Duration Frequency of Treatment 1x/Week Duration of Treatment 2 months Plan of Care Start Date 05/04/19 Plan of Care End Date 07/05/19 Therapeutic Interventions Therapeutic Interventions Aquatic Therapy Balance Training Gait Training Home Exercise Program Joint Mobilizations Manual Therapy Neuromuscular Re-education Patient/Caregiver Education Self-Care/Home Management Soft Tissue Mobilization Taping Therapeutic Activities Therapeutic Exercises Modalities Cold Pack/Ice Massage Electric Stimulation Hot Packs Infrared Therapy Iontophoresis Ultrasound Next Visit Focus/Plan Next Note Type Treatment Note Next Visit Plan Cont to work on end range.
--- NOTE | 2019-05-17 16:13 | PT.OTN ---
Current Diagnoses Unilateral primary osteoarthritis, left knee (05/17/19) Physical Therapy Treatment Note PT-OP-A Visit Information Start: 02/13/19 07:29 Freq: Status: Active Protocol: Document 05/17/19 16:02 (Rec: 05/17/19 16:13 [email or web address]) Out-Patient Physical Therapy Visit Information Visit Information Visit Type Treatment Note Visit Start Time 13:45 Visit Stop Time 14:33 Total Visit Minutes 48 Visit Number 2/10 Number of LICENSED INSURANCE AGENT Visits 1 PT-OP-B Current Condition Start: 02/13/19 07:29 Freq: Status: Active Protocol: Document 02/13/19 09:48 [facility] (Rec: 02/13/19 10:34 [facility] [id number]) Current Condition History of Current Condition Current Complaints L >R knee pain History of Current Condition Pt reports she is going to get L TKA on 02/20/19. Pt reports she was geting exhausted from surgery. Pt has history of buckling of R knee and it is not happening much and not lasting long. Pt reports she is still limited in distance for L knee and standing in 1 position for about an 1 hour gives her knees a problem. Today is pre-op appt. Pt has shower chair and walk in and grab bars in shower and by toilet. She has a marketing analytics manager and sock aide. Pt has 1 step to enter house and [facility] Prior Treatments and Tests PT late 2018-early 2019- aquatic & land based Future Testing and Treatments Planned TKA L PT-OP-C Subjective Start: 02/13/19 07:29 Freq: Status: Active Protocol: Document 05/17/19 16:02 (Rec: 05/17/19 16:13 [email or web address]) OP-PT Subjective Patient Comments Patient Comments Pt reports knee still feels stiff at times but she is able to do HEP daily and only uses the [facility] for longer walks. PT-OP-G Mobility & Gait Start: 02/13/19 07:29 Freq: Status: Active Protocol: Document 02/13/19 09:48 [facility] (Rec: 02/13/19 10:34 [facility] [id number]) OP Gait Assessment Comments Gait Comments lat leaning for push off PT-OP-J Posture/Palpation/Skin Start: 02/13/19 07:29 Freq: Status: Active Protocol: Document 02/24/19 09:00 [facility] (Rec: 02/24/19 12:54 [facility] [email or web address]) Skin Assessment Circumference Measurement R tibial tuberosity Measurement (Centimeters) 13 Comments inch R knee Location superior knee joint (top of patellar pole) Measurement (Centimeters) 13.5 Comments inch L tibial tuberosity Measurement (Centimeters) 14 Comments inch L knee Location superior knee joint (top of patellar pole) Measurement (Centimeters) 15 Comments inch PT-OP-K Range of Motion Start: 02/13/19 07:29 Freq: Status: Active Protocol: Document 05/04/19 09:04 [facility] (Rec: 05/04/19 10:04 [facility] [id number]) Knee Goniometric Range of Motion Knee Left Flexion Active (degrees) 125 Extension Active (degrees) 8 PT-OP-M Strength Start: 02/13/19 07:29 Freq: Status: Active Protocol: Document 05/04/19 09:04 [facility] (Rec: 05/04/19 10:04 [facility] [id number]) Hip Strength Hip Manual Muscle Testing Right Flexion (L2) 4+ Good+ Extension (S1) 5 Normal Abduction 5 Normal Adduction 5 Normal External Rotation 5 Normal Internal Rotation 5 Normal Left Flexion (L2) 5 Normal Extension (S1) 4+ Good+ Abduction 5 Normal Adduction 5 Normal Internal Rotation 5 Normal Knee Strength Knee Manual Muscle Testing Right Flexion (S2) 5 Normal Extension (L3) 5 Normal Left Flexion (S2) 5 Normal Extension (L3) 5 Normal Ankle/Foot Strength Ankle and Foot Manual Muscle Testing Right Dorsiflexion (L4) 5 Normal Plantarflexion (S1) 5 Normal Left Dorsiflexion (L4) 5 Normal Plantarflexion (S1) 5 Normal PT-OP-Q Treatments Start: 02/13/19 07:29 Freq: Status: Active Protocol: Document 05/17/19 16:02 [facility] (Rec: 05/17/19 16:13 [facility] [email or web address]) Cardio Equipment Recumbent Bicycle Duration (Minutes) 7 Resistance 7 Seat Position 5-2 Gym Equipment Shuttle Recovery Unilateral Squats Resistance 37# LLE Reps/Time 2 x 15 Therapeutic Exercises Supine Exercises SAQ Supine Exercise Name SAQ Side left Resistance 2# Equipment Used bolster Reps/Minutes 10x2 SLR Side left Reps/Minutes 10x 1 Supine Exercise Name quad set w/overpressure Reps/Minutes 10 Comments w/manual faciliation behind femur Prone Exercises knee ext Prone Exercise Name TKE Side left Reps/Minutes 10 hang Prone Exercise Name for ext ROM Manual Therapy Treatment Soft Tissue Mobilization L knee scar tissue Body Location ant knee Intensity/Depth Moderate 3 Body Location HS Mobilization Type Rolling Intensity/Depth Moderate Body Position Prone Comments left 2 Body Location calf Mobilization Type Rolling Intensity/Depth Moderate Body Position Prone Comments proximal Joint Mobilizations Tibiofemoral Joint TF Direction AP on femur & tibia 1 Joint patellar Direction sup, med, inf PT-OP-R Modalities Start: 02/13/19 07:29 Freq: Status: Active Protocol: Document 05/17/19 16:02 [facility] (Rec: 05/17/19 16:13 [facility] [email or web address]) Hot Pack/Cold Pack Treatment Cold Pack Location L knee ant and post Patient Position Supine Treatment Duration (minutes) 10 Patient Tolerance Good Comments L knee in extension PT-OP-T Assessment and Plan Start: 02/13/19 07:29 Freq: Status: Active Protocol: Document 05/17/19 16:02 [facility] (Rec: 05/17/19 16:13 [facility] [email or web address]) Physical Therapy Assessment Assessment Summary Assessment Pt with -5- 122 degrees of L knee motion after exercise and stretching. Tolerating ther ex well. Physical Therapy Plan Next Visit Focus/Plan Next Note Type Treatment Note Next Visit Plan Cont to work on end range.
--- NOTE | 2019-05-23 17:34 | PT.OTN ---
Current Diagnoses Unilateral primary osteoarthritis, left knee (05/23/19) Physical Therapy Treatment Note PT-OP-A Visit Information Start: 02/13/19 07:29 Freq: Status: Active Protocol: Document 05/23/19 16:52 [facility] (Rec: 05/23/19 17:34 [facility] [id number]) Out-Patient Physical Therapy Visit Information Visit Information Visit Type Treatment Note Visit Start Time 16:49 Visit Stop Time 17:39 Total Visit Minutes 50 Visit Number 3/10 Number of [employer] FEEDER Visits 0 PT-OP-B Current Condition Start: 02/13/19 07:29 Freq: Status: Active Protocol: Document 02/13/19 09:48 [facility] (Rec: 02/13/19 10:34 [facility] [id number]) Current Condition History of Current Condition Current Complaints L >R knee pain History of Current Condition Pt reports she is going to get L TKA on 02/20/19. Pt reports she was geting exhausted from surgery. Pt has history of buckling of R knee and it is not happening much and not lasting long. Pt reports she is still limited in distance for L knee and standing in 1 position for about an 1 hour gives her knees a problem. Today is pre-op appt. Pt has shower chair and walk in and grab bars in shower and by toilet. She has a seafood manager and sock aide. Pt has 1 step to enter house and [facility] Prior Treatments and Tests PT late 2018-early 2018- aquatic & land based Future Testing and Treatments Planned TKA L PT-OP-C Subjective Start: 02/13/19 07:29 Freq: Status: Active Protocol: Document 05/23/19 16:52 [facility] (Rec: 05/23/19 17:34 [facility] [id number]) OP-PT Subjective Patient Comments Patient Comments Pt reports she hasn't tried much standing while protesting because [facility] knows standing is tiring. Reports she will be leaving for 2.5 weeks for [place]. PT-OP-G Mobility & Gait Start: 02/13/19 07:29 Freq: Status: Active Protocol: Document 02/13/19 09:48 [facility] (Rec: 02/13/19 10:34 [facility] [id number]) OP Gait Assessment Comments Gait Comments lat leaning for push off PT-OP-J Posture/Palpation/Skin Start: 02/13/19 07:29 Freq: Status: Active Protocol: Document 02/24/19 09:00 [facility] (Rec: 02/24/19 12:54 [facility] [email or web address]) Skin Assessment Circumference Measurement R tibial tuberosity Measurement (Centimeters) 13 Comments inch R knee Location superior knee joint (top of patellar pole) Measurement (Centimeters) 13.5 Comments inch L tibial tuberosity Measurement (Centimeters) 14 Comments inch L knee Location superior knee joint (top of patellar pole) Measurement (Centimeters) 15 Comments inch PT-OP-K Range of Motion Start: 02/13/19 07:29 Freq: Status: Active Protocol: Document 05/04/19 09:04 [facility] (Rec: 05/04/19 10:04 [facility] [id number]) Knee Goniometric Range of Motion Knee Left Flexion Active (degrees) 125 Extension Active (degrees) 8 PT-OP-M Strength Start: 02/13/19 07:29 Freq: Status: Active Protocol: Document 05/04/19 09:04 [facility] (Rec: 05/04/19 10:04 [facility] [id number]) Hip Strength Hip Manual Muscle Testing Right Flexion (L2) 4+ Good+ Extension (S1) 5 Normal Abduction 5 Normal Adduction 5 Normal External Rotation 5 Normal Internal Rotation 5 Normal Left Flexion (L2) 5 Normal Extension (S1) 4+ Good+ Abduction 5 Normal Adduction 5 Normal Internal Rotation 5 Normal Knee Strength Knee Manual Muscle Testing Right Flexion (S2) 5 Normal Extension (L3) 5 Normal Left Flexion (S2) 5 Normal Extension (L3) 5 Normal Ankle/Foot Strength Ankle and Foot Manual Muscle Testing Right Dorsiflexion (L4) 5 Normal Plantarflexion (S1) 5 Normal Left Dorsiflexion (L4) 5 Normal Plantarflexion (S1) 5 Normal PT-OP-Q Treatments Start: 02/13/19 07:29 Freq: Status: Active Protocol: Document 05/23/19 16:52 [facility] (Rec: 05/23/19 17:34 [facility] [id number]) Cardio Equipment Recumbent Bicycle Duration (Minutes) 7 Resistance 7 Seat Position 5-1 Gym Equipment Sport Cord blue Exercise Details wt shift/acceptance w/walking Reps/Duration 20 x Therapeutic Exercises Supine Exercises TKE Supine Exercise Name focus on knee ext w/o pelvic movement Equipment Used L4 Reps/Minutes 20 Gait Training Gait Activity walking Description focus on no trunk lean Comments working in mirror; also doing wt acceptance Manual Therapy Treatment Soft Tissue Mobilization L knee scar tissue Body Location ant knee Mobilization Type Myofascial Release Intensity/Depth Superficial Joint Mobilizations 1 Joint patellar Direction sup, med, inf PT-OP-R Modalities Start: 02/13/19 07:29 Freq: Status: Active Protocol: Document 05/23/19 16:52 [facility] (Rec: 05/23/19 17:34 [facility] [id number]) Hot Pack/Cold Pack Treatment Cold Pack Location L knee ant and post Patient Position Supine Treatment Duration (minutes) 10 Patient Tolerance Good Comments L knee in extension PT-OP-T Assessment and Plan Start: 02/13/19 07:29 Freq: Status: Active Protocol: Document 05/23/19 16:52 [facility] (Rec: 05/23/19 17:34 [facility] [id number]) Physical Therapy Assessment Goals walking Short Term Goal (STG) Pt will be able to stand protesting without inc pain. STG Duration 06/04/19 Longterm Goal (LTG) Pt will be able to go for walks without inc pain LTG Duration 07/05/19 stair climbing Impairment step to pattern currently Creative Art Director Goal (LTG) Pt will be able to negotiate stairs with step over and B support on railings LTG Duration achieved ROM Impairment impaired ROM Longterm Goal (LTG) pt will be able to reach full knee extension and flexion compared to R knee. (5-135 degrees) for STS and gait activities. Improved ROM 05/04 LTG Duration 8 weeks Assessment Summary Assessment Pt started with lacking 10 deg ext and had 125 deg flex. After session improved to lacking 6 deg and had 132 after treatment. Pt has significant lat leaning with gait and has difficulty with appropriate wt shift and acceptance but improved with cueing and mirror. Physical Therapy Plan Frequency and Duration Frequency of Treatment 1x/Week Duration of Treatment 2 months Plan of Care Start Date 05/04/19 Plan of Care End Date 07/05/19 Next Visit Focus/Plan Next Note Type Treatment Note Next Visit Plan Cont to work on end range.
--- NOTE | 2019-06-28 14:58 | PT.OPDS ---
Current Diagnoses Unilateral primary osteoarthritis, left knee (05/23/19) Visit Care Team Role Provider Type DILEEP [place] Primary Care Provider Non-Staff Specialty: Medical Address: [facility] [place], [address] Email: Asia Barrientos PA-C Attending Provider Non-Staff Specialty: Medical Address: [address] [facility], [place], [address] Email: Visit Number Visit Number 01/01 Discharge Summary PT-OP-B Current Condition Start: 02/13/19 07:29 Freq: Status: Active Protocol: Document 02/13/19 09:48 [facility] (Rec: 02/13/19 10:34 [facility] [id number]) Current Condition History of Current Condition Current Complaints L >R knee pain History of Current Condition Pt reports she is going to get L TKA on 02/20/19. Pt reports she was geting exhausted from surgery. Pt has history of buckling of R knee and it is not happening much and not lasting long. Pt reports she is still limited in distance for L knee and standing in 1 position for about an 1 hour gives her knees a problem. Today is pre-op appt. Pt has shower chair and walk in and grab bars in shower and by toilet. She has a chronic specialist and sock aide. Pt has 1 step to enter house and [facility] Prior Treatments and Tests PT late 2018-early 2019- aquatic & land based Future Testing and Treatments Planned TKA L PT-OP-C Subjective Start: 02/13/19 07:29 Freq: Status: Active Protocol: Document 05/23/19 16:52 [facility] (Rec: 05/23/19 17:34 [facility] [id number]) OP-PT Subjective Patient Comments Patient Comments Pt reports she hasn't tried much standing while protesting because [place] knows standing is tiring. Reports she will be leaving for 2.5 weeks for [place]. PT-OP-G Mobility & Gait Start: 02/13/19 07:29 Freq: Status: Active Protocol: Document 02/13/19 09:48 [facility] (Rec: 02/13/19 10:34 [facility] [id number]) OP Gait Assessment Comments Gait Comments lat leaning for push off PT-OP-J Posture/Palpation/Skin Start: 02/13/19 07:29 Freq: Status: Active Protocol: Document 02/24/19 09:00 [facility] (Rec: 02/24/19 12:54 [id number]) Skin Assessment Circumference Measurement R tibial tuberosity Measurement (Centimeters) 13 Comments inch R knee Location superior knee joint (top of patellar pole) Measurement (Centimeters) 13.5 Comments inch L tibial tuberosity Measurement (Centimeters) 14 Comments inch L knee Location superior knee joint (top of patellar pole) Measurement (Centimeters) 15 Comments inch PT-OP-K Range of Motion Start: 02/13/19 07:29 Freq: Status: Active Protocol: Document 05/04/19 09:04 [facility] (Rec: 05/04/19 10:04 [facility] [id number]) Knee Goniometric Range of Motion Knee Left Flexion Active (degrees) 125 Extension Active (degrees) 8 PT-OP-M Strength Start: 02/13/19 07:29 Freq: Status: Active Protocol: Document 05/04/19 09:04 [facility] (Rec: 05/04/19 10:04 [facility] [id number]) Hip Strength Hip Manual Muscle Testing Right Flexion (L2) 4+ Good+ Extension (S1) 5 Normal Abduction 5 Normal Adduction 5 Normal External Rotation 5 Normal Internal Rotation 5 Normal Left Flexion (L2) 5 Normal Extension (S1) 4+ Good+ Abduction 5 Normal Adduction 5 Normal Internal Rotation 5 Normal Knee Strength Knee Manual Muscle Testing Right Flexion (S2) 5 Normal Extension (L3) 5 Normal Left Flexion (S2) 5 Normal Extension (L3) 5 Normal Ankle/Foot Strength Ankle and Foot Manual Muscle Testing Right Dorsiflexion (L4) 5 Normal Plantarflexion (S1) 5 Normal Left Dorsiflexion (L4) 5 Normal Plantarflexion (S1) 5 Normal PT-OP-T Assessment and Plan Start: 02/13/19 07:29 Freq: Status: Active Protocol: Document 06/28/19 11:04 [facility] (Rec: 06/28/19 14:33 [facility] [id number]) Physical Therapy Plan Discharge Physical Therapy Discharge Reasons No Longer Attending PT Discharge Comments Pt went on vacation and then saw who was pleased with progress and told her she could stop exercises. Pt notes she has cont d/t when seh stopped, her stiffness inc. Discussed doing exericises only 1x/day and doing only about 3 or what is neccessary to dec the stiffness. Pt reports doing all of her typical activities at this time without difficulty so dc PT
== END 2019-08-23 16:11 ==
LOC: PHYS 16:45
PROVIDERS: PCP Nurse Practitioner Family; Visit Provider Physician Assistant
DX: M17.12 Unilateral primary osteoarthritis, left knee (principal)
CPT/HCPCS: 97010; 97110; 97112; 97116; 97140; 97162; 97164; 97530

== ENCOUNTER → 2019-06-15 08:34 | Outpatient (CLI) | payer MEDICARE, SELFPAY ==
--- NOTE | 2019-06-15 | DI.MG.S_ITS ---
BILATERAL DIGITAL SCREENING MAMMOGRAM 3D/2D WITH CAD: 06/15/2019 CLINICAL: Routine screening. Personal history of right breast cancer. Family history of breast cancer. Comparison is made to exams dated: 02/26/2017 mammogram, 02/21/2016 mammogram, and 02/08/2015 mammogram - [facility]. There are scattered fibroglandular elements in both breasts. Current study was also evaluated with a Computer Aided Detection (CAD) system. There are benign calcifications in both breasts that are not significantly changed. The right breast has post-operative findings. There is a possible developing 0.4 cm equal density focal asymmetry in the left breast at 3 o'clock anterior depth. No other significant masses, calcifications, or other findings are seen in either breast. IMPRESSION: INCOMPLETE: NEEDS ADDITIONAL IMAGING EVALUATION The possible developing 0.4 cm equal density focal asymmetry in the left breast is indeterminate. Additional views with possible ultrasound are recommended. This exam was interpreted at Station ID: [id number]. NOTE: For mammograms, a report in lay terms will be sent to the patient. Approximately 15% of breast malignancies will not be visualized mammographically. In the management of a palpable breast mass, a negative mammogram must not discourage biopsy of a clinically suspicious lesion. Electronically Signed By: Jens Sin M.D. aty/:06/15/2019 11:06:01 letter sent: Additional Imaging Needed ACR BI-RADS Category 0: Incomplete [id number]
== END ==
PROVIDERS: PCP Nurse Practitioner Family; Visit Provider Nurse Practitioner Family
DX: Z12.31 Encounter for screening mammogram for malignant neoplasm of breast (principal); Z80.3 Family history of malignant neoplasm of breast
CPT/HCPCS: 77063; 77067

== ENCOUNTER → 2019-07-05 14:12 | Outpatient (CLI) | payer MEDICARE, SELFPAY ==
--- NOTE | 2019-07-05 | DI.US.S_ITS ---
ULTRASOUND OF LEFT BREAST: 07/05/2019 CLINICAL: Patient returns today to evaluate a focal asymmetry in the left breast. Comparison is made to exams dated: 07/05/2019 mammogram, 06/15/2019 mammogram - [facility], 02/26/2017 mammogram, 02/21/2016 mammogram, 02/08/2015 mammogram, and 02/08/2015 mammogram - [facility]. Color flow and real-time ultrasound of the left breast were performed. Molina scale images of the real-time examination were reviewed. There is a 0.3 cm x 0.3 cm oval cyst in the left breast at 2 o'clock anterior depth 4 cm from the nipple. This oval cyst is hypoechoic with internal echoes and posterior acoustic enhancement. This may correlate with mammography findings. Color flow imaging demonstrates that there is no vascularity present. A small adjacent vein is noted. No areas of disturbed parenchymal echotexture or mass. IMPRESSION: PROBABLY BENIGN The 0.3 cm x 0.3 cm oval cyst in the left breast is consistent with a complicated cyst and is probably benign. There is an adjacent focally prominent vein. Otherwise, no other suspicious sonographic abnormalities seen in the area noted on mammogram and any one of these findings may correlate with the mammographic finding. A follow-up left mammogram and a left ultrasound in 6 months is recommended to demonstrate stability. This exam was interpreted at Station ID: [id number]. Electronically Signed By: Jens Sin M.D. aty/:07/05/2019 18:55:24 letter sent: Followup Recommended Ultrasound BI-RADS: 3 Probably benign
--- NOTE | 2019-07-05 | DI.MG.S_ITS ---
UNILATERAL LEFT DIGITAL DIAGNOSTIC MAMMOGRAM 3D/2D WITH ADDITIONAL VIEWS: 07/05/2019 CLINICAL: Additional evaluation requested from prior study. Comparison is made to exams dated: 06/15/2019 mammogram - [facility], 02/26/2017 mammogram, and 02/21/2016 mammogram - [facility]. There are scattered fibroglandular elements in left breast. There are benign calcifications in the left breast that are not significantly changed. There is an equal density focal asymmetry in the left breast at 2 o'clock anterior depth that appears less prominent and decreased in size on today's additional imaging and appears similar to previously noted breast parenchyma. No other significant masses or calcifications are seen in the breast. IMPRESSION: INCOMPLETE: NEEDS ADDITIONAL IMAGING EVALUATION The equal density focal asymmetry in the left breast is indeterminate. Further evaluation by sonogram is recommended which is scheduled to immediately follow this examination. This exam was interpreted at Station ID: [id number]. NOTE: For mammograms, a report in lay terms will be sent to the patient. Approximately 15% of breast malignancies will not be visualized mammographically. In the management of a palpable breast mass, a negative mammogram must not discourage biopsy of a clinically suspicious lesion. Electronically Signed By: Jens Sin M.D. aty/:07/05/2019 18:49:14 ACR BI-RADS Category 0: Incomplete 3340F
== END ==
PROVIDERS: PCP Nurse Practitioner Family; Visit Provider Nurse Practitioner Family
DX: R92.8 Other abnormal and inconclusive findings on diagnostic imaging of breast (principal); N60.02 Solitary cyst of left breast
CPT/HCPCS: 76642; 77065; G0279

== ENCOUNTER → 2020-01-04 10:12 | Outpatient (CLI) | payer MEDICARE, SELFPAY ==
--- NOTE | 2020-01-04 | DI.MG.S_ITS ---
UNILATERAL LEFT DIGITAL DIAGNOSTIC MAMMOGRAM 3D/2D SHORT-TERM FOLLOW-UP: 01/04/2020 CLINICAL: Short term follow up left. Personal history of breast cancer. Family history of breast cancer. Comparison is made to exams dated: 07/05/2019 mammogram, 06/15/2019 mammogram - [facility], and 02/26/2017 mammogram - [facility]. There are scattered fibroglandular elements in left breast. There are benign calcifications in the left breast that are not significantly changed. There is an equal density focal asymmetry in the left breast at 2 o'clock anterior depth. This is less prominent. No suspicious features. No other significant masses or calcifications are seen in the breast. IMPRESSION: INCOMPLETE: NEEDS ADDITIONAL IMAGING EVALUATION The equal density focal asymmetry in the left breast is resolving, appearing more like normal tissue. An ultrasound is recommended to document stability of this area. This was performed immediately following this exam. This exam was interpreted at Station ID: [id number]. NOTE: For mammograms, a report in lay terms will be sent to the patient. Approximately 15% of breast malignancies will not be visualized mammographically. In the management of a palpable breast mass, a negative mammogram must not discourage biopsy of a clinically suspicious lesion. Electronically Signed By: Kenya garcia/:01/04/2020 11:21:56 ACR BI-RADS Category 0: Incomplete 3340F
--- NOTE | 2020-01-04 | DI.US.S_ITS ---
LIMITED ULTRASOUND OF LEFT BREAST: 01/04/2020 CLINICAL: Patient returns today to evaluate a density in the left breast. Comparison is made to exams dated: 07/05/2019 ultrasound, 07/05/2019 mammogram, 06/15/2019 mammogram - [facility], and 02/26/2017 mammogram - [facility]. Color flow and real-time ultrasound of the left breast 8 o'clock region were performed. Molina scale images of the real-time examination were reviewed. There is a stable 0.3 cm x 0.3 cm x 0.2 cm oval cyst in the left breast at 1 o'clock middle depth 5 cm from the nipple. This oval cyst is of mixed echogenicity. Color flow imaging demonstrates that there is no vascularity present. There are no other suspicious abnormalities in the 2:00 left breast. IMPRESSION: BENIGN There is no sonographic evidence of malignancy. The stable 0.3 cm complicated oval cyst in the left breast is benign. Return to annual mammogram screening schedule is recommended. Findings and recommendations were conveyed to the patient at time of exam. This exam was interpreted at Station ID: [id number]. Electronically Signed By: Kenya garcia/:01/04/2020 11:27:56 letter sent: Normal Exam Ultrasound BI-RADS: 2 Benign
== END ==
PROVIDERS: PCP Internal Medicine; Referring Provider Internal Medicine; Visit Provider Internal Medicine
DX: R92.8 Other abnormal and inconclusive findings on diagnostic imaging of breast (principal); R92.1 Mammographic calcification found on diagnostic imaging of breast; N60.01 Solitary cyst of right breast; Z85.3 Personal history of malignant neoplasm of breast; Z80.3 Family history of malignant neoplasm of breast
CPT/HCPCS: 76642; 77065; G0279

== ENCOUNTER → 2020-04-01 15:24 | Outpatient (CLI) | payer MEDICARE, SELFPAY ==
[2020-04-03 06:36] LABS: COVID19 Sendout Not Detected (Not Detected)
== END ==
PROVIDERS: PCP Internal Medicine; Visit Provider Registered Nurse
DX: Z11.59 Encounter for screening for other viral diseases (principal)
CPT/HCPCS: 87635

== ENCOUNTER → 2020-07-15 16:29 | Outpatient (CLI) | payer MEDICARE, SELFPAY ==
--- NOTE | 2020-07-15 | DI.MG.S_ITS ---
BILATERAL DIGITAL SCREENING MAMMOGRAM 3D/2D WITH CAD: 07/15/2020 CLINICAL: Routine screening. Personal history of right breast cancer. Family history of breast cancer. Comparison is made to exams dated: 06/15/2019 mammogram - [facility], 02/26/2017 mammogram, and 02/21/2016 mammogram - [facility]. There are scattered fibroglandular elements in both breasts. Current study was also evaluated with a Computer Aided Detection (CAD) system. There are benign calcifications in both breasts. There also are benign post operative findings in the right breast. No significant masses, calcifications, or other findings are seen in either breast. There has been no significant interval change. IMPRESSION: BENIGN There is no mammographic evidence of malignancy. A 1 year screening mammogram is recommended. This exam was interpreted at Station ID: [id number]. NOTE: For mammograms, a report in lay terms will be sent to the patient. Approximately 15% of breast malignancies will not be visualized mammographically. In the management of a palpable breast mass, a negative mammogram must not discourage biopsy of a clinically suspicious lesion. Electronically Signed By: Jens costello/anum:07/15/2020 19:36:09 letter sent: Normal Exam ACR BI-RADS Category 2: Benign Finding(s) 3342F
== END ==
PROVIDERS: PCP Internal Medicine; Referring Provider Internal Medicine; Visit Provider Internal Medicine
DX: Z12.31 Encounter for screening mammogram for malignant neoplasm of breast (principal); Z85.3 Personal history of malignant neoplasm of breast; Z80.3 Family history of malignant neoplasm of breast
CPT/HCPCS: 77063; 77067

== ENCOUNTER → 2021-04-14 15:21 | Outpatient (CLI) | payer MEDICARE, SELFPAY ==
--- NOTE | 2021-04-14 | DI.RAD.S_ITS ---
PROCEDURE: XR CERVICAL SPINE 2V OR 3V INDICATIONS: CERVIAL RADICULOPATHY TECHNIQUE: 4 view(s) of the cervical spine were acquired. COMPARISON: [facility], , CERVICAL SPINE 4 OR 5 VIEWS, 06/10/2015, 11:16. FINDINGS: Bones: No acute fracture. Multilevel degenerative endplate sclerosis and spurring. Diffuse facet arthropathy. Severe narrowing of the C5-C6 disc spaces. Mild to moderate narrowing of the remaining cervical disc spaces. Soft tissues: No prevertebral soft tissue swelling. IMPRESSION: Multilevel cervical spondylosis and facet disease, most pronounced at C5-C6. No interval change since 06/10/15. Dictated by: Les Wick M.D. on 04/14/2021 at 16:31 Approved by: Les Wick M.D. on 04/14/2021 at 16:32
== END ==
PROVIDERS: PCP Internal Medicine; Referring Provider Internal Medicine; Visit Provider Internal Medicine
DX: M47.22 Other spondylosis with radiculopathy, cervical region (principal)
CPT/HCPCS: 72040

== ENCOUNTER → 2021-08-21 16:12 | Outpatient (CLI) | payer MEDICARE, SELFPAY ==
--- NOTE | 2021-08-21 | DI.MG.S_ITS ---
BILATERAL DIGITAL SCREENING MAMMOGRAM 3D/2D WITH CAD: 08/21/2021 CLINICAL: Routine screening. Personal history of right breast cancer. Family history of breast cancer. Comparison is made to exams dated: 07/15/2020 mammogram, 06/15/2019 mammogram - [facility], 02/26/2017 mammogram, and 02/21/2016 mammogram - [facility]. There are scattered fibroglandular elements in both breasts. Current study was also evaluated with a Computer Aided Detection (CAD) system. There are benign calcifications in both breasts. There also are benign vascular calcifications in both breasts. Additionally, there are benign post operative findings in the right breast. No significant masses, calcifications, or other findings are seen in either breast. There has been no significant interval change. IMPRESSION: BENIGN There is no mammographic evidence of malignancy. A 1 year screening mammogram is recommended. This exam was interpreted at Station ID: [id number]. NOTE: For mammograms, a report in lay terms will be sent to the patient. Approximately 15% of breast malignancies will not be visualized mammographically. In the management of a palpable breast mass, a negative mammogram must not discourage biopsy of a clinically suspicious lesion. Electronically Signed By: Zoltan madrigal/anum:08/21/2021 17:36:16 letter sent: Normal Exam ACR BI-RADS Category 2: Benign Finding(s) [id number]
== END ==
PROVIDERS: PCP Internal Medicine; Referring Provider Internal Medicine; Visit Provider Internal Medicine
DX: Z12.31 Encounter for screening mammogram for malignant neoplasm of breast (principal); Z85.3 Personal history of malignant neoplasm of breast; Z80.3 Family history of malignant neoplasm of breast
CPT/HCPCS: 77063; 77067

== ENCOUNTER 2021-09-11 11:15 | Outpatient (RCR) | payer MEDICARE, SELFPAY ==
--- NOTE | 2021-07-16 16:43 | PT.OIE ---
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 (07/16/21) Radiculopathy, cervical region (07/16/21) Muscle weakness (generalized) (07/16/21) Unsteadiness on feet (07/16/21) Abnormal posture (07/16/21) Past Medical History (Last Updated 07/08/18 @ 15:42 by Dianelys Walter, PT) Breast cancer Hypothyroidism Left knee pain Osteoarthritis Osteopenia Right knee pain Visit Care Team Role Provider Type DILEEP [place] Attending Provider Advanced Sterile Processing Tech Primary Care Provider Referring Provider Specialty: [facility] Address: [address] [place] [address], [facility] Email: [email or web address] Initial Evaluation PT-OP-A Visit Information Start: 07/16/21 12:09 Freq: Status: Active Protocol: Document 07/16/21 15:23 [facility] (Rec: 07/16/21 16:42 [facility] [id number]) Out-Patient Physical Therapy Visit Information Visit Information Visit Type Initial Evaluation Visit Note 11/03 Visit Start Time 15:21 Visit Stop Time 16:01 Total Visit Minutes 40 Visit Number 1 Number of DEEP FRYER ASSEMBLER Visits 0 PT-OP-B Current Condition Start: 07/16/21 12:09 Freq: Status: Active Protocol: Document 07/16/21 15:23 [facility] (Rec: 07/16/21 16:42 [facility] [id number]) Current Condition History of Current Condition Current Complaints numbness in lower legs & feet and hands B History of Current Condition Pt reprots numbness in hands and tingling in feet (for decades)and now from knees down and it is worse. Pt wears carpel tunnel braces and that helps her hands when driving (otherwise just drviing to juven[place] wil[place] would go to her hands). Pt reports reading sometimes causes her pain into hands. Pt reprots peeling apples the other day and R shoulder has been hurting now. Notes even when she wakes up in the AM, she feels like legs are numb and feel funny. When she brings her mattress higher at night, the numbness is better. Pt reports she feels like she could fall easily. She does do row boating and dragon boating with no trouble getting in and out of the boat , alejandro aaron has this feeling that she is not balanced. She does an exercise class by [employer] every week . She doesn't know what changes the numbness in her legs. It always feels like she has socks on up to mid thigh. Pt reports B knees are stiff and R knee hurts from time to time. Last year she walked [employer] 2-4 times a week until Oct . 4th digit on b & 5th L trigger finger Prior Treatments and Tests IMPRESSION: Multilevel cervical spondylosis and facet disease, most pronounced at C5-C6. No interval change since . Treatment Goals Patient/Caregiver Goals stop numbness in arms and feet PT-OP-C Subjective Start: 07/16/21 12:09 Freq: Status: Active Protocol: Document 07/16/21 15:23 [facility] (Rec: 07/16/21 16:42 [facility] [id number]) Patient Questionnaires Quick Dash- Upper Extremity Quick Dash UE Score 38.6 PT-OP-F Manual Assessment Start: 07/16/21 12:09 Freq: Status: Active Protocol: Document 07/16/21 15:23 [facility] (Rec: 07/16/21 16:42 [facility] [id number]) Manual Assessments Soft Tissue Assessment Soft Tissue Mobility Assessment tightness in all neck mm & shoudler muscles B. Scalenes L created tinggling on L side w /palpation PT-OP-J Posture/Palpation/Skin Start: 07/16/21 12:09 Freq: Status: Active Protocol: Document 07/16/21 15:23 [facility] (Rec: 07/16/21 16:42 [facility] [id number]) Posture Evaluation Comments Posture Comments fwd shoulders & neck w/R shoulder elevated more than L PT-OP-K Range of Motion Start: 07/16/21 12:09 Freq: Status: Active Protocol: Document 07/16/21 15:23 [facility] (Rec: 07/16/21 16:42 [facility] [id number]) Cervical Spine Range of Motion Cervical Spine Active Degrees Flexion 42 Extension 31 Rotation Left 23 Rotation Right 22 Lateral Flexion Left 37 Lateral Flexion Right 29 PT-OP-L Special Tests Start: 07/16/21 12:09 Freq: Status: Active Protocol: Document 07/16/21 15:23 [facility] (Rec: 07/16/21 16:42 [facility] [id number]) Special Tests Cervical Spine Special Tests spurling Comments neg Vertebral Artery Test Results neg Comments some tingling RUE w/R rot, SB and ext Neural Special Tests- Upper Body Median Nerve Tension Test Results positive R Radial Nerve Tension Test Results neg B Ulnar Nerve Tension Test Results slight R, neg L Neural Special Tests- Lower Body SLR Test Results R posiitve for foot numbness. Slump Test Results positive L w/worsening w/ cervical flex, positive R PT-OP-M Strength Start: 07/16/21 12:09 Freq: Status: Active Protocol: Document 07/16/21 15:23 [facility] (Rec: 07/16/21 16:42 [facility] [id number]) Shoulder Strength Shoulder Manual Muscle Testing Right Flexion 4 Good Extension 4+ Good+ Abduction (C5) 4 Good External Rotation 4+ Good+ Internal Rotation 4+ Good+ Left Flexion 5 Normal Extension 5 Normal Abduction (C5) 5 Normal External Rotation 5 Normal Internal Rotation 5 Normal Elbow/Forearm Strength Elbow and Forearm Manual Muscle Testing Right Flexion (C6) 5 Normal Extension (C7) 5 Normal Pronation 4+ Good+ Supination 5 Normal Left Flexion (C6) 5 Normal Extension (C7) 5 Normal Pronation 4 Good Supination 5 Normal Wrist Strength Wrist Manual Muscle Testing Right Flexion (C7) 5 Normal Extension (C6) 5 Normal Ulnar Deviation 5 Normal Radial Deviation 4 Good Left Flexion (C7) 5 Normal Extension (C6) 5 Normal Ulnar Deviation 5 Normal Radial Deviation 5 Normal Comments some numbeness w/testing Hand Beauty Sales Advisor/Pinch Strength Hand Strength Right Comments 30#,38,35 Left Comments 35#, 32, 30 PT-OP-Q Treatments Start: 07/16/21 12:09 Freq: Status: Active Protocol: Document 07/16/21 15:23 [facility] (Rec: 07/16/21 16:42 [facility] [id number]) Self-Care/Home Management Treatment Education Caregiver Education discussion of neural testing results. Edu that some symptoms may be coming from neck w/R side testing and also noted nerve tension in LEs w/ neck causing inc sensation on L, discussed plan for working on spinal stabilizationt o see if it improves symptoms PT-OP-T Assessment and Plan Start: 07/16/21 12:09 Freq: Status: Active Protocol: Document 07/16/21 15:23 [facility] (Rec: 07/16/21 16:42 [facility] [id number]) Physical Therapy Assessment Rehab Potential Rehabilitation Potential Good Evaluation Complexity Number of Personal Factors/Comorbidities 3 or More Number of Body Systems Impaired 4 or More Clinical Presentation at Evaluation Evolving Impairments Impairments Activity Tolerance,Functional Activities,Functional Mobility ,Pain,ROM,Soft Tissue Mobility ,Strength Goals symptoms Short Term Goal (STG) Pt will reprot no R shoulder pain STG Duration 08/15/21 Snf Goal (LTG) Pt will report very infrequent nubness and tingling in hands and feet in order to allow any activity she would typically do without diffiuclty LTG Duration 09/15/21 strength Short Term Goal (STG) Pt will be indep w/postural, ROM & strengthening HEP STG Duration 08/15/21 Die Cutter Apprentice Goal (LTG) Pt will have 5/5 UE strength in all planes B and relief pilot strenth that is average for age (19kg). LTG Duration 09/15/21 walking Short Term Goal (STG) Pt will be able to return to walk/hikes that allow her to bird w/o inc numbness and or tingling. STG Duration 08/23/21 Snf Goal (LTG) Pt will not feel like she is unsteady on her feet and that she could just fall anytime. LTG Duration 09/15/21 Assessment Summary Assessment Pt presents w/c/o worsening B feet numbness w/inc into lower legs also along w/B hand numbness. She is unsure what cuases the numbness and tingling but carpel tunnel braces have helped hand numbness when driving. She feels weaker and less steady on her feet d/t numbness. Cervical X-ray showed degeneration at multiple levels and someone has discussed with her possible cervical involement causing nerve symptoms. She does show posiitve nerve tension w/slump , SLR w/L side showing inc symptoms w/cervical flex and poisitve UE neural tension testing on RUE. She would benefit from skilled PT to work on dec neural symptoms, improve feeling of steadiness, return pt to walking and improve posture and RUE strength Physical Therapy Plan Frequency and Duration Frequency of Treatment 2x/Week Duration of Treatment 2 months Plan of Care Start Date 07/16/21 Plan of Care End Date 09/15/21 Therapeutic Interventions Therapeutic Interventions Aquatic Therapy,Balance Training,Gait Training,Home Exercise Program,Joint Mobilizations,Manual Therapy, Neuromuscular Re-education, Patient/Caregiver Education, Self-Care/Home Management,Soft Tissue Mobilization,Taping, Therapeutic Activities, Therapeutic Exercises Modalities Cold Pack/Ice Massage,Electric Stimulation,Hot Packs, Ultrasound Next Visit Focus/Plan Next Note Type Treatment Note Next Visit Plan wall posture exercise, chin tucks, scap retraction, manual to R shoulder to dec pain, pelvic tils
--- NOTE | 2021-07-16 16:43 | PT.OPPOC ---
Physical, Occupational & Speech Therapy At [facility] 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 (07/16/21) Radiculopathy, cervical region (07/16/21) Muscle weakness (generalized) (07/16/21) Unsteadiness on feet (07/16/21) Abnormal posture (07/16/21) Visit Care Team Role Provider Type DILEEP Victoria Attending Provider Advanced Wellness Program Manager Primary Care Provider Referring Provider Specialty: Family Practice Address: [address] [place] [address], [id number] Email: [email or web address] Plan Of Care PT-OP-T Assessment and Plan Start: 07/16/21 12:09 Freq: Status: Active Protocol: Document 07/16/21 15:23 [facility] (Rec: 07/16/21 16:42 [facility] [id number]) Physical Therapy Assessment Rehab Potential Rehabilitation Potential Good Evaluation Complexity Number of Personal Factors/Comorbidities 3 or More Number of Body Systems Impaired 4 or More Clinical Presentation at Evaluation Evolving Impairments Impairments Activity Tolerance,Functional Activities,Functional Mobility ,Pain,ROM,Soft Tissue Mobility ,Strength Goals symptoms Short Term Goal (STG) Pt will reprot no R shoulder pain STG Duration 08/15/21 [facility] Goal (LTG) Pt will report very infrequent nubness and tingling in hands and feet in order to allow any activity she would typically do without diffiuclty LTG Duration 09/15/21 strength Short Term Goal (STG) Pt will be indep w/postural, ROM & strengthening HEP STG Duration 08/15/21 [facility] Goal (LTG) Pt will have 5/5 UE strength in all planes B and 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 LTG Duration 09/15/21 walking Short Term Goal (STG) Pt will be able to return to walk/hikes that allow her to bird w/o inc numbness and or tingling. STG Duration 08/23/21 [facility] Goal (LTG) Pt will not feel like she is unsteady on her feet and that she could just fall anytime. LTG Duration 09/15/21 Assessment Summary Assessment Pt presents w/c/o worsening B feet numbness w/inc into lower legs also along w/B hand numbness. She is unsure what cuases the numbness and tingling but carpel tunnel braces have helped hand numbness when driving. She feels weaker and less steady on her feet d/t numbness. Cervical X-ray showed degeneration at multiple levels and someone has discussed with her possible cervical involement causing nerve symptoms. She does show posiitve nerve tension w/slump , SLR w/L side showing inc symptoms w/cervical flex and poisitve UE neural tension testing on RUE. She would benefit from skilled PT to work on dec neural symptoms, improve feeling of steadiness, return pt to walking and improve posture and RUE strength Physical Therapy Plan Frequency and Duration Frequency of Treatment 2x/Week Duration of Treatment 2 months Plan of Care Start Date 07/16/21 Plan of Care End Date 09/15/21 Therapeutic Interventions Therapeutic Interventions Aquatic Therapy,Balance Training,Gait Training,Home Exercise Program,Joint Mobilizations,Manual Therapy, Neuromuscular Re-education, Patient/Caregiver Education, Self-Care/Home Management,Soft Tissue Mobilization,Taping, Therapeutic Activities, Therapeutic Exercises Modalities Cold Pack/Ice Massage,Electric Stimulation,Hot Packs, Ultrasound Next Visit Focus/Plan Next Note Type Treatment Note Next Visit Plan wall posture exercise, chin tucks, scap retraction, manual to R shoulder to dec pain, pelvic tils Plan of Care Dates Plan of Care Start Date 07/16/21 Plan of Care End Date 09/15/21 Electronically Signed by: Dianelys Walter, PT 07/16/21 4422 Please Sign and Return: I have reviewed this Plan of Care and certify that the skilled therapy services above are required to meet the patient?s needs. Physician Signature Date Printed Name and Credentials Clinical Instructor Signature Printed Name and Credentials
--- NOTE | 2021-07-29 11:18 | PT.OTN ---
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 (07/29/21) Radiculopathy, cervical region (07/29/21) Muscle weakness (generalized) (07/29/21) Unsteadiness on feet (07/29/21) Abnormal posture (07/29/21) Physical Therapy Treatment Note PT-OP-A Visit Information Start: 07/16/21 12:09 Freq: Status: Active Protocol: Document 07/29/21 09:45 [facility] (Rec: 07/29/21 11:18 [facility] [id number]) Out-Patient Physical Therapy Visit Information Visit Information Visit Type Treatment Note Visit Note 12/04 Visit Start Time 09:47 Visit Stop Time 10:28 Total Visit Minutes 41 Visit Number 2 Number of SKIVING MACHINE OPERATOR Visits 0 PT-OP-B Current Condition Start: 07/16/21 12:09 Freq: Status: Active Protocol: Document 07/16/21 15:23 [facility] (Rec: 07/16/21 16:42 [facility] [id number]) Current Condition History of Current Condition Current Complaints numbness in lower legs & feet and hands B History of Current Condition Pt reprots numbness in hands and tingling in feet (for decades)and now from knees down and it is worse. Pt wears carpel tunnel braces and that helps her hands when driving (otherwise just drviijean pierre to [place] would go to her hands). Pt reports reading sometimes causes her pain into hands. Pt reprots peeling apples the other day and R shoulder has been hurting now. Notes even when she wakes up in the AM, she feels like legs are numb and feel funny. When she brings her mattress higher at night, the numbness is better. Pt reports she feels like she could fall easily. She does do row boating and dragon boating with no trouble getting in and out of the boat , bu tshe has this feeling that she is not balanced. She does an exercise class by [employer] every week . She doesn't know what changes the numbness in her legs. It always feels like she has socks on up to mid thigh. Pt reports B knees are stiff and R knee hurts from time to time. Last year she walked [employer] 2-4 times a week until Oct . 4th digit on b & 5th L trigger finger Prior Treatments and Tests IMPRESSION: Multilevel cervical spondylosis and facet disease, most pronounced at C5-C6. No interval change since . Treatment Goals Patient/Caregiver Goals stop numbness in arms and feet PT-OP-C Subjective Start: 07/16/21 12:09 Freq: Status: Active Protocol: Document 07/29/21 09:45 [facility] (Rec: 07/29/21 11:18 [facility] [id number]) OP-PT Subjective Patient Comments Patient Comments Pt reprots she spends a lot of time on her computer. PT-OP-F Manual Assessment Start: 07/16/21 12:09 Freq: Status: Active Protocol: Document 07/16/21 15:23 [facility] (Rec: 07/16/21 16:42 [facility] [id number]) Manual Assessments Soft Tissue Assessment Soft Tissue Mobility Assessment tightness in all neck mm & shoudler muscles B. Scalenes L created tinggling on L side w /palpation PT-OP-J Posture/Palpation/Skin Start: 07/16/21 12:09 Freq: Status: Active Protocol: Document 07/16/21 15:23 [facility] (Rec: 07/16/21 16:42 [facility] [id number]) Posture Evaluation Comments Posture Comments fwd shoulders & neck w/R shoulder elevated more than L PT-OP-K Range of Motion Start: 07/16/21 12:09 Freq: Status: Active Protocol: Document 07/16/21 15:23 [facility] (Rec: 07/16/21 16:42 [facility] [id number]) Cervical Spine Range of Motion Cervical Spine Active Degrees Flexion 42 Extension 31 Rotation Left 23 Rotation Right 22 Lateral Flexion Left 37 Lateral Flexion Right 29 PT-OP-L Special Tests Start: 07/16/21 12:09 Freq: Status: Active Protocol: Document 07/16/21 15:23 [facility] (Rec: 07/16/21 16:42 [facility] [id number]) Special Tests Cervical Spine Special Tests spurling Comments neg Vertebral Artery Test Results neg Comments some tingling RUE w/R rot, SB and ext Neural Special Tests- Upper Body Median Nerve Tension Test Results positive R Radial Nerve Tension Test Results neg B Ulnar Nerve Tension Test Results slight R, neg L Neural Special Tests- Lower Body SLR Test Results R posiitve for foot numbness. Slump Test Results positive L w/worsening w/ cervical flex, positive R PT-OP-M Strength Start: 07/16/21 12:09 Freq: Status: Active Protocol: Document 07/16/21 15:23 [facility] (Rec: 07/16/21 16:42 [facility] [id number]) Shoulder Strength Shoulder Manual Muscle Testing Right Flexion 4 Good Extension 4+ Good+ Abduction (C5) 4 Good External Rotation 4+ Good+ Internal Rotation 4+ Good+ Left Flexion 5 Normal Extension 5 Normal Abduction (C5) 5 Normal External Rotation 5 Normal Internal Rotation 5 Normal Elbow/Forearm Strength Elbow and Forearm Manual Muscle Testing Right Flexion (C6) 5 Normal Extension (C7) 5 Normal Pronation 4+ Good+ Supination 5 Normal Left Flexion (C6) 5 Normal Extension (C7) 5 Normal Pronation 4 Good Supination 5 Normal Wrist Strength Wrist Manual Muscle Testing Right Flexion (C7) 5 Normal Extension (C6) 5 Normal Ulnar Deviation 5 Normal Radial Deviation 4 Good Left Flexion (C7) 5 Normal Extension (C6) 5 Normal Ulnar Deviation 5 Normal Radial Deviation 5 Normal Comments some numbeness w/testing Hand Production Truck Driver/Pinch Strength Hand Strength Right Comments 30#,38,35 Left Comments 35#, 32, 30 PT-OP-Q Treatments Start: 07/16/21 12:09 Freq: Status: Active Protocol: Document 07/29/21 09:45 [facility] (Rec: 07/29/21 11:18 [facility] [id number]) Therapeutic Exercises Supine Exercises retraction Supine Exercise Name cervical Reps/Minutes 3 sec x8 Sidelying Exercises open book Side bilateral Reps/Minutes 12 Sitting Exercises chin tuck Side bilateral Reps/Minutes 8 Comments difficult for pt scap retract Side bilateral Reps/Minutes 5 sec x10 Standing Exercises pec stretch Standing Exercise Name arms extended in doorway Side bilateral Reps/Minutes 30 sec wall posture Standing Exercise Name w/pillow behind head & did arms at sides dorsum of hand on wall shoulder ex Side bilateral Reps/Minutes 5 min Comments attempted arm at sligth abd but inc symptoms Manual Therapy Treatment Soft Tissue Mobilization 3 Body Location R pec Mobilization Type Rolling Intensity/Depth Moderate Comments w/median n glide Self-Care/Home Management Treatment Education Other Education eud to pt re: how PT can help, edu of handout of exercises, edu on how posture can affect her nerve symptoms, edu on how to set up home computer and that may be helpful to have separte keyboard and mouse for set up PT-OP-T Assessment and Plan Start: 07/16/21 12:09 Freq: Status: Active Protocol: Document 07/29/21 09:45 [facility] (Rec: 07/29/21 11:18 [facility] [id number]) Physical Therapy Assessment Goals symptoms Short Term Goal (STG) Pt will reprot no R shoulder pain STG Duration 08/15/21 [facility] Goal (LTG) Pt will report very infrequent nubness and tingling in hands and feet in order to allow any activity she would typically do without diffiuclty LTG Duration 09/15/21 strength Short Term Goal (STG) Pt will be indep w/postural, ROM & strengthening HEP STG Duration 08/15/21 [facility] Goal (LTG) Pt will have 5/5 UE strength in all planes B and 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 LTG Duration 09/15/21 walking Short Term Goal (STG) Pt will be able to return to walk/hikes that allow her to bird w/o inc numbness and or tingling. STG Duration 08/23/21 [employer] Goal (LTG) Pt will not feel like she is unsteady on her feet and that she could just fall anytime. LTG Duration 09/15/21 Assessment Summary Assessment Pt did well with exercises but required max cueing throughout today w/reps. She did note inc hand symptoms w/ abd along wall in wall posture so kept arms at side to dec symptoms. Physical Therapy Plan Frequency and Duration Frequency of Treatment 2x/Week Duration of Treatment 2 months Plan of Care Start Date 07/16/21 Plan of Care End Date 09/15/21 Next Visit Focus/Plan Next Note Type Treatment Note Next Visit Plan review exercises, pelvic tilts , work on pec mobility & neck manual skills
--- NOTE | 2021-08-05 11:20 | PT.OTN ---
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 (08/05/21) Radiculopathy, cervical region (08/05/21) Muscle weakness (generalized) (08/05/21) Unsteadiness on feet (08/05/21) Abnormal posture (08/05/21) Physical Therapy Treatment Note PT-OP-A Visit Information Start: 07/16/21 12:09 Freq: Status: Active Protocol: Document 08/05/21 10:38 [facility] (Rec: 08/05/21 11:20 [facility] [id number]) Out-Patient Physical Therapy Visit Information Visit Information Visit Type Treatment Note Visit Note 01/01 Visit Start Time 10:34 Visit Stop Time 11:14 Total Visit Minutes 40 Visit Number 3 Number of WRAPAROUND FACILITATOR Visits 0 PT-OP-B Current Condition Start: 07/16/21 12:09 Freq: Status: Active Protocol: Document 07/16/21 15:23 [facility] (Rec: 07/16/21 16:42 [facility] [id number]) Current Condition History of Current Condition Current Complaints numbness in lower legs & feet and hands B History of Current Condition Pt reprots numbness in hands and tingling in feet (for decades)and now from knees down and it is worse. Pt wears carpel tunnel braces and that helps her hands when driving (otherwise just drvi[place] pierre to [place] would go to her hands). Pt reports reading sometimes causes her pain into hands. Pt reprots peeling apples the other day and R shoulder has been hurting now. Notes even when she wakes up in the AM, she feels like legs are numb and feel funny. When she brings her mattress higher at night, the numbness is better. Pt reports she feels like she could fall easily. She does do row boating and dragon boating with no trouble getting in and out of the boat , bu tshe has this feeling that she is not balanced. She does an exercise class by [employer] every week . She doesn't know what changes the numbness in her legs. It always feels like she has socks on up to mid thigh. Pt reports B knees are stiff and R knee hurts from time to time. Last year she walked [employer] 2-4 times a week until Oct . 4th digit on b & 5th L trigger finger Prior Treatments and Tests IMPRESSION: Multilevel cervical spondylosis and facet disease, most pronounced at C5-C6. No interval change since . Treatment Goals Patient/Caregiver Goals stop numbness in arms and feet PT-OP-C Subjective Start: 07/16/21 12:09 Freq: Status: Active Protocol: Document 08/05/21 10:38 [facility] (Rec: 08/05/21 11:20 [facility] [id number]) OP-PT Subjective Patient Comments Patient Comments pt reports she drove to [place] Wednesday and her hands didn't get numb PT-OP-F Manual Assessment Start: 07/16/21 12:09 Freq: Status: Active Protocol: Document 07/16/21 15:23 [facility] (Rec: 07/16/21 16:42 [facility] [id number]) Manual Assessments Soft Tissue Assessment Soft Tissue Mobility Assessment tightness in all neck mm & shoudler muscles B. Scalenes L created tinggling on L side w /palpation PT-OP-J Posture/Palpation/Skin Start: 07/16/21 12:09 Freq: Status: Active Protocol: Document 07/16/21 15:23 [facility] (Rec: 07/16/21 16:42 [facility] [id number]) Posture Evaluation Comments Posture Comments fwd shoulders & neck w/R shoulder elevated more than L PT-OP-K Range of Motion Start: 07/16/21 12:09 Freq: Status: Active Protocol: Document 07/16/21 15:23 [facility] (Rec: 07/16/21 16:42 [facility] [id number]) Cervical Spine Range of Motion Cervical Spine Active Degrees Flexion 42 Extension 31 Rotation Left 23 Rotation Right 22 Lateral Flexion Left 37 Lateral Flexion Right 29 PT-OP-L Special Tests Start: 07/16/21 12:09 Freq: Status: Active Protocol: Document 07/16/21 15:23 [facility] (Rec: 07/16/21 16:42 [facility] [id number]) Special Tests Cervical Spine Special Tests spurling Comments neg Vertebral Artery Test Results neg Comments some tingling RUE w/R rot, SB and ext Neural Special Tests- Upper Body Median Nerve Tension Test Results positive R Radial Nerve Tension Test Results neg B Ulnar Nerve Tension Test Results slight R, neg L Neural Special Tests- Lower Body SLR Test Results R posiitve for foot numbness. Slump Test Results positive L w/worsening w/ cervical flex, positive R PT-OP-M Strength Start: 07/16/21 12:09 Freq: Status: Active Protocol: Document 07/16/21 15:23 [facility] (Rec: 07/16/21 16:42 [facility] [id number]) Shoulder Strength Shoulder Manual Muscle Testing Right Flexion 4 Good Extension 4+ Good+ Abduction (C5) 4 Good External Rotation 4+ Good+ Internal Rotation 4+ Good+ Left Flexion 5 Normal Extension 5 Normal Abduction (C5) 5 Normal External Rotation 5 Normal Internal Rotation 5 Normal Elbow/Forearm Strength Elbow and Forearm Manual Muscle Testing Right Flexion (C6) 5 Normal Extension (C7) 5 Normal Pronation 4+ Good+ Supination 5 Normal Left Flexion (C6) 5 Normal Extension (C7) 5 Normal Pronation 4 Good Supination 5 Normal Wrist Strength Wrist Manual Muscle Testing Right Flexion (C7) 5 Normal Extension (C6) 5 Normal Ulnar Deviation 5 Normal Radial Deviation 4 Good Left Flexion (C7) 5 Normal Extension (C6) 5 Normal Ulnar Deviation 5 Normal Radial Deviation 5 Normal Comments some numbeness w/testing Hand Director Of Digital Platforms/Pinch Strength Hand Strength Right Comments 30#,38,35 Left Comments 35#, 32, 30 PT-OP-Q Treatments Start: 07/16/21 12:09 Freq: Status: Active Protocol: Document 08/05/21 10:38 [facility] (Rec: 08/05/21 11:20 [facility] [id number]) Therapeutic Exercises Supine Exercises retraction Supine Exercise Name cervical Reps/Minutes 3 sec x8 Sidelying Exercises open book Side bilateral Reps/Minutes 12 Sitting Exercises chin tuck Side bilateral Reps/Minutes 8 Comments difficult for pt scap retract Side bilateral Reps/Minutes 5 sec x10 Standing Exercises ext Standing Exercise Name shoulder Side bilateral Equipment Used L1 Reps/Minutes 20 Comments focus on scap retraction pec stretch Standing Exercise Name arms extended in doorway Side bilateral Reps/Minutes 30 sec wall posture Standing Exercise Name w/pillow behind head & did arms at sides dorsum of hand on wall shoulder ex Side bilateral Reps/Minutes 5 min Comments attempted arm at sligth abd but inc symptoms Manual Therapy Treatment Soft Tissue Mobilization 2 Body Location B scalenes (more post) Mobilization Type Rolling,Sustained Pressure Intensity/Depth Moderate Body Position Supine Comments w/passive med n glide 1 Body Location SOR & sustained hold on R cervical paraspinals & B SCM orgin Comments w/passive sciatic n glide B PT-OP-T Assessment and Plan Start: 07/16/21 12:09 Freq: Status: Active Protocol: Document 08/05/21 10:38 [facility] (Rec: 08/05/21 11:20 [facility] [id number]) Physical Therapy Assessment Goals symptoms Short Term Goal (STG) Pt will reprot no R shoulder pain STG Duration 08/15/21 Detention Goal (LTG) Pt will report very infrequent nubness and tingling in hands and feet in order to allow any activity she would typically do without diffiuclty LTG Duration 09/15/21 strength Short Term Goal (STG) Pt will be indep w/postural, ROM & strengthening HEP STG Duration 08/15/21 Detention Goal (LTG) Pt will have 5/5 UE strength in all planes B and 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 LTG Duration 09/15/21 walking Short Term Goal (STG) Pt will be able to return to walk/hikes that allow her to bird w/o inc numbness and or tingling. STG Duration 08/23/21 Detention Goal (LTG) Pt will not feel like she is unsteady on her feet and that she could just fall anytime. LTG Duration 09/15/21 Assessment Summary Assessment Pt did require cueing for exercises especailly wall posture and chin tucks. She was able to progress retraction of scap w/shoulder ext today. Pt had neg median nerve and ulnar n tension tests today. Pt noted knee tingling w/ work on neck that improved w/n glides during manual to cervical region. Physical Therapy Plan Frequency and Duration Frequency of Treatment 2x/Week Duration of Treatment 2 months Plan of Care Start Date 07/16/21 Plan of Care End Date 09/15/21 Next Visit Focus/Plan Next Note Type Treatment Note Next Visit Plan review exercises as pt needs, pelvic tilts, work on pec mobility & neck manual skills
--- NOTE | 2021-08-12 12:15 | PT.OTN ---
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 (08/12/21) Radiculopathy, cervical region (08/12/21) Muscle weakness (generalized) (08/12/21) Unsteadiness on feet (08/12/21) Abnormal posture (08/12/21) Physical Therapy Treatment Note PT-OP-A Visit Information Start: 07/16/21 12:09 Freq: Status: Active Protocol: Document 08/12/21 11:17 [facility] (Rec: 08/12/21 12:15 [facility] [id number]) Out-Patient Physical Therapy Visit Information Visit Information Visit Type Treatment Note Visit Note 02/01 Visit Start Time 11:19 Visit Stop Time 12:00 Total Visit Minutes 41 Visit Number 4 Number of OIL WE[employer] SERVICES DISPATCHER Visits 0 PT-OP-B Current Condition Start: 07/16/21 12:09 Freq: Status: Active Protocol: Document 07/16/21 15:23 [facility] (Rec: 07/16/21 16:42 [facility] [id number]) Current Condition History of Current Condition Current Complaints numbness in lower legs & feet and hands B History of Current Condition Pt reprots numbness in hands and tingling in feet (for decades)and now from knees down and it is worse. Pt wears carpel tunnel braces and that helps her hands when driving (otherwise just drviijean pierre to [place] would go to her hands). Pt reports reading sometimes causes her pain into hands. Pt reprots peeling apples the other day and R shoulder has been hurting now. Notes even when she wakes up in the AM, she feels like legs are numb and feel funny. When she brings her mattress higher at night, the numbness is better. Pt reports she feels like she could fall easily. She does do row boating and dragon boating with no trouble getting in and out of the boat , bu tshe has this feeling that she is not balanced. She does an exercise class by [employer] every week . She doesn't know what changes the numbness in her legs. It always feels like she has socks on up to mid thigh. Pt reports B knees are stiff and R knee hurts from time to time. Last year she walked [employer] 2-4 times a week until Oct . 4th digit on b & 5th L trigger finger Prior Treatments and Tests IMPRESSION: Multilevel cervical spondylosis and facet disease, most pronounced at C5-C6. No interval change since . Treatment Goals Patient/Caregiver Goals stop numbness in arms and feet PT-OP-C Subjective Start: 07/16/21 12:09 Freq: Status: Active Protocol: Document 08/12/21 11:17 [facility] (Rec: 08/12/21 12:15 [facility] [id number]) OP-PT Subjective Patient Comments Patient Comments Pt reports she brought exercises and has questions. Pt reports ringing in R ear from time to time mostly in AM but sometimes more inthe day too. NOtes R shoulder is higher now when reaching across Patient Reported Progress Improving PT-OP-F Manual Assessment Start: 07/16/21 12:09 Freq: Status: Active Protocol: Document 07/16/21 15:23 [facility] (Rec: 07/16/21 16:42 [facility] [id number]) Manual Assessments Soft Tissue Assessment Soft Tissue Mobility Assessment tightness in all neck mm & shoudler muscles B. Scalenes L created tinggling on L side w /palpation PT-OP-J Posture/Palpation/Skin Start: 07/16/21 12:09 Freq: Status: Active Protocol: Document 07/16/21 15:23 [facility] (Rec: 07/16/21 16:42 [facility] [id number]) Posture Evaluation Comments Posture Comments fwd shoulders & neck w/R shoulder elevated more than L PT-OP-K Range of Motion Start: 07/16/21 12:09 Freq: Status: Active Protocol: Document 07/16/21 15:23 [facility] (Rec: 07/16/21 16:42 [facility] [id number]) Cervical Spine Range of Motion Cervical Spine Active Degrees Flexion 42 Extension 31 Rotation Left 23 Rotation Right 22 Lateral Flexion Left 37 Lateral Flexion Right 29 PT-OP-L Special Tests Start: 07/16/21 12:09 Freq: Status: Active Protocol: Document 07/16/21 15:23 [facility] (Rec: 07/16/21 16:42 [facility] [id number]) Special Tests Cervical Spine Special Tests spurling Comments neg Vertebral Artery Test Results neg Comments some tingling RUE w/R rot, SB and ext Neural Special Tests- Upper Body Median Nerve Tension Test Results positive R Radial Nerve Tension Test Results neg B Ulnar Nerve Tension Test Results slight R, neg L Neural Special Tests- Lower Body SLR Test Results R posiitve for foot numbness. Slump Test Results positive L w/worsening w/ cervical flex, positive R PT-OP-M Strength Start: 07/16/21 12:09 Freq: Status: Active Protocol: Document 07/16/21 15:23 [facility] (Rec: 07/16/21 16:42 [facility] [id number]) Shoulder Strength Shoulder Manual Muscle Testing Right Flexion 4 Good Extension 4+ Good+ Abduction (C5) 4 Good External Rotation 4+ Good+ Internal Rotation 4+ Good+ Left Flexion 5 Normal Extension 5 Normal Abduction (C5) 5 Normal External Rotation 5 Normal Internal Rotation 5 Normal Elbow/Forearm Strength Elbow and Forearm Manual Muscle Testing Right Flexion (C6) 5 Normal Extension (C7) 5 Normal Pronation 4+ Good+ Supination 5 Normal Left Flexion (C6) 5 Normal Extension (C7) 5 Normal Pronation 4 Good Supination 5 Normal Wrist Strength Wrist Manual Muscle Testing Right Flexion (C7) 5 Normal Extension (C6) 5 Normal Ulnar Deviation 5 Normal Radial Deviation 4 Good Left Flexion (C7) 5 Normal Extension (C6) 5 Normal Ulnar Deviation 5 Normal Radial Deviation 5 Normal Comments some numbeness w/testing Hand Mill Platform Supervisor/Pinch Strength Hand Strength Right Comments 30#,38,35 Left Comments 35#, 32, 30 PT-OP-Q Treatments Start: 07/16/21 12:09 Freq: Status: Active Protocol: Document 08/12/21 11:17 [facility] (Rec: 08/12/21 12:15 [facility] [id number]) Therapeutic Exercises Supine Exercises pelvic tilts Supine Exercise Name post Reps/Minutes 10 retraction Supine Exercise Name cervical Reps/Minutes 3 sec x8 Sidelying Exercises open book Side bilateral Reps/Minutes 10 Sitting Exercises scap retract Side bilateral Reps/Minutes 5 sec x10 Standing Exercises ext Standing Exercise Name shoulder Side bilateral Equipment Used L1 Reps/Minutes 20 Comments focus on scap retraction pec stretch Standing Exercise Name arms extended in doorway Side bilateral Reps/Minutes 1 min wall posture Standing Exercise Name w/pillow behind head & did arms at sides dorsum of hand on wall shoulder ex Side bilateral Reps/Minutes 3 min Comments attempted arm at sligth abd but inc symptoms Manual Therapy Treatment Soft Tissue Mobilization 3 Body Location R pec Mobilization Type Rolling Intensity/Depth Moderate Comments w/median n glide 2 Body Location B scalenes (more post) Mobilization Type Rolling,Sustained Pressure Intensity/Depth Moderate Body Position Supine Comments w/sciatic n glide active & med n glide 1 Body Location SOR Comments w/LTR Joint Mobilizations 2 Joint 1st rib mob caudal fm R 1 Joint AC gapping FM R PT-OP-T Assessment and Plan Start: 07/16/21 12:09 Freq: Status: Active Protocol: Document 08/12/21 11:17 [facility] (Rec: 08/12/21 12:15 [facility] [id number]) Physical Therapy Assessment Goals symptoms Short Term Goal (STG) Pt will reprot no R shoulder pain STG Duration 08/15/21 Detention Goal (LTG) Pt will report very infrequent nubness and tingling in hands and feet in order to allow any activity she would typically do without diffiuclty LTG Duration 09/15/21 strength Short Term Goal (STG) Pt will be indep w/postural, ROM & strengthening HEP STG Duration 08/15/21 Detention Goal (LTG) Pt will have 5/5 UE strength in all planes B and sign writer hand strenth that is average for age (19kg). LTG Duration 09/15/21 walking Short Term Goal (STG) Pt will be able to return to walk/hikes that allow her to bird w/o inc numbness and or tingling. STG Duration 08/23/21 Dowel Machine Operator Goal (LTG) Pt will not feel like she is unsteady on her feet and that she could just fall anytime. LTG Duration 09/15/21 Assessment Summary Assessment Pt had much better exercise performance today but did still require small cues throguhout which were written on her handout. She notes R leg tingling w/R scalene release taht improved w/ release w/AROM sciatic n glide Physical Therapy Plan Frequency and Duration Frequency of Treatment 2x/Week Duration of Treatment 2 months Plan of Care Start Date 07/16/21 Plan of Care End Date 09/15/21 Next Visit Focus/Plan Next Note Type Treatment Note Next Visit Plan review exercises as pt needs, pelvic tilts, work on pec mobility & neck manual skills
--- NOTE | 2021-08-19 13:45 | PT.OTN ---
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 (08/19/21) Radiculopathy, cervical region (08/19/21) Muscle weakness (generalized) (08/19/21) Unsteadiness on feet (08/19/21) Abnormal posture (08/19/21) Physical Therapy Treatment Note PT-OP-A Visit Information Start: 07/16/21 12:09 Freq: Status: Active Protocol: Document 08/19/21 13:00 [facility] (Rec: 08/19/21 13:45 [facility] [id number]) Out-Patient Physical Therapy Visit Information Visit Information Visit Type Treatment Note Visit Note 03/03 Visit Start Time 13:01 Visit Stop Time 13:41 Total Visit Minutes 40 Visit Number 5 Number of VP INTEGRITY Visits 0 PT-OP-B Current Condition Start: 07/16/21 12:09 Freq: Status: Active Protocol: Document 07/16/21 15:23 [facility] (Rec: 07/16/21 16:42 [facility] [id number]) Current Condition History of Current Condition Current Complaints numbness in lower legs & feet and hands B History of Current Condition Pt reprots numbness in hands and tingling in feet (for decades)and now from knees down and it is worse. Pt wears carpel tunnel braces and that helps her hands when driving (otherwise just drviijean pierre to [place] would go to her hands). Pt reports reading sometimes causes her pain into hands. Pt reprots peeling apples the other day and R shoulder has been hurting now. Notes even when she wakes up in the AM, she feels like legs are numb and feel funny. When she brings her mattress higher at night, the numbness is better. Pt reports she feels like she could fall easily. She does do row boating and dragon boating with no trouble getting in and out of the boat , bu tshe has this feeling that she is not balanced. She does an exercise class by [employer] every week . She doesn't know what changes the numbness in her legs. It always feels like she has socks on up to mid thigh. Pt reports B knees are stiff and R knee hurts from time to time. Last year she walked [employer] 2-4 times a week until Oct . 4th digit on b & 5th L trigger finger Prior Treatments and Tests IMPRESSION: Multilevel cervical spondylosis and facet disease, most pronounced at C5-C6. No interval change since . Treatment Goals Patient/Caregiver Goals stop numbness in arms and feet PT-OP-C Subjective Start: 07/16/21 12:09 Freq: Status: Active Protocol: Document 08/19/21 13:00 [facility] (Rec: 08/19/21 13:45 [facility] [id number]) OP-PT Subjective Patient Comments Patient Comments Pt reports she feels like overall tingling has improved but notes some days are bad days and some are good. THe past 24 hours have been good Patient Reported Progress Improving PT-OP-F Manual Assessment Start: 07/16/21 12:09 Freq: Status: Active Protocol: Document 07/16/21 15:23 [facility] (Rec: 07/16/21 16:42 [facility] [id number]) Manual Assessments Soft Tissue Assessment Soft Tissue Mobility Assessment tightness in all neck mm & shoudler muscles B. Scalenes L created tinggling on L side w /palpation PT-OP-J Posture/Palpation/Skin Start: 07/16/21 12:09 Freq: Status: Active Protocol: Document 07/16/21 15:23 [facility] (Rec: 07/16/21 16:42 [facility] [id number]) Posture Evaluation Comments Posture Comments fwd shoulders & neck w/R shoulder elevated more than L PT-OP-K Range of Motion Start: 07/16/21 12:09 Freq: Status: Active Protocol: Document 07/16/21 15:23 [facility] (Rec: 07/16/21 16:42 [facility] [id number]) Cervical Spine Range of Motion Cervical Spine Active Degrees Flexion 42 Extension 31 Rotation Left 23 Rotation Right 22 Lateral Flexion Left 37 Lateral Flexion Right 29 PT-OP-L Special Tests Start: 07/16/21 12:09 Freq: Status: Active Protocol: Document 07/16/21 15:23 [facility] (Rec: 07/16/21 16:42 [facility] [id number]) Special Tests Cervical Spine Special Tests spurling Comments neg Vertebral Artery Test Results neg Comments some tingling RUE w/R rot, SB and ext Neural Special Tests- Upper Body Median Nerve Tension Test Results positive R Radial Nerve Tension Test Results neg B Ulnar Nerve Tension Test Results slight R, neg L Neural Special Tests- Lower Body SLR Test Results R posiitve for foot numbness. Slump Test Results positive L w/worsening w/ cervical flex, positive R PT-OP-M Strength Start: 07/16/21 12:09 Freq: Status: Active Protocol: Document 07/16/21 15:23 [facility] (Rec: 07/16/21 16:42 [facility] [id number]) Shoulder Strength Shoulder Manual Muscle Testing Right Flexion 4 Good Extension 4+ Good+ Abduction (C5) 4 Good External Rotation 4+ Good+ Internal Rotation 4+ Good+ Left Flexion 5 Normal Extension 5 Normal Abduction (C5) 5 Normal External Rotation 5 Normal Internal Rotation 5 Normal Elbow/Forearm Strength Elbow and Forearm Manual Muscle Testing Right Flexion (C6) 5 Normal Extension (C7) 5 Normal Pronation 4+ Good+ Supination 5 Normal Left Flexion (C6) 5 Normal Extension (C7) 5 Normal Pronation 4 Good Supination 5 Normal Wrist Strength Wrist Manual Muscle Testing Right Flexion (C7) 5 Normal Extension (C6) 5 Normal Ulnar Deviation 5 Normal Radial Deviation 4 Good Left Flexion (C7) 5 Normal Extension (C6) 5 Normal Ulnar Deviation 5 Normal Radial Deviation 5 Normal Comments some numbeness w/testing Hand Operational Communication Chief/Pinch Strength Hand Strength Right Comments 30#,38,35 Left Comments 35#, 32, 30 PT-OP-Q Treatments Start: 07/16/21 12:09 Freq: Status: Active Protocol: Document 08/19/21 13:00 [facility] (Rec: 08/19/21 13:45 [facility] [id number]) Therapeutic Exercises Supine Exercises pelvic tilts Supine Exercise Name post Reps/Minutes 10 retraction Supine Exercise Name cervical Reps/Minutes 3 sec x10 Standing Exercises ext Standing Exercise Name shoulder Side bilateral Equipment Used L2 Reps/Minutes 20 Comments focus on scap retraction Manual Therapy Treatment Soft Tissue Mobilization 3 Body Location R pec Mobilization Type Rolling Intensity/Depth Moderate Comments w/shoulder abd 2 Body Location B scalenes (more post), UT & LS Mobilization Type Rolling,Sustained Pressure Intensity/Depth Moderate Body Position Supine Joint Mobilizations 2 Comments 1. GH inf, distraction & post glides w/IR & flex 2. AC joint FM w/abd Neuro Re-Education Treatment Balance Activities SLS Details in mirror working on staying upright foam Surface blue Reps/Duration head turns, EC trials Comments WBOS, NBOS, staggered stance PT-OP-T Assessment and Plan Start: 07/16/21 12:09 Freq: Status: Active Protocol: Document 08/19/21 13:00 [facility] (Rec: 08/19/21 13:45 [facility] [id number]) Physical Therapy Assessment Goals symptoms Short Term Goal (STG) Pt will reprot no R shoulder pain STG Duration 08/15/21 Senior Living Goal (LTG) Pt will report very infrequent nubness and tingling in hands and feet in order to allow any activity she would typically do without diffiuclty LTG Duration 09/15/21 strength Short Term Goal (STG) Pt will be indep w/postural, ROM & strengthening HEP STG Duration 08/15/21 Senior Living Goal (LTG) Pt will have 5/5 UE strength in all planes B and accounts payable associate strenth that is average for age (19kg). LTG Duration 09/15/21 walking Short Term Goal (STG) Pt will be able to return to walk/hikes that allow her to bird w/o inc numbness and or tingling. STG Duration 08/23/21 Child Care Sitter Goal (LTG) Pt will not feel like she is unsteady on her feet and that she could just fall anytime. LTG Duration 09/15/21 Assessment Summary Assessment Pt had imrpoved PROM to no longer pain ful in 90/90 ER & IR and improved range into abd w/less pain. She did well with exercises with only a few clarifications needed. EC balance challenged pt today. Physical Therapy Plan Frequency and Duration Frequency of Treatment 2x/Week Duration of Treatment 2 months Plan of Care Start Date 07/16/21 Plan of Care End Date 09/15/21 Next Visit Focus/Plan Next Note Type Treatment Note Next Visit Plan cont to work on neck mobility and R shoulder mobility, work core control & balance
--- NOTE | 2021-08-21 13:42 | PT.OTN ---
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 (08/21/21) Radiculopathy, cervical region (08/21/21) Muscle weakness (generalized) (08/21/21) Unsteadiness on feet (08/21/21) Abnormal posture (08/21/21) Physical Therapy Treatment Note PT-OP-A Visit Information Start: 07/16/21 12:09 Freq: Status: Active Protocol: Document 08/21/21 13:00 [facility] (Rec: 08/21/21 13:42 [facility] [id number]) Out-Patient Physical Therapy Visit Information Visit Information Visit Type Treatment Note Visit Note 04/03 Visit Start Time 13:00 Visit Stop Time 13:39 Total Visit Minutes 39 Visit Number 6 Number of INTELLIGENCE OFFICER Visits 0 PT-OP-B Current Condition Start: 07/16/21 12:09 Freq: Status: Active Protocol: Document 07/16/21 15:23 [facility] (Rec: 07/16/21 16:42 [facility] [id number]) Current Condition History of Current Condition Current Complaints numbness in lower legs & feet and hands B History of Current Condition Pt reprots numbness in hands and tingling in feet (for decades)and now from knees down and it is worse. Pt wears carpel tunnel braces and that helps her hands when driving (otherwise just drviijean pierre to juvenal wilks would go to her hands). Pt reports reading sometimes causes her pain into hands. Pt reprots peeling apples the other day and R shoulder has been hurting now. Notes even when she wakes up in the AM, she feels like legs are numb and feel funny. When she brings her mattress higher at night, the numbness is better. Pt reports she feels like she could fall easily. She does do row boating and dragon boating with no trouble getting in and out of the boat , bu tshe has this feeling that she is not balanced. She does an exercise class by [employer] every week . She doesn't know what changes the numbness in her legs. It always feels like she has socks on up to mid thigh. Pt reports B knees are stiff and R knee hurts from time to time. Last year she walked [employer] 2-4 times a week until Oct . 4th digit on b & 5th L trigger finger Prior Treatments and Tests IMPRESSION: Multilevel cervical spondylosis and facet disease, most pronounced at C5-C6. No interval change since . Treatment Goals Patient/Caregiver Goals stop numbness in arms and feet PT-OP-C Subjective Start: 07/16/21 12:09 Freq: Status: Active Protocol: Document 08/21/21 13:00 [facility] (Rec: 08/21/21 13:42 [facility] [id number]) OP-PT Subjective Patient Comments Patient Comments Pt reports R shoulder is doing better. Tingling is better. I can almost hold a book. Pt reports she woke up w/o numbness this AM which is abdnormal. PT-OP-F Manual Assessment Start: 07/16/21 12:09 Freq: Status: Active Protocol: Document 07/16/21 15:23 [facility] (Rec: 07/16/21 16:42 [facility] [id number]) Manual Assessments Soft Tissue Assessment Soft Tissue Mobility Assessment tightness in all neck mm & shoudler muscles B. Scalenes L created tinggling on L side w /palpation PT-OP-J Posture/Palpation/Skin Start: 07/16/21 12:09 Freq: Status: Active Protocol: Document 07/16/21 15:23 [facility] (Rec: 07/16/21 16:42 [facility] [id number]) Posture Evaluation Comments Posture Comments fwd shoulders & neck w/R shoulder elevated more than L PT-OP-K Range of Motion Start: 07/16/21 12:09 Freq: Status: Active Protocol: Document 07/16/21 15:23 [facility] (Rec: 07/16/21 16:42 [facility] [id number]) Cervical Spine Range of Motion Cervical Spine Active Degrees Flexion 42 Extension 31 Rotation Left 23 Rotation Right 22 Lateral Flexion Left 37 Lateral Flexion Right 29 PT-OP-L Special Tests Start: 07/16/21 12:09 Freq: Status: Active Protocol: Document 07/16/21 15:23 [facility] (Rec: 07/16/21 16:42 [facility] [id number]) Special Tests Cervical Spine Special Tests spurling Comments neg Vertebral Artery Test Results neg Comments some tingling RUE w/R rot, SB and ext Neural Special Tests- Upper Body Median Nerve Tension Test Results positive R Radial Nerve Tension Test Results neg B Ulnar Nerve Tension Test Results slight R, neg L Neural Special Tests- Lower Body SLR Test Results R posiitve for foot numbness. Slump Test Results positive L w/worsening w/ cervical flex, positive R PT-OP-M Strength Start: 07/16/21 12:09 Freq: Status: Active Protocol: Document 07/16/21 15:23 [facility] (Rec: 07/16/21 16:42 [facility] [id number]) Shoulder Strength Shoulder Manual Muscle Testing Right Flexion 4 Good Extension 4+ Good+ Abduction (C5) 4 Good External Rotation 4+ Good+ Internal Rotation 4+ Good+ Left Flexion 5 Normal Extension 5 Normal Abduction (C5) 5 Normal External Rotation 5 Normal Internal Rotation 5 Normal Elbow/Forearm Strength Elbow and Forearm Manual Muscle Testing Right Flexion (C6) 5 Normal Extension (C7) 5 Normal Pronation 4+ Good+ Supination 5 Normal Left Flexion (C6) 5 Normal Extension (C7) 5 Normal Pronation 4 Good Supination 5 Normal Wrist Strength Wrist Manual Muscle Testing Right Flexion (C7) 5 Normal Extension (C6) 5 Normal Ulnar Deviation 5 Normal Radial Deviation 4 Good Left Flexion (C7) 5 Normal Extension (C6) 5 Normal Ulnar Deviation 5 Normal Radial Deviation 5 Normal Comments some numbeness w/testing [employer] Management Officer/Pinch Strength Hand Strength Right Comments 30#,38,35 Left Comments 35#, 32, 30 PT-OP-Q Treatments Start: 07/16/21 12:09 Freq: Status: Active Protocol: Document 08/21/21 13:00 [facility] (Rec: 08/21/21 13:42 [facility] [id number]) Gym Equipment Shuttle Balance red clips Details fwd : WBOS, NBOS & staggered stance Reps/Duration side WBOS Therapeutic Exercises Supine Exercises retraction Supine Exercise Name cervical Reps/Minutes 3 sec x10 Sidelying Exercises open book Side bilateral Reps/Minutes 10 Standing Exercises ext Standing Exercise Name shoulder Side bilateral Equipment Used L2 Reps/Minutes 20 Comments focus on scap retraction Manual Therapy Treatment Soft Tissue Mobilization 3 Body Location L cervical paraspinasl Mobilization Type Rolling Intensity/Depth Moderate Comments w/ sciatic n glide 2 Body Location B scalenes (more post), R SCM Mobilization Type Rolling,Sustained Pressure Intensity/Depth Moderate Body Position Supine 1 Body Location SOR Comments w/LTR Neuro Re-Education Treatment Balance Activities hurdles Details fwd over 6 Reps/Duration 8x foam Surface blue Reps/Duration head turns, EC trials Comments WBOS, NBOS, staggered stance PT-OP-T Assessment and Plan Start: 07/16/21 12:09 Freq: Status: Active Protocol: Document 08/21/21 13:00 [facility] (Rec: 08/21/21 13:42 [facility] [id number]) Physical Therapy Assessment Goals symptoms Short Term Goal (STG) Pt will reprot no R shoulder pain STG Duration 08/15/21 Retirement Goal (LTG) Pt will report very infrequent nubness and tingling in hands and feet in order to allow any activity she would typically do without diffiuclty LTG Duration 09/15/21 strength Short Term Goal (STG) Pt will be indep w/postural, ROM & strengthening HEP STG Duration 08/15/21 Retirement Goal (LTG) Pt will have 5/5 UE strength in all planes B and tobacco sizer strenth that is average for age (19kg). LTG Duration 09/15/21 walking Short Term Goal (STG) Pt will be able to return to walk/hikes that allow her to bird w/o inc numbness and or tingling. STG Duration 08/23/21 Retirement Goal (LTG) Pt will not feel like she is unsteady on her feet and that she could just fall anytime. LTG Duration 09/15/21 Assessment Summary Assessment Pt did well with the exercises performed today w/good form w /less cues. Pt did note some tignling in L LE w/cervical paraspinal work but improved w /sciatic n glide at same time. Physical Therapy Plan Frequency and Duration Frequency of Treatment 2x/Week Duration of Treatment 2 months Plan of Care Start Date 07/16/21 Plan of Care End Date 09/15/21 Next Visit Focus/Plan Next Note Type Treatment Note Next Visit Plan cont to work on neck mobility and R shoulder mobility, work core control & balance
--- NOTE | 2021-08-26 12:07 | PT.OTN ---
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 (08/26/21) Radiculopathy, cervical region (08/26/21) Muscle weakness (generalized) (08/26/21) Unsteadiness on feet (08/26/21) Abnormal posture (08/26/21) Physical Therapy Treatment Note PT-OP-A Visit Information Start: 07/16/21 12:09 Freq: Status: Active Protocol: Document 08/26/21 11:21 [facility] (Rec: 08/26/21 12:07 [facility] [id number]) Out-Patient Physical Therapy Visit Information Visit Information Visit Type Treatment Note Visit Note 05/03 Visit Start Time 11: Visit Stop Time 12:00 Total Visit Minutes 39 Visit Number 7 Number of FULL STACK JAVA DEVELOPER Visits 0 PT-OP-B Current Condition Start: 07/16/21 12:09 Freq: Status: Active Protocol: Document 07/16/21 15:23 [facility] (Rec: 07/16/21 16:42 [facility] [id number]) Current Condition History of Current Condition Current Complaints numbness in lower legs & feet and hands B History of Current Condition Pt reprots numbness in hands and tingling in feet (for decades)and now from knees down and it is worse. Pt wears carpel tunnel braces and that helps her hands when driving (otherwise just drviijean pierre wilks would go to her hands). Pt reports reading sometimes causes her pain into hands. Pt reprots peeling apples the other day and R shoulder has been hurting now. Notes even when she wakes up in the AM, she feels like legs are numb and feel funny. When she brings her mattress higher at night, the numbness is better. Pt reports she feels like she could fall easily. She does do row boating and dragon boating with no trouble getting in and out of the boat , bu tshe has this feeling that she is not balanced. She does an exercise class by [employer] every week . She doesn't know what changes the numbness in her legs. It always feels like she has socks on up to mid thigh. Pt reports B knees are stiff and R knee hurts from time to time. Last year she walked [employer] 2-4 times a week until Oct . 4th digit on b & 5th L trigger finger Prior Treatments and Tests IMPRESSION: Multilevel cervical spondylosis and facet disease, most pronounced at C5-C6. No interval change since . Treatment Goals Patient/Caregiver Goals stop numbness in arms and feet PT-OP-C Subjective Start: 07/16/21 12:09 Freq: Status: Active Protocol: Document 08/26/21 11:21 [facility] (Rec: 08/26/21 12:07 [facility] [id number]) OP-PT Subjective Patient Comments Patient Comments Pt reports she drove to health system and back and didn't notice it until almost home on her way back Patient Reported Progress Improving PT-OP-F Manual Assessment Start: 07/16/21 12:09 Freq: Status: Active Protocol: Document 07/16/21 15:23 [facility] (Rec: 07/16/21 16:42 [facility] [id number]) Manual Assessments Soft Tissue Assessment Soft Tissue Mobility Assessment tightness in all neck mm & shoudler muscles B. Scalenes L created tinggling on L side w /palpation PT-OP-J Posture/Palpation/Skin Start: 07/16/21 12:09 Freq: Status: Active Protocol: Document 07/16/21 15:23 [facility] (Rec: 07/16/21 16:42 [facility] [id number]) Posture Evaluation Comments Posture Comments fwd shoulders & neck w/R shoulder elevated more than L PT-OP-K Range of Motion Start: 07/16/21 12:09 Freq: Status: Active Protocol: Document 07/16/21 15:23 [facility] (Rec: 07/16/21 16:42 [facility] [id number]) Cervical Spine Range of Motion Cervical Spine Active Degrees Flexion 42 Extension 31 Rotation Left 23 Rotation Right 22 Lateral Flexion Left 37 Lateral Flexion Right 29 PT-OP-L Special Tests Start: 07/16/21 12:09 Freq: Status: Active Protocol: Document 07/16/21 15:23 [facility] (Rec: 07/16/21 16:42 [facility] [id number]) Special Tests Cervical Spine Special Tests spurling Comments neg Vertebral Artery Test Results neg Comments some tingling RUE w/R rot, SB and ext Neural Special Tests- Upper Body Median Nerve Tension Test Results positive R Radial Nerve Tension Test Results neg B Ulnar Nerve Tension Test Results slight R, neg L Neural Special Tests- Lower Body SLR Test Results R posiitve for foot numbness. Slump Test Results positive L w/worsening w/ cervical flex, positive R PT-OP-M Strength Start: 07/16/21 12:09 Freq: Status: Active Protocol: Document 07/16/21 15:23 [facility] (Rec: 07/16/21 16:42 [facility] [id number]) Shoulder Strength Shoulder Manual Muscle Testing Right Flexion 4 Good Extension 4+ Good+ Abduction (C5) 4 Good External Rotation 4+ Good+ Internal Rotation 4+ Good+ Left Flexion 5 Normal Extension 5 Normal Abduction (C5) 5 Normal External Rotation 5 Normal Internal Rotation 5 Normal Elbow/Forearm Strength Elbow and Forearm Manual Muscle Testing Right Flexion (C6) 5 Normal Extension (C7) 5 Normal Pronation 4+ Good+ Supination 5 Normal Left Flexion (C6) 5 Normal Extension (C7) 5 Normal Pronation 4 Good Supination 5 Normal Wrist Strength Wrist Manual Muscle Testing Right Flexion (C7) 5 Normal Extension (C6) 5 Normal Ulnar Deviation 5 Normal Radial Deviation 4 Good Left Flexion (C7) 5 Normal Extension (C6) 5 Normal Ulnar Deviation 5 Normal Radial Deviation 5 Normal Comments some numbeness w/testing Hand Lime Mixer/Pinch Strength Hand Strength Right Comments 30#,38,35 Left Comments 35#, 32, 30 PT-OP-Q Treatments Start: 07/16/21 12:09 Freq: Status: Active Protocol: Document 08/26/21 11:21 [facility] (Rec: 08/26/21 12:07 [facility] [id number]) Gym Equipment Cable Column (Body Solid) walk Details 1. fwd 2. back Resistance 1 Reps/Time 10 ea focus on posture Shuttle Balance red clips Details fwd : WBOS, NBOS & staggered stance Reps/Duration side WBOS Manual Therapy Treatment Soft Tissue Mobilization 3 Body Location R pec Mobilization Type Rolling Intensity/Depth Moderate Comments w/shoulder abd 2 Body Location B scalenes (more post), R SCM Mobilization Type Rolling,Sustained Pressure Intensity/Depth Moderate Body Position Supine Joint Mobilizations 2 Comments 1. GH inf, distraction & post glides w/IR & flex 2. AC joint FM w/abd 3. SC inf glide FM 1 Joint 1st rib R inf Comments w/sciatic n glide R Neuro Re-Education Treatment Balance Activities hurdles Comments 1. fwd over 6 x8 2. sidestep over 6 x2 B foam Surface tpads, foam Reps/Duration 8 Comments fwd walk over PT-OP-T Assessment and Plan Start: 07/16/21 12:09 Freq: Status: Active Protocol: Document 08/26/21 11:21 [facility] (Rec: 08/26/21 12:07 [facility] [id number]) Physical Therapy Assessment Goals symptoms Short Term Goal (STG) Pt will reprot no R shoulder pain STG Duration 08/15/21 Jail Goal (LTG) Pt will report very infrequent nubness and tingling in hands and feet in order to allow any activity she would typically do without diffiuclty LTG Duration 09/15/21 strength Short Term Goal (STG) Pt will be indep w/postural, ROM & strengthening HEP STG Duration 08/15/21 It Applications Analyst Goal (LTG) Pt will have 5/5 UE strength in all planes B and infant toddler lead teacher strenth that is average for age (19kg). LTG Duration 09/15/21 walking Short Term Goal (STG) Pt will be able to return to walk/hikes that allow her to bird w/o inc numbness and or tingling. STG Duration 08/23/21 Jail Goal (LTG) Pt will not feel like she is unsteady on her feet and that she could just fall anytime. LTG Duration 09/15/21 Assessment Summary Assessment Pt c/o of less tingling and is showing improved ability to balance and hold good postural positions. She had imrpoved Physical Therapy Plan Frequency and Duration Frequency of Treatment 2x/Week Duration of Treatment 2 months Plan of Care Start Date 07/16/21 Plan of Care End Date 09/15/21 Next Visit Focus/Plan Next Note Type Treatment Note Next Visit Plan cont to work on neck mobility and R shoulder mobility, work core control & balance
--- NOTE | 2021-09-02 18:12 | PT.OTN ---
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 (09/02/21) Radiculopathy, cervical region (09/02/21) Muscle weakness (generalized) (09/02/21) Unsteadiness on feet (09/02/21) Abnormal posture (09/02/21) Physical Therapy Treatment Note PT-OP-A Visit Information Start: 07/16/21 12:09 Freq: Status: Active Protocol: Document 09/02/21 15:28 JG (Rec: 09/02/21 15:39 JG [id number]) Out-Patient Physical Therapy Visit Information Visit Information Visit Type Treatment Note Visit Note 06/03 Visit Start Time 13:02 Visit Stop Time 13:46 Total Visit Minutes 44 Visit Number 8 Number of OUTSIDE CONTRACTOR SALES Visits 0 PT-OP-B Current Condition Start: 07/16/21 12:09 Freq: Status: Active Protocol: Document 07/16/21 15:23 [facility] (Rec: 07/16/21 16:42 [facility] [id number]) Current Condition History of Current Condition Current Complaints numbness in lower legs & feet and hands B History of Current Condition Pt reprots numbness in hands and tingling in feet (for decades)and now from knees down and it is worse. Pt wears carpel tunnel braces and that helps her hands when driving (otherwise just drvi[place] pierre to [place] would go to her hands). Pt reports reading sometimes causes her pain into hands. Pt reprots peeling apples the other day and R shoulder has been hurting now. Notes even when she wakes up in the AM, she feels like legs are numb and feel funny. When she brings her mattress higher at night, the numbness is better. Pt reports she feels like she could fall easily. She does do row boating and dragon boating with no trouble getting in and out of the boat , bu tshe has this feeling that she is not balanced. She does an exercise class by [employer] every week . She doesn't know what changes the numbness in her legs. It always feels like she has socks on up to mid thigh. Pt reports B knees are stiff and R knee hurts from time to time. Last year she walked [employer] 2-4 times a week until Oct . 4th digit on b & 5th L trigger finger Prior Treatments and Tests IMPRESSION: Multilevel cervical spondylosis and facet disease, most pronounced at C5-C6. No interval change since . Treatment Goals Patient/Caregiver Goals stop numbness in arms and feet PT-OP-C Subjective Start: 07/16/21 12:09 Freq: Status: Active Protocol: Document 09/02/21 15:28 JG (Rec: 09/02/21 15:39 JG [id number]) OP-PT Subjective Patient Comments Patient Comments Pt reports that tingling in her hand is decreased and she has been able to read the newspaper in bed without tingling. Pt reports that her legs feel stiff and like sticks. Pt reports she continues to feel unsteady on her feet while walking, standing, and doing activities like yoga. Patient Reported Progress Improving PT-OP-F Manual Assessment Start: 07/16/21 12:09 Freq: Status: Active Protocol: Document 07/16/21 15:23 [facility] (Rec: 07/16/21 16:42 [facility] [id number]) Manual Assessments Soft Tissue Assessment Soft Tissue Mobility Assessment tightness in all neck mm & shoudler muscles B. Scalenes L created tinggling on L side w /palpation PT-OP-J Posture/Palpation/Skin Start: 07/16/21 12:09 Freq: Status: Active Protocol: Document 07/16/21 15:23 [facility] (Rec: 07/16/21 16:42 [facility] [id number]) Posture Evaluation Comments Posture Comments fwd shoulders & neck w/R shoulder elevated more than L PT-OP-K Range of Motion Start: 07/16/21 12:09 Freq: Status: Active Protocol: Document 07/16/21 15:23 [facility] (Rec: 07/16/21 16:42 [facility] [id number]) Cervical Spine Range of Motion Cervical Spine Active Degrees Flexion 42 Extension 31 Rotation Left 23 Rotation Right 22 Lateral Flexion Left 37 Lateral Flexion Right 29 PT-OP-L Special Tests Start: 07/16/21 12:09 Freq: Status: Active Protocol: Document 07/16/21 15:23 [facility] (Rec: 07/16/21 16:42 [facility] [id number]) Special Tests Cervical Spine Special Tests spurling Comments neg Vertebral Artery Test Results neg Comments some tingling RUE w/R rot, SB and ext Neural Special Tests- Upper Body Median Nerve Tension Test Results positive R Radial Nerve Tension Test Results neg B Ulnar Nerve Tension Test Results slight R, neg L Neural Special Tests- Lower Body SLR Test Results R posiitve for foot numbness. Slump Test Results positive L w/worsening w/ cervical flex, positive R PT-OP-M Strength Start: 07/16/21 12:09 Freq: Status: Active Protocol: Document 07/16/21 15:23 [facility] (Rec: 07/16/21 16:42 [facility] [id number]) Shoulder Strength Shoulder Manual Muscle Testing Right Flexion 4 Good Extension 4+ Good+ Abduction (C5) 4 Good External Rotation 4+ Good+ Internal Rotation 4+ Good+ Left Flexion 5 Normal Extension 5 Normal Abduction (C5) 5 Normal External Rotation 5 Normal Internal Rotation 5 Normal Elbow/Forearm Strength Elbow and Forearm Manual Muscle Testing Right Flexion (C6) 5 Normal Extension (C7) 5 Normal Pronation 4+ Good+ Supination 5 Normal Left Flexion (C6) 5 Normal Extension (C7) 5 Normal Pronation 4 Good Supination 5 Normal Wrist Strength Wrist Manual Muscle Testing Right Flexion (C7) 5 Normal Extension (C6) 5 Normal Ulnar Deviation 5 Normal Radial Deviation 4 Good Left Flexion (C7) 5 Normal Extension (C6) 5 Normal Ulnar Deviation 5 Normal Radial Deviation 5 Normal Comments some numbeness w/testing Hand Dicer Machine Operator/Pinch Strength Hand Strength Right Comments 30#,38,35 Left Comments 35#, 32, 30 PT-OP-Q Treatments Start: 07/16/21 12:09 Freq: Status: Active Protocol: Document 09/02/21 15:28 J (Rec: 09/02/21 15:39 [id number]) Gait Training Gait Activity walking Description in hallway Device Used gait belt Distance/Duration 1-5 2x50 feet, 5 2x25 feet Comments 1. head turns L<>R slowly 2. head turns L<>R quickly 3. head turns up<>down 4. slow/fast pace 5. walk on line fwd/bk 6. tandem walk fwd Manual Therapy Treatment Soft Tissue Mobilization 1 Body Location 1. UT 2. Rhomboids Mobilization Type Strumming,Sustained Pressure Intensity/Depth Moderate Body Position Sidelying Comments Sidelying on left Sustained pressure with passive movement and hold/ relax Joint Mobilizations 1 Joint Upper and Middle T/S Direction Posterior to Anterior Grade III Body Position Sidelying Comments PAs with scapular retraction. Pt in left sidelying. Neuro Re-Education Treatment Balance Activities hurdles Details hurdles next to railing on carpet Comments 1. fwd over 6x8 2. sidestep over 4x8 SLS Details EO Surface foam Reps/Duration 2x30 seconds foam Details NBOS Surface blue foam Reps/Duration 4x30 seconds Comments 1. EC 2. Looking left and right 3. Looking up and down PT-OP-T Assessment and Plan Start: 07/16/21 12:09 Freq: Status: Active Protocol: Document 09/02/21 15:28 J (Rec: 09/02/21 15:39 [id number]) Physical Therapy Assessment Goals symptoms Short Term Goal (STG) Pt will reprot no R shoulder pain STG Duration 08/15/21 Leaf Stripper Goal (LTG) Pt will report very infrequent nubness and tingling in hands and feet in order to allow any activity she would typically do without diffiuclty LTG Duration 09/15/21 strength Short Term Goal (STG) Pt will be indep w/postural, ROM & strengthening HEP STG Duration 08/15/21 Leaf Stripper Goal (LTG) Pt will have 5/5 UE strength in all planes B and audio video repairer strenth that is average for age (19kg). LTG Duration 09/15/21 walking Short Term Goal (STG) Pt will be able to return to walk/hikes that allow her to bird w/o inc numbness and or tingling. STG Duration 08/23/21 Leaf Stripper Goal (LTG) Pt will not feel like she is unsteady on her feet and that she could just fall anytime. LTG Duration 09/15/21 Assessment Summary Assessment Pt demostrated good balance while completing gait and balance training exercises. While she has improved, she continues to express concern about her balance and posture. Walking on a line and in tandem continues to be challenging. Pt has accomplished walking with pace changes and head turns well without loss of balance or deviations in gait. Pt started with decreased pec flexiblity test on the R and after manual therapy pec flex test was improved with increased scapular retraction. Physical Therapy Plan Frequency and Duration Frequency of Treatment 2x/Week Duration of Treatment 2 months Plan of Care Start Date 07/16/21 Plan of Care End Date 09/15/21 Next Visit Focus/Plan Next Note Type Treatment Note Next Visit Plan cont manual therapy to increase cervical, scapular, and shoulder functional movement. cont balance training.
--- NOTE | 2021-09-04 16:50 | PT.OTN ---
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 (09/04/21) Radiculopathy, cervical region (09/04/21) Muscle weakness (generalized) (09/04/21) Unsteadiness on feet (09/04/21) Abnormal posture (09/04/21) Physical Therapy Treatment Note PT-OP-A Visit Information Start: 07/16/21 12:09 Freq: Status: Active Protocol: Document 09/04/21 11:47 (Rec: 09/04/21 16:31 [id number]) Out-Patient Physical Therapy Visit Information Visit Information Visit Type Progress Note Visit Note 11/03 Student PT was directly supervised by PT Visit Start Time 11:19 Visit Stop Time 12:05 Total Visit Minutes 46 Visit Number 9 Number of HEALTH CARE CONSULTANT Visits 0 PT-OP-B Current Condition Start: 07/16/21 12:09 Freq: Status: Active Protocol: Document 07/16/21 15:23 [facility] (Rec: 07/16/21 16:42 [facility] [id number]) Current Condition History of Current Condition Current Complaints numbness in lower legs & feet and hands B History of Current Condition Pt reprots numbness in hands and tingling in feet (for decades)and now from knees down and it is worse. Pt wears carpel tunnel braces and that helps her hands when driving (otherwise just drviing to [place] would go to her hands). Pt reports reading sometimes causes her pain into hands. Pt reprots peeling apples the other day and R shoulder has been hurting now. Notes even when she wakes up in the AM, she feels like legs are numb and feel funny. When she brings her mattress higher at night, the numbness is better. Pt reports she feels like she could fall easily. She does do row boating and dragon boating with no trouble getting in and out of the boat , bu tshe has this feeling that she is not balanced. She does an exercise class by [employer] every week . She doesn't know what changes the numbness in her legs. It always feels like she has socks on up to mid thigh. Pt reports B knees are stiff and R knee hurts from time to time. Last year she walked [employer] 2-4 times a week until Oct . 4th digit on b & 5th L trigger finger Prior Treatments and Tests IMPRESSION: Multilevel cervical spondylosis and facet disease, most pronounced at C5-C6. No interval change since . Treatment Goals Patient/Caregiver Goals stop numbness in arms and feet PT-OP-C Subjective Start: 07/16/21 12:09 Freq: Status: Active Protocol: Document 09/04/21 11:47 JG (Rec: 09/04/21 16:31 JG [id number]) OP-PT Subjective Patient Comments Patient Comments Pt reports that her shld pain is significantly decreased and she gets tingling sensation during select activities. Pt reports that she continues to feel unstable on feet, freq almost falls, and caught falls into objects like chairs. Patient Reported Progress Improving PT-OP-F Manual Assessment Start: 07/16/21 12:09 Freq: Status: Active Protocol: Document 07/16/21 15:23 [facility] (Rec: 07/16/21 16:42 [facility] [id number]) Manual Assessments Soft Tissue Assessment Soft Tissue Mobility Assessment tightness in all neck mm & shoudler muscles B. Scalenes L created tinggling on L side w /palpation PT-OP-J Posture/Palpation/Skin Start: 07/16/21 12:09 Freq: Status: Active Protocol: Document 07/16/21 15:23 [facility] (Rec: 07/16/21 16:42 [facility] [id number]) Posture Evaluation Comments Posture Comments fwd shoulders & neck w/R shoulder elevated more than L PT-OP-K Range of Motion Start: 07/16/21 12:09 Freq: Status: Active Protocol: Document 07/16/21 15:23 [facility] (Rec: 07/16/21 16:42 [facility] [id number]) Cervical Spine Range of Motion Cervical Spine Active Degrees Flexion 42 Extension 31 Rotation Left 23 Rotation Right 22 Lateral Flexion Left 37 Lateral Flexion Right 29 PT-OP-L Special Tests Start: 07/16/21 12:09 Freq: Status: Active Protocol: Document 07/16/21 15:23 [facility] (Rec: 07/16/21 16:42 [facility] [id number]) Special Tests Cervical Spine Special Tests spurling Comments neg Vertebral Artery Test Results neg Comments some tingling RUE w/R rot, SB and ext Neural Special Tests- Upper Body Median Nerve Tension Test Results positive R Radial Nerve Tension Test Results neg B Ulnar Nerve Tension Test Results slight R, neg L Neural Special Tests- Lower Body SLR Test Results R posiitve for foot numbness. Slump Test Results positive L w/worsening w/ cervical flex, positive R PT-OP-M Strength Start: 07/16/21 12:09 Freq: Status: Active Protocol: Document 09/04/21 11:47 [facility] (Rec: 09/04/21 11:53 [facility] [id number]) Shoulder Strength Shoulder Manual Muscle Testing Right Flexion 5 Normal Extension 5 Normal Abduction (C5) 4 Good External Rotation 4+ Good+ Internal Rotation 5 Normal Comments winging w/abd testing Left Flexion 5 Normal Extension 5 Normal Abduction (C5) 5 Normal External Rotation 5 Normal Internal Rotation 5 Normal Elbow/Forearm Strength Elbow and Forearm Manual Muscle Testing Right Flexion (C6) 5 Normal Extension (C7) 5 Normal Pronation 5 Normal Supination 5 Normal Left Flexion (C6) 5 Normal Extension (C7) 5 Normal Pronation 5 Normal Supination 5 Normal Wrist Strength Wrist Manual Muscle Testing Right Flexion (C7) 5 Normal Extension (C6) 4 Good Ulnar Deviation 5 Normal Radial Deviation 4 Good Left Flexion (C7) 5 Normal Extension (C6) 5 Normal Ulnar Deviation 5 Normal Radial Deviation 5 Normal PT-OP-Q Treatments Start: 07/16/21 12:09 Freq: Status: Active Protocol: Document 09/04/21 11:47 JG (Rec: 09/04/21 16:31 JG [id number]) Gait Training Gait Activity walking Description in hallway Device Used gait belt Distance/Duration 1. 2x50 feet, 2. 2x25 feet Comments 1. walk on line fwd/bk 2. tandem walk fwd Manual Therapy Treatment Soft Tissue Mobilization 1 Body Location Man[place]rium, ant 3rd rib Mobilization Type Sustained Pressure Intensity/Depth Moderate Body Position Supine Comments soft tissue local to area Joint Mobilizations 1 Joint Man[place]rium, ant 3rd rib Direction Caudal Body Position Supine Comments sustained pressure w/pt supporting head w/L hand and flexing neck Neuro Re-Education Treatment Balance Activities BOSU Comments 1. Step Ups 2x12 2. Lateral step overs 1x20 3. hip width balance horizontal and vertical head turns [id number] PT-OP-T Assessment and Plan Start: 07/16/21 12:09 Freq: Status: Active Protocol: Document 09/04/21 11:47 JG (Rec: 09/04/21 16:31 [facility] [id number]) Physical Therapy Assessment Goals symptoms Short Term Goal (STG) Pt will reprot no R shoulder pain 09/04/21 pt reports mild pain occ STG Duration 09/24/21 Manager Underwriting Goal (LTG) Pt will report very infrequent nubness and tingling in hands and feet in order to allow any activity she would typically do without diffiuclty 09/04/21 pt reports no numbness or tingling in legs, pt reports some tingling in hands while reading newspaper occasionally LTG Duration 10/19/21 strength Short Term Goal (STG) Pt will be indep w/postural, ROM & strengthening HEP STG Duration Achieved 09/04/21 Manager Underwriting Goal (LTG) Pt will have 5/5 UE strength in all planes B and certified pest control technician strength that is average for age (19kg). 09/04/21 sign improvement LTG Duration 10/19/21 walking Short Term Goal (STG) Pt will be able to return to walk/hikes that allow her to bird w/o inc numbness and or tingling. 09/04/21 pt has not tried STG Duration 09/24/21 Prison Goal (LTG) Pt will not feel like she is unsteady on her feet and that she could just fall anytime. 09/04/21 pt continues to feel unstead on feet and reports freq near falls, is progressing in balance activities in clinic LTG Duration 10/19/21 Assessment Summary Assessment Pt did well with correcting balance with progressed balance and gait activties. Pt appeared to be receptive to pt education re balance activities to decrease risk of falling. Pt is progressing towards goals with improved strength and balance in clinic . Pt has had sign decrease in R shld pain and tingling and complete decrease in leg tingling and numbness. Physical Therapy Plan Frequency and Duration Frequency of Treatment 2x/Week Duration of Treatment 6 weeks Plan of Care Start Date 09/04/21 Plan of Care End Date 10/19/21 Therapeutic Interventions Therapeutic Interventions Aquatic Therapy,Balance Training,Gait Training,Home Exercise Program,Joint Mobilizations,Manual Therapy, Neuromuscular Re-education, Patient/Caregiver Education, Self-Care/Home Management,Soft Tissue Mobilization,Taping, Therapeutic Activities, Therapeutic Exercises Modalities Cold Pack/Ice Massage,Electric Stimulation,Hot Packs, Ultrasound Next Visit Focus/Plan Next Note Type Treatment Note Next Visit Plan continue progressing balance activities and pt education about importance of maintaining balance capability with balance exercises. cont manual therapy to increase cervical, scapular, shld functional movment.
--- NOTE | 2021-09-04 16:50 | PT.OPPOC ---
Physical, Occupational & Speech Therapy At [facility] 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 (09/04/21) Radiculopathy, cervical region (09/04/21) Muscle weakness (generalized) (09/04/21) Unsteadiness on feet (09/04/21) Abnormal posture (09/04/21) Visit Care Team Role Provider Type DILEEP Victoria Attending Provider Advanced Music Typographer Primary Care Provider Referring Provider Specialty: Family Practice Address: [address] [place] [address] [place] [facility] Email: [email or web address] Plan Of Care PT-OP-T Assessment and Plan Start: 07/16/21 12:09 Freq: Status: Active Protocol: Document 09/04/21 11:47 [facility] (Rec: 09/04/21 16:31 JJordon [id number]) Physical Therapy Assessment Goals symptoms Short Term Goal (STG) Pt will reprot no R shoulder pain 09/04/21 pt reports mild pain occ STG Duration 09/24/21 Collet Making Machine Operator Goal (LTG) Pt will report very infrequent nubness and tingling in hands and feet in order to allow any activity she would typically do without diffiuclty 09/04/21 pt reports no numbness or tingling in legs, pt reports some tingling in hands while reading newspaper occasionally LTG Duration 10/19/21 strength Short Term Goal (STG) Pt will be indep w/postural, ROM & strengthening HEP STG Duration Achieved 09/04/21 Collet Making Machine Operator Goal (LTG) Pt will have 5/5 UE strength in all planes B and clinical pharmacy coordinator strength that is average for age (19kg). 09/04/21 sign improvement LTG Duration 10/19/21 walking Short Term Goal (STG) Pt will be able to return to walk/hikes that allow her to bird w/o inc numbness and or tingling. 09/04/21 pt has not tried STG Duration 09/24/21 Collet Making Machine Operator Goal (LTG) Pt will not feel like she is unsteady on her feet and that she could just fall anytime. 09/04/21 pt continues to feel unstead on feet and reports freq near falls, is progressing in balance activities in clinic LTG Duration 10/19/21 Assessment Summary Assessment Pt did well with correcting balance with progressed balance and gait activties. Pt appeared to be receptive to pt education re balance activities to decrease risk of falling. Pt is progressing towards goals with improved strength and balance in clinic . Pt has had sign decrease in R shld pain and tingling and complete decrease in leg tingling and numbness. Physical Therapy Plan Frequency and Duration Frequency of Treatment 2x/Week Duration of Treatment 6 weeks Plan of Care Start Date 09/04/21 Plan of Care End Date 10/19/21 Therapeutic Interventions Therapeutic Interventions Aquatic Therapy,Balance Training,Gait Training,Home Exercise Program,Joint Mobilizations,Manual Therapy, Neuromuscular Re-education, Patient/Caregiver Education, Self-Care/Home Management,Soft Tissue Mobilization,Taping, Therapeutic Activities, Therapeutic Exercises Modalities Cold Pack/Ice Massage,Electric Stimulation,Hot Packs, Ultrasound Next Visit Focus/Plan Next Note Type Treatment Note Next Visit Plan continue progressing balance activities and pt education about importance of maintaining balance capability with balance exercises. cont manual therapy to increase cervical, scapular, shld functional movment. Plan of Care Dates Plan of Care Start Date 09/04/21 Plan of Care End Date 10/19/21 Electronically Signed by: Dianelys Walter, PT 09/04/21 [id number] Please Sign and Return: I have reviewed this Plan of Care and certify that the skilled therapy services above are required to meet the patient?s needs. Physician Signature Date Printed Name and Credentials Clinical Instructor Signature Printed Name and Credentials
--- NOTE | 2021-09-09 18:17 | PT.OTN ---
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 (09/09/21) Radiculopathy, cervical region (09/09/21) Muscle weakness (generalized) (09/09/21) Unsteadiness on feet (09/09/21) Abnormal posture (09/09/21) Physical Therapy Treatment Note PT-OP-A Visit Information Start: 07/16/21 12:09 Freq: Status: Active Protocol: Document 09/09/21 15:33 J (Rec: 09/09/21 15:47 J [id number]) Out-Patient Physical Therapy Visit Information Visit Information Visit Type Treatment Note Visit Note 12/04 SPT Erin was directly supervised by PT Dianelys Visit Start Time 13:00 Visit Stop Time 13:44 Total Visit Minutes 44 Visit Number 10 Number of SALESPERSON DRIVER Visits 0 PT-OP-B Current Condition Start: 07/16/21 12:09 Freq: Status: Active Protocol: Document 07/16/21 15:23 [facility] (Rec: 07/16/21 16:42 [facility] [id number]) Current Condition History of Current Condition Current Complaints numbness in lower legs & feet and hands B History of Current Condition Pt reprots numbness in hands and tingling in feet (for decades)and now from knees down and it is worse. Pt wears carpel tunnel braces and that helps her hands when driving (otherwise just drviing to [place] would go to her hands). Pt reports reading sometimes causes her pain into hands. Pt reprots peeling apples the other day and R shoulder has been hurting now. Notes even when she wakes up in the AM, she feels like legs are numb and feel funny. When she brings her mattress higher at night, the numbness is better. Pt reports she feels like she could fall easily. She does do row boating and dragon boating with no trouble getting in and out of the boat , bu lyudmilae has this feeling that she is not balanced. She does an exercise class by [employer] every week . She doesn't know what changes the numbness in her legs. It always feels like she has socks on up to mid thigh. Pt reports B knees are stiff and R knee hurts from time to time. Last year she walked [employer] 2-4 times a week until Oct . 4th digit on b & 5th L trigger finger Prior Treatments and Tests IMPRESSION: Multilevel cervical spondylosis and facet disease, most pronounced at C5-C6. No interval change since . Treatment Goals Patient/Caregiver Goals stop numbness in arms and feet PT-OP-C Subjective Start: 07/16/21 12:09 Freq: Status: Active Protocol: Document 09/09/21 15:33 JG (Rec: 09/09/21 15:47 JG [id number]) OP-PT Subjective Patient Comments Patient Comments Pt reports that her R arm and hand were tingling when she was brushing her hair this morning. She alternated L and R hand to finish brushing hair . Pt reports continued sensation of wearing stockings up to her knees bilat. Pt states that she doesn't have tingling in her legs or feet. Patient Reported Progress Improving PT-OP-F Manual Assessment Start: 07/16/21 12:09 Freq: Status: Active Protocol: Document 07/16/21 15:23 [facility] (Rec: 07/16/21 16:42 [facility] [id number]) Manual Assessments Soft Tissue Assessment Soft Tissue Mobility Assessment tightness in all neck mm & shoudler muscles B. Scalenes L created tinggling on L side w /palpation PT-OP-J Posture/Palpation/Skin Start: 07/16/21 12:09 Freq: Status: Active Protocol: Document 07/16/21 15:23 [facility] (Rec: 07/16/21 16:42 [facility] [id number]) Posture Evaluation Comments Posture Comments fwd shoulders & neck w/R shoulder elevated more than L PT-OP-K Range of Motion Start: 07/16/21 12:09 Freq: Status: Active Protocol: Document 07/16/21 15:23 [facility] (Rec: 07/16/21 16:42 [facility] [id number]) Cervical Spine Range of Motion Cervical Spine Active Degrees Flexion 42 Extension 31 Rotation Left 23 Rotation Right 22 Lateral Flexion Left 37 Lateral Flexion Right 29 PT-OP-L Special Tests Start: 07/16/21 12:09 Freq: Status: Active Protocol: Document 07/16/21 15:23 [facility] (Rec: 07/16/21 16:42 [facility] [id number]) Special Tests Cervical Spine Special Tests spurling Comments neg Vertebral Artery Test Results neg Comments some tingling RUE w/R rot, SB and ext Neural Special Tests- Upper Body Median Nerve Tension Test Results positive R Radial Nerve Tension Test Results neg B Ulnar Nerve Tension Test Results slight R, neg L Neural Special Tests- Lower Body SLR Test Results R posiitve for foot numbness. Slump Test Results positive L w/worsening w/ cervical flex, positive R PT-OP-M Strength Start: 07/16/21 12:09 Freq: Status: Active Protocol: Document 09/04/21 11:47 [facility] (Rec: 09/04/21 11:53 [facility] [id number]) Shoulder Strength Shoulder Manual Muscle Testing Right Flexion 5 Normal Extension 5 Normal Abduction (C5) 4 Good External Rotation 4+ Good+ Internal Rotation 5 Normal Comments winging w/abd testing Left Flexion 5 Normal Extension 5 Normal Abduction (C5) 5 Normal External Rotation 5 Normal Internal Rotation 5 Normal Elbow/Forearm Strength Elbow and Forearm Manual Muscle Testing Right Flexion (C6) 5 Normal Extension (C7) 5 Normal Pronation 5 Normal Supination 5 Normal Left Flexion (C6) 5 Normal Extension (C7) 5 Normal Pronation 5 Normal Supination 5 Normal Wrist Strength Wrist Manual Muscle Testing Right Flexion (C7) 5 Normal Extension (C6) 4 Good Ulnar Deviation 5 Normal Radial Deviation 4 Good Left Flexion (C7) 5 Normal Extension (C6) 5 Normal Ulnar Deviation 5 Normal Radial Deviation 5 Normal PT-OP-Q Treatments Start: 07/16/21 12:09 Freq: Status: Active Protocol: Document 09/09/21 15:33 JG (Rec: 09/09/21 15:47 JG [id number]) Manual Therapy Treatment Soft Tissue Mobilization 1 Body Location L SCM, L scalenes Mobilization Type Sustained Pressure Intensity/Depth Moderate Comments w/active shld flex Joint Mobilizations 1 Joint L ac joint Direction Caudal Body Position Supine Comments w/active shld flex Neuro Re-Education Treatment Balance Activities Tandem Details tandem walk fwd w/head turn Surface ground Reps/Duration 2x20 Comments back foot steps in front 1x w/ head turn and return to original position BOSU Comments 1. Step Ups 2x12 2. Lateral step ups 2x10 SLS Details EO, tree pose Surface ground Reps/Duration 4x60 seconds Comments pt started with toes touching ground, brought foot up to upper calf/knee, returned to ground w/toe touch PT-OP-T Assessment and Plan Start: 07/16/21 12:09 Freq: Status: Active Protocol: Document 09/09/21 15:33 JG (Rec: 09/09/21 15:47 JG [id number]) Physical Therapy Assessment Rehab Potential Rehabilitation Potential Good Evaluation Complexity Number of Personal Factors/Comorbidities 3 or More Number of Body Systems Impaired 4 or More Clinical Presentation at Evaluation Evolving Impairments Impairments Activity Tolerance,Functional Activities,Functional Mobility ,Pain,ROM,Soft Tissue Mobility ,Strength Goals symptoms Short Term Goal (STG) Pt will reprot no R shoulder pain 09/04/21 pt reports mild pain occ STG Duration 09/24/21 Shelter Goal (LTG) Pt will report very infrequent nubness and tingling in hands and feet in order to allow any activity she would typically do without diffiuclty 09/04/21 pt reports no numbness or tingling in legs, pt reports some tingling in hands while reading newspaper occasionally LTG Duration 10/19/21 strength Short Term Goal (STG) Pt will be indep w/postural, ROM & strengthening HEP STG Duration Achieved 09/04/21 Research Biostatistician Goal (LTG) Pt will have 5/5 UE strength in all planes B and expander strength that is average for age (19kg). 09/04/21 sign improvement LTG Duration 10/19/21 walking Short Term Goal (STG) Pt will be able to return to walk/hikes that allow her to bird w/o inc numbness and or tingling. 09/04/21 pt has not tried STG Duration 09/24/21 Research Biostatistician Goal (LTG) Pt will not feel like she is unsteady on her feet and that she could just fall anytime. 09/04/21 pt continues to feel unstead on feet and reports freq near falls, is progressing in balance activities in clinic LTG Duration 10/19/21 Assessment Summary Assessment Pt was challenged with BOSU, tandem, and SL balance activities. She did better with looking at her foot placement w/dynamic activities compared to looking forward at a fixed object. She also did better with a hand or two finger touch to the railing. For SL activities, she took her shoes off and was more stable. After manual therapy, pt was able to flex R shld w/o inducing tingling. There continues to be soft tissue and joint restriction into R scapular depression surrounding the R shld which requires continued manual therapy. Physical Therapy Plan Frequency and Duration Frequency of Treatment 2x/Week Duration of Treatment 6 weeks Plan of Care Start Date 09/04/21 Plan of Care End Date 10/19/21 Therapeutic Interventions Therapeutic Interventions Aquatic Therapy,Balance Training,Gait Training,Home Exercise Program,Joint Mobilizations,Manual Therapy, Neuromuscular Re-education, Patient/Caregiver Education, Self-Care/Home Management,Soft Tissue Mobilization,Taping, Therapeutic Activities, Therapeutic Exercises Modalities Cold Pack/Ice Massage,Electric Stimulation,Hot Packs, Ultrasound Next Visit Focus/Plan Next Note Type Treatment Note Next Visit Plan continue progressing balance activities and manual therapy to increase cervical, scapular , shld functional movment
--- NOTE | 2021-09-11 17:52 | PT.OTN ---
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 (09/11/21) Radiculopathy, cervical region (09/11/21) Muscle weakness (generalized) (09/11/21) Unsteadiness on feet (09/11/21) Abnormal posture (09/11/21) Physical Therapy Treatment Note PT-OP-A Visit Information Start: 07/16/21 12:09 Freq: Status: Active Protocol: Document 09/11/21 12:59 J (Rec: 09/11/21 13:20 J [id number]) Out-Patient Physical Therapy Visit Information Visit Information Visit Type Treatment Note Visit Note 01/01 SPT Erin was directly supervised by PT Dianelys Visit Start Time 11:17 Visit Stop Time 12:00 Total Visit Minutes 43 Visit Number 11 Number of STOKER ERECTOR Visits 0 PT-OP-B Current Condition Start: 07/16/21 12:09 Freq: Status: Active Protocol: Document 07/16/21 15:23 [facility] (Rec: 07/16/21 16:42 [facility] [id number]) Current Condition History of Current Condition Current Complaints numbness in lower legs & feet and hands B History of Current Condition Pt reprots numbness in hands and tingling in feet (for decades)and now from knees down and it is worse. Pt wears carpel tunnel braces and that helps her hands when driving (otherwise just drviing to [employer] would go to her hands). Pt reports reading sometimes causes her pain into hands. Pt reprots peeling apples the other day and R shoulder has been hurting now. Notes even when she wakes up in the AM, she feels like legs are numb and feel funny. When she brings her mattress higher at night, the numbness is better. Pt reports she feels like she could fall easily. She does do row boating and dragon boating with no trouble getting in and out of the boat , bu tshe has this feeling that she is not balanced. She does an exercise class by [employer] every week . She doesn't know what changes the numbness in her legs. It always feels like she has socks on up to mid thigh. Pt reports B knees are stiff and R knee hurts from time to time. Last year she walked [place] 2-4 times a week until Oct . 4th digit on b & 5th L trigger finger Prior Treatments and Tests IMPRESSION: Multilevel cervical spondylosis and facet disease, most pronounced at C5-C6. No interval change since . Treatment Goals Patient/Caregiver Goals stop numbness in arms and feet PT-OP-C Subjective Start: 07/16/21 12:09 Freq: Status: Active Protocol: Document 09/11/21 12:59 JG (Rec: 09/11/21 13:20 JG [id number]) OP-PT Subjective Patient Comments Patient Comments Pt reports she was able to read the newspaper without any tingling in her hands this morning. Pt reports she felt very unstable during exercises class yesterday. Patient Reported Progress Improving PT-OP-F Manual Assessment Start: 07/16/21 12:09 Freq: Status: Active Protocol: Document 07/16/21 15:23 [facility] (Rec: 07/16/21 16:42 [facility] [id number]) Manual Assessments Soft Tissue Assessment Soft Tissue Mobility Assessment tightness in all neck mm & shoudler muscles B. Scalenes L created tinggling on L side w /palpation PT-OP-J Posture/Palpation/Skin Start: 07/16/21 12:09 Freq: Status: Active Protocol: Document 07/16/21 15:23 [facility] (Rec: 07/16/21 16:42 [facility] [id number]) Posture Evaluation Comments Posture Comments fwd shoulders & neck w/R shoulder elevated more than L PT-OP-K Range of Motion Start: 07/16/21 12:09 Freq: Status: Active Protocol: Document 07/16/21 15:23 [facility] (Rec: 07/16/21 16:42 [facility] [id number]) Cervical Spine Range of Motion Cervical Spine Active Degrees Flexion 42 Extension 31 Rotation Left 23 Rotation Right 22 Lateral Flexion Left 37 Lateral Flexion Right 29 PT-OP-L Special Tests Start: 07/16/21 12:09 Freq: Status: Active Protocol: Document 07/16/21 15:23 [facility] (Rec: 07/16/21 16:42 [facility] [id number]) Special Tests Cervical Spine Special Tests spurling Comments neg Vertebral Artery Test Results neg Comments some tingling RUE w/R rot, SB and ext Neural Special Tests- Upper Body Median Nerve Tension Test Results positive R Radial Nerve Tension Test Results neg B Ulnar Nerve Tension Test Results slight R, neg L Neural Special Tests- Lower Body SLR Test Results R posiitve for foot numbness. Slump Test Results positive L w/worsening w/ cervical flex, positive R PT-OP-M Strength Start: 07/16/21 12:09 Freq: Status: Active Protocol: Document 09/04/21 11:47 LR (Rec: 09/04/21 11:53 LR [id number]) Shoulder Strength Shoulder Manual Muscle Testing Right Flexion 5 Normal Extension 5 Normal Abduction (C5) 4 Good External Rotation 4+ Good+ Internal Rotation 5 Normal Comments winging w/abd testing Left Flexion 5 Normal Extension 5 Normal Abduction (C5) 5 Normal External Rotation 5 Normal Internal Rotation 5 Normal Elbow/Forearm Strength Elbow and Forearm Manual Muscle Testing Right Flexion (C6) 5 Normal Extension (C7) 5 Normal Pronation 5 Normal Supination 5 Normal Left Flexion (C6) 5 Normal Extension (C7) 5 Normal Pronation 5 Normal Supination 5 Normal Wrist Strength Wrist Manual Muscle Testing Right Flexion (C7) 5 Normal Extension (C6) 4 Good Ulnar Deviation 5 Normal Radial Deviation 4 Good Left Flexion (C7) 5 Normal Extension (C6) 5 Normal Ulnar Deviation 5 Normal Radial Deviation 5 Normal PT-OP-Q Treatments Start: 07/16/21 12:09 Freq: Status: Active Protocol: Document 09/11/21 12:59 JG (Rec: 09/11/21 13:20 JG [id number]) Manual Therapy Treatment Soft Tissue Mobilization 1 Body Location R UT, levator, rhomboids Mobilization Type Strumming,Sustained Pressure Intensity/Depth Moderate Neuro Re-Education Treatment Balance Activities Tandem Details tandem walk fwd w/head turn Surface ground Reps/Duration 8x20 feet Comments 1. heel to toe walk 2. heel to toe walk w/ horizontal head turns 3. heel to toe walk w/vertical head turns BOSU Comments 1. Lateral step ups 1x15 2. Step Ups 1x12 3. Step Ups w/high knee 1x12 SLS Details EO Surface ground Reps/Duration 6x45 seconds Comments 1. tree pose w/moving leg from ground to back of knee to front of knee 2. w/upper body rotation PT-OP-T Assessment and Plan Start: 07/16/21 12:09 Freq: Status: Active Protocol: Document 09/11/21 12:59 JG (Rec: 09/11/21 13:20 J [id number]) Physical Therapy Assessment Goals symptoms Short Term Goal (STG) Pt will reprot no R shoulder pain 09/04/21 pt reports mild pain occ STG Duration 09/24/21 Anchor Tacker Goal (LTG) Pt will report very infrequent nubness and tingling in hands and feet in order to allow any activity she would typically do without diffiuclty 09/04/21 pt reports no numbness or tingling in legs, pt reports some tingling in hands while reading newspaper occasionally LTG Duration 10/19/21 strength Short Term Goal (STG) Pt will be indep w/postural, ROM & strengthening HEP STG Duration Achieved 09/04/21 Senior Care Goal (LTG) Pt will have 5/5 UE strength in all planes B and it software 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 09/04/21 sign improvement LTG Duration 10/19/21 walking Short Term Goal (STG) Pt will be able to return to walk/hikes that allow her to bird w/o inc numbness and or tingling. 09/04/21 pt has not tried STG Duration 09/24/21 Anchor Tacker Goal (LTG) Pt will not feel like she is unsteady on her feet and that she could just fall anytime. 09/04/21 pt continues to feel unstead on feet and reports freq near falls, is progressing in balance activities in clinic LTG Duration 10/19/21 Assessment Summary Assessment Pt is continued to be challenges with BOSU, tandem, and SL balance activities. She was discouraged initially at her challenge but was reassured when overviewing the progression in the difficulty level of the activities which match her increased ability to balance. After manual therapy, pt was able to depress her R scapula more which allowed her R shld to move from anterior to more midline alignment and her GH joint was able to move farther posterior which increased her functional movement pattern. Physical Therapy Plan Frequency and Duration Frequency of Treatment 2x/Week Duration of Treatment 6 weeks Plan of Care Start Date 09/04/21 Plan of Care End Date 10/19/21 Next Visit Focus/Plan Next Note Type Treatment Note Next Visit Plan manual therapy to UT, levator, lats, pecs, assess ribs to increase cervical, scapular, shld functional movement. continue progressing balance activties to decrease fall risk.
--- NOTE | 2021-10-23 08:40 | PT.OPDS ---
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 (09/11/21) Radiculopathy, cervical region (09/11/21) Muscle weakness (generalized) (09/11/21) Unsteadiness on feet (09/11/21) Abnormal posture (09/11/21) Visit Care Team Role Provider Type DILEEP Victoria Attending Provider Advanced Carbon Paste Mixer Operator Primary Care Provider Referring Provider Specialty: [facility] Address: [address] [place] [address], [address], [place], [address] Email: [email or web address] Visit Number Visit Number 11 Discharge Summary PT-OP-B Current Condition Start: 07/16/21 12:09 Freq: Status: Active Protocol: Document 07/16/21 15:23 [facility] (Rec: 07/16/21 16:42 [facility] [id number]) Current Condition History of Current Condition Current Complaints numbness in lower legs & feet and hands B History of Current Condition Pt reprots numbness in hands and tingling in feet (for decades)and now from knees down and it is worse. Pt wears carpel tunnel braces and that helps her hands when driving (otherwise just drviing to [place] would go to her hands). Pt reports reading sometimes causes her pain into hands. Pt reprots peeling apples the other day and R shoulder has been hurting now. Notes even when she wakes up in the AM, she feels like legs are numb and feel funny. When she brings her mattress higher at night, the numbness is better. Pt reports she feels like she could fall easily. She does do row boating and dragon boating with no trouble getting in and out of the boat , bu tshe has this feeling that she is not balanced. She does an exercise class by zoom every week . She doesn't know what changes the numbness in her legs. It always feels like she has socks on up to mid thigh. Pt reports B knees are stiff and R knee hurts from time to time. Last year she walked [employer] 2-4 times a week until Oct . 4th digit on b & 5th L trigger finger Prior Treatments and Tests IMPRESSION: Multilevel cervical spondylosis and facet disease, most pronounced at C5-C6. No interval change since . Treatment Goals Patient/Caregiver Goals stop numbness in arms and feet PT-OP-C Subjective Start: 07/16/21 12:09 Freq: Status: Active Protocol: Document 09/11/21 12:59 JG (Rec: 09/11/21 13:20 JG [id number]) OP-PT Subjective Patient Comments Patient Comments Pt reports she was able to read the newspaper without any tingling in her hands this morning. Pt reports she felt very unstable during exercises class yesterday. Patient Reported Progress Improving PT-OP-F Manual Assessment Start: 07/16/21 12:09 Freq: Status: Active Protocol: Document 07/16/21 15:23 [facility] (Rec: 07/16/21 16:42 [facility] [id number]) Manual Assessments Soft Tissue Assessment Soft Tissue Mobility Assessment tightness in all neck mm & shoudler muscles B. Scalenes L created tinggling on L side w /palpation PT-OP-J Posture/Palpation/Skin Start: 07/16/21 12:09 Freq: Status: Active Protocol: Document 07/16/21 15:23 [facility] (Rec: 07/16/21 16:42 [facility] [id number]) Posture Evaluation Comments Posture Comments fwd shoulders & neck w/R shoulder elevated more than L PT-OP-K Range of Motion Start: 07/16/21 12:09 Freq: Status: Active Protocol: Document 07/16/21 15:23 [facility] (Rec: 07/16/21 16:42 [facility] [id number]) Cervical Spine Range of Motion Cervical Spine Active Degrees Flexion 42 Extension 31 Rotation Left 23 Rotation Right 22 Lateral Flexion Left 37 Lateral Flexion Right 29 PT-OP-L Special Tests Start: 07/16/21 12:09 Freq: Status: Active Protocol: Document 07/16/21 15:23 [facility] (Rec: 07/16/21 16:42 [facility] [id number]) Special Tests Cervical Spine Special Tests spurling Comments neg Vertebral Artery Test Results neg Comments some tingling RUE w/R rot, SB and ext Neural Special Tests- Upper Body Median Nerve Tension Test Results positive R Radial Nerve Tension Test Results neg B Ulnar Nerve Tension Test Results slight R, neg L Neural Special Tests- Lower Body SLR Test Results R posiitve for foot numbness. Slump Test Results positive L w/worsening w/ cervical flex, positive R PT-OP-M Strength Start: 07/16/21 12:09 Freq: Status: Active Protocol: Document 09/04/21 11:47 [facility] (Rec: 09/04/21 11:53 [facility] [id number]) Shoulder Strength Shoulder Manual Muscle Testing Right Flexion 5 Normal Extension 5 Normal Abduction (C5) 4 Good External Rotation 4+ Good+ Internal Rotation 5 Normal Comments winging w/abd testing Left Flexion 5 Normal Extension 5 Normal Abduction (C5) 5 Normal External Rotation 5 Normal Internal Rotation 5 Normal Elbow/Forearm Strength Elbow and Forearm Manual Muscle Testing Right Flexion (C6) 5 Normal Extension (C7) 5 Normal Pronation 5 Normal Supination 5 Normal Left Flexion (C6) 5 Normal Extension (C7) 5 Normal Pronation 5 Normal Supination 5 Normal Wrist Strength Wrist Manual Muscle Testing Right Flexion (C7) 5 Normal Extension (C6) 4 Good Ulnar Deviation 5 Normal Radial Deviation 4 Good Left Flexion (C7) 5 Normal Extension (C6) 5 Normal Ulnar Deviation 5 Normal Radial Deviation 5 Normal PT-OP-T Assessment and Plan Start: 07/16/21 12:09 Freq: Status: Active Protocol: Document 10/23/21 08:37 [facility] (Rec: 10/23/21 08:40 [facility] [id number]) Physical Therapy Assessment Goals symptoms Short Term Goal (STG) Pt will reprot no R shoulder pain 09/04/21 pt reports mild pain occ STG Duration achieved per call Long-Term Goal (LTG) Pt will report very infrequent nubness and tingling in hands and feet in order to allow any activity she would typically do without diffiuclty 09/04/21 pt reports no numbness or tingling in legs, pt reports some tingling in hands while reading newspaper occasionally LTG Duration achieved per call w/rare symptoms in RUE strength Short Term Goal (STG) Pt will be indep w/postural, ROM & strengthening HEP STG Duration Achieved 09/04/21 Long-Term Goal (LTG) Pt will have 5/5 UE strength in all planes B and 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 09/04/21 sign improvement LTG Duration 10/19/21 walking Short Term Goal (STG) Pt will be able to return to walk/hikes that allow her to bird w/o inc numbness and or tingling. 09/04/21 pt has not tried STG Duration 09/24/21 Apartment Maintenance Manager Goal (LTG) Pt will not feel like she is unsteady on her feet and that she could just fall anytime. 09/04/21 pt continues to feel unstead on feet and reports freq near falls, is progressing in balance activities in clinic LTG Duration 10/19/21 Assessment Summary Assessment Pt was called and reports tingling and RUE discomfort is much better so no longer needs PT. She did well with therapy and cont to gradually progress. DC dt no longer attending PT. Physical Therapy Plan Discharge Physical Therapy Discharge Reasons No Longer Attending PT
== END 2021-11-25 08:45 ==
LOC: PHYS 11:15
PROVIDERS: PCP Internal Medicine; Referring Provider Internal Medicine; Visit Provider Internal Medicine
DX: M54.12 Radiculopathy, cervical region (principal); R29.3 Abnormal posture; R26.81 Unsteadiness on feet; M62.81 Muscle weakness (generalized)
CPT/HCPCS: 97110; 97112; 97116; 97140; 97162; 97535

== ENCOUNTER 2021-09-16 14:05 | Emergency (ER) | payer MEDICARE, SELFPAY ==
[2021-09-16 14:16] VITALS: BP 122/62; PULSE 83; RESP 16; TEMP 36.4; O2SAT 97; BMI 25.2
[2021-09-16 14:43] LABS: COVID19 -Nasal RAPID Negative (Negative)
--- NOTE | 2021-09-16 16:34 | ED_ITS ---
HPI - SOB/Dyspnea <Makenzie Barone PA-C - Last Filed: 09/16/21 16:39> General Chief Complaint: Upper Respiratory Symptoms Stated Complaint: trouble breathing, don't feel good Time Seen by Provider: 09/16/21 16:01 Source: patient Mode of arrival: Ambulatory History of Present Illness HPI Narrative: 81-year-old female with no reported past medical history presents to the ED for a COVID-19 test. Patient states that she was exposed to COVID 5 days ago, this morning experienced a brief period of shortness of breath, tingling in her hands. Symptoms resolved after a few minutes. In the ED patient denies any symptoms including fever, chills, chest pain, shortness of breath, cough, nausea, vomiting, abdominal pain, dysuria, dizziness, lightheadedness, syncope. Patient wishes to be tested for COVID-19, especially given that she will be meeting family for Thanksgiving. Related Data Home Medications Medication Instructions Recorded Confirmed levothyroxine 50 mcg capsule 50 mcg PO DAILY 02/02/19 09/16/21 Allergies Allergy/AdvReac Type Severity Reaction Status Date / Time No Known Drug Allergies Allergy Verified 09/16/21 14:17 Review of Systems <Makenzie Barone PA-C - Last Filed: 09/16/21 16:39> Review of Systems ROS Unobtainable: All systems reviewed & are unremarkable except as noted in HPI and below Constitutional Constitutional: Denies chills, Denies fatigue, Denies fever(s), Denies frequent falls, Denies lethargy and Denies weakness Eyes Eyes: Denies change in vision, Denies eye discharge, Denies irritation and Denies loss of vision ENT Ears, Nose, Mouth, and Throat: Denies change in voice, Denies dizziness, Denies neck pain, Denies sore throat and Denies throat swelling Cardiovascular Cardiovascular: Denies chest pain, Denies irregular heart rhythm, Denies lightheadedness, Denies palpitations, Reports dyspnea, Denies dyspnea on exertion and Denies orthopnea Respiratory Respiratory: Denies cough, Reports dyspnea, Denies dyspnea on exertion and Denies wheezing Gastrointestinal Gastrointestinal: Denies abdominal pain, Denies change in bowel habits, Denies diarrhea, Denies nausea and Denies vomiting Genitourinary Genitourinary: Denies hematuria, Denies flank pain, Denies urinary incontinence and Denies urinary urgency Musculoskeletal Musculoskeletal: Denies back pain, Denies muscle weakness, Denies neck pain, Denies numbness and Reports tingling Integumentary/Breasts Skin/Breast: Denies pruritus, Denies erythema, Denies rash and Denies wounds Neurologic Neurologic: Denies behavioral changes, Denies confusion, Denies dizziness, Denies frequent falls, Denies loss of vision, Denies numbness, Reports tingling and Denies weakness Psychiatric Psychiatric: Denies anxiety, Denies behavioral changes, Denies confusion, Denies depression, Denies homicidal ideation and Denies suicidal ideation Endocrine Endocrine: Denies fatigue, Denies flushing and Denies palpitations Hematologic/Lymphatic Hematologic/Lymphatic: Denies easy bruising Allergic/Immunologic Allergic/Immunologic: Denies urticaria, Denies throat swelling and Denies wheezing Patient History <Makenzie Barone PA-C - Last Filed: 09/16/21 16:39> Medical History Breast cancer Hypothyroidism Left knee pain Osteoarthritis Osteopenia Right knee pain Social History Smoking Status: Former smoker Smoking Status: Former smoker alcohol intake frequency: 0-2 drinks per day Alcohol type: wine Substance Use Type: does not use Exam <Makenzie Barone PA-C - Last Filed: 09/16/21 16:39> Initial Vital Signs Initial Vital Signs: Vital Signs Temperature 97.6 F 09/16/21 14:16 Pulse Rate 83 09/16/21 14:16 Respiratory Rate 16 09/16/21 14:16 Blood Pressure 122/62 09/16/21 14:16 Pulse Oximetry 97 09/16/21 14:16 Const General: cooperative and healthy appearing [facility] Head: normal to inspection Eyes General: appearance normal, both eyes and all related structures Neck Neck: normal visual inspection Chest Chest: normal inspection of the chest Resp Effort & Inspection: normal respiratory effort Auscultation: clear to auscultation bilaterally Cardio Rate: regular rate Rhythm: regular rhythm GI Inspection: normal to inspection Other: Abdomen is soft, nondistended, nontender to palpation. General: No CVA tenderness Skin General: no rashes or lesions noted Neuro General: patient alert, patient awake and patient oriented x3 <Arjun Klein DO - Last Filed: 09/16/21 17:45> Initial Vital Signs Initial Vital Signs: Vital Signs Temperature 97.6 F 09/16/21 14:16 Pulse Rate 83 09/16/21 14:16 Respiratory Rate 16 09/16/21 14:16 Blood Pressure 122/62 09/16/21 14:16 Pulse Oximetry 97 09/16/21 14:16 Course <Makenzie Barone PA-C - Last Filed: 09/16/21 16:39> Orders Ordered: ED Orders 09/16/21 14:20 COVID19 -Nasal swab/Pre-Proc Stat Vital Signs Vital signs: Vital Signs - 8 hr 09/16/21 14:16 09/16/21 16:42 Temperature 97.6 F Pulse Rate 83 78 Respiratory Rate 16 16 Blood Pressure 122/62 Pulse Oximetry 97 98 <Arjun Klein DO - Last Filed: 09/16/21 17:45> Orders Ordered: ED Orders 09/16/21 14:20 COVID19 -Nasal swab/Pre-Proc Stat Vital Signs Vital signs: Vital Signs - 8 hr 09/16/21 14:16 09/16/21 16:42 Temperature 97.6 F Pulse Rate 83 78 Respiratory Rate 16 16 Blood Pressure 122/62 Pulse Oximetry 97 98 MDM - SOB/Dyspnea <Makenzie Barone PA-C - Last Filed: 09/16/21 16:39> Medical Records Attestation: I reviewed the patient's medical records. Lab Data Attestation: I reviewed the patient's lab results. Lab results narrative: COVID-19 negative Labs: Lab Results 09/16/21 Range/Units 14:20 SARS-CoV-2 (PCR) Negative (Negative) MDM Narrative Medical decision making narrative: 81-year-old female with no reported past medical history presents to the ED for a COVID-19 test. Given reassuring physical exam, no symptoms during the ED visit, will test for COVID-19. COVID-19 test was negative. Will discharge patient home with ED return precautions. <Arjun Klein DO - Last Filed: 09/16/21 17:45> Lab Data Labs: Lab Results 09/16/21 Range/Units 14:20 SARS-CoV-2 (PCR) Negative (Negative) Discharge Plan Departure Patient Disposition: Home Clinical Impression: SOB (shortness of breath) Instructions: DI for Shortness of Breath Activity Restrictions/Additional Instructions: You were evaluated in the ED today for shortness of breath. You wished to be tested for COVID. Your COVID-19 test is negative. Your physical exam was very reassuring, you are not experiencing shortness of breath or chest pain in the ED. please return to the ED if your symptoms worsen, you develop a fever, chills, chest pain, shortness of breath. You may follow-up with your PCP. Prescriptions: No Action levothyroxine 50 mcg capsule 50 mcg PO DAILY 0RF Referrals: Lulu Allan ARNP [Primary Care Provider] - <Arjun Klein, - Last Filed: 09/16/21 17:45> Cosign ED Attending Cosignature Attestation: Dr Klein Co-Sign Statement: I was available for consultation during this patient's emergency department visit. This chart is signed by myself for administrative purposes only. I did not have direct contact with this patient during this visit. They were seen independently by the APC.
[2021-09-16 16:42] VITALS: PULSE 78; RESP 16; O2SAT 98
== END 2021-09-16 16:42 | disposition home or self-care (01) ==
PROVIDERS: Emergency Medicine; Emergency Provider Student in an Organized Health Care Education/Training Program; PCP Internal Medicine
DX: R06.02 Shortness of breath (principal); Z20.822 Contact with and (suspected) exposure to COVID-19
CPT/HCPCS: 87635; 99281; C9803

== ENCOUNTER → 2022-04-10 09:28 | Outpatient (CLI) | payer OTHER, SELFPAY ==
[2022-04-10 11:14] LABS: Add Manual Diff / Slide Review NO; Basophils Absolute Auto 0 /uL (0-100); Basophils Percent Auto 0.4 % (0-2); Eosinophils Absolute Auto 100 /uL (0-450); Eosinophils Percent Auto 1.2 % (2-4); Hemoglobin 13.1 g/dL (12.0-16.0); Lymphocytes Absolute Auto 1600 /uL (1100-4500); Lymphocytes Percent Auto 19.6 % (25-40); Mean Corpuscular HGB Conc 34.5 % (30-36); Mean Corpuscular Hemoglobin 31.2 PG (26-34); Mean Corpuscular Volume 90.6 fL (80-100); Monocytes Absolute Auto 700 /uL (0-900); Monocytes Percent Auto 8.1 % (3-14); Neutrophils Absolute Auto 5800 /uL (1500-7000); Neutrophils Percent Auto 70.7 % (50-75); Platelet Count 192 X10^3/uL (150-400); Red Cell Distribution Width 13.5 % (11.6-14.8); White Blood Cell Count 8.2 X10^3/uL (4.5-11.0)
[2022-04-11 03:20] LABS: HEMOLYSIS < 15 (0-50)
[2022-04-11 03:28] LABS: Alanine Aminotransferase 18 IU/L (<35); Albumin 4.2 g/dL (3.5-5.0); Albumin Globulin Ratio 1.5 (1.0-2.8); Alkaline Phosphatase 62 U/L (38-126); Aspartate Aminotransferase 22 IU/L (14-36); BUN Creatinine Ratio 31.3 (6-22); Bilirubin Total 0.6 mg/dL (0.2-1.3); Blood Urea Nitrogen 21 mg/dL (7-17); Carbon Dioxide 28 mmol/L (22-32); Chloride 104 mmol/L (98-107); Estimated Glomerular Filt Rate > 60 mL/min (>60); Globulin 2.8 g/dL (1.7-4.1); Glucose 105 mg/dL (80-110); Potassium 4.3 mmol/L (3.4-5.1); Sodium 141 mmol/L (137-145)
[2022-04-11 03:55] LABS: Thyroid Stimulating Hormone 1.57 uIU/mL (0.47-4.68)
[2022-04-12 15:28] LABS: Free T4, Direct Thyroxine 1.65 ng/dL (0.78-2.19)
[2022-04-12 15:29] LABS: Vitamin B12 > 1000 pg/mL (239-931)
== END ==
PROVIDERS: PCP Family Medicine; Referring Provider Family Medicine; Visit Provider Family Medicine
DX: Z00.00 Encounter for general adult medical examination without abnormal findings (principal)
CPT/HCPCS: 36415; 80053; 82607; 84439; 84443; 85025

== ENCOUNTER → 2022-05-14 13:07 | Outpatient (CLI) | payer OTHER, SELFPAY ==
--- NOTE | 2022-05-14 13:19 | DI.CT.S_ITS ---
PROCEDURE: CT KIDNEY URETER BLADDER (KUB) INDICATIONS: Stress incontinence with gross hematuria of unknown etiology TECHNIQUE: Axial sections were acquired from the lung bases to the pubic symphysis. Coronal and sagittal reformats were performed. For radiation dose reduction, the following was used: automated exposure control, adjustment of mA and/or kV according to patient size. COMPARISON: None. FINDINGS: Image quality: Excellent. Lung bases: Calcified pleural plaques. Scattered scarring and atelectasis. Heart: No significant findings. URINARY: No right hydronephrosis or calculi. No left hydronephrosis or calculi. Normal diameter ureters. No bladder stone. ABDOMEN: Liver: Unremarkable. Gallbladder: Unremarkable Biliary ducts: Unremarkable. Pancreas: Unremarkable. Spleen: Unremarkable. Adrenal Glands: Unremarkable. Stomach and Bowel: Small hiatal hernia. No bowel obstruction. Colonic diverticula. Peritoneum: No abnormal intraperitoneal fluid. No free air. Ventral Wall: Fat containing umbilical hernia. Abdominal Nodes: No lymphadenopathy Vessels: Aorta and inferior vena cava are normal in size. PELVIS: Pelvic Organs: Pessary in place. Pelvic Nodes: Unremarkable. Miscellaneous: No inguinal hernias are seen. Bones: No suspicious osseous lesions. Lumbosacral spondylosis and scoliosis. IMPRESSION: No acute intra-abdominal pathology. No hydronephrosis or renal calculi. Calcified pleural plaques indicating prior asbestos exposure. Consider follow-up chest CT depending on level clinical risk. Dictated by: Erik Brice M.D. on 05/14/2022 at 13:27 Approved by: Erik Brice M.D. on 05/14/2022 at 13:35
== END ==
PROVIDERS: PCP Family Medicine; Referring Provider Family Medicine; Visit Provider Family Medicine
DX: R31.9 Hematuria, unspecified (principal); N39.3 Stress incontinence (female) (male); M47.816 Spondylosis without myelopathy or radiculopathy, lumbar region; M41.9 Scoliosis, unspecified; K57.90 Diverticulosis of intestine, part unspecified, without perforation or abscess without bleeding
CPT/HCPCS: 74176

== ENCOUNTER → 2022-06-12 11:39 | Outpatient (CLI) | payer OTHER, SELFPAY ==
[2022-06-12 15:01] LABS: Appearance Urine UA CLEAR; Bilirubin Urine UA NEGATIVE (NEGATIVE); Color Urine UA YELLOW; Glucose Urine UA NEGATIVE (Negative); Ketones Urine UA NEGATIVE (NEGATIVE); Leukocyte Esterase Urine UA 3+ (NEGATIVE); Nitrite Urine UA NEGATIVE (Negative); Occult Blood Urine UA 3+ (Negative); Protein Urine UA NEGATIVE (Negative); Urobilinogen Urine UA 0.2 E.U./dL (0.2)
[2022-06-12 15:17] LABS: RBC Urine 1-5/HPF (0-5/HPF); Squamous Epithelial Cell Urine 0-1 /HPF (0-5/HPF); WBC Urine 10-30/HPF (0-5/HPF)
[2022-06-12 15:18] LABS: Bacteria Urine Few (2-10); Culture Indicated Urine Specimen Cultured
== END ==
PROVIDERS: PCP Nurse Practitioner; Referring Provider Nurse Practitioner; Visit Provider Nurse Practitioner
DX: N39.3 Stress incontinence (female) (male) (principal); R31.9 Hematuria, unspecified
CPT/HCPCS: 81001; 87077; 87086

== ENCOUNTER → 2022-06-16 08:25 | Outpatient (CLI) | payer OTHER, SELFPAY ==
--- NOTE | 2022-06-16 08:32 | DI.CT.S_ITS ---
PROCEDURE: CT CHEST WO CON INDICATIONS: Potential asbestosis in her home TECHNIQUE: Noncontrast 5 mm thick sections acquired from the pulmonary apices to the posterior costophrenic angles. 1 mm lung window, 5 mm thick coronal and sagittal and 7 mm axial MIP reformats were then acquired. For radiation dose reduction, the following was used: automated exposure control, adjustment of mA and/or kV according to patient size. COMPARISON: [facility], CT, THORAX WITHOUT CONTRAST, 10/24/2015, 9:21. FINDINGS: Image quality: Excellent. Lungs and pleura: There are multiple pleural plaques, some of which are partially calcified. Mild atelectasis is present at the dependent right lung base. Mild subpleural interlobular septal thickening is also noted in the dependent right lung base. A 5 mm pulmonary nodule is present within the right lower lobe and is unchanged from the study dated October 24, 2015 (series 3/image 161). No new pulmonary nodules. No acute airspace opacities. Mediastinum: Heart size is normal. No pericardial effusion. No mediastinal adenopathy by size criteria. Thoracic aorta and central pulmonary arteries are normal in size. Esophagus is normal in caliber. No hiatal hernia. Bones and chest wall: No suspicious bony lesions. No vertebral body compression fractures. No axillary or supraclavicular adenopathy by size criteria. Thyroid gland is unremarkable . Abdomen: Visualized upper abdominal solid organs and bowel loops appear normal in the absence of contrast. IMPRESSION: 1. Multiple pleural plaques, some of which are calcified consistent with the given history of asbestos exposure. 2. Stable right lower lobe pulmonary nodule. No new pulmonary nodules or suspicious lung masses. 3. Questionable early basilar fibrosis on the right. If further characterization is warranted, high-resolution CT with prone scan could be used. Dictated by: Nessa Deutsch M.D. on 06/16/2022 at 10:10 Approved by: Nessa Deutsch M.D. on 06/16/2022 at 10:19
== END ==
PROVIDERS: PCP Nurse Practitioner; Referring Provider Nurse Practitioner; Visit Provider Nurse Practitioner
DX: J92.9 Pleural plaque without asbestos (principal); R93.89 Abnormal findings on diagnostic imaging of other specified body structures; R91.1 Solitary pulmonary nodule
CPT/HCPCS: 71250

== ENCOUNTER → 2022-06-24 10:14 | Outpatient (CLI) | payer OTHER, SELFPAY | PROVIDERS: PCP Nurse Practitioner; Visit Provider Registered Nurse | DX: R30.0 Dysuria (principal) | CPT/HCPCS: 87086 ==

== ENCOUNTER → 2022-06-26 12:22 | Outpatient (CLI) | payer MEDICARE, SELFPAY ==
--- NOTE | 2022-06-26 | DI.CT.S_ITS ---
PROCEDURE: CT IVP A/P W/WO INDICATIONS: GROSS HEMATURIA TECHNIQUE: Optional 5 mm thick noncontrast images acquired from the diaphragm to the symphysis pubis. After the administration of intravenous contrast, 5 mm thick images acquired from the diaphragm to the symphysis pubis after a 10-minute delay. 2 mm thick coronal and sagittal reformats were then performed of the kidneys and ureters. For radiation dose reduction, the following was used: automated exposure control, adjustment of mA and/or kV according to patient size. COMPARISON: [facility], CT, CT CHEST WO CON, 06/16/2022, 8:35. FINDINGS: Image quality: Excellent. Lung bases: Lung bases are clear. Bilateral calcified pleural plaques are consistent with prior asbestos exposure. Heart size is normal. Urinary system: Both kidneys are normal in size, without hydronephrosis or nephrolithiasis on pre-contrast images. No perinephric fat stranding. There is normal bilateral renal enhancement. Renal calyces appear normal in morphology when filled with contrast. Opacified portions of both ureters demonstrate normal caliber. Bladder wall thickness is normal. No calcified bladder stones. Other solid organs: Liver is normal in size and enhancement. Gallbladder is unremarkable without calcified stones. . Biliary system is non dilated. Pancreas enhances normally. Spleen is normal in size and enhancement. No adrenal nodules. Peritoneum and bowel: Bowel loops demonstrate normal wall thickness and caliber. No free fluid or air. Sigmoid diverticulosis without evidence of diverticulitis. Nodes and vessels: No retroperitoneal or mesenteric adenopathy by size criteria. Aorta and inferior vena cava are normal in size. Abdominal wall: No ventral hernias. Pelvis: No pathologic free pelvic fluid. No inguinal hernias or adenopathy. Uterus is present. There is a pessary in place. Bones: Lumbar degenerative change. No lytic or blastic bony lesions. No compression fractures. IMPRESSION: 1. No renal stones, ureteral stones, hydronephrosis, or evidence of malignancy. 2. Remote asbestos exposure. 3. Sigmoid diverticulosis. Dictated by: Rajeev Thompson M.D. on 06/26/2022 at 14:37 Approved by: Rajeev Thompson M.D. on 06/26/2022 at 14:43
[2022-06-26 13:03] LABS: BUN Creatinine Ratio 22.7 (6-22); Blood Urea Nitrogen 20 mg/dL (7-17); Estimated Glomerular Filt Rate > 60 mL/min (>60)
[2022-06-26 15:00] LABS: Appearance Urine UA CLEAR; Bilirubin Urine UA NEGATIVE (NEGATIVE); Color Urine UA YELLOW; Glucose Urine UA NEGATIVE (Negative); Ketones Urine UA NEGATIVE (NEGATIVE); Leukocyte Esterase Urine UA 3+ (NEGATIVE); Nitrite Urine UA NEGATIVE (Negative); Occult Blood Urine UA 3+ (Negative); Protein Urine UA NEGATIVE (Negative); Specific Gravity Urine UA <=1.005 (1.000-1.035); Urobilinogen Urine UA 0.2 E.U./dL (0.2)
[2022-06-26 15:06] LABS: RBC Urine 10-30/HPF (0-5/HPF); WBC Urine 10-30/HPF (0-5/HPF)
[2022-06-26 15:07] LABS: Bacteria Urine None Seen; Culture Indicated Urine Specimen Cultured; Squamous Epithelial Cell Urine 1-5 /HPF (0-5/HPF)
== END ==
PROVIDERS: Family Medicine; PCP Nurse Practitioner; Referring Provider Physician Assistant Medical; Visit Provider Physician Assistant Medical
DX: R31.0 Gross hematuria (principal); K57.30 Diverticulosis of large intestine without perforation or abscess without bleeding; Z77.090 Contact with and (suspected) exposure to asbestos
CPT/HCPCS: 36415; 74178; 81001; 82565; 84520; 87077; 87086; Q9967

== ENCOUNTER → 2022-07-15 11:09 | Outpatient (CLI) | payer MEDICARE, SELFPAY | PROVIDERS: PCP Nurse Practitioner; Referring Provider Nurse Practitioner; Visit Provider Nurse Practitioner | DX: T19.2XXA Foreign body in vulva and vagina, initial encounter (principal) ==

== ENCOUNTER → 2022-07-31 10:59 | Outpatient (CLI) | payer MEDICARE, SELFPAY ==
[2022-07-31 14:07] LABS: COVID19 -Nasal RAPID Negative (Negative)
== END ==
PROVIDERS: PCP Family Medicine; Visit Provider Surgery
DX: Z20.822 Contact with and (suspected) exposure to COVID-19 (principal); Z01.812 Encounter for preprocedural laboratory examination
CPT/HCPCS: 87635; C9803

== ENCOUNTER 2022-08-03 09:46 | Day surgery (SDC) | payer MEDICARE, SELFPAY ==
--- NOTE | 2022-08-03 10:18 | PM.HP.1 ---
History of Present Illness History of Present Illness Date Patient Seen: 08/03/22 Chief complaint: DX COLONOSCOPY Narrative: 82-year-old female seen by Dr. Stewart on 05/26/2022 for rectal bleeding, who is here for further evaluation. She has a history of tubular adenoma removed in 2017 Patient History Medical History (Updated 08/03/22 @ 10:16 by Natalie Oropeza, RN) Breast cancer Hematuria of unknown etiology Hypothyroidism Left knee pain Neuropathy of both feet Numbness and tingling in right hand Osteoarthritis Osteopenia Osteoporosis Right knee pain Urinary incontinence Urinary leakage Vaginal atrophy Well adult exam Family & Social History Family History Sister Cancer Tobacco & Substance use: Smoking Status Former smoker alcohol intake current alcohol intake frequency 0-2 drinks per day Substance Use Type does not use Meds Home Medications and Allergies Home Medications Medication Instructions Recorded Confirmed Type arnica 20 % topical tincture ea topical 03/04/22 07/27/22 History coenzyme Q10 2 cap PO DAILY 03/04/22 07/27/22 History inositol 2 tab PO 03/04/22 07/27/22 History meloxicam 7.5 mg tablet 7.5 mg PO DAILY 03/04/22 07/27/22 History omega-3 fatty acids [Fish Oil] PO 03/04/22 07/27/22 History vitamin D3-vitamin K2 (MK4) PO 03/04/22 07/27/22 History vitamins A,C,F-tein-tziujd 1 cap PO BID 03/04/22 07/27/22 History [PreserVision AREDS] levothyroxine 50 mcg tablet See Rx Instructions .Route 05/14/22 07/27/22 Rx .COMPLEX #90 tabs B12 See Rx Instructions .Route .COMPLEX 05/28/22 07/27/22 History Biotin or Therabreath See Rx Instructions .Route .COMPLEX 05/28/22 07/27/22 History Max Ox See Rx Instructions .Route .COMPLEX 05/28/22 07/27/22 History Trospium See Rx Instructions .Route .COMPLEX 05/28/22 07/27/22 History docusate sodium 100 mg capsule 200 mg PO BID 05/28/22 07/27/22 History (Colace) trospium 20 mg tablet 20 mg PO BID 05/28/22 07/27/22 History turmeric PO 05/28/22 07/27/22 History estradiol 10 mcg vaginal tablet 10 mcg vaginal DAILY 90 days #45 06/01/22 07/27/22 Rx tabs Allergies Allergy/AdvReac Type Severity Reaction Status Date / Time No Known Drug Allergies Allergy Verified 08/03/22 10:18 Exam Narrative Exam Narrative: General: Patient is well developed, not in apparent distress Cardiovascular: Regular rate and rhythm, no murmurs, rubs, or gallops; no evidence of edema; no palpable abdominal aortic aneurysm Gastrointestinal: Normoactive bowel sounds, soft, nontender, nondistended, no rebound tenderness, no hepatosplenomegaly, no evidence of hernia Assessment & Plan Assessment & Plan narrative: 82-year-old female with a history of colon polyps and rectal bleeding who is here for further evaluation Regarding the procedure(s), the risks and potential complications, benefits, and alternatives (including not doing the procedure) were discussed with the patient. The risks include but are not limited to bleeding, splenic injury, infection, perforation which may require surgical intervention, missed lesions, and adverse reactions to sedative medicines. After a question and answer period, the patient agreed to proceed with the procedure(s) and gives informed consent. Time Spent With Patient Critical Care time: I spent a total of [] minutes of critical care time on this patient's care today; this time is exclusive of procedural time.
[2022-08-03 10:32] VITALS: BP 98/54; PULSE 84; RESP 16; TEMP 36.2; O2SAT 95; BMI 23.3
--- NOTE | 2022-08-03 11:00 | SUR.PREOP ---
Pt was not given bowl prep for colonoscopy procedure. MD has spoken with patient and procedure is to be rescheduled at this time. No IV started or medications given during this visit.
--- NOTE | 2022-08-03 11:07 | PM.HP.1 ---
History of Present Illness History of Present Illness Date Patient Seen: 08/03/22 Chief complaint: DX COLONOSCOPY Narrative: The patient did not take a colon prep and hence her procedure will be rescheduled Patient History Medical History (Updated 08/03/22 @ 10:16 by Natalie Oropeza RN) Breast cancer Hematuria of unknown etiology Hypothyroidism Left knee pain Neuropathy of both feet Numbness and tingling in right hand Osteoarthritis Osteopenia Osteoporosis Right knee pain Urinary incontinence Urinary leakage Vaginal atrophy Well adult exam Family & Social History Family History Sister Cancer Social History: household members none Tobacco & Substance use: Smoking Status Former smoker alcohol intake current alcohol intake frequency 0-2 drinks per day Substance Use Type does not use Meds Home Medications and Allergies Home Medications Medication Instructions Recorded Confirmed Type arnica 20 % topical tincture ea topical 03/04/22 07/27/22 History coenzyme Q10 2 cap PO DAILY 03/04/22 07/27/22 History inositol 2 tab PO 03/04/22 07/27/22 History meloxicam 7.5 mg tablet 7.5 mg PO DAILY 03/04/22 07/27/22 History omega-3 fatty acids [Fish Oil] PO 03/04/22 07/27/22 History vitamins A,C,C-zusb-ycwanf 1 cap PO BID 03/04/22 07/27/22 History [PreserVision AREDS] levothyroxine 50 mcg tablet See Rx Instructions .Route 05/14/22 07/27/22 Rx .COMPLEX #90 tabs B12 See Rx Instructions .Route .COMPLEX 05/28/22 07/27/22 History Biotin or Therabreath See Rx Instructions .Route .COMPLEX 05/28/22 07/27/22 History Trospium See Rx Instructions .Route .COMPLEX 05/28/22 07/27/22 History docusate sodium 100 mg capsule 200 mg PO BID 05/28/22 07/27/22 History (Colace) trospium 20 mg tablet 20 mg PO BID 05/28/22 07/27/22 History turmeric PO 05/28/22 07/27/22 History estradiol 10 mcg vaginal tablet 10 mcg vaginal DAILY 90 days #45 06/01/22 07/27/22 Rx tabs Allergies Allergy/AdvReac Type Severity Reaction Status Date / Time No Known Drug Allergies Allergy Verified 08/03/22 10:18 Exam Vital Signs (past 8 hours): - 08/03/22 10:32 Temperature 97.1 F L Pulse Rate 84 Respiratory Rate 16 Blood Pressure 98/54 L Pulse Oximetry 95 Oxygen Delivery Method Room Air Oxygen Delivery Method Room Air Assessment & Plan Time Spent With Patient Critical Care time: I spent a total of [] minutes of critical care time on this patient's care today; this time is exclusive of procedural time.
== END 2022-08-03 09:50 | disposition home or self-care (01) ==
LOC: ENDO 09:48
PROVIDERS: PCP Nurse Practitioner; Referring Provider Internal Medicine Gastroenterology; Visit Provider Internal Medicine Gastroenterology

== ENCOUNTER → 2022-08-25 | Outpatient (CLI) | payer MEDICARE, SELFPAY ==
--- NOTE | 2022-08-25 | DI.MG.S_ITS ---
BILATERAL DIGITAL SCREENING MAMMOGRAM 3D/2D WITH CAD: 08/25/2022 CLINICAL: Routine screening. Personal history of right breast cancer. Family history of breast cancer. Comparison is made to exams dated: 08/21/2021 mammogram, 07/15/2020 mammogram, and 06/15/2019 mammogram - [facility]. There are scattered areas of fibroglandular density in both breasts (category b / 25%-50% glandular tissue). Current study was also evaluated with a Computer Aided Detection (CAD) system. There are benign calcifications in both breasts. There also are benign vascular calcifications in both breasts. Additionally, there are benign post operative findings in the right breast. No significant masses, calcifications, or other findings are seen in either breast. There has been no significant interval change. IMPRESSION: BENIGN There is no mammographic evidence of malignancy. A 1 year screening mammogram is recommended. This exam was interpreted at Station ID: [id number]. NOTE: For mammograms, a report in lay terms will be sent to the patient. Approximately 15% of breast malignancies will not be visualized mammographically. In the management of a palpable breast mass, a negative mammogram must not discourage biopsy of a clinically suspicious lesion. Electronically Signed By: Nessa patel/anum:08/25/2022 11:21:09 letter sent: Normal Exam ACR BI-RADS Category 2: Benign Finding(s) 3342F
== END ==
PROVIDERS: PCP Nurse Practitioner; Referring Provider Nurse Practitioner; Visit Provider Nurse Practitioner
DX: Z12.31 Encounter for screening mammogram for malignant neoplasm of breast (principal); Z85.3 Personal history of malignant neoplasm of breast; Z80.3 Family history of malignant neoplasm of breast
CPT/HCPCS: 77063; 77067

== ENCOUNTER → 2022-08-28 13:21 | Outpatient (CLI) | payer MEDICARE, SELFPAY ==
[2022-08-28 14:26] LABS: COVID19 -Nasal RAPID Negative (Negative)
== END ==
PROVIDERS: PCP Nurse Practitioner; Visit Provider Surgery
DX: Z01.812 Encounter for preprocedural laboratory examination (principal); Z20.822 Contact with and (suspected) exposure to COVID-19
CPT/HCPCS: 87635; C9803

== ENCOUNTER 2022-08-31 07:19 | Day surgery (SDC) | payer MEDICARE, SELFPAY ==
--- NOTE | 2022-08-31 07:58 | P.HP_ITS ---
History of Present Illness History of Present Illness Date Patient Seen: 08/31/22 Time Patient Seen: 07:58 Chief complaint: COLONOSCOPY W/POSS BX Narrative: Personal history of colon polyps. I reviewed my recent office note. The bleeding has ceased since removal of her pessary. Patient History Medical History Breast cancer Hematuria of unknown etiology Hypothyroidism Left knee pain Neuropathy of both feet Numbness and tingling in right hand Osteoarthritis Osteopenia Osteoporosis Right knee pain Urinary incontinence Urinary leakage Vaginal atrophy Well adult exam Family & Social History Family History Sister Cancer Social History: household members none Tobacco & Substance use: Smoking Status Former smoker alcohol intake current alcohol intake frequency 0-2 drinks per day Substance Use Type does not use Meds Home Medications and Allergies Home Medications Medication Instructions Recorded Confirmed Type arnica 20 % topical tincture 1 ea topical 3XW 03/04/22 08/05/22 History coenzyme Q10 2 cap PO DAILY 03/04/22 08/05/22 History inositol 2 tab PO 03/04/22 08/05/22 History meloxicam 7.5 mg tablet 7.5 mg PO DAILY 03/04/22 08/05/22 History omega-3 fatty acids [Fish Oil] PO 03/04/22 08/05/22 History vitamins A,C,A-tczs-aokjhn 1 cap PO DIRECTED 03/04/22 08/05/22 History [PreserVision AREDS] levothyroxine 50 mcg tablet See Rx Instructions .Route 05/14/22 08/05/22 Rx .COMPLEX #90 tabs B12 PO 1XD 05/28/22 08/05/22 History Biotin or Therabreath PO 1XD 05/28/22 08/05/22 History Trospium See Rx Instructions .Route .COMPLEX 05/28/22 08/05/22 History docusate sodium 100 mg capsule 200 mg PO BEDTIME 05/28/22 08/05/22 History (Colace) trospium 20 mg tablet 20 mg PO BID 05/28/22 08/05/22 History turmeric PO 05/28/22 08/05/22 History estradiol 10 mcg vaginal tablet 10 mcg vaginal DAILY 90 days #45 06/01/22 08/05/22 Rx tabs Allergies Allergy/AdvReac Type Severity Reaction Status Date / Time No Known Drug Allergies Allergy Verified 08/03/22 10:18 Review of Systems Review of Systems ROS: Yes All systems reviewed with the patient and are negative except as otherwise documented Exam Const General: cooperative HENMT Head: normal to inspection Eyes General: appearance normal, both eyes and all related structures Neck Neck: normal visual inspection Chest Chest: normal inspection of the chest Resp Effort & Inspection: normal respiratory effort Cardio Rate: regular rate GI Inspection: normal to inspection Skin General: no rashes or lesions noted Neuro General: patient alert and patient awake Extrem General: normal to inspection and no pedal edema Psych Appearance: grossly normal Assessment & Plan Assessment & Plan narrative: 82-year-old female with a personal history of colon polyps and recent GI bleedin g/change in bowel habit. Colonoscopy is pursued today. Time Spent With Patient Critical Care time: I spent a total of [] minutes of critical care time on this patient's care today; this time is exclusive of procedural time.
[2022-08-31 08:00] VITALS: BP 99/63; PULSE 83; RESP 14; TEMP 37.2; O2SAT 99; BMI 24.7
--- NOTE | 2022-08-31 08:00 | PM.PREOP ---
Pre-operative Note COVID-19 COVID-19 status: Negative Result date/Date tested (Pos, Neg/Pending): 08/28/22 Criteria for continued procedure: Possibility delay results in more complex future surgery or treatment Interval Note History & Physical reviewed/Exam performed by Physician: Yes Changes to H&P: No ASA Class (for procedural sedation): II
[2022-08-31] MEDS: LACTATED RINGERS 1,000 ML 42 ML IV (08:20)
--- NOTE | 2022-08-31 08:58 | P.OP.COLON_ITS ---
Operative Date/Time/Diagnoses Date of procedure: 08/31/22 Time of procedure: 08:58 Pre-op diagnosis: Personal history of colon polyps, change in bowel habit, rectal bleeding. Post-op diagnosis: same Procedure & Clinicians Study performed: Colonoscopy Same procedure as scheduled: Yes Indications: Personal history of colon polyps, change in bowel habit, rectal bleeding. Surgeon: Alex Setwart Procedure Notes SCOAP/Timeout: Done Procedure in detail: After the risks and benefits were explained, written and verbal informed consent was obtained. The patient was brought into the procedure room and placed into the left lateral decubitus position. Please see nurse cut off saw operator notes for sedation details. Digital rectal examination was accomplished. The scope was introduced into the patient and advanced under direct visualization to the cecum as identified by the appendiceal orifice and ileocecal valve. The scope was slowly withdrawn to carefully examine the mucosa for any defects or lesions. Comprehensive imaging was accomplished throughout the rectum including the dentate line. The colon was decompressed, the scope was then removed from the patient who tolerated the procedure well. Pediatric colonoscope Bowel prep adequate Scope withdrawal time: 6 minutes Sedation minutes: 23 Specimen(s): none sent Complications: none Impression: Very tortuous colon. Challenging navigation. Scattered diverticulosis encountered throughout the sigmoid. On digital exam grade 3 to grade 4 hemorrhoids nonthrombosed nonbleeding were noted. No significant mass lesions or polyps identified throughout. Endoscopic diagnosis 1. Grade 3 to grade 4 hemorrhoids 2. Diverticulosis 3. Twisty colon Post-procedure Plan for aftercare: 1. Continue fiber based bowel regimen 2. Follow up GI clinic any time as needed. Disposition: PACU
[2022-08-31 08:59] VITALS: BP 123/69; PULSE 71; RESP 14; TEMP 36.6; O2SAT 98
[2022-08-31 09:04] VITALS: BP 81/52; PULSE 79; RESP 14; O2SAT 98
[2022-08-31 09:09] VITALS: BP 102/66; PULSE 80; RESP 14; O2SAT 98
[2022-08-31 09:22] VITALS: BP 106/67; PULSE 71; RESP 16; TEMP 36.6; O2SAT 98
[2022-08-31 09:30] VITALS: BP 114/79; PULSE 68; RESP 16; O2SAT 98
== END 2022-08-31 09:39 | disposition home or self-care (01) ==
PROVIDERS: PCP Nurse Practitioner; Referring Provider Internal Medicine Gastroenterology; Visit Provider Internal Medicine Gastroenterology
PROC: 0DJD8ZZ Inspection of Lower Intestinal Tract, Via Natural or Artificial Opening Endoscopic (ICD-10-PCS; CPT 45378; principal; 2022-08-31 08:30)
DX: K62.5 Hemorrhage of anus and rectum (principal); R19.4 Change in bowel habit; Z86.010 Personal history of colon polyps; K64.2 Third degree hemorrhoids; K57.30 Diverticulosis of large intestine without perforation or abscess without bleeding
CPT/HCPCS: 45378; J2704